=== PATIENT | male | born 1950 | race Caucasian/White ===

== ENCOUNTER 2024-08-03 10:52 | Inpatient (IN) | payer MEDICARE, OTHER, SELFPAY ==
[2024-07-31] VITALS (7 sets, daily range): BP systolic 117–162; BP diastolic 70–131; BMI 15.4
[2024-07-31 11:41] LABS: % Basophils 0.7 % (0-2); % Eosinophils 3.2 % (0-6); % Immature Granulocytes 0.1 % (0-0.5); % Lymphocytes 15.4 % (20.5-51.1); % Monocytes 7.5 % (1.7-9.3); % Neutrophils 73.1 % (42.2-75.2); Absolute Basophils 0.1 10^3/uL (0-0.2); Absolute Eosinophils 0.2 10^3/uL (0-0.7); Absolute Lymphocytes 1.2 10^3/uL (1.2-3.4); Absolute Monocytes 0.6 10^3/uL (0.1-0.6); Absolute Neutrophils 5.5 10^3/uL (1.4-6.5); Hematocrit 43.1 % (39.0-52.0); Hemoglobin 14.3 g/dL (13.0-18.0); Mean Corp Hgb Conc. 33.2 g/dL (33.0-37.0); Mean Corpuscular Hgb 30.3 pg (27.0-31.0); Mean Corpuscular Volume 91.3 fL (80.0-94.0); Mean Platelet Volume 9.8 fL (7.4-10.4); Nucleated Red Blood Cells % 0 % (-); Platelet Count 176 10^3/uL (130-400); Red Blood Cell Count 4.72 10^6/uL (4.70-6.10); Red Cell Dist. Width 13.6 % (11.5-14.5); White Blood Cell Count 7.5 10^3/uL (4.8-10.8)
[2024-07-31 12:02] LABS: ALT (SGPT) < 10 U/L (0-50); AST (SGOT) 17 U/L (17-59); Albumin 3.9 g/dl (3.5-5.0); Alkaline Phosphatase 62 U/L (38-126); Blood Urea Nitrogen 12 mg/dl (9-20); Calcium 9.1 mg/dl (8.4-10.2); Carbon Dioxide 25 mmol/L (22-30); Chloride 105 mmol/L (98-107); Glucose 89 mg/dl (70-99); Lipase 52 U/L (23-300); Potassium 4.8 mmol/L (3.5-5.1); Sodium 137 mmol/L (135-145); Total Bilirubin 0.8 mg/dl (0.2-1.3); Total Protein 6.4 g/dl (6.3-8.2); eGFR > 60.00
[2024-07-31 12:08] LABS: COVID-19 Antigen Negative (Negative)
[2024-07-31] MEDS: BENADRYL 12.5 MG IV (13:24)
[2024-07-31] MEDS: SOLU-CORTEF 200 MG IV (13:24)
--- NOTE | 2024-07-31 15:26 | ED.GENMED ---
History of Present Illness
General
Chief Complaint: Abdominal Pain
Time Seen by Provider: 07/31/24 12:33
History of Present Illness
History of Present Illness:
74-year-old male presents to the emergency department from [facility] for evaluation of abdominal pain and loose stools for the past several days. Also reported as a nonproductive cough. Has baseline aphasia secondary to a
prior stroke.
Past History
Past History
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
ED Past Surgical History: Cardiac (Defibrillator/pacemaker) and Other (Treatment for a pneumothorax, history of surgery on the left arm from a saw injury where the hand was cut and apparently reattached)
Social History
Tobacco: Smoker
Alcohol: Chronic alcoholic
Drug: None
Personal: Single
Living: other (With friend)
Employment: Disabled
Family History
Family History: Negative Early CAD
Review of Systems
Review of Systems
Allergies reviewed?: Yes
All Other Systems: ROS reviewed and negative except as documented in HPI and ROS
Phy Exam
Physical Exam
Physical Exam:
GEN: Well appearing, NAD, WDWN
HEENT: Oral mucosa moist, no scleral icterus
Cardiac: Regular rate
Lung: No respiratory distress, no tachypnea
Abdomen: Soft, severe tenderness to all 4 quadrants, no rigidity
MSK: No gross deformity or injuries
Skin: Good color, no pallor or jaundice, no rashes
Neuro: AO x3, moves all extremities freely
Psych: Calm, cooperative
Course
Orders/Labs/Results
Orders:
Orders
07/31/24 11:25
COVID-19 Antigen Urgent
Source: Nasal Swab
Complete Blood Count/With Diff Urgent
Comprehensive Metabolic Panel Urgent
Lipase Urgent
Influenza A+B Rapid Molecular Urgent
ADITYA Source: Nasal Swab
Specimen Description:
07/31/24 13:00
CT Abd/Pel (IV only)-DH only Urgent
Comment:
Reason For Exam: diffuse abd pain
07/31/24 13:21
Diphenhydramine [Benadryl] 12.5 mg IV NOW STA
Hydrocortisone Sod Succinate [Solu-Cortef] 200 mg IV NOW STA
07/31/24 15:27
0.9% Sodium Chloride 1000 ml [Nss] 1,000 ml IV BOLUS
HYDROmorphone [Dilaudid] 0.25 mg IV NOW STA
Piperacillin/Tazo 3.375 Gram [Zosyn] 3.375 gram in 50 ml IV NOW
Abnormal Lab Results
07/31/24
11:25
Lymphocytes % 15.4 L %
(20.5-51.1)
07/31/24 11:25
07/31/24 11:25
Vital Signs
Initial and Last Documented VS:
Initial Vital Signs
Temp Pulse Resp BP Pulse Ox
98.8 F 99 16 133/84 99
07/31/24 11:14 07/31/24 11:14 07/31/24 11:14 07/31/24 11:14 07/31/24 11:14
Last Documented Vital Signs
Temp Pulse Resp BP Pulse Ox
98.8 F 99 16 117/103 99
07/31/24 11:14 07/31/24 11:14 07/31/24 11:14 07/31/24 14:00 07/31/24 11:14
MDM/Problems Addressed
MDM/Problems Addressed:
Imaging reveals enteritis likely the cause of the patient's acute symptoms. Incidentally he is noted to have a partially obstructing mass in the ascending colon, will admit for colorectal surg evaluation
*Critical Care Note
Total Time (30-74mins, 75-104mins- exclusive of procedures): Not Applicable
Update Note
Update Note:
I informed the patient of his CAT scan findings including the colonic mass. I offered to contact family to inform them however he shook his head 'no' when I suggested this
ED Attending Note
-
Portions of this chart may have been created with voice recognition software.� Occasional wrong word or��sound alike� substitutions may have occurred due to the inherent limitations of voice recognition software.
Discharge Plan
Departure
Patient Disposition: Admit
Date of Disposition: 07/31/24
Time of Disposition: 15:28
Presentation/result/management discussed w/ accepting MD/DO: Hospitalist
Discharge Problem:
Enteritis, Colonic mass
Prescriptions:
No Action
carvedilol 6.25 MG tablet
6.25 mg PO BID 0RF
atorvastatin 20 MG tablet
20 mg PO QPM 0RF
aspirin 81 MG tablet,delayed release (DR/EC)
81 mg PO DAILY 0RF
dextromethorphan-guaifenesin 10 ML syrup
10 ml PO Q6HPRN PRN (Reason: cough)
bisacodyl [OneLAX Bisacodyl] 10 MG suppository
10 mg UT DAILYPRN PRN (Reason: constipation)
albuterol sulfate 2.5 MG/3 ML solution for nebulization
2.5 mg inhalation R Q4HPRN PRN (Reason: shortness of breath) 0RF
prednisone 20 MG tablet
40 mg PO DAILY 0RF
tramadol 50 MG tablet
25 mg PO Q6HPRN PRN (Reason: severe pain) Qty: 10 0RF
pantoprazole 40 MG tablet,delayed release (DR/EC)
40 mg PO DAILY 0RF
lisinopril 5 MG tablet
5 mg PO DAILY 0RF
dextromethorphan-guaifenesin 10 ML syrup
10 ml PO Q6HPRN PRN (Reason: cough )
acetaminophen [Tylenol] 325 MG capsule
650 mg PO Q6HPRN PRN (Reason: mild pain)
Referrals:
Nahid Thompson DO [Family Provider] -
Interventions
Interventions:
*Risk Screen - Suicide Last Done: 07/31/24 11:17
*General Assessment Last Done: 07/31/24 12:22
*Neglect/Abuse Screening Last Done: 07/31/24 11:17
*ED COVID-19 Vaccine History Last Done: 07/31/24 12:22
YR-Fjbwga-Vxcxhdorbz Assessment Last Done: 07/31/24 12:22
Discharge Date and Time
Print Language: HUNGARIAN
--- NOTE | 2024-07-31 15:35 | HPS.HSE ---
Family Physician
-
Family Physician: Nahid Thompson
Chief Complaint
-
abdominal pain
History of Present Illness
Patient is a 74-year-old male with past medical history significant for HFrEF, hypertension, ventricular tachycardia, depression and ETOH dependency who presented to [facility] ED for evaluation of abdominal pain. Patient with expressive
aphasia, and assessment limited as he would not verbally respond to questioning. ED reports that facility stated patient with abdominal pain and loose stools for past several days. Patient denies loose stools but is agreeable with abdominal pain.
Patient denies any other symptoms to this provider.
Medical History
Past Medical History
Past Medical History: Reports Other
Additional Past Medical History:
HFrEF
hypertension
ventricular tachycardia
depression
ETOH dependency
Hx CVA
Past Surgical History: Reports Other
Additional Past Surgical History:
AICD placement
appendectomy
BiV ICD
hand cut and reattached
Social History
Tobacco: Smoker (a few a day )
Alcohol: None
Drug: None
Personal: Single
Living: Other (assisted )
Family History
Family History: Not pertinent and Unable to Obtain
Allergies / Home Medications
Allergies reflects when Allergies were last updated in [employer].
Home Medications with original date entered in [employer]
Allergy/Medication List:
Allergies
Allergy/AdvReac Type Severity Reaction Status Date / Time
codeine Allergy Rash Verified 09/01/18 10:04
Iodinated Contrast Media Allergy Rash Verified 09/01/18 10:04
[IV Dye, Iodine Containing]
iodine Allergy Hives/RASH Verified 09/01/18 10:04
Home Medications
lisinopril 30 mg tablet 30 mg PO DAILY 07/31/24
Review of Systems
-
History Source: Patient
Constitutional: Reports No Symptoms
EENT: Reports No Symptoms
Respiratory: Reports No Symptoms
Cardiac: Reports No Symptoms
Abdomen/GI: Reports Abdominal Pain
: Reports No Symptoms
Musculoskeletal: Reports No Symptoms
Skin: Reports No Symptoms
Neurological: Reports No Symptoms
Endocrine: Reports No Symptoms
Hematologic/Lymphatic: Reports No Symptoms
Psych: Reports No Symptoms
Physical Exam
Vital Signs
Vital Signs
Temp Pulse Resp BP Pulse Ox
98.8 F 99 16 117/103 99
07/31/24 11:14 07/31/24 11:14 07/31/24 11:14 07/31/24 14:00 07/31/24 11:14
Physical Exam
General: Well Developed, Well Nourished and Pain
HEENT: NormoCephalic, Moist mucous membranes, Atraumatic, [place] Conjunctivae, Nose Appears Normal and Ears Appear Normal
Respiratory: Clear and Non Labored Respirations
Cardiac: S1/S2 and Regular Rhythm; No Murmur, Rub or Gallop
Breast: Deferred by me
GI: Soft, Non Distended, Normal Bowel Sounds and Tender; No Organomegaly
Rectal: Deferred by Provider
Genito-urinary: Deferred by me
Musculoskeletal: No Clubbing, No Cyanosis and No Edema
Skin: Warm and IV/Catheter Site; No Rash
Neuro: Awake, Alert and Nonfocal/grossly intact
Psych: Calm
Laboratory Results
-
07/31/24 11:25
07/31/24 11:25
Laboratory Results
Total Bilirubin 0.8 mg/dl (0.2-1.3) 07/31/24 11:25
AST 17 U/L (17-59) 07/31/24 11:25
ALT < 10 U/L (0-50) 07/31/24 11:25
Alkaline Phosphatase 62 U/L (38-126) 07/31/24 11:25
Lipase 52 U/L (23-300) 07/31/24 11:25
Data Reviewed
-
CT Scan: Report Reviewed by me (Abd/Pelvis: 1. Prominent bowel wall thickening and mucosal hyperenhancement within the distal ileum, consistent with severe enteritis. 2. Focal area of bowel wall thickening and narrowing within the ascending colon
adjacent to the hepatic flexure, highly concerning for colon carcinoma. There is feca)
Lab Data: Labs Reviewed by me
Impression/Plan
-
IMPRESSION/PLAN:
#enteritis
Abd/Pelvis CT: 1. Prominent bowel wall thickening and mucosal hyperenhancement within the distal ileum, consistent with severe enteritis.
2. Focal area of bowel wall thickening and narrowing within the ascending colon adjacent to the hepatic flexure, highly concerning for colon carcinoma. There is fecal retention within the cecum located upstream,
consistent with partial colonic obstruction. Further evaluation is recommended with colonoscopy.
3. Small amount of abdominal pelvic ascites, likely reactive. No evidence of abscess formation.
- admit to med/surg for observation
- consult colorectal
- clear liquid diet
- IVF
- tramadol for pain
#hypertension
- continue lisinopril
#HFrEF
#ventricular tachycardia
#depression
#ETOH dependency
#Hx CVA
Code status: Full code
DVT prophylaxis: Lovenox sq
[2024-07-31] MEDS: NSS 1000 IV ×2 (15:39→17:26)
[2024-07-31] MEDS: DILAUDID 0.25 MG IV (15:40)
[2024-07-31] MEDS: ZOSYN 50 IV (15:41)
--- NOTE | 2024-07-31 16:14 | W.PN.UPDATE ---
Addendum entered and electronically signed by Esdras Guidry MD 07/31/24 16:21:
There is also suprapubic fullness. Will get a bladder scan and straight cath if greater than 450 cc.
Could be retaining due to colonic mass/partial obstruction
Digital clubbing on exam was also noted
Original Note:
Update Note
Progress Note Update
74 male history of aphasia after left-sided MCA CVA and associated right-sided hemiplegia, hypertension, midrange heart failure with a EF of 45 to 50% who presents with a 3-day history of abdominal pain. Per the ER associated diarrhea however he
denied this and shakes his head to having normal bowel movements. Denies nausea vomiting. He states he has lost about 30 pounds in 1 year. Admits to having 12/10 pain. Difficult for him to to tell me if this was sharp or dull electric constant
intermittent due to his expressive aphasia. Most of this exam was conducted by him shaking his head yes and no and gesturing with his fingers numbers.
CTAP:
IMPRESSION:
1. Prominent bowel wall thickening and mucosal hyperenhancement within the distal ileum, consistent with severe enteritis.
2. Focal area of bowel wall thickening and narrowing within the ascending colon adjacent to the hepatic flexure, highly concerning for colon carcinoma. There is fecal retention within the cecum located upstream, consistent with partial colonic
obstruction. Further evaluation is recommended with colonoscopy.
3. Small amount of abdominal pelvic ascites, likely reactive. No evidence of abscess formation.
Thin, cachectic, frail, nontoxic appearing
scleral Anicteric
MMM
No JVD
CTABL
RRR, S1/S2
Soft, left lower quadrant tenderness, jumping out of bed when left lower quadrant palpated and this is after 0.25 of Dilaudid given to him in the ER, ND, BS+
Warm, Dry
?Colonic obstruction but not outlet, potentially partial
Enteritis however denies diarrhea
Clear liquid diet
IV fluids
Analgesic
Check lactic
Colorectal surgery to eval
Likely will need C-scope
COVID and flu negative
[2024-07-31] MEDS: LOVENOX 40 MG SC (17:33)
--- NOTE | 2024-07-31 17:47 | CON.CRS ---
Consultation
-
Reason for Consultation: Enteritis, right colon mass
Medical History
-
History of Present Illness:
74-year-old male with PMH of CHF (last echo 2022 EF 45-50%, mild global hypokinesis), cardiomyopathy, CAD, HTN, CVA 2016 (right hemiparesis, expressive aphasia), pneumothorax s/p thoracic surgery who presents from group facility with 3 days of
abdominal pain. Due to expressive aphasia, patient only able to answer yes/no with shaking head, so some of history obtained from the chart. He denies any nausea or vomiting. He denies any diarrhea, but did have a BM today without blood. Denies
any other issues. In the ED, his labs were unremarkable. His CT was done showing terminal ileitis as well as right ascending wall thickening concerning for colonic mass without significant proximal dilation, but some retained stool within the
cecum concerning for partial obstruction.
Past Medical History
Past Medical History: Other (As above)
Past Surgical History: Other (Left thoracotomy with wedge resection, AICD placement, right hand trauma s/p reconstruction, appendectomy 2010)
Social History
Tobacco: Smoker
Alcohol: None
Drug: None
Living: Other ([facility])
Family History
Family History: Reviewed & Not Pertinent
Allergies / Home Medications
Allergy/AdvReac Type Severity Reaction Status Date / Time
codeine Allergy Rash Verified 09/01/18 10:04
Iodinated Contrast Media Allergy Rash Verified 09/01/18 10:04
[IV Dye, Iodine Containing]
iodine Allergy Hives/RASH Verified 09/01/18 10:04
�Medication �Instructions �Recorded �Confirmed �Type
lisinopril 30 mg tablet 30 mg PO DAILY 07/31/24 07/31/24 History
Review of Systems
-
A 10 point review of systems was completed, and was negative except as per HPI.
Physical Exam
Vital Signs
Temp 97.8 F 07/31/24 17:21
Pulse 101 07/31/24 17:21
Resp Rate 18 07/31/24 17:21
Blood pressure 155/82 07/31/24 17:21
SaO2 99 07/31/24 17:21
07/30/24 07/31/24 08/01/24
06:59 06:59 06:59
Actual Weight 51.483 kg
Body Mass Index (BMI) 15.4
Lab Results / Allergies
07/31/24 11:25
07/31/24 11:25
WBC 7.5 10^3/uL (4.8-10.8) 07/31/24 11:
Hgb 14.3 g/dL (13.0-18.0) 07/31/24 11:25
Hct 43.1 % (39.0-52.0) 07/31/24 11:25
Plt Count 176 10^3/uL (130-400) 07/31/24 11:25
Abs Immat Gran (auto) 0.0 10^3/uL (0-0.05) 07/31/24 11:25
Neutrophils % 73.1 % (42.2-75.2) 07/31/24 11:25
Allergy/AdvReac Type Severity Reaction Status Date / Time
codeine Allergy Rash Verified 09/01/18 10:04
Iodinated Contrast Media Allergy Rash Verified 09/01/18 10:04
[IV Dye, Iodine Containing]
iodine Allergy Hives/RASH Verified 09/01/18 10:04
Physical Exam
General: Well Developed, No Apparent Distress and Other (Under nourished)
HEENT: Normocephalic and Atraumatic
Respiratory: Non Labored Respirations
GI: Soft, Non Distended and Tender (Moderately tender in the bilateral lower quadrants associated with guarding but no rebound, nontender in the upper quadrants)
Skin: Warm, Dry and Other
Neuro: Alert and Other (Somewhat contracted right upper extremity with missing digits, decreased range of motion of RLE; able to verbalize a few words but otherwise communicates with shaking head yes/no)
Assessment / Plan
-
74-year-old male with PMH of CHF (last echo 2022 EF 45-50%, mild global hypokinesis), cardiomyopathy, CAD, HTN, CVA 2016 (right hemiparesis, expressive aphasia), pneumothorax s/p thoracic surgery who presents from group facility with 3 days of
abdominal pain. Due to expressive aphasia, patient only able to answer yes/no with shaking head, so some of history obtained from the chart. He denies any nausea or vomiting. He denies any diarrhea, but did have a BM today without blood. Denies
any other issues. In the ED, his labs were unremarkable. His CT was done showing terminal ileitis as well as right ascending wall thickening concerning for colonic mass without significant proximal dilation, but some retained stool within the
cecum concerning for partial obstruction.
�Acute enteritis, primarily distributed within the terminal ileum
�Differential includes infectious versus inflammatory, as well as ischemic; due to normal labs and clinical presentation, I suspect this is more likely related to an infectious enteritis
�Send stat lactate; if any evidence of clinical worsening, would obtain CTA abdomen/pelvis to rule out ischemic/embolic etiology
�Recommend n.p.o. with IVF, okay for sips
�Ascending colon mass
�Although proximal stool seen, cecum not significantly dilated (i.e.�less than 7 cm) and the patient is not having obstructive symptoms; therefore, this likely represents incidental finding as opposed to contributing to his current abdominal pain
�Patient will need colonoscopy as outpatient for diagnosis and biopsy, which I can coordinate on discharge
�Will order CEA for a.m. labs
� Pain control with Tylenol and tramadol
� DVT PPx with Lovenox
� Appreciate hospitalist
--- NOTE | 2024-07-31 18:05 | PTCARENOTE ---
Received patient from ED via stretcher. AAOx3, assisted to bed. Assessed and oriented to room. Call aponte instructed to use and in close reach. Will continue to monitor.
[2024-07-31] MEDS: LR 1000 IV (18:38)
[2024-07-31 20:35] LABS: Lactic Acid 1.1 mmol/L (0.7-2.0)
[2024-07-31] MEDS: TYLENOL 650 MG PO (21:04)
[2024-08-01] MEDS: LR 1000 IV ×2 (05:20→18:43)
--- NOTE | 2024-08-01 06:07 | PTCARENOTE ---
Pt keeps saying he doesn't have to go to the bathroom to void through the night. Pt refused bladder scan at this time.
[2024-08-01 07:35] VITALS: BP 160/87
[2024-08-01 08:14] LABS: Hematocrit 34.5 % (39.0-52.0); Hemoglobin 11.7 g/dL (13.0-18.0); Mean Corp Hgb Conc. 33.9 g/dL (33.0-37.0); Mean Corpuscular Hgb 30.3 pg (27.0-31.0); Mean Corpuscular Volume 89.4 fL (80.0-94.0); Mean Platelet Volume 10.5 fL (7.4-10.4); Platelet Count 152 10^3/uL (130-400); Red Blood Cell Count 3.86 10^6/uL (4.70-6.10); Red Cell Dist. Width 13.5 % (11.5-14.5); White Blood Cell Count 4.9 10^3/uL (4.8-10.8)
[2024-08-01] MEDS: ULTRAM 25 MG PO (08:33)
[2024-08-01] MEDS: ZESTRIL 30 MG PO (08:33)
[2024-08-01 08:39] VITALS: BMI 15.6
[2024-08-01 08:39] LABS: Blood Urea Nitrogen 15 mg/dl (9-20); Calcium 8.3 mg/dl (8.4-10.2); Carbon Dioxide 24 mmol/L (22-30); Chloride 105 mmol/L (98-107); Estimated Creatinine Clearance 54 ml/min; Glucose 92 mg/dl (70-99); Potassium 4.3 mmol/L (3.5-5.1); Sodium 137 mmol/L (135-145); eGFR > 60.00
[2024-08-01 09:02] LABS: CEA 1.05 ng/ml
--- NOTE | 2024-08-01 10:24 | CM ---
Addendum entered by Edna Chaparro 08/01/24 16:14:
CM spoke with psychiatry who is reviewing case. Patient son would be next of kin but per patient brother he has not been speaking to the son. CM will continue to try to assess options for support of patient.
Original Note:
Patient seen at bedside. Patient currently OBS but per physician is to be updated to [facility]. Patient lives at a snf and patient is independent of ambulation per patient brother but walks with a limp due to left side CVA. Patient brother states
that patient does not have a POA or Guardian at this time. Patient brother is aware that patient wanted to move to [place] to be closer to him but due to issues with [facility] they will not cover snf and patient did not want to go to a
long term. Patient brother indicated best number to reach him is [phone] and he is not speaking to patient son/nephew who are in chalnt.
Patient snf states that patient can return as long as he is at baseline. Machine Engraver name is Judith and she can be reached saturday- saturday [phone]. Patient snf nursing station is [phone]. CM spoke to the nurse there who
confirmed patient is his own POA and had been in a long term prior to transfer to the snf approx a year ago. CM updated nursing and will continue to follow for discharge planning needs.
Plan; return to snf vs SNF; pending medical treatment plan and PT/OT assessment
--- NOTE | 2024-08-01 11:45 | W.PN.HOSP.TC ---
Today's Communication/Plan
-
Assessment / Plan
Assessment / Plan
?Colonic obstruction but not outlet, potentially partial, but without obstructive symtpoms
Enteritis ingfectious vs inflam. lactic was <2, less likely ischemic, Pain seems better and no out of propotion therefore which makes ischemic bowel less likely
NPO for now
IV fluids
Analgesic
Check lactic
Colorectal surgery to eval
Likely will need C-scope, surgery will arrange when ready for DC
COVID and flu negative
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
Not on diuretics, Medication profile not consistent with HF.
IVF
Monitor volume status closely
Potentially would benefit from coreg. May consider adding if bp uncontrolled
HTN
Continue lisinopril
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
Not on asa/statin. I have asked pharmacy to complete an updated med rec
Normocytic anemia
Outpt PCP follow up
Age appropriate cancer screening
Does have a suspicious colonic mass
Anticipated Discharge: > 48 hours
Subjective/Interval History
-
Date of Service: August 01, 2024
Seen and examined. No new complaints. No acute overnight events.
7/10 abdominal pain however not jumping out of bed as he was yesterday
Objective Data
-
Labs:
Laboratory Results
08/01/24
07:07
WBC 4.9
Hgb 11.7 L
Hct 34.5 L
Plt Count 152
Sodium 137
Potassium 4.3
Chloride 105
Carbon Dioxide 24
BUN 15
Creatinine 0.9
Glucose 92
Calcium 8.3 L
Vital Signs:
Vital Signs
Temp Pulse Resp BP Pulse Ox
97.8 F 78 16 160/87 99
08/01/24 07:35 08/01/24 08:33 08/01/24 07:35 08/01/24 08:33 08/01/24 07:35
I&O
07/31/24 08/01/24 08/02/24
06:59 06:59 06:59
Intake Total 1220 / 1220
Balance 1220 / 1220
--- NOTE | 2024-08-01 12:06 | W.PN.CRS1 ---
Today's Communication / Plan
-
Gastrografin enema today.
CT chest.
Assessment/Plan
-
This is a 72-year-old male with a past medical history of CHF (last echo 2022 with an EF of 50%), CAD, hypertension, CVA 2016 with residual right hemiparesis and expressive aphasia which makes taking a history fairly difficult, who presents from his
facility with 3 days of abdominal pain and found to have a large near obstructing right-sided colonic mass with some retained stool in the cecum.
Given the size of the mass, social situation would likely pursue surgical resection this admission.
Will obtain a Gastrografin enema todayTEP certain whether he is truly of obstruction or not.
His CT abdomen does not show any signs of metastatic disease. Will obtain a CT chest today. His CEA is within normal limits. He will need a colonoscopy for tissue diagnosis and to rule out synchronous lesions.
N.p.o. for now okay for sips of chips and meds.
Pain control
Out of bed and ambulate, Lovenox, SCDs.
I did have a lengthy discussion with his brother Gordon who stated that they had no formal power of business attorney set up, though he feels he knows his brother the best. Con does not have a spouse. He does have a son who reportedly is not involved in
his care. We will reach out to the patient case coordinator to help set up POA for Con.
General surgery will follow through the weekend and colorectal surgery will resume care on Saturday.
Subjective Data
Subjective Data
Date of Service: August 01, 2024
Interval Events:
No acute events overnight.
Objective Data
-
Vital Signs
Temp Pulse Resp BP Pulse Ox
97.8 F 78 16 160/87 99
08/01/24 07:35 08/01/24 08:33 08/01/24 07:35 08/01/24 08:33 08/01/24 07:35
Intake & Output
07/31/24 08/01/24 08/02/24
06:59 06:59 06:59
Intake Total 1220 / 1220
Balance 1220 / 1220
Intake:
Oral fluids 120 / 120
IV fluids (Total) 1100 / 1100
Lab Results
08/01/24 07:07
08/01/24 07:07
Physical Exam
-
General: No Acute Distress
Abdomen: Soft, Distended (Mildly), Tender (Somewhat diffusely tender but certainly more tender in the right lower quadrant), No Guarding and No Rebound
Data Reviewed
-
CT Scan: Image Reviewed and Report Reviewed
Total Time Spent with Patient (in minutes): 20
[2024-08-01 15:25] VITALS: BP 152/94
--- NOTE | 2024-08-01 15:42 | PTCARENOTE ---
Pt has not been nauseous at all today, minimal abdominal discomfort, unable to describe, throughout entire abdomen, tolerable to pt. Pt had a moderate, hard BM today- made Dr. Peters aware. Advanced to clear liquid diet, will monitor.
[2024-08-01] MEDS: LOVENOX 40 MG SC (17:15)
[2024-08-01] MEDS: TYLENOL 650 MG PO (23:25)
[2024-08-01 23:51] VITALS: BP 101/57
[2024-08-02] MEDS: LR 1000 IV (03:43)
[2024-08-02 06:00] VITALS: BMI 15.9
[2024-08-02 07:55] VITALS: BP 121/57
--- NOTE | 2024-08-02 13:01 | W.PN.HOSP.TC ---
Today's Communication/Plan
-
Assessment / Plan
Assessment / Plan
NAD, communicate with pen and paper yes and no questions. Poor insight poor understanding
Scleral Anicteric
MMM
No JVD
CTABL
RRR, S1/S2
Soft, left lower quadrant tenderness,, ND, BS+
Warm, Dry
AA
Calm
?Colonic obstruction but not outlet, potentially partial, but without obstructive symtpoms
Enteritis ingfectious vs inflam. lactic was <2, less likely ischemic, Pain seems better and no out of propotion therefore which makes ischemic bowel less likely
Advance to full liquid diet
IV fluids
Analgesic
Colorectal following
Likely will need C-scope, surgery will arrange when ready for DC
COVID and flu negative
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
Not on diuretics, Medication profile not consistent with HF.
IVF
Monitor volume status closely
Potentially would benefit from coreg. May consider adding if bp uncontrolled
HTN
Continue lisinopril
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
Not on asa/statin. I have asked pharmacy to complete an updated med rec
Normocytic anemia
Outpt PCP follow up
Age appropriate cancer screening
Does have a suspicious colonic mass
He has poor understanding. He has expressive aphasia. Brother in [place]. Who is working on power of patent attorney. Likely able to consent for any procedures that he requires
Anticipated Discharge: 24 - 48 hours
Subjective/Interval History
-
Date of Service: August 02, 2024
Seen and examined.
Due to his expressive aphasia use pen and paper to communicate with him. States he had 10 out of 10 pain. However he does not understand what is going on with him. I informed him he most likely has cancer. When asked again if he understood he
shook his head no/pointed to mL on the paper
Objective Data
-
Vital Signs:
Vital Signs
Temp Pulse Resp BP Pulse Ox
97.4 F 60 14 121/57 100
08/02/24 07:55 08/02/24 07:55 08/02/24 07:55 08/02/24 07:55 08/02/24 07:55
I&O
08/01/24 08/02/24 08/03/24
06:59 06:59 06:59
Intake Total 1220 / 1220 2680 / 2680
Balance 1220 / 1220 2680 / 2680
--- NOTE | 2024-08-02 13:52 | W.PN.GS2 ---
Subjective Data
-
Interval events:
Barium enema showing 5 cm core type lesion corresponding to CT
CT chest no metastatic disease, emphysematous lung changes
There is an approximately 5 cm in length at the core type lesion with shouldered margins and mucosal destruction in the upper aspect of the ascending colon corresponding with the mass seen at CT and high-level suspicion for adenocarcinoma.
Colonoscopy would be useful for further evaluation.
Emphysematous lung changes. No anatomic evidence to suggest metastatic disease in the chest.
Date of Service: August 02, 2024
Objective Data
-
Intake and Output
08/01/24 08/02/24 08/03/24
06:59 06:59 06:59
Intake Total 1220 / 1220 2680 / 2680
Balance 1220 / 1220 2680 / 2680
Intake:
Oral fluids 120 / 120 480 / 480
IV fluids (Total) 1100 / 1100 2200 / 2200
Other:
Number of approximated MODERATE 1
amounts of urine
Vital Signs
Temp Pulse Resp BP Pulse Ox
97.4 F 60 14 121/57 100
08/02/24 07:55 08/02/24 07:55 08/02/24 07:55 08/02/24 07:55 08/02/24 07:55
Lab Results
08/01/24 07:07
08/01/24 07:07
Calcium 8.3 mg/dl (8.4-10.2) L 08/01/24 07:07
Total Bilirubin 0.8 mg/dl (0.2-1.3) 07/31/24 11:25
AST 17 U/L (17-59) 07/31/24 11:25
ALT < 10 U/L (0-50) 07/31/24 11:25
Alkaline Phosphatase 62 U/L (38-126) 07/31/24 11:25
Total Protein 6.4 g/dl (6.3-8.2) 07/31/24 11:25
Albumin 3.9 g/dl (3.5-5.0) 07/31/24 11:25
Physical Exam
-
General: No Acute Distress
Abdomen: Soft, mildly distended, mildly tender, No Guarding and No Rebound.
--- NOTE | 2024-08-02 13:56 | W.PN.CRS1 ---
Addendum entered and electronically signed by Juan Alberto Peters MD 08/02/24 15:55:
I saw and examined the patient independently.
The resident's documentation was reviewed and I agree with the note, assessment and plan except where noted below.
Comment: Incomplete right colonic obstruction due to mass, likely colon cancer. Ideally would get colonoscopy to rule out synchronous lesion.
Or planned for this week.
Okay for full liquid diet, anticipate starting his colonoscopy prep tomorrow.
Patient agreeable to plan of care above
We will need to establish a POA for him going forward with the patient appears to be consentable.
Original Note:
Today's Communication / Plan
-
Barium enema with 5 cm long core type lesion corresponding with mass seen in lesion, high-level suspicion for adenocarcinoma.
CT chest with no metastatic disease, likely emphysematous changes.
Tentative plan on colonoscopy Saturday likely with Dr. Awad to rule out synchronous lesions
Tentative plan for OR Saturday for surgical resection.
Ok for full liquid diet
Pain control
Out of bed and ambulate, Lovenox, SCDs.
Assessment/Plan
-
This is a 72-year-old male with a past medical history of CHF (last echo 2022 with an EF of 50%), CAD, hypertension, CVA 2016 with residual right hemiparesis and expressive aphasia which makes taking a history fairly difficult, who presents from his
facility with 3 days of abdominal pain and found to have a large near obstructing right-sided colonic mass with some retained stool in the cecum.
Barium enema with 5 cm long core type lesion corresponding with mass seen in lesion, high-level suspicion for adenocarcinoma.
CT chest with no metastatic disease, likely emphysematous changes.
Tentative plan on colonoscopy Saturday likely with Dr. Awad to rule out synchronous lesions
Tentative plan for OR Saturday for surgical resection.
Ok for full liquid diet
Pain control
Out of bed and ambulate, Lovenox, SCDs.
General surgery will follow through the weekend and colorectal surgery will resume care on Saturday.
Subjective Data
Subjective Data
Interval events:
Barium enema showing 5 cm core type lesion corresponding to CT
CT chest no metastatic disease, emphysematous lung changes
Does not endorse pain, tolerating liquids
Complains of hunger
Date of Service: August 02, 2024
Objective Data
-
Vital Signs
Temp Pulse Resp BP Pulse Ox
97.4 F 60 14 121/57 100
08/02/24 07:55 08/02/24 07:55 08/02/24 07:55 08/02/24 07:55 08/02/24 07:55
Intake & Output
08/01/24 08/02/24 08/03/24
06:59 06:59 06:59
Intake Total 1220 / 1220 2680 / 2680
Balance 1220 / 1220 2680 / 2680
Intake:
Oral fluids 120 / 120 480 / 480
IV fluids (Total) 1100 / 1100 2200 / 2200
Other:
Number of approximated MODERATE 1
amounts of urine
Lab Results
08/01/24 07:07
08/01/24 07:07
Physical Exam
-
General: No Acute Distress
HEENT: Grossly Normal
Chest: Other (No increased wob)
Abdomen: Non Distended (mildly distended. Soft. No rebound or gaurding.)
Neurological: No Motor Deficits and Other (Expressive aphasia as previously noted.)
Data Reviewed
-
Diagnostic Radiology: Image Reviewed (Barium enema)
CT Scan: Image Reviewed (CT chest)
[2024-08-02] MEDS: ZESTRIL 30 MG PO (13:58)
[2024-08-02 15:55] VITALS: BP 117/61
[2024-08-02] MEDS: LOVENOX 40 MG SC (17:29)
[2024-08-02 23:55] VITALS: BP 144/77
[2024-08-03 06:00] VITALS: BMI 16.3
[2024-08-03 08:06] VITALS: BP 139/63
[2024-08-03] MEDS: ZESTRIL 30 MG PO (08:54)
--- NOTE | 2024-08-03 09:01 | W.PN.CRS1 ---
Today's Communication / Plan
-
back to clears
prep today, colonoscopy tomorrow
Assessment/Plan
-
72-year-old male with a past medical history of CHF (last echo 2022 with an EF of 50%), CAD, hypertension, CVA 2016 with residual right hemiparesis and expressive aphasia which makes taking a history fairly difficult, who presents from his facility
with 3 days of abdominal pain and found to have a large near obstructing right-sided colonic mass with some retained stool in the cecum.
08/01: Barium enema with 5 cm long core type lesion corresponding with mass seen in lesion, high-level suspicion for adenocarcinoma.
CT chest with no metastatic disease, likely emphysematous changes.
CEA= 1.05
-Vitals normal. No labs today.
-Continue on clear liquid diet
-OOB as tolerated
-Pain control
-Will prep today, colonoscopy tomorrow. Tentative OR on .
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
Subjective Data
Subjective Data
Date of Service: August 03, 2024
Patient is aphasic and shakes head 'yes' or 'no' when asked.
Patient states he has no pain. He feels distended. He has flatus and bowel movements.
Objective Data
-
Vital Signs
Temp Pulse Resp BP Pulse Ox
97.5 F 62 18 139/63 98
08/03/24 08:06 08/03/24 08:54 08/03/24 08:06 08/03/24 08:54 08/03/24 08:06
Intake & Output
08/02/24 08/03/24 08/04/24
06:59 06:59 06:59
Intake Total 2680 / 2680 1660 / 1660
Balance 2680 / 2680 1660 / 1660
Intake:
Oral fluids 480 / 480 960 / 960
IV fluids (Total) 2200 / 2199 700 / 700
Other:
Number of approximated MODERATE 1 2 2
amounts of urine
How many times incontinent 1
MODERATE amount urine
Lab Results
08/01/24 07:07
08/01/24 07:07
Physical Exam
-
General: No Acute Distress and AOx3
Abdomen: Soft, Distended and Tender (RLQ- mild)
Skin: Warm and Dry
--- NOTE | 2024-08-03 10:52 | W.PN.HOSP.TC ---
Today's Communication/Plan
-
see plan
Assessment / Plan
Assessment / Plan
Mr. Con London is a 74 yo man with hx HFrEF, HTN,left-sided MCA with associated right-sided hemiplesia and aphasia, presents to the ER for evaluation of abdominal pain
CTAP:
IMPRESSION:
1. Prominent bowel wall thickening and mucosal hyperenhancement within the distal ileum, consistent with severe enteritis.
2. Focal area of bowel wall thickening and narrowing within the ascending colon adjacent to the hepatic flexure, highly concerning for colon carcinoma. There is fecal retention within the cecum located upstream, consistent with partial colonic
obstruction. Further evaluation is recommended with colonoscopy.
3. Small amount of abdominal pelvic ascites, likely reactive. No evidence of abscess formation.
08/01: Barium enema with 5 cm long core type lesion corresponding with mass seen in lesion, high-level suspicion for adenocarcinoma.
CT chest with no metastatic disease, likely emphysematous changes.
Partial colonic obstruction due to mass
Distal Ileum Enteritis
-continue clears
-pain control
-plan for colonoscopy tomorrow; tentative OR on per CRS
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
Not on diuretics, Medication profile not consistent with HF.
Monitor volume status closely
Potentially would benefit from coreg. May consider adding if bp uncontrolled
HTN
Continue lisinopril
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
Not on asa/statin. I have asked pharmacy to complete an updated med rec
He has poor understanding. He has expressive aphasia. Brother in [place]. Who is working on power of small parts shaper operator. Likely able to consent for any procedures that he requires
Anticipated Discharge: > 48 hours
Subjective/Interval History
-
Date of Service: August 03, 2024
expressive aphasia
denies pain
Objective Data
-
Vital Signs:
Vital Signs
Temp Pulse Resp BP Pulse Ox
97.5 F 62 18 139/63 98
08/03/24 08:06 08/03/24 08:54 08/03/24 08:06 08/03/24 08:54 08/03/24 08:06
I&O
08/02/24 08/03/24 08/04/24
06:59 06:59 06:59
Intake Total 2680 / 2680 1660 / 1660
Balance 2680 / 2680 1660 / 1660
Review of Systems
-
Unable to obtain full review of systems at this time due to: Patient Non-verbal
History Source: Patient
Physical Exam
-
General: No Apparent Distress
HEENT: PERRLA
Respiratory: Clear to Auscultation; Negative Wheezes
Cardiac: Regular Rhythm and S1/S2
GI: Soft and Nontender
Musculoskeletal: No Edema
Skin: Warm and Dry; Negative Rash
Neuro: AO x 3
Psych: Calm
Data Reviewed
-
Diagnostic Radiology: Discussed with Physician
Labs: Labs Reviewed by me
[2024-08-03 11:50] VITALS: BP 159/83; PULSE 62; O2SAT 100
[2024-08-03] MEDS: NULYTELY SOLUTION 4 LITERS PO (12:19)
--- NOTE | 2024-08-03 14:31 | W.PN.UPDATE ---
Documented by User: La Reaves PA-C 08/03/24 14:34
Update Note
Progress Note Update
I was notified by RN that patient is refusing to drink the colonoscopy prep. He had been agreeable to undergo the colonoscopy this morning after I had discussion with him. Dr. Luke who called his brother who stated that the patient does make his
own decisions but he has refused care and the past. The brother will try to have his niece talk to the patient. I personally spoke to the patient and through communicating yes or no, he is declining a colonoscopy. He is also declining surgery. I
spoke to him regarding the risks of declining the procedures including obstruction, perforation, vomiting, and need for emergent surgery. The patient nodded that he understood. I did mention that if he were to pursue the nonoperative route, and
this was cancer, his condition would progress and he would require palliative care. The patient nodded and understand it. I communicated this with Dr. Awad and Dr. Luke. Dr. Awad will see the patient later this afternoon. For now I will keep
him on clears and n.p.o. at midnight in case the patient were to change his mind.

Documented by User: Gasper Awad MD 08/03/24 17:17
Update Note
Progress Note Update
I was notified by RN that patient is refusing to drink the colonoscopy prep. He had been agreeable to undergo the colonoscopy this morning after I had discussion with him. Dr. Luke who called his brother who stated that the patient does make his
own decisions but he has refused care and the past. The brother will try to have his niece talk to the patient. I personally spoke to the patient and through communicating yes or no, he is declining a colonoscopy. He is also declining surgery. I
spoke to him regarding the risks of declining the procedures including obstruction, perforation, vomiting, and need for emergent surgery. The patient nodded that he understood. I did mention that if he were to pursue the nonoperative route, and
this was cancer, his condition would progress and he would require palliative care. The patient nodded and understand it. I communicated this with Dr. Awad and Dr. Luke. Dr. Awad will discuss with the patient/brother later this afternoon. For
now I will keep him on clears and n.p.o. at midnight in case the patient were to change his mind.
--- NOTE | 2024-08-03 15:49 | PTCARENOTE ---
At 1200, pt refused bowel prep, notified. In addition, pt also refused lab work twice. pt's brother called regarding pt agreeing with the prep, however pt has refused everything offered thus far.
--- NOTE | 2024-08-03 16:01 | CM ---
CM reviewed chart, patient scheduled for colonoscopy tomorrow, currently declining, per brother, patient does make own decisions. Per PT/OT, patient supervision level, no skilled need. CM will continue to follow for all discharge planning needs.
Plan; return to [facility]
Fire Alarm Installer: Judith- can be reached Saturday- Saturday [phone]
Nursing station is [phone]
[2024-08-03 16:02] VITALS: BP 161/87
--- NOTE | 2024-08-03 18:04 | PTCARENOTE ---
Pt agreeable to start prep, as per pt, he pointed to half of the container. agreeing to drink half of the prep. Pt encouraged to drink as much as he can. made aware. Colonoscopy scheduled for 8:30 am.
[2024-08-03 23:43] VITALS: BP 176/80
[2024-08-03 23:48] VITALS: BP 148/92
--- NOTE | 2024-08-03 23:55 | PTCARENOTE ---
Patient encouraged to drink bowel prep throughout beginning of the shift. Educated on the importance of the prep for his colonoscopy tomorrow. Pt hesitant but drank about half the prep. Pt encouraged to drink as much as he can throughout the night.
Call aponte is within reach.
[2024-08-04] VITALS (10 sets, daily range): BP systolic 18–162; BP diastolic 72–93; BMI 16.2
[2024-08-04 08:00] LABS: INR 1.01; PT 13.6 Sec (11.4-14.6)
[2024-08-04 08:01] LABS: APTT 29.6 Sec (23.4-35.0)
[2024-08-04 08:17] LABS: Hematocrit 38.5 % (39.0-52.0); Hemoglobin 13.6 g/dL (13.0-18.0); Mean Corp Hgb Conc. 35.3 g/dL (33.0-37.0); Mean Corpuscular Hgb 30.4 pg (27.0-31.0); Mean Corpuscular Volume 86.1 fL (80.0-94.0); Mean Platelet Volume 10.3 fL (7.4-10.4); Platelet Count 146 10^3/uL (130-400); Red Blood Cell Count 4.47 10^6/uL (4.70-6.10); Red Cell Dist. Width 13.2 % (11.5-14.5); White Blood Cell Count 5.4 10^3/uL (4.8-10.8)
[2024-08-04 08:27] LABS: Blood Urea Nitrogen 6 mg/dl (9-20); Calcium 8.5 mg/dl (8.4-10.2); Carbon Dioxide 24 mmol/L (22-30); Chloride 103 mmol/L (98-107); Estimated Creatinine Clearance 64 ml/min; Glucose 68 mg/dl (70-99); Sodium 136 mmol/L (135-145); eGFR > 60.00
--- NOTE | 2024-08-04 10:02 | W.PN.CRS1 ---
Today's Communication / Plan
-
finish rest of prep
colonoscopy around 2pm
Assessment/Plan
-
72-year-old male with a past medical history of CHF (last echo 2022 with an EF of 50%), CAD, hypertension, CVA 2016 with residual right hemiparesis and expressive aphasia which makes taking a history fairly difficult, who presents from his facility
with 3 days of abdominal pain and found to have a large near obstructing right-sided colonic mass with some retained stool in the cecum.
08/01: Barium enema with 5 cm long core type lesion corresponding with mass seen in lesion, high-level suspicion for adenocarcinoma.
CT chest with no metastatic disease, likely emphysematous changes.
CEA= 1.05
-Patient talked to at length by DR. Awad. He is agreeable to try the rest of the prep.
-Remain NPO
-Colonoscopy scheduled around 2pm, will need to stop drinking at 12:00pm
-Discussed with RN
Subjective Data
Subjective Data
Date of Service: August 04, 2024
Patient is able to nod yes or no to responses.
Patient states he has no nausea or vomiting. He denies belly pain at rest. He did half the prep but was unable to finish it. His bowel movements are still brown.
Objective Data
-
Vital Signs
Temp Pulse Resp BP Pulse Ox
97.4 F 71 16 138/90 100
08/04/24 07:30 08/04/24 07:30 08/04/24 07:30 08/04/24 07:30 08/04/24 07:30
Intake & Output
08/03/24 08/04/24 08/05/24
06:59 06:59 06:59
Intake Total 1660 / 1660 240 / 240
Balance 1660 / 1660 240 / 240
Intake:
Oral fluids 960 / 960 240 / 240
IV fluids (Total) 700 / 700
Other:
Number of approximated MODERATE 2 2
amounts of urine
How many times incontinent 1
MODERATE amount urine
Lab Results
08/04/24 07:37
08/04/24 07:37
Physical Exam
-
General: No Acute Distress
Abdomen: Soft, Non Distended and Tender (RLQ - mild/moderate)
Skin: Warm and Dry
[2024-08-04] MEDS: ZESTRIL PO (10:50)
--- NOTE | 2024-08-04 11:00 | W.PN.HOSP.TC ---
Today's Communication/Plan
-
NPO for colonoscopy
patient needs to finish prep
start asa 81mg
Assessment / Plan
Assessment / Plan
Mr. 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
CTAP:
IMPRESSION:
1. Prominent bowel wall thickening and mucosal hyperenhancement within the distal ileum, consistent with severe enteritis.
2. Focal area of bowel wall thickening and narrowing within the ascending colon adjacent to the hepatic flexure, highly concerning for colon carcinoma. There is fecal retention within the cecum located upstream, consistent with partial colonic
obstruction. Further evaluation is recommended with colonoscopy.
3. Small amount of abdominal pelvic ascites, likely reactive. No evidence of abscess formation.
08/01: Barium enema with 5 cm long core type lesion corresponding with mass seen in lesion, high-level suspicion for adenocarcinoma.
CT chest with no metastatic disease, likely emphysematous changes.
Partial colonic obstruction due to mass
Distal Ileum Enteritis
-NPO for colonoscopy today - patient agreed to prep but may be refusing per RN; tentative OR on per CRS (will ask Cardiology consult to help with clearance tomorrow)
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
-not on diuretics
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
-notes in [facility] states he has refused medications in past
-s/p debrillator (EF was 15-20% 2007)
-Monitor volume status closely
CAD
-patient not on aspirin or statin - suspect he refused these medications as brother has stated he has refused care in past
HTN
Continue lisinopril
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
-will start aspirin, Dr. Awad is OK with this
He has poor understanding. He has expressive aphasia. Brother in [place]. Who is working on power of criminal attorney. Difficult situation as patient intermittently refusing care. Discussed with brother, trying to get patient's niece to visit.
DVT PPx
FULL CODE
Anticipated Discharge: > 48 hours
Subjective/Interval History
-
Date of Service: August 04, 2024
patient nods head yes that he will drink prep and have colonoscopy but per RN having difficult time
Objective Data
-
Labs:
Laboratory Results
08/04/24
07:37
WBC 5.4
Hgb 13.6
Hct 38.5 L
Plt Count 146
PT 13.6
INR 1.01
APTT 29.6
Sodium 136
Potassium 4.0
Chloride 103
Carbon Dioxide 24
BUN 6 L
Creatinine 0.8
Glucose 68 L
Calcium 8.5
Vital Signs:
Vital Signs
Temp Pulse Resp BP Pulse Ox
97.4 F 71 16 138/90 100
08/04/24 07:30 08/04/24 07:30 08/04/24 07:30 08/04/24 07:30 08/04/24 07:30
I&O
08/03/24 08/04/24 08/05/24
06:59 06:59 06:59
Intake Total 1660 / 1660 240 / 240
Balance 1660 / 1660 240 / 240
Review of Systems
-
Unable to obtain full review of systems at this time due to: Patient Non-verbal
History Source: Patient
Physical Exam
-
General: No Apparent Distress
HEENT: PERRLA
Respiratory: Clear to Auscultation; Negative Wheezes
Cardiac: Regular Rhythm and S1/S2
GI: Soft and Nontender
Musculoskeletal: No Edema
Skin: Warm and Dry; Negative Rash
Neuro: Other (severe aphasia )
Psych: Calm
Data Reviewed
-
Diagnostic Radiology: Report Reviewed by me
Labs: Labs Reviewed by me
[2024-08-04 11:10] LABS: Glucose - Point of Care 61 mg/dl (70-99)
[2024-08-04] MEDS: D5LR 1000 IV (11:13)
[2024-08-04] MEDS: DEXTROSE 50% SYRINGE 12.5 GRAMS IV (12:11)
--- NOTE | 2024-08-04 12:35 | PTCARENOTE ---
Patient is encourage to drink colonoscopy prep but drinks a very small amount. Refused enema that was ordered. Patient was educated on importance of taking prep before colonoscopy.
[2024-08-04 18:24] LABS: Glucose - Point of Care 105 mg/dl (70-99)
--- NOTE | 2024-08-04 20:06 | W.PN.UPDATE ---
Update Note
Progress Note Update
Spoke with patient regarding results of colonoscopy; I identified a nearly obstructing fungating mass at the proximal ascending colon, concerning for cancer; I obtained biopsies; however, even if the biopsies are negative, I explained that this mass
would need to be removed surgically both to confirm the pathology and to prevent an obstruction which I fear would be in the near future; I explained the risks of not proceeding with surgery, including but not limited to, continued growth and
possible spread of the mass, possible complete obstruction with perforation requiring emergency surgery; I explained that surgery could be done this admission and could be done as soon as Saturday; however, he would need to either remain on
clear liquids or he would need to undergo another bowel prep night; the patient said he would prefer to restart a regular diet and redo the bowel prep night; he said that he would be agreeable to surgery this Saturday afternoon
�Okay for regular diet; I cautioned the patient that if he developed any worsening abdominal pain, we would need to de-escalate the diet; he nodded in understanding
�Will add protein shakes to each meal for nutritional supplementation
�Recommend cardiac consult for preoperative restratification
[2024-08-05 03:17] LABS: Glucose - Point of Care 76 mg/dl (70-99)
--- NOTE | 2024-08-05 03:33 | DOWNTIME ---
There was a [employer] Downtime on 08/05/2024 from 0100 to 08/05/2023 at 0235 . Downtime documentation of patient's care, including medication administrations, has been reconciled in the electronic record per guidelines. Refer to the
patient's paper chart under the miscellaneous tab to see printed paper medication records and downtime forms.
[2024-08-05 07:20] VITALS: BP 133/81
--- NOTE | 2024-08-05 09:45 | W.PN.CRS1 ---
Today's Communication / Plan
-
Plan to reprep tomorrow
Surgery saturday
Assessment/Plan
-
72-year-old male with a past medical history of CHF (last echo 2022 with an EF of 50%), CAD, hypertension, CVA 2016 with residual right hemiparesis and expressive aphasia which makes taking a history fairly difficult, who presents from his facility
with 3 days of abdominal pain and found to have a large near obstructing right-sided colonic mass with some retained stool in the cecum.
08/01: Barium enema with 5 cm long core type lesion corresponding with mass seen in lesion, high-level suspicion for adenocarcinoma.
CT chest with no metastatic disease, likely emphysematous changes.
CEA= 1.05
08/04: colonoscopy with likely malignant partially obstructing tumor in the proximal ascending colon
-Continue regular diet today
-Will reprep tomorrow
-Plan for surgery on Saturday, 06/06
-Colonoscopy pathology pending
Subjective Data
Subjective Data
Date of Service: August 05, 2024
Patient is able to nod his head yes or no to communicate. Patient states he has no pain. He is tolerating a diet. He seems to have no complaints.
Objective Data
-
Vital Signs
Temp Pulse Resp BP Pulse Ox
97.5 F 70 16 133/81 99
08/05/24 07:20 08/05/24 07:20 08/05/24 07:20 08/05/24 07:20 08/05/24 07:20
Intake & Output
08/04/24 08/05/24 08/06/24
06:59 06:59 06:59
Intake Total 240 / 240 240 / 240
Balance 240 / 240 240 / 240
Intake:
Oral fluids 240 / 240 240 / 240
IV fluids (Total) 0 / 0
IV piggybacks 0 / 0
Other:
Number of approximated MODERATE 2 1
amounts of urine
How many times incontinent 1
MODERATE amount urine
Physical Exam
-
General: No Acute Distress and AOx3
Abdomen: Soft, Non Distended and Tender (RLQ)
Skin: Warm and Dry
--- NOTE | 2024-08-05 10:15 | W.PN.HOSP.TC ---
Today's Communication/Plan
-
see plan
Assessment / Plan
Assessment / Plan
Mr. 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
found to have partially obstructing colonic mass.
CTAP:
IMPRESSION:
1. Prominent bowel wall thickening and mucosal hyperenhancement within the distal ileum, consistent with severe enteritis.
2. Focal area of bowel wall thickening and narrowing within the ascending colon adjacent to the hepatic flexure, highly concerning for colon carcinoma. There is fecal retention within the cecum located upstream, consistent with partial colonic
obstruction. Further evaluation is recommended with colonoscopy.
3. Small amount of abdominal pelvic ascites, likely reactive. No evidence of abscess formation.
08/01: Barium enema with 5 cm long core type lesion corresponding with mass seen in lesion, high-level suspicion for adenocarcinoma.
CT chest with no metastatic disease, likely emphysematous changes.
Partial colonic obstruction due to mass
Distal Ileum Enteritis
-appreciate CRS
-s/p colonoscopy, awaiting pathology
-plan for OR on Saturday
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
-not on diuretics
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
-notes in [facility] states he has refused medications in past
-s/p debrillator (EF was 15-20% 2007)
-Monitor volume status closely
-appreciate cardiology consult for clearance
HTN
Continue lisinopril
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
-will start aspirin, Dr. Awad is OK with this
DVT PPx
FULL CODE
Anticipated Discharge: > 48 hours
Subjective/Interval History
-
Date of Service: August 05, 2024
patient not interested in talking to me this morning, receiving food
Objective Data
-
Labs:
Laboratory Results
08/05/24
06:00
WBC Pending
Hgb Pending
Hct Pending
Plt Count Pending
Sodium Pending
Potassium Pending
Chloride Pending
Carbon Dioxide Pending
BUN Pending
Creatinine Pending
Glucose Pending
Calcium Pending
Vital Signs:
Vital Signs
Temp Pulse Resp BP Pulse Ox
97.5 F 70 16 133/81 99
08/05/24 07:20 08/05/24 07:20 08/05/24 07:20 08/05/24 07:20 08/05/24 07:20
I&O
08/04/24 08/05/24 08/06/24
06:59 06:59 06:59
Intake Total 240 / 240 240 / 240
Balance 240 / 240 240 / 240
Review of Systems
-
History Source: Patient
All other systems: Reviewed and negative
Physical Exam
-
General: No Apparent Distress
HEENT: PERRLA
Respiratory: Clear to Auscultation; Negative Wheezes
Cardiac: Regular Rhythm and S1/S2
GI: Soft and Nontender
Musculoskeletal: No Edema
Skin: Warm and Dry; Negative Rash
Neuro: Other (severe aphasia )
Psych: Calm and Agitated
Data Reviewed
-
Diagnostic Radiology: Report Reviewed by me
Labs: Labs Reviewed by me
[2024-08-05] MEDS: ZESTRIL PO (10:16)
--- NOTE | 2024-08-05 10:38 | CON.CAR ---
Addendum entered and electronically signed by Sahra Mays MD 08/05/24 12:50:
I saw and examined the patient.
The Premium Cancellation Clerk's note was reviewed and I agree with the note.
Comment: He is well-known to our service with multiple medical problems including nonischemic cardiomyopathy with improved ejection fraction 45 to 50%, ventricular tachycardia status post biventricular ICD and history of stroke with weakness and
residual aphasia. He was now diagnosed with colon malignancy and plan is for surgery. He denies chest pain and palpitations. He does not examine as having volume overload. He has no complaints except that he is hungry.
Plan is for upcoming bowel resection.
We will check his biventricular ICD. Last check stable. We will check echocardiogram last check stable.
He is stable from a cardiovascular point of view to proceed with upcoming bowel surgery he is at moderate but acceptable cardiovascular risk to proceed and no further treatment is needed. Would continue to follow telemetry perioperatively and
continue to monitor blood pressure and current medications.
Original Note:
Consultation
Consultation Request
Date/Time Consultation Performed: 08/05/24
Requesting Provider: Dr. Luke
Performing Provider: Lori Leiva PA-C for Dr. Sahra Mays
Reason for Consultation: preop clearance
Medical History
-
Chief Complaint: abd pain
History of Present Illness:
Patient is a 74-year-old male with past medical history of nonischemic cardiomyopathy, with EF most recently 45 to 50% by echo in 2022, chronic systolic heart failure, VT status post Medtronic BiV ICD, history of stroke with residual aphasia, COPD
and ongoing smoking, hypertension, depression who presented to [facility] with several days of abdominal pain and loose stools. CTAP with evidence of severe enteritis as well as focal area of bowel wall thickening and narrowing within
ascending colon concerning for colon cancer with fecal retention. Colonoscopy with likely malignant partially obstructing tumor in proximal ascending colon which was biopsied. He is now planned for bowel resection on 08/07/2024. Cardiology
consulted for preop evaluation. No CP, SOB. Main complaint is that he is hungry.
PMH:
Nonischemic cardiomyopathy, EF 45-50% by echo 2022
Chronic systolic heart failure
VT status post Medtronic BiV ICD
History of stroke with residual aphasia
COPD
HTN
Depression
Past Medical History
Past Medical History: Other (in HPI)
Social History
Tobacco: Smoker
Alcohol: None
Personal: Single
Living: Other ([facility])
Family History
Family History: Diabetes and Hypertension
Allergies / Home Medications
Allergy/AdvReac Type Severity Reaction Status Date / Time
codeine Allergy Rash Verified 09/01/18 10:04
Iodinated Contrast Media Allergy Rash Verified 09/01/18 10:04
[IV Dye, Iodine Containing]
iodine Allergy Hives/RASH Verified 09/01/18 10:04
�Medication �Instructions �Recorded �Confirmed �Type
lisinopril 30 mg tablet 30 mg PO DAILY Blood Pressure 07/31/24 07/31/24 History
Review of Systems
-
History Source: Patient
All other systems: Negative unless noted
Physical Exam
Vital Signs
Temp Pulse Resp BP Pulse Ox
97.5 F 70 16 133/81 99
08/05/24 07:20 08/05/24 07:20 08/05/24 07:20 08/05/24 07:20 08/05/24 07:20
Physical Exam
General: Other (agitated as hungry)
HEENT: Normocephalic, Anicteric and Moist Mucous Membranes
Respiratory: Clear and Non Labored Respirations
Cardiac: S1/S2 and Regular Rhythm
GI: Soft, Non Distended and Tender
Musculoskeletal: No Clubbing, No Cyanosis and No Edema
Skin: Warm and Dry
Neuro: Other (aphasia)
Impression / Plan
-
Primary Chore Tender: Dr. Toan Mays
Assessment:
Presentation with abd pain, loose stools
Colonic obstruction due to ascending colon mass
Enteritis
Nonischemic cardiomyopathy, EF 45-50% by echo 2022
Chronic systolic heart failure
VT status post Medtronic BiV ICD
History of stroke with residual expressive aphasia
COPD
HTN
Depression
ECHO 03/04/23: EF 45 to 50%, mild global hypokinesis, mild MAC, mild MR, mild TR, PAP 26 to 31 mmHg
Plan:
-Patient presented with abd pain, loose stools and by CTAP and colonoscopy has evidence of partially obstructing ascending colon mass. pathology pending. planned for OR with colorectal Saturday08/07/24.
-cardiology consulted for preop clearance
-no CP, SOB
-EKG AV paced with PVCs
-check device interrogation
-check echo, last from 2022 as above
-BP/HR stable. continue OP lisinopril
-appears stable from volume standpoint
-patient likely felt to be at elevated but acceptable cardiovascular risk for upcoming surgery.
-will follow perioperatively.
-d/w nursing
Data Reviewed
-
EKG: Tracing Personally Visualized and interpreted
CT Scan: Report Reviewed by me
Medical Tests (Nuc Med, Echo etc): Report Reviewed by me
Labs: Labs Reviewed by me
Old Records: Reviewed
--- NOTE | 2024-08-05 11:00 | PTCARENOTE ---
Patient refused all AM medications and labs. made aware
--- NOTE | 2024-08-05 14:45 | W.CARD.DEVCH ---
Cardiac Device Check
-
Device: Implanted Cardioverter-Defibrillator
Production Reproduction Manager: [employer]
The patient's device was interrogated with assistance of the device guest relations representative. The device had normal function. Possible recent optivol accumulation, AT/AF burden <0.1%, 3 monitored VT episodes since last interrogation- 05/05/24, 06/19/24,
07/05/24.
--- NOTE | 2024-08-05 15:25 | CM ---
CM following to coordinate all discharge needs for pt to return to [facility] when medically ready.
Plan: Return to [facility] with no additional d/c planning needs.
Assembly Associate, Judiht, Saturday- Saturday [phone]
Nursing Report: [phone]
[2024-08-05 15:40] VITALS: BP 114/65
--- NOTE | 2024-08-05 17:57 | W.PN.UPDATE ---
Update Note
Progress Note Update
spoke with patient's brother, Gordon; explained the findings of the colonoscopy and the recommendation for surgery; I asked if he is pursuing obtaining a POA; brother explained that their niece went and spoke to the patient and he explained that he
doesn't want a POA; I explained that as long as the patient maintains capacity, he can make decisions; from my standpoint, what's important to know is if he gets to a point where he can't make decisions, especially post-operative, it would be
important to have a proxy designated; brother agreed and said he's not sure what the patient would say, so I will discuss that with the patient prior to surgery; I explained the surgery and the risks involved; all questions were answered and the
brother was appreciative
[2024-08-05 23:08] VITALS: BP 130/69
[2024-08-06 08:32] VITALS: BP 143/84
[2024-08-06] MEDS: ZESTRIL PO (08:32)
--- NOTE | 2024-08-06 09:35 | W.PN.HOSP.TC ---
Today's Communication/Plan
-
prep today
NPO after MN for OR
Assessment / Plan
Assessment / Plan
Mr. 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
found to have partially obstructing colonic mass.
CTAP:
IMPRESSION:
1. Prominent bowel wall thickening and mucosal hyperenhancement within the distal ileum, consistent with severe enteritis.
2. Focal area of bowel wall thickening and narrowing within the ascending colon adjacent to the hepatic flexure, highly concerning for colon carcinoma. There is fecal retention within the cecum located upstream, consistent with partial colonic
obstruction. Further evaluation is recommended with colonoscopy.
3. Small amount of abdominal pelvic ascites, likely reactive. No evidence of abscess formation.
08/01: Barium enema with 5 cm long core type lesion corresponding with mass seen in lesion, high-level suspicion for adenocarcinoma.
CT chest with no metastatic disease, likely emphysematous changes.
Partial colonic obstruction due to mass
Distal Ileum Enteritis
-appreciate CRS
-s/p colonoscopy, pathology shows invasive moderately differentiated adenocarcinoma
-clears, prep today
-appreciate cardiology consult for clearance
-plan for OR on Saturday;
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
-not on diuretics
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
-notes in [facility] states he has refused medications in past
-s/p debrillator (EF was 15-20% 2007)
-Monitor volume status closely
-appreciate cardiology consult for clearance
HTN
Continue lisinopril
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
-will start aspirin, Dr. Awad is OK with this
DVT PPx
FULL CODE
Anticipated Discharge: > 48 hours
Subjective/Interval History
-
Date of Service: August 06, 2024
no new complaints
drinking clears today
Objective Data
-
Vital Signs:
Vital Signs
Temp Pulse Resp BP Pulse Ox
97.4 F 68 20 143/84 99
08/06/24 08:32 08/06/24 08:32 08/06/24 08:32 08/06/24 08:32 08/06/24 08:32
I&O
08/05/24 08/06/24 08/07/24
06:59 06:59 06:59
Intake Total 240 / 240
Balance 240 / 240
Review of Systems
-
History Source: Patient
All other systems: Reviewed and negative
Physical Exam
-
General: No Apparent Distress
HEENT: PERRLA
Respiratory: Clear to Auscultation; Negative Wheezes
Cardiac: Regular Rhythm and S1/S2
GI: Soft and Nontender
Musculoskeletal: No Edema
Skin: Warm and Dry; Negative Rash
Neuro: Other (severe aphasia )
Psych: Calm and Agitated
Data Reviewed
-
Diagnostic Radiology: Report Reviewed by me
Labs: Labs Reviewed by me
--- NOTE | 2024-08-06 11:40 | W.PN.CARDCBS ---
Addendum entered and electronically signed by Sahra Mays MD 08/06/24 16:17:
I saw patient.
The Plant Wrapper's note was reviewed and I agree with the note.
He did not allow exam today. Defer to exam below.
Comment: We placed him on engine monitor but he refused and took off the monitor. Plan is for operating room for colon cancer tomorrow. I wished him luck today. Will continue to follow him closely as best he will allow from a cardiac point of
view. Continue current medications. Continue to watch for volume overload. Continue to assess as he allows for arrhythmias.
Original Note:
Today's Communication / Plan
-
patient felt to be at elevated but acceptable cardiovascular risk for upcoming surgery 08/07.
will place on tele perioperatively
Impression / Plan
-
Primary Weight Loss Centre Manager: Dr. Toan Mays
Assessment:
Presentation with abd pain, loose stools
Colonic obstruction due to ascending colon mass
Enteritis
Nonischemic cardiomyopathy, EF 45-50% by echo 2022
Chronic systolic heart failure
VT status post Medtronic BiV ICD
History of stroke with residual expressive aphasia
COPD
HTN
Depression
ECHO 03/04/23: EF 45 to 50%, mild global hypokinesis, mild MAC, mild MR, mild TR, PAP 26 to 31 mmHg
ECHO 08/05/2024: EF 45%, global hypokinesis, mild concentric LVH, stage I diastolic dysfunction, mild to moderate MR, mild TR, PAP 37 mmHg, mildly dilated aortic root and ascending aorta
Plan:
-Patient presented with abd pain, loose stools and by CTAP and colonoscopy has evidence of partially obstructing ascending colon mass. pathology pending. planned for OR with colorectal Saturday08/07/24.
-cardiology consulted for preop clearance
-no complaints of CP, SOB
-EKG AV paced with PVCs. would follow on tele perioperatively. device check 08/05 functioning appropriately - 3 episodes of monitored VT not requiring device intervention, most recent 07/05/24. K stable. check mag. follow electrolytes post op
-echo 08/05/24 stable compared to prior
-BP/HR stable. continue OP lisinopril
-appears stable from volume standpoint
-patient felt to be at elevated but acceptable cardiovascular risk for upcoming surgery 08/07.
-will follow perioperatively.
Progress Note - Weight Loss Centre Manager
Subjective
Date of Service: August 06, 2024
resting comfortably. no complaints
Objective
Labs:
08/05/24 06:00
08/05/24 06:00
Labs
Hgb Cancelled 08/05/24 06:00
Hct Cancelled 08/05/24 06:00
Plt Count Cancelled 08/05/24 06:00
PT 13.6 Sec (11.4-14.6) 08/04/24 07:37
INR 1.01 08/04/24 07:37
APTT 29.6 Sec (23.4-35.0) 08/04/24 07:37
Sodium Cancelled 08/05/24 06:00
Potassium Cancelled 08/05/24 06:00
BUN Cancelled 08/05/24 06:00
Creatinine Cancelled 08/05/24 06:00
Glucose Cancelled 08/05/24 06:00
Vital Signs and I&O:
Vital Signs
Temp Pulse Resp BP Pulse Ox
97.4 F 68 20 143/84 99
08/06/24 08:32 08/06/24 08:32 08/06/24 08:32 08/06/24 08:32 08/06/24 08:32
Vital Signs
Temp Pulse Resp BP Pulse Ox
97.4 F 68 20 143/84 99
08/06/24 08:32 08/06/24 08:32 08/06/24 08:32 08/06/24 08:32 08/06/24 08:32
Intake & Output
08/04/24 08/05/24 08/06/24 08/07/24
07:59 07:59 07:59 07:59
Intake Total 240 / 240 240 / 240
Balance 240 / 240 240 / 240
Physical Exam
Physical Exam
GEN: No distress, awake, resting comfortably
HEENT: supple, anicteric, mmm, eomi
LUNGS: CTA B/L, no wheezes
CV: Reg, S1/S2, no murmur
ABD: soft, BS+, NT/ND
EXT: No cyanosis, clubbing, edema
SKIN: Warm, pink, dry. No rash
--- NOTE | 2024-08-06 12:38 | W.PN.CRS1 ---
Today's Communication / Plan
-
Bowel prep today
Clears
N.p.o. midnight
OR tomorrow
Assessment/Plan
-
72-year-old male with a past medical history of CHF (last echo 2022 with an EF of 50%), CAD, hypertension, CVA 2016 with residual right hemiparesis and expressive aphasia which makes taking a history fairly difficult, who presents from his facility
with 3 days of abdominal pain and found to have a large near obstructing right-sided colonic mass with some retained stool in the cecum.
08/01: Barium enema with 5 cm long core type lesion corresponding with mass seen in lesion, high-level suspicion for adenocarcinoma.
CT chest with no metastatic disease, likely emphysematous changes.
CEA= 1.05
08/04: colonoscopy with likely malignant partially obstructing tumor in the proximal ascending colon
-Clear liquid diet and n.p.o. midnight
-Bowel prep today
-Surgery tomorrow with Dr. Awad, discussed at length with patient
-Preop medications ordered
-Wound RN for stoma marking
-Pathology reviewed from colonoscopy on 218. Shows an invasive moderately differentiated colonic adenocarcinoma.
Subjective Data
Subjective Data
Date of Service: August 06, 2024
Patient states he is agreeable to surgery. He still has some abdominal pain. He is having bowel movements. He denies nausea or vomiting.
Objective Data
-
Vital Signs
Temp Pulse Resp BP Pulse Ox
97.4 F 68 20 143/84 99
08/06/24 08:32 08/06/24 08:32 08/06/24 08:32 08/06/24 08:32 08/06/24 08:32
Intake & Output
08/05/24 08/06/24 08/07/24
06:59 06:59 06:59
Intake Total 240 / 240
Balance 240 / 240
Intake:
Oral fluids 240 / 240
IV fluids (Total) 0 / 0
IV piggybacks 0 / 0
Other:
Number of approximated MODERATE 1
amounts of urine
Number of approximated LARGE 1
amounts of urine
Lab Results
08/05/24 06:00
08/05/24 06:00
Physical Exam
-
General: No Acute Distress and AOx3
Abdomen: Soft, Non Distended and Tender (Mild right lower quadrant)
Skin: Warm and Dry
--- NOTE | 2024-08-06 14:13 | W.PN.UPDATE ---
Update Note
Progress Note Update
nurse placed patient on tele as ordered however patient removed it and refusing further monitoring.
--- NOTE | 2024-08-06 14:20 | PTCARENOTE ---
1330 Pt refusing to do bowel prep for surgery scheduled for 08/07/24. Pt place on tele as ordered by cardiology earlier today. 1400 Patient removed monitor car operator. Pt refused nursing to put it back on. Pt continues to shake his head No when you
speak to him about PO medications, Bowel Prep, nuclear monitoring technician and surgery. PA from Cardiology and Colorectal team made aware. Cont to assess patient status.
[2024-08-06 15:09] VITALS: BP 157/87
--- NOTE | 2024-08-06 16:29 | WOUNDNOTE ---
[facility] RN NOTE: Patient visited for stoma siting. Plan if for OR tomorrow morning. Per RN note, patient is refusing prep. Spoke to patient who refused stoma siting by shaking his head 'no.' TT TYRONE Trujillo and Dr. Awad to make aware of stoma
siting refusal.
--- NOTE | 2024-08-06 21:41 | W.PN.UPDATE ---
Update Note
Progress Note Update
Was informed by nurse that throughout the day, patient refused bowel prep and medications, and when asked about surgery, patient was refusing it to the nurse
Patient was seen around 8:15 PM. He confirmed that he refused the bowel prep. I explained that I could move forward with the surgery tomorrow, but with slightly elevated risks due to an unprepped colon. Had lengthy discussion regarding the
treatment options. Primarily, he can decline surgery or he can move forward with surgery. I explained the risks of no surgery, including but not limited to, the near certainty that the mass will continue to grow and may obstruct, metastasize or
bleed. If any of these complications occur, his life expectancy would become significantly decreased (i.e.�days to months). I explained the risks of surgery, including but not limited to, bleeding, infection, damage to nearby structures,
anastomotic issues, risks of anesthesia (i.e.�TX, CVA, respiratory failure, DVT/PE) and that cardiology deemed him a moderate but acceptable risk for surgery. I asked if he understood these risks and he nodded yes. I asked if he declines surgery
for tomorrow and he nodded his head yes. I further explained that if he declines surgery tomorrow and needs more time to think about his options, I would recommend scheduling the surgery within the next couple of weeks to prevent any complications
to occur from the mass. I asked if he declined surgery altogether. He did not respond yes or no. I asked if he would like more time to think about his options and he nodded his head yes. At this point, he became teary-eyed and shook my hand.
�Will switch his diet to regular and cancel surgery for tomorrow
�Would recommend palliative care consult and goals of care discussion; if patient ultimately declines surgery altogether, would recommend further discussion regarding transition to DNR and transitioning to comfort care when complications arise from
the colon mass
[2024-08-06 23:51] VITALS: BP 102/70
--- NOTE | 2024-08-07 03:54 | PTCARENOTE ---
Pt aaox3 able to make his needs known. Denies pain.Pt refused for any medications,IV fluids & any procedure.CLINICAL FACULTY insulation foreman made aware of pt refusing nursing care over night. Plan of care continued on pt.
[2024-08-07 07:30] VITALS: BP 153/77
[2024-08-07] MEDS: ZESTRIL 30 MG PO (08:23)
--- NOTE | 2024-08-07 09:59 | W.PN.HOSP.TC ---
Today's Communication/Plan
-
palliative care consult
Assessment / Plan
Assessment / Plan
Mr. 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
found to have partially obstructing colonic mass. He has decided against surgery.
CTAP:
IMPRESSION:
1. Prominent bowel wall thickening and mucosal hyperenhancement within the distal ileum, consistent with severe enteritis.
2. Focal area of bowel wall thickening and narrowing within the ascending colon adjacent to the hepatic flexure, highly concerning for colon carcinoma. There is fecal retention within the cecum located upstream, consistent with partial colonic
obstruction. Further evaluation is recommended with colonoscopy.
3. Small amount of abdominal pelvic ascites, likely reactive. No evidence of abscess formation.
08/01: Barium enema with 5 cm long core type lesion corresponding with mass seen in lesion, high-level suspicion for adenocarcinoma.
CT chest with no metastatic disease, likely emphysematous changes.
Partial colonic obstruction due to mass
Distal Ileum Enteritis
-appreciate CRS
-s/p colonoscopy, pathology shows invasive moderately differentiated adenocarcinoma
-plan was for surgery but now patient is refusing
-confirmed with patient this morning. I will consult Palliative Care. He nodded no to CPR and yes to wanting to be DNR - code status changed
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
-not on diuretics
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
-notes in [facility] states he has refused medications in past
-s/p debrillator (EF was 15-20% 2007)
-Monitor volume status closely
-appreciate cardiology consult for clearance
HTN
Continue lisinopril
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
-aspirin started although patient refuses
DVT PPx
FULL CODE
Anticipated Discharge: 24 - 48 hours
Subjective/Interval History
-
Date of Service: August 07, 2024
he is eating and drinking ok
denies pain
confirms he does not want surgery
Objective Data
-
Labs:
Laboratory Results
08/07/24
06:00
WBC Pending
Hgb Pending
Hct Pending
Plt Count Pending
PT Pending
INR Pending
Sodium Pending
Potassium Pending
Chloride Pending
Carbon Dioxide Pending
BUN Pending
Creatinine Pending
Glucose Pending
Calcium Pending
Vital Signs:
Vital Signs
Temp Pulse Resp BP Pulse Ox
99.4 F 86 20 153/77 98
08/07/24 07:30 08/07/24 08:23 08/07/24 07:30 08/07/24 08:23 08/07/24 07:30
I&O
08/06/24 08/07/24 08/08/24
06:59 06:59 06:59
Intake Total 960 / 960
Balance 960 / 960
Review of Systems
-
History Source: Patient
All other systems: Reviewed and negative
Physical Exam
-
General: No Apparent Distress
HEENT: PERRLA
Respiratory: Clear to Auscultation; Negative Wheezes
Cardiac: Regular Rhythm and S1/S2
GI: Soft and Nontender
Musculoskeletal: No Edema
Skin: Warm and Dry; Negative Rash
Neuro: Other (expressive aphasia, nods yes or no )
Psych: Calm and Agitated
Data Reviewed
-
Diagnostic Radiology: Report Reviewed by me
Labs: Labs Reviewed by me
--- NOTE | 2024-08-07 10:55 | W.PN.CRS1 ---
Today's Communication / Plan
-
as below
Assessment/Plan
-
74-year-old male with PMH of CHF (last echo 2022 EF 45-50%, mild global hypokinesis), cardiomyopathy, CAD, HTN, CVA 2016 (right hemiparesis, expressive aphasia), pneumothorax s/p thoracic surgery who presents from group facility with 3 days of
abdominal pain. Due to expressive aphasia, patient only able to answer yes/no with shaking head, so some of history obtained from the chart. He denies any nausea or vomiting. He denies any diarrhea, but did have a BM today without blood. Denies
any other issues. In the ED, his labs were unremarkable. His CT was done showing terminal ileitis as well as right ascending wall thickening concerning for colonic mass without significant proximal dilation, but some retained stool within the
cecum concerning for partial obstruction.
08/04�colonoscopy showing nearly obstructing fungating mass, unable to traverse, biopsied and tattooed distally; 5 additional polyps removed
AFVSS, ABD soft, nondistended, mildly to moderately tender in the lower quadrants (greater on right), no rebound or guarding
No labs today
�Acute enteritis, primarily distributed within the terminal ileum; unclear etiology, but most likely infectious
� Recommended CTA abdomen/pelvis to evaluate the mesenteric vessels, but patient declined
�Ascending colon mass, path c/w invasive adenocarcinoma, mod diff, CARLOS
�CEA 1.05
-CT chest - macrina; CTAP (from day of admission), no concern for mets/LAD
� Per cardiology, moderate but acceptable risk for surgery
�Discussed results of pathology, confirming cancer; reiterated the risks of surgery and no surgery and patient was very clear that he did not want surgery; this morning, he indicated that he would not want surgery in the future either; I explained
that the best opportunity for cure, if desired, or palliation is to operate now; if no surgery is pursued, I explained to the patient that once a complication from the colon cancer arises, I would encourage him to pursue comfort measures as surgery
at that point will have high risks with low benefit; patient nodded his head in understanding
�Recommend palliative care for continued goals of care discussion
� Pain control with Tylenol and tramadol
� DVT PPx with Lovenox
�Appreciate CM; next of kin is his brother, but he lives in [place]; I offered to call his brother to update him on the cancer diagnosis and his decision; however, the patient shook his note no; I clarified, 'do you want me to discuss your medical
care with any of your family?'; he shook his head no
� Appreciate hospitalist; colorectal will sign off, please call for any questions or concerns
Subjective Data
Subjective Data
Date of Service: August 07, 2024
No overnight events. Denies any abdominal pain. Denies N/V. Denies flatus, but having small BMs.
Objective Data
-
Vital Signs
Temp Pulse Resp BP Pulse Ox
99.4 F 86 20 153/77 98
08/07/24 07:30 08/07/24 08:23 08/07/24 07:30 08/07/24 08:23 08/07/24 07:30
Intake & Output
08/06/24 08/07/24 08/08/24
06:59 06:59 06:59
Intake Total 960 / 960
Balance 960 / 960
Intake:
Oral fluids 960 / 960
Other:
Number of approximated MODERATE 4
amounts of urine
Number of approximated LARGE 1 1
amounts of urine
Physical Exam
-
General: No Acute Distress and AOx3
Abdomen: Soft, Non Distended and Tender (Minimally tender in the RLQ today, no rebound or guarding)
Skin: Warm and Dry
--- NOTE | 2024-08-07 11:55 | W.PN.UPDATE ---
Update Note
Progress Note Update
patient noted to be refusing surgery. for palliative care consult. cardiology will sign off. please call with questions.
--- NOTE | 2024-08-07 13:09 | W.CON.PAL ---
Consultation
-
Date/Time Consultation Requested: 08/07
Date/Time Consultation Performed: 08/07
Requesting Provider: Dr Luke
Performing Provider: Lou Leon
Reason for Consult: Goals of Care Discussion
Primary Diagnosis: colon adenocarcinoma
Reason for Admission
Illness Course/HPI
74 year old M with PMH of CHF EF 45%, Vtach s/p ICD, depression, HTN, CVA 2015 with expressive aphasia admitted from nursing home with abdominal pain. Upon admission CT with severe enteritis as well as bowel wall thickening/large colon mass with c/f
partial obstruction concerning for malignancy. Seen by colorectal who recommended colonoscopy/biopsy and surgical resection. He underwent colonoscopy with biopsy on 08/04, also removed multiple other polyps. Pathology + for colon adeno. CTs with no
evidence of distant mets. Surgery recommending resection of mass, patient initially agreeable but now refusing.
Multiple discussions had with patient about risks of not doing surgery including growth, obstructive symptoms and recommended comfort if that happens. Patient is thought to be competent although aphasic, can communicate in writing. Team has also
spoken with patients brother in [place]. Also has a son who he is estranged from.
Patient seen at bedside this PM. Awake and alert, very frustrated. Explained who I was, but had miminal interest in having a conversation with me. Was able to confirm that he does not want surgery. He initially shook his head no when I asked if he
knew what his diagnosis was. When i explained the colonoscopy/biopsy revealed cancer, he shook his head yes that he knew he had cancer. Seems to have very poor insight/medical literacy but does seem competent in decision making. Tried to discuss
next steps and best care plan moving forward, but got up to go to the bathroom out of frustration.
Discussed with Dr. Luke - thankfully patient in a nursing home setting and typically followed by RN casework specialist who know the patients very well. Stable now, but would encourage good report to the facility nurse to continue conversations with
patient.
Patient did not want me to call his brother.
Pain & Symptom Assessment
Tyrone Symptom Scale 0=none, 10=worst
Pain: 0
Objective Data
-
Objective Data:
Vital Signs
Temp Pulse Resp BP Pulse Ox
99.4 F 86 20 153/77 99
08/07/24 07:30 08/07/24 08:23 08/07/24 07:30 08/07/24 08:23 08/07/24 08:00
Laboratory Results
08/07/24 06:00
08/07/24 06:00
PT Cancelled 08/07/24 06:00
INR Cancelled 08/07/24 06:00
APTT 29.6 Sec (23.4-35.0) 08/04/24 07:37
Total Protein 6.4 g/dl (6.3-8.2) 07/31/24 11:25
Albumin 3.9 g/dl (3.5-5.0) 07/31/24 11:25
Palliative Performance Scale
Palliative Performance Scale:
PPS Level Ambulation Activity & Evidence of Disease Self Care Intake Conscious Level
100% Full Normal Activity & Work; Full Intake Full
No Evidence of Disease
90% Full Normal Activity & Work; Full Normal Full
Some Evidence of Disease
80% Full Normal Activity with Effort Full Normal or Full
Some Evidence of Disease Reduced
70% Reduced Unable Normal Job/Work Full Normal or Full
Significant Disease Reduced
60% Reduced Unable Hobby/Housework Occasional Normal or Full or Confusion
Significant Disease Assistance Reduced
50% Mainly Sit/Lie Unable to do Any Work Considerable Normal or Full or Confusion
Extensive Disease Assistance Req'd Reduced
40% Mainly in Bed Unable to do Most Activity Mainly Assistance Normal or Full or Drowsy;
Extensive Disease Reduced +/- Confusion
30% Totally Bed Unable to do Any Activity Total Care Normal or Full or Drowsy;
Bound Extensive Disease Reduced +/- Confusion
20% Totally Bed Bound Unable to do Any Activity Total Care Minimal to Full or Drowsy;
Extensive Disease Sips +/- Confusion
10% Totally Bed Bound Unable to do Any Activity Total Care Mouth Care Drowsy or Coma;
Extensive Disease Only +/- Confusion
0%
PPS Score Level:
Palliative Performance Score Response
Palliative Performance Score Response: 70%
Physical Exam
-
General: Appears Chronically Ill
HEENT: Normocephalic and Poor Dentition
Respiratory: Clear to Auscultation
Cardiac: Regular Rhythm
Peripheral Vascular: No Edema
GI: Soft and Nondistended
Musculoskeletal: Normal Gait & Station and Other (R hand contractures )
Skin: Warm
Neuro: Awake and Alert
Psych: Agitated
Assessment / Plan
-
Assessment/Plan:
74 year old M with history of CVA with asphasia admitted with abdominal pain found to have colon adeno. Declining surgery.
- see HPI for discussions
- if discharging would make sure facility nurse has good report and encourage continued conversations with patient about goals moving forward if he were to become symptomatic from rectal mass. Thankfully asymptomatic now and still independent with
his care. Also would encourage completion of POA paperwork in case patient becomes unable to make medical decisions for himself.
- technically per [place] law, his son (or any other children) would be his next of kin. If estranged/unable to reach him or he deferred decision making, patients siblings would be next in line for NOK if patient is unmarried/.
- per chart review, he has declined to name a medical decision maker, 'doesnt want a POA.'
- DNR/DNI
Care Reviewed
Data Reviewed
Radiology procedure: Image Reviewed
Medical Tests: I reviewed
Reviewed with: Patient and Physician
[2024-08-07 15:10] VITALS: BP 137/73
[2024-08-07 23:55] VITALS: BP 121/76
--- NOTE | 2024-08-08 02:56 | PTCARENOTE ---
Pt aaox3 able to make his needs known agitated when trying to ask questions & prefers to be left alone.Refusing nursing care,refuses to put DNR bracelet on hand,wants to keep it on table.Pt refused to keep bed alarm & threw it under bed, as he is
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
[2024-08-08 07:25] VITALS: BP 148/78
[2024-08-08] MEDS: ZESTRIL 30 MG PO (08:11)
--- NOTE | 2024-08-08 08:16 | PTCARENOTE ---
pt aox3, answers y/n at times other times uses non verbal communication with gestures. refused pedal pulse check and po aspirin this am. refused water with meds, swallowed dry. pt resting, call aponte in reach
--- NOTE | 2024-08-08 10:37 | W.PN.HOSP.TC ---
Today's Communication/Plan
-
Ok for DC today
Assessment / Plan
Assessment / Plan
Mr. 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
found to have partially obstructing colonic mass. He has decided against surgery.
CTAP:
IMPRESSION:
1. Prominent bowel wall thickening and mucosal hyperenhancement within the distal ileum, consistent with severe enteritis.
2. Focal area of bowel wall thickening and narrowing within the ascending colon adjacent to the hepatic flexure, highly concerning for colon carcinoma. There is fecal retention within the cecum located upstream, consistent with partial colonic
obstruction. Further evaluation is recommended with colonoscopy.
3. Small amount of abdominal pelvic ascites, likely reactive. No evidence of abscess formation.
08/01: Barium enema with 5 cm long core type lesion corresponding with mass seen in lesion, high-level suspicion for adenocarcinoma.
CT chest with no metastatic disease, likely emphysematous changes.
Partial colonic obstruction due to mass
Distal Ileum Enteritis
-appreciate CRS
-s/p colonoscopy, pathology shows invasive moderately differentiated adenocarcinoma
-plan was for surgery but now patient is refusing
-confirmed with patient. He is DNR. Appreciate palliative care consult
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
-not on diuretics
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
-notes in [facility] states he has refused medications in past
-s/p debrillator (EF was 15-20% 2007)
-Monitor volume status closely
-appreciate cardiology consult for clearance
HTN
Continue lisinopril
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
-aspirin started although patient refuses
DVT PPx
DNR
Anticipated Discharge: Today
Subjective/Interval History
-
Date of Service: August 08, 2024
states he is ready to go home
does not want me to call his brother
Objective Data
-
Vital Signs:
Vital Signs
Temp Pulse Resp BP Pulse Ox
97.9 F 68 16 148/78 100
08/08/24 07:25 08/08/24 07:25 08/08/24 07:25 08/08/24 07:25 08/08/24 07:25
I&O
08/07/24 08/08/24 08/09/24
06:59 06:59 06:59
Intake Total 960 / 960 360 / 360
Balance 960 / 960 360 / 360
Review of Systems
-
History Source: Patient
All other systems: Reviewed and negative
Physical Exam
-
General: No Apparent Distress
HEENT: PERRLA
Respiratory: Clear to Auscultation; Negative Wheezes
Cardiac: Regular Rhythm and S1/S2
GI: Soft and Nontender
Musculoskeletal: No Edema
Skin: Warm and Dry; Negative Rash
Neuro: Other (expressive aphasia, nods yes or no )
Psych: Calm and Agitated
Data Reviewed
-
Diagnostic Radiology: Report Reviewed by me
Labs: Labs Reviewed by me
--- NOTE | 2024-08-08 10:43 | W.DS.TRANS ---
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
-
Discharge Instructions:
Sleep Apnea Risk Low
Discharge Diagnosis/Procedures colonic mass
Diet Regular
Activity As tolerated
Driving Restrictions No driving
Bathing Restrictions None
Instructions:
Stand-Alone Forms:
Changes to Home Medications: No
Discharge Medications:
DC Medications w/original date entered in [employer]
lisinopril 30 mg tablet 30 mg PO DAILY Blood Pressure 07/31/24
Home Medication Changes
Pending Results: No
--- NOTE | 2024-08-08 11:30 | CM ---
Addendum entered by Johanne Tena 08/08/24 11:48:
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 She will get back to with time.
Original Note:
Spoke with Judith RIVERA at [facility] ([phone]) who stated they don't accept patient's back over the weekend.
Spoke with Dr. Luke regarding they will not accept patient back over the weekend.
PLAN: Return to [facility]
Nursing Report: [phone]
fax #: [phone]
LM with Judith RIVERA regarding if they provide transportation back to [facility]
--- NOTE | 2024-08-08 14:49 | PTCARENOTE ---
patient refusing vital signs from pct, multiple attempts, refused vitals to be taken by this nurse as well, pt resting, appears comfortable
--- NOTE | 2024-08-08 20:59 | PTCARENOTE ---
Pt refusing residential monitor, refusing bed alarm- swatting at RN to leave him alone. Limited ability to complete assessment.
[2024-08-08 23:55] VITALS: BP 126/78
[2024-08-09 07:30] VITALS: BP 136/71
[2024-08-09] MEDS: ZESTRIL 30 MG PO (09:27)
--- NOTE | 2024-08-09 11:02 | W.PN.HOSP.TC ---
Today's Communication/Plan
-
DC back to skilled nursing on Saturday
Assessment / Plan
Assessment / Plan
Mr. Con London is a 74 yo man with hx HFrEF s/p defibrillator (EF 15-20% in 2007 with recover to 45-50% 2022), mild MR, CAD, HTN, left-sided MCA with associated right-sided hemiplegia and aphasia, presents to the ER for evaluation of abdominal
pain found to have partially obstructing colonic mass. He has decided against surgery.
CTAP:
IMPRESSION:
1. Prominent bowel wall thickening and mucosal hyperenhancement within the distal ileum, consistent with severe enteritis.
2. Focal area of bowel wall thickening and narrowing within the ascending colon adjacent to the hepatic flexure, highly concerning for colon carcinoma. There is fecal retention within the cecum located upstream, consistent with partial colonic
obstruction. Further evaluation is recommended with colonoscopy.
3. Small amount of abdominal pelvic ascites, likely reactive. No evidence of abscess formation.
08/01: Barium enema with 5 cm long core type lesion corresponding with mass seen in lesion, high-level suspicion for adenocarcinoma.
CT chest with no metastatic disease, likely emphysematous changes.
Partial colonic obstruction due to mass
Distal Ileum Enteritis
-appreciate CRS
-s/p colonoscopy, pathology shows invasive moderately differentiated adenocarcinoma
-plan was for surgery but now patient is refusing
-confirmed with patient. He is DNR. Appreciate palliative care consult
-medically ready for DC back to skilled nursing, cannot accept him over the weekend
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
-not on diuretics
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
-notes in [facility] states he has refused medications in past
-s/p debrillator (EF was 15-20% 2007)
-Monitor volume status closely
-appreciate cardiology consult for clearance
HTN
Continue lisinopril
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
-aspirin started although patient refuses
DVT PPx
DNR
Anticipated Discharge: 24 - 48 hours
Subjective/Interval History
-
Date of Service: August 09, 2024
no new complaints
Objective Data
-
Vital Signs:
Vital Signs
Temp Pulse Resp BP Pulse Ox
97 F 72 16 136/70 100
08/09/24 07:30 08/09/24 09:27 08/09/24 07:30 08/09/24 09:27 08/09/24 07:30
I&O
08/08/24 08/09/24 08/10/24
06:59 06:59 06:59
Intake Total 360 / 360 180 / 180
Balance 360 / 360 180 / 180
Review of Systems
-
History Source: Patient
All other systems: Reviewed and negative
Physical Exam
-
General: No Apparent Distress
HEENT: PERRLA
Respiratory: Clear to Auscultation; Negative Wheezes
Cardiac: Regular Rhythm and S1/S2
GI: Soft and Nontender
Musculoskeletal: No Edema
Skin: Warm and Dry; Negative Rash
Neuro: Other (expressive aphasia, nods yes or no, right sided hemiplegia )
Psych: Calm
--- NOTE | 2024-08-09 19:19 | PTCARENOTE ---
Received patient this am AAOX3. Pt agitated at times. Tolerated diet well. OOB ambulating to bathroom. Offered no complaints. Made patient comfortable. Cont to assess patient status.
--- NOTE | 2024-08-09 23:57 | PTCARENOTE ---
Pt refusing VS attempted to educate unable.
[2024-08-10 07:12] VITALS: BP 141/77
[2024-08-10] MEDS: ZESTRIL 30 MG PO (08:37)
--- NOTE | 2024-08-10 11:51 | CM ---
Addendum entered by Karina Sanon 08/10/24 13:52:
[facility] with anticipated arrival at 2:30pm.
Original Note:
CM following for return to [facility]. VM left for DON regarding transportation. Await response.
Plan: Anticipate discharge to [facility] today pending [facility] information from [facility].
--- NOTE | 2024-08-10 12:16 | W.DCSUMMARY ---
Discharge Summary
Discharge Data
Date of Admission: 08/03/24
Date of Discharge: 08/10/24
-
Pending Results: No
Hospital Course
74-year-old male with past medical history significant for HFrEF, hypertension, ventricular tachycardia, depression and ETOH dependency
Presented with abdominal pain found to have a partially obstructing colonic mass. C-scope was completed biopsies were obtained which demonstrated tubular adenoma and invasive moderately differentiated colonic adenocarcinoma. Recommended to go
towards surgery however this was declined.
CTAP:
IMPRESSION:
1. Prominent bowel wall thickening and mucosal hyperenhancement within the distal ileum, consistent with severe enteritis.
2. Focal area of bowel wall thickening and narrowing within the ascending colon adjacent to the hepatic flexure, highly concerning for colon carcinoma. There is fecal retention within the cecum located upstream, consistent with partial colonic
obstruction. Further evaluation is recommended with colonoscopy.
3. Small amount of abdominal pelvic ascites, likely reactive. No evidence of abscess formation.
08/01: Barium enema with 5 cm long core type lesion corresponding with mass seen in lesion, high-level suspicion for adenocarcinoma.
CT chest with no metastatic disease, likely emphysematous changes.
Seen and examined the day of discharge. Sleeping well.. No acute overnight events.
NAD, thin, cachectic
Scleral Anicteric
MMM
No JVD
CTABL
RRR, S1/S2
Soft, NT, ND, BS+
Warm, Dry
Discharge Plan
-
Patient Disposition: Home (Routine Discharge)
Discharge Diagnosis/Procedures: colonic mass
Diet: Regular
Activity: As tolerated
Driving Restrictions: No driving
Bathing Restrictions: None
Activity Restrictions/Additional Instructions:
Presented with abdominal pain found to have a partially obstructing colonic mass. C-scope was completed biopsies were obtained which demonstrated tubular adenoma and invasive moderately differentiated colonic adenocarcinoma. Recommended to go
towards surgery however this was declined.
CTAP:
IMPRESSION:
1. Prominent bowel wall thickening and mucosal hyperenhancement within the distal ileum, consistent with severe enteritis.
2. Focal area of bowel wall thickening and narrowing within the ascending colon adjacent to the hepatic flexure, highly concerning for colon carcinoma. There is fecal retention within the cecum located upstream, consistent with partial colonic
obstruction. Further evaluation is recommended with colonoscopy.
3. Small amount of abdominal pelvic ascites, likely reactive. No evidence of abscess formation.
08/01: Barium enema with 5 cm long core type lesion corresponding with mass seen in lesion, high-level suspicion for adenocarcinoma.
CT chest with no metastatic disease, likely emphysematous changes.
Referrals:
Nahid Thompson DO [Family Provider] - in less than 1 week
Gasper Awad MD [Active] -
Hazel Baez MD [Active] -
Prescriptions:
Continued
lisinopril 30 mg Tablet
30 mg PO DAILY
Discharge Orders:
Discharge Patient (As Directed); Ordered 08/10/24
Ordered By: Esdras Guidry
Discharge Date and Time
Print Language: FILIPINO
--- NOTE | 2024-08-10 15:09 | PTCARENOTE ---
Received patient this am AAOx3. Pt with expressive aphasia. Uncooperative at times. Pt refuses treatment intermittently. Pt OOB ambulating in room an hallway. Pt refuses staff to assist him. Tolerated diet well. Pt for discharge back to [place]
[facility]. Attempted to call report at [phone] with no answer. Pt was transported by [facility] at discharge.
== END 2024-08-10 15:40 | disposition home or self-care (01) | DRG 375 ==
LOC: 4 EAST ACU 10:52
PROVIDERS: Emergency Medicine; Nurse Practitioner Family; Physician Assistant; Student in an Organized Health Care Education/Training Program; ADMITTING PHYSICIAN Hospitalist; CONSULT PHYSICIAN Surgery; EMERGENCY PHYSICIAN Emergency Medicine; FAMILY PHYSICIAN Internal Medicine Geriatric Medicine; OTHER PHYSICIAN Internal Medicine Cardiovascular Disease
PROC: 0DBL8ZZ Excision of Transverse Colon, Via Natural or Artificial Opening Endoscopic (ICD-10-PCS; 2024-08-04)
PROC: 0DBK8ZX Excision of Ascending Colon, Via Natural or Artificial Opening Endoscopic, Diagnostic (ICD-10-PCS; 2024-08-04)
PROC: 0DBN8ZZ Excision of Sigmoid Colon, Via Natural or Artificial Opening Endoscopic (ICD-10-PCS; 2024-08-04)
DX: C18.2 Malignant neoplasm of ascending colon (principal); I42.8 Other cardiomyopathies; I47.20 Ventricular tachycardia, unspecified; I50.22 Chronic systolic (congestive) heart failure; I69.351 Hemiplegia and hemiparesis following cerebral infarction affecting right dominant side; R64 Cachexia; K56.690 Other partial intestinal obstruction; Z68.1 Body mass index [BMI] 19.9 or less, adult; Z66 Do not resuscitate; E11.9 Type 2 diabetes mellitus without complications; D12.3 Benign neoplasm of transverse colon; D12.5 Benign neoplasm of sigmoid colon; I11.0 Hypertensive heart disease with heart failure; F32.A Depression, unspecified; I69.320 Aphasia following cerebral infarction; K52.9 Noninfective gastroenteritis and colitis, unspecified; K64.8 Other hemorrhoids; K64.4 Residual hemorrhoidal skin tags; F17.210 Nicotine dependence, cigarettes, uncomplicated; I25.10 Atherosclerotic heart disease of native coronary artery without angina pectoris; J44.9 Chronic obstructive pulmonary disease, unspecified; Z11.52 Encounter for screening for COVID-19; Z95.810 Presence of automatic (implantable) cardiac defibrillator; Z91.041 Radiographic dye allergy status; Z88.5 Allergy status to narcotic agent; Z79.899 Other long term (current) drug therapy
CPT/HCPCS: 88305; 51798; 71250; 74177; 74270; 80048; 80053; 82378; 82962; 83605; 83690; 85025; 85027; 85610; 85730; 86850; 86900; 86901; 87502; 87811; 88342; 93005; 93306; 96365; 96375; 97162; 97165; 99285; 99406; J1335; Q9967

== ENCOUNTER 2024-09-01 06:08 | Inpatient (IN) | payer MEDICARE, OTHER, SELFPAY ==
[2024-08-24 11:20] LABS: Hematocrit 40.6 % (39.0-52.0); Hemoglobin 13.3 g/dL (13.0-18.0); Mean Corp Hgb Conc. 32.8 g/dL (33.0-37.0); Mean Corpuscular Hgb 30.1 pg (27.0-31.0); Mean Corpuscular Volume 91.9 fL (80.0-94.0); Mean Platelet Volume 10.9 fL (7.4-10.4); Platelet Count 159 10^3/uL (130-400); Red Blood Cell Count 4.42 10^6/uL (4.70-6.10); Red Cell Dist. Width 13.6 % (11.5-14.5); White Blood Cell Count 6.6 10^3/uL (4.8-10.8)
[2024-08-24 11:22] LABS: INR 1.02; PT 13.7 Sec (11.4-14.6)
[2024-08-24 11:24] LABS: APTT 27.9 Sec (23.4-35.0)
[2024-08-24 12:11] LABS: ALT (SGPT) 11 U/L (0-50); AST (SGOT) 17 U/L (17-59); Albumin 4.3 g/dl (3.5-5.0); Alkaline Phosphatase 58 U/L (38-126); Blood Urea Nitrogen 14 mg/dl (9-20); Carbon Dioxide 27 mmol/L (22-30); Chloride 103 mmol/L (98-107); Glucose 71 mg/dl (70-99); Potassium 4.4 mmol/L (3.5-5.1); Total Bilirubin 0.9 mg/dl (0.2-1.3); Total Protein 6.7 g/dl (6.3-8.2); eGFR > 60.00
[2024-08-24 12:28] LABS: Sodium 139 mmol/L (135-145)
[2024-08-24 14:15] VITALS: BMI 16.8
[2024-09-01] VITALS (18 sets, daily range): BP systolic 119–168; BP diastolic 52–94; BMI 16.8
[2024-09-01] MEDS: LYRICA 150 MG PO (06:57)
[2024-09-01] MEDS: CELEBREX 200 MG PO (06:58)
[2024-09-01] MEDS: HEPARIN 5000 UNITS SC (07:01)
[2024-09-01] MEDS: NORMOSOL-R/PLASMALYTE-A 1000 IV ×2 (07:02→15:31)
--- NOTE | 2024-09-01 11:16 | W.IMMPOSTOP ---
Surgical Immed Post Op Note
-
Primary Surgeon: Gasper Awad MD
Assisting Surgeon: TROY Diaz
Pre-op Diagnosis: Ascending colon cancer
Post-op Diagnosis: Ascending colon cancer, peritoneal nodules
Procedure Performed: Laparoscopic right hemicolectomy, mesenteric angiography, partial omentectomy, excision of peritoneal nodule, laparoscopic TAP block
Anesthesia Type: General
Specimen / Cultures: Right paracolic gutter nodule, right hemicolectomy, partial omentum
Estimated Blood Loss: 50 mL
Complications: None
Operative Findings: Tattoo seen in the distal ascending colon with obvious mass in the mid ascending colon; no obvious hepatic lesions, but there was 2 peritoneal nodules along the right paracolic gutter, 1 immediately adjacent to the cecum and 1
just lateral to the hepatic flexure; the nodule adjacent to the cecum was removed en bloc with the specimen and the hepatic flexure nodule I excised separately; performed high ligation of the ileocolic pedicle and the right branch of the middle
colic; noted some mildly enlarged lymph nodes within my lymphadenectomy; performed isoperistaltic intracorporeal stapled anastomosis
�Preoperatively, I asked patient for his preferred medical proxy and he made it clear that he does not want his medical care discussed with anyone. I explained that if I encounter a situation where I need a decision made regarding his care and he is
unable to make the decision himself (i.e.�sedated, encephalopathic, etc.), without a medical proxy I would have to make that decision for him in his best interest. He understood and agreed with this.
[2024-09-01 11:27] LABS: Glucose - Point of Care 112 mg/dl (70-99)
--- NOTE | 2024-09-01 11:35 | OR.RPT ---
Operative Report
Operative Report
DATE OF OPERATION: 09/01/2024
SURGEON: Gsaper Awad MD
PREOPERATIVE DIAGNOSIS: Ascending colon cancer
POSTOPERATIVE DIAGNOSIS: Ascending colon cancer
OPERATION: Robotic right hemicolectomy, mesenteric angiography with ICG, excision of peritoneal nodule, partial omentectomy, laparoscopic TAP block
ASSISTANTS:
1. TROY Diaz
ANESTHESIA: General
ESTIMATED BLOOD LOSS: 50 mL
UOP: 80 mL
IVF: 1.3 L
FINDINGS:
1. Tattoo seen in the distal ascending colon with obvious mass in the mid a descending colon; there was some mild lymphadenopathy, which was included in the lymphadenectomy
2. There were 2 peritoneal nodules along the right paracolic gutter; the nodule just lateral to the cecum was included in the specimen; the nodule just lateral to the hepatic flexure was excised separately
3. Performed intracorporeal isoperistaltic ileocolic anastomosis; ICG confirmed good perfusion to both limbs
SYNOPTIC REPORT:
Operation performed with curative intent: yes
Tumor location: ascending colon
Arterial ligation: high ligation of ileocolic artery and right branch of the middle colic
SPECIMENS:
1. Right paracolic gutter nodule
2. Right hemicolectomy
3. Partial omentum
DRAINS: None
COMPLICATIONS: No immediate complications.
INDICATIONS: The patient is a 74-year-old male who initially presented to the [place] ED with abdominal pain associated with nausea and vomiting. He was found to have an enteritis of the terminal ileum as well as a nearly-obstructing
mid-ascending colon mass. He never had a colonoscopy. A barium enema confirmed the location of the mass and that it was not completely obstructing. CT CAP showed no concerns for metastases and his CEA was 1.05. On colonoscopy, I identified an
ascending colon mass that I was unable to traverse. I biopsied this and tattooed distally. Biopsy showed invasive adenocarcinoma, moderately differentiated, CARLOS. Patient then refused surgery and was discharged. However, he lives in a usp
and after discussion with his staff, he decided to proceed with surgery. The operation was discussed with the patient in detail, including the risks, benefits and alternatives. Risks described included, but not limited to, bleeding, infection,
anastomotic leak, damage to nearby structures (i.e.- bowel, bladder, solid organ injury, ureter), need for ostomy creation, conversion to open, incisional hernia, inability to remove the entire cancer, future recurrence or metastasis and anesthetic
risks, including but not limited to DE, stroke, DVT/PE, respiratory failure and . The patient understood and agreed to proceed.
PROCEDURE IN DETAIL: The patient was taken to the operating room and placed on the operating table in supine position. Sequential compression devices were placed bilaterally. General anesthesia was then induced and the patient was intubated without
complication. Bilateral arms were tucked. Bansal catheter was placed with sterile technique. There was difficulty placing a 16 Pakistani Bansal, but no difficulty with a 14 Pakistani coud� Bansal. Anesthesia placed an orogastric tube. Preoperative
antibiotics were given. The abdomen was shaved, prepped and draped in a sterile fashion. A marking pen was used to armin out the midline. A time-out was performed verifying the correct patient, procedure, operative site, positioning, and special
equipment.
At Jorge's point, using an 11 blade scalpel, an 8 mm incision was made. A Veress needle was used to obtain abdominal access. After 3 clicks, insufflation was initiated and the opening pressure was noted to be less than 8 mmHg. The abdomen was
insufflated to a pressure of 12, which the patient tolerated well. The 8 mm robotic trocar was then introduced and the robotic endoscope advanced. No injury from initial Veress placement or port placement was noted. The abdomen was explored.
There were no concerning peritoneal lesions or superficial lesions on the liver. The tattoo was seen in the distal ascending colon.
In a diagonal fashion from the planned Pfannenstiel incision to the Jorge's point incision, 2 more robotic trocars were placed under direct visualization taking care to avoid injury to the epigastric vessels. An assist port was placed in the left
lateral abdomen under direct visualization as well. Then, a 5 cm Pfannenstiel incision was made with a 15 blade scalpel 2 fingerbreadths superior to the pubic symphysis. I took this down to the level of fascia with Bovie electrocautery and
hemostasis was assured. The anterior fascia was then incised with electrocautery and extended to just beyond the length of the Pfannenstiel incision on each side. Using radhika's, the anterior fascia was grasped and elevated. The attachments to
the rectus muscle were taken down bluntly and attachments to the midline were taken down with electrocautery. This was done both superiorly and inferiorly to our incision. The midline was split with Kellys to spread the rectus muscle. The
preperitoneal fat was and the peritoneum was grasped and elevated. The peritoneum was divided with Metzenbaum scissors and the abdomen was entered. The peritoneum was opened superiorly and inferiorly to the extent that our incision would
allow, taking care to avoid injury to the bladder. A small Scout was placed and a port cap attached. The 12 mm robotic port was placed through the port cap. The patient was placed [id number] with slight Trendelenburg. The robot was docked
from the patient's right side. From the Pfannenstiel to Jorge's point, the instruments introduced were the bipolar grasper, camera, scissors and tip up grasper.
To begin, I grasped and elevated the cecum. I swept the small bowel towards the pelvis. Using my tip-up grasper, I retracted the transverse colon. The ileocolic pedicle was nicely exposed. A medial to lateral mobilization was performed by first
incising the peritoneal lining just below the pedicle using the robotic scissors. I elevated the pedicle anteriorly and swept the retroperitoneum down bluntly in order to identify the duodenum. Once the duodenum was swept away from the takeoff of
the ileocolic pedicle, I isolated the ileocolic pedicle circumferentially and performed a high ligation using the vessel sealer. I did note some enlarged lymph nodes along the ileocolic pedicle, which I made sure to include in my lymphadenectomy.
The ileocolic stump was hemostatic. I continued my medial to lateral dissection up to the hepatic flexure and then below the right colon and cecum, taking care to avoid injury to the duodenum, right kidney and right ureter, which I was able to
visualize.
After the right colon was completely mobilized medially, I turned my attention to the transverse colon. I grasped and elevated the omentum while retracting the transverse colon caudally. I divided the gastrocolic ligament and entered the lesser
sac. This was confirmed by visualizing the posterior wall of the stomach. I carried this dissection around the hepatic flexure using a combination of blunt dissection and the vessel sealer, taking care to avoid injury to the liver, gallbladder,
duodenum and pancreas. However, I encountered a 1.5 cm lesion in the peritoneum just lateral to the hepatic flexure. This lesion appeared hard, concerning for possible metastasis. Therefore, I excised this lesion using sharp dissection and passed
this off for specimen. Hemostasis was achieved with electrocautery and 1 stitch of 2-0 Vicryl in a [id number] fashion. Once the hepatic flexure was completely mobilized, I continued this dissection by taking down the white line of Toldt to my
previous dissection of the cecum. I mobilized the attachments of the terminal ileum and its mesentery from the RLQ and right pelvic brim, taking care to avoid injury to the right ureter. I noted another peritoneal lesion just lateral to the cecum.
This also appeared hard and was also concerning for a tumor deposit. I took my dissection just lateral to this in order to include the nodule in my right hemicolectomy specimen. At this point, the entire cecum, right colon and hepatic flexure were
nicely mobilized.
I grasped the transverse colon and elevated this in order to expose and visualize the mesentery. I selected a point about 8 cm distal to the ink. I created a hole in the mesentery and I serially divided the mesentery, taking care to avoid injury
to the duodenum and pancreas. I ligated the right branch of the middle colic as close to its takeoff as possible. There was no apparent right colic artery. Anesthesia injected ICG and I confirmed adequate perfusion to my intended transection
point. Using the 60 mm robotic stapler with a blue load, I stapled and divided the transverse colon. I selected a point on the terminal ileum about 10 cm proximal from the ileocecal valve and elevated this with my tip up grasper. I grasped the
transected ileocolic pedicle on the specimen side and used the vessel sealer to serially ligate the mesentery up to my selected point. I then stapled and divided the terminal ileum with the 60 mm robotic stapler with a blue load. The specimen was
extracted through the Pfannenstiel incision and passed off. The specimen was examined on the back table and good margins were noted proximally and distally (greater than 5 cm).
I examined the bowel for my future anastomosis. I placed the terminal ileum adjacent to the transverse colon. This aligned nicely for a [id number] isoperistaltic anastomosis without any evidence of tension. I placed an anchor stitch of 2-0
Vicryl to align the transverse colon staple line and the ileum about 7cm proximal to the small bowel staple line. I left the tails long and used this to retract. I created a colotomy at about 7 cm distal to the staple line on the transverse colon
and a enterotomy 2 cm proximal to the staple line on the terminal ileum. I advanced the 60 mm robotic stapler with a white load through the bowel openings, ensured ideal alignment and fired. After the robotic stapler was withdrawn, no bleeding was
noted from the staple line. The common defect was then closed using a 3-0 V-loc suture in 2 layers, starting from the superior aspect and sewing inferiorly in a running baseball fashion, and then superiorly in a running Kaylynn fashion in order to
imbricate the first layer.
After the anastomosis was complete the operative field was examined. There was complete hemostasis, no bowel herniating through the mesenteric defect and good perfusion to our anastomosis without any evidence of tension. The greater omentum was
grasped and evaluated. There was a small portion that had become ischemic and this was ligated with the vessel sealer and passed off as specimen. The remainder of the omentum was then draped over the anastomosis.
The instruments were removed and the robot was undocked. A TAP block was performed under laparoscopic guidance. 15mL of 0.25% Marcaine with epinephrine and dexamethasone was injected bilaterally. The ports were removed under direct visualization
and no bleeding was noted. The abdomen was allowed to desufflate. The Pfannenstiel incision was closed in layers. Using an 0 Vicryl stitch, the peritoneum was closed in a running fashion. The fascia was closed with an 0 Stratafix suture. The
incisions were irrigated and injected with the remaining 30mL of local. The skin of the incisions were closed with a 4-0 Monocryl in running subcuticular fashion and dressed with Dermabond.
At this point, the procedure was complete. The patient was awoken and extubated without complication. All needle, sponge and instrument counts were reported as correct. The patient tolerated the procedure well and was transferred to the recovery
room in stable condition with the bansal in place.
DICTATED BY: Gasper Awad MD
--- NOTE | 2024-09-01 12:15 | CON.HOSP ---
Family Physician
-
Family Physician: Nahid Thompson
Chief Complaint
-
medical management
History of Present Illness
HPI: 74 yo man with PMH HFrEF s/p defibrillator (EF 15-20% in 2007 with recover to 45-50% 2022), mild MR, CAD, HTN, left-sided MCA with associated right-sided hemiplegia and expressive aphasia, presented for routine right hemicolectomy for Ascending
colon cancer.
Medical History
Past Medical History
Past Medical History: Reports Other
Additional Past Medical History:
HFrEF s/p defibrillator (EF 15-20% in 2007 with recover to 45-50% 2022),
mild MR,
CAD,
HTN,
left-sided MCA with associated right-sided hemiplegia and expressive aphasia
Past Surgical History: Reports Bowel Resection (R hemicolectomy )
Social History
Tobacco: Non-smoker
Family History
Family History: Reviewed & Not Pertinent
Allergies / Home Medications
Allergies reflects when Allergies were last updated in tu.nr.
Home Medications with original date entered in tu.nr
Allergy/Medication List:
Allergies
Allergy/AdvReac Type Severity Reaction Status Date / Time
codeine Allergy Rash Verified 09/01/24 07:27
Iodinated Contrast Media Allergy Rash Verified 09/01/24 07:27
[IV Dye, Iodine Containing]
iodine Allergy Hives/RASH Verified 09/01/24 07:27
Home Medications
lisinopril 30 mg tablet 30 mg PO DAILY Blood Pressure 07/31/24
Miralax 238 g PO DIRECTED pre operative 08/25/24
bisacodyl 5 mg tablet,delayed release (Dulcolax (bisacodyl)) 5 mg PO DIRECTED pre operative 08/25/24
metronidazole 500 mg tablet 500 mg PO DIRECTED pre operative 08/25/24
neomycin 500 mg tablet 1 g PO DIRECTED pre operrative 08/25/24
Review of Systems
-
Unable to obtain full review of systems at this time due to: Acuity (still mildly sedated from anesthesia)
Physical Exam
Vital Signs
Vital Signs
Temp Pulse Resp BP Pulse Ox
36.6 C 70 18 137/65 99
09/01/24 11:15 09/01/24 12:00 09/01/24 12:00 09/01/24 12:00 09/01/24 12:00
Physical Exam
General: Well Developed
HEENT: Normocephalic, Moist Mucous Membranes and Atraumatic
Respiratory: Clear and Non Labored Respirations; Negative Accessory Resp Muscle Use
Cardiac: S1/S2 and Regular Rhythm; Negative Murmur or Rub
GI: Soft, Non Tender and Non Distended
Rectal: Deferred by Provider
Musculoskeletal: No Clubbing and No Cyanosis
Skin: Negative Rash
Neuro: Awake (arousable to loud verbal stimulus )
Laboratory Results
-
Laboratory Results
08/24/24 09:33
08/24/24 09:33
PT 13.7 Sec (11.4-14.6) 08/24/24 09:33
INR 1.02 08/24/24 09:33
APTT 27.9 Sec (23.4-35.0) 08/24/24 09:33
Total Bilirubin 0.9 mg/dl (0.2-1.3) 08/24/24 09:33
AST 17 U/L (17-59) 08/24/24 09:33
ALT 11 U/L (0-50) 08/24/24 09:33
Alkaline Phosphatase 58 U/L (38-126) 08/24/24 09:33
Data Reviewed
-
Lab Data: Labs Reviewed
Impression / Plan
-
HPI: 74 yo man with PMH HFrEF s/p defibrillator (EF 15-20% in 2007 with recover to 45-50% 2022), mild MR, CAD, HTN, left-sided MCA with associated right-sided hemiplegia and expressive aphasia, presented for routine right hemicolectomy for Ascending
colon cancer.
Hospitalist service was consulted for continued medical management.
A/P:
# Partial colonic obstruction due to colon cancer
s/p right hemicolectomy 09/01 by CRS
Post op care per CRS
DVT ppx per CRS
# chronic HFrEF, Stable
# s/p defibrillator (EF was 15-20% 2007)
recovered EF to 45 to 50%
Continue IMPROVEMENT COORDINATOR lisinopril when able to take PO
# HTN
Continue lisinopril when able to take PO
# CVA with residual deficits of expressive aphasia and right sided hemiplegia
Cont aspirin when able to take PO
DVT PPx SCD
DNR
[2024-09-01] MEDS: TYLENOL PO (15:30)
--- NOTE | 2024-09-01 15:47 | PTCARENOTE ---
"Received patient from PACU via bed around 1405. Patient awake. Responding yes and no appropriately. 5 lap sites plus 1 transverse suprapubic incision closed with surgical glue, CDI. Urinary catheter in place draining clear yellow urine. Spoke to "Haley"AMARIS Luciano from [facility] via telephone regarding patients baseline and current condition. Patient oriented to room. Call aponte in reach. "
[2024-09-01] MEDS: TORADOL IV (17:07)
[2024-09-01] MEDS: TORADOL 15 MG IV (18:20)
[2024-09-01] MEDS: TYLENOL 1000 MG PO ×2 (18:21→23:50)
[2024-09-01] MEDS: DILAUDID 0.5 MG IV (19:32)
[2024-09-02] VITALS (8 sets, daily range): BP systolic 117–171; BP diastolic 59–82; PULSE 73–75; O2SAT 93–95; BMI 16.4
[2024-09-02] MEDS: TORADOL 15 MG IV ×4 (02:15→19:53)
--- NOTE | 2024-09-02 04:25 | DOWNTIME ---
There was a [employer] Operator Downtime on 09/02/2024 from 0100 to 09/03/2023 at 0420 . Downtime documentation of patient's care, including medication administrations, has been reconciled in the electronic record per guidelines. Refer to the
patient's paper chart under the miscellaneous tab to see printed paper medication records and downtime forms.
[2024-09-02] MEDS: DILAUDID 0.5 MG IV ×4 (04:35→22:52)
[2024-09-02] MEDS: TYLENOL PO ×4 (05:21→23:23)
[2024-09-02] MEDS: DILAUDID 0.25 MG IV (06:56)
[2024-09-02 07:37] LABS: % Basophils 0.1 % (0-2); % Immature Granulocytes 0.3 % (0-0.5); % Lymphocytes 5.4 % (20.5-51.1); % Monocytes 5.8 % (1.7-9.3); % Neutrophils 88.4 % (42.2-75.2); Absolute Lymphocytes 0.6 10^3/uL (1.2-3.4); Absolute Monocytes 0.6 10^3/uL (0.1-0.6); Absolute Neutrophils 9.7 10^3/uL (1.4-6.5); Hematocrit 33.8 % (39.0-52.0); Hemoglobin 11.4 g/dL (13.0-18.0); Mean Corp Hgb Conc. 33.7 g/dL (33.0-37.0); Mean Corpuscular Hgb 29.8 pg (27.0-31.0); Mean Corpuscular Volume 88.5 fL (80.0-94.0); Mean Platelet Volume 10.6 fL (7.4-10.4); Nucleated Red Blood Cells % 0 % (-); Platelet Count 145 10^3/uL (130-400); Red Blood Cell Count 3.82 10^6/uL (4.70-6.10); Red Cell Dist. Width 13.4 % (11.5-14.5)
[2024-09-02 07:59] LABS: Blood Urea Nitrogen 29 mg/dl (9-20); Calcium 7.9 mg/dl (8.4-10.2); Carbon Dioxide 26 mmol/L (22-30); Chloride 104 mmol/L (98-107); Estimated Creatinine Clearance 49 ml/min; Glucose 133 mg/dl (70-99); Magnesium 2.1 mg/dl (1.6-2.3); Potassium 4.5 mmol/L (3.5-5.1); Sodium 137 mmol/L (135-145); eGFR > 60.00
[2024-09-02] MEDS: ENTEREG 12 MG PO ×2 (08:28→19:53)
[2024-09-02] MEDS: NORMOSOL-R/PLASMALYTE-A 1000 IV (08:32)
--- NOTE | 2024-09-02 09:29 | W.PN.CRS1 ---
Today's Communication / Plan
-
continue diet
d/c ivfs when tolerating
lovenox
dc bansal
Assessment/Plan
-
POD#1 Laparoscopic right hemicolectomy
Vitals normal
WBC 11.0 (6.6), Hgb 11.4 (13.3)
-Continue regular diet
-D/C IVFs when tolerating po
-Start lovenox for DVT prophylaxis
-Discontinue bansal
-Pain control: Tylenol/Toradol standing, Roxicodone PRN
-Will await bowel function and monitor cough prior to discharge
Subjective Data
Subjective Data
Date of Service: September 02, 2024
Patient has expressive aphasia but is able to tell me 'yes or no'. He says he has no nausea. He has no gas or flatus yet. He is a little sore but no real pain. He is eating a little bit of food. He has a cough.
Objective Data
-
Vital Signs
Temp Pulse Resp BP Pulse Ox
98.7 F 67 20 127/68 92
09/02/24 06:53 09/02/24 06:53 09/02/24 06:53 09/02/24 06:53 09/02/24 06:53
Intake & Output
09/01/24 09/02/24 09/03/24
06:59 06:59 06:59
Intake Total 1500 / 1500
Output Total 760 / 760
Balance 740 / 740
Intake:
Oral fluids 600 / 600
IV fluids (Total) 900 / 900
Normosol 300 / 300
Output:
Urine, Bansal 760 / 760
Lab Results
09/02/24 06:10
09/02/24 06:10
Physical Exam
-
General: No Acute Distress
Abdomen: Soft, Non Distended and Tender (mild around incisions)
Skin: Warm and Dry
Incision: Clear, Dry, Intact
--- NOTE | 2024-09-02 11:16 | W.PN.HOSP.TC ---
Addendum entered and electronically signed by Genesis Hare MD 09/02/24 14:14:
# Severe protein calorie malnutrition
Original Note:
Today's Communication/Plan
-
see A/P
Assessment / Plan
Assessment / Plan
HPI: 74 yo man with PMH HFrEF s/p defibrillator (EF 15-20% in 2007 with recover to 45-50% 2022), mild MR, CAD, HTN, left-sided MCA with associated right-sided hemiplegia and expressive aphasia, presented for routine right hemicolectomy for Ascending
colon cancer.
Hospitalist service was consulted for continued medical management.
A/P:
# Partial colonic obstruction due to colon cancer
s/p right hemicolectomy 09/01 by CRS
Post op care per CRS
cleared for regular diet per CRS
DVT ppx with Lovenox SQ
# chronic HFrEF, Stable
# s/p defibrillator (EF was 15-20% 2007)
recovered EF to 45 to 50%
resume INSIDE SALES PERSON lisinopril when BP starts to trend up
# HTN
BP stable currently
resume INSIDE SALES PERSON lisinopril when BP starts to trend up
# CVA with residual deficits of expressive aphasia and right sided hemiplegia
Cont aspirin when able to take PO
DVT PPx SCD
DNR
Anticipated Discharge: 24 - 48 hours
Subjective/Interval History
-
Date of Service: September 02, 2024
Objective Data
-
Labs:
Laboratory Results
09/02/24
06:10
WBC 11.0 H
Hgb 11.4 L
Hct 33.8 L
Plt Count 145
Sodium 137
Potassium 4.5
Chloride 104
Carbon Dioxide 26
BUN 29 H
Creatinine 1.0
Glucose 133 H
Calcium 7.9 L
Vital Signs:
Vital Signs
Temp Pulse Resp BP Pulse Ox
37.1 C 67 20 127/68 92
09/02/24 06:53 09/02/24 06:53 09/02/24 06:53 09/02/24 06:53 09/02/24 06:53
I&O
09/01/24 09/02/24 09/03/24
06:59 06:59 06:59
Intake Total 1500 / 1500
Output Total 760 / 760
Balance 740 / 740
Review of Systems
-
All other systems: Reviewed and negative
Physical Exam
-
General: Well Developed, Well Nourished, No Apparent Distress and Comfortable
HEENT: Normocephalic and Atraumatic
Respiratory: Clear to Auscultation and Non Labored Respirations; Negative Accessory Resp Muscle Use
Cardiac: Regular Rhythm and S1/S2
GI: Soft and Nontender
Skin: Warm and Dry; Negative Rash
Neuro: Other (expressive aphasia, nods yes or no, right sided hemiplegia )
Psych: Calm
Data Reviewed
-
Labs: Labs Reviewed by me
[2024-09-02] MEDS: PROTONIX IV 40 MG IV (11:44)
[2024-09-02] MEDS: NSS (PRESERVATIVE FREE) 10 ML IV (11:47)
--- NOTE | 2024-09-02 13:32 | PN.CDI ---
CDI
- -
CDI:
Physician Documentation Request
Admit Date: 09/01/24 06:08
Dear Doctor Payam,
Please review the following and provide your response in the progress notes.
Clinical Indicators:
- Mud Boss indicates severe protein calorie malnutrition
- Severe subcutaneous loss over orbital with dark circles somewhat hollow
- Severe muscle loss over clavicle
Based on the above information and your assessment, which of the following most accurately represents the patient's nutritional status?
Severe protein calorie malnutrition
Other (please specify)
Ney Criteria ([facility] Hospitalist 2017)
2 or more criteria must be present for either
non severe or severe malnutrition
Note that the criteria differs related to the
presence of an acute or chronic illness
Acute Illness Chronic Illness
Energy Intake Non Severe: <75% for >7 days Non Severe: <75% for >1 month
Severe: <50% for >5 days Severe: <75% for >1 month
Weight Loss Non Severe: 1-2% over 1 week Non Severe: 5% over 1 month
5% over 1 month 7.5% over 3 months
7.5% over 3 months 10% over 6 months
1 year N/A 20% over 1 year
Severe: >2% over 1 week Severe: >5% over 1 month
>5% over 1 month >7.5% over 3 months
>7.5% over 3 months >10% over 6 months
1 year N/A >20% over 1 year
Body Fat Non Severe: Mild Decrease Non Severe: Mild Loss
Severe: Moderate Decrease Severe: Severe Loss
Muscle Mass Non Severe: Mild Decrease Non Severe: Mild Loss
Severe: Moderate Decrease Severe: Severe Loss
Fluid Accumulation Non Severe: Mild Accumulation Non Severe: Mild Accumulation
Severe: Moderate to severe Severe: Moderate to severe
accumulation accumulation
Reduced Nut Cracker Strength Non Severe: N/A Non Severe: N/A
Severe: Measurably reduced Severe: Measurably reduced
Additional criteria that can be used to Determine if Mild or Moderate Malnutrition (Merck Manual 2018)
Mild Moderate Severe
Albumin gm/dl <3.0 gm/dl <2.5 gm/dl <2.0 gm/dl
Pre Albumin mg/dl <15 gm/dl <10 mg/dl <5.0 mg/dl
BMI <18.5 <17 <16
Use of terms such as suspected, likely, concern for, or probable (associated with a specific diagnosis that is being evaluated, monitored, or treated as if it exists) are acceptable and can be coded in the inpatient setting, when documented at the
time of discharge.
Thank you,
Madison Reyes RN
CDI Specialist
Please use your independent medical judgment in providing your response.
--- NOTE | 2024-09-02 14:44 | CM ---
Addendum entered by Mariangel Aguilar 09/02/24 16:24:
Spoke with pt regarding a medical proxy
Pt confirmed he understood what a medical proxy is and confirmed he does not have one or want one at this time
Original Note:
Initial assessment completed
Called pts brother Gordon Mendoza LM on requesting return call
Pt lives at [facility]. a [facility].
Spoke with Judith, the director,
Per Judith pt is oriented, independent with adl's, communicates with hand gestures, answers yes/no questions, ambulates without device - does have limp
Facility can provide transport at discharge if given notice, M-F
PCP - Nahid Thompson
Pharm - [facility]
Director Judith - available M-F p -[phone]
[facility] [place] # - [phone]
Fax - [phone]
Plan - anticipate return to [facility] when medically stable
[2024-09-02] MEDS: LOVENOX 40 MG SC (17:53)
[2024-09-02] MEDS: TYLENOL 1000 MG PO (17:55)
[2024-09-03] MEDS: TORADOL 15 MG IV ×4 (01:50→21:00)
[2024-09-03 02:57] VITALS: BP 141/62
[2024-09-03 03:15] VITALS: BMI 16.4
[2024-09-03] MEDS: DILAUDID 0.5 MG IV ×3 (04:53→19:35)
[2024-09-03] MEDS: TYLENOL PO ×2 (04:58→23:47)
--- NOTE | 2024-09-03 05:15 | PTCARENOTE ---
No acute events overnight. Voiding without difficulty s/p bansal removal on day shift. PRN dilaudid given for pain.
[2024-09-03 07:21] LABS: Blood Urea Nitrogen 29 mg/dl (9-20); Calcium 8.3 mg/dl (8.4-10.2); Carbon Dioxide 27 mmol/L (22-30); Chloride 102 mmol/L (98-107); Estimated Creatinine Clearance 54 ml/min; Glucose 74 mg/dl (70-99); Potassium 4.1 mmol/L (3.5-5.1); Sodium 137 mmol/L (135-145); eGFR > 60.00
[2024-09-03 07:37] VITALS: BP 174/97
[2024-09-03 07:49] LABS: Hematocrit 34.6 % (39.0-52.0); Hemoglobin 11.6 g/dL (13.0-18.0); Mean Corp Hgb Conc. 33.5 g/dL (33.0-37.0); Mean Corpuscular Hgb 29.7 pg (27.0-31.0); Mean Corpuscular Volume 88.7 fL (80.0-94.0); Platelet Count 120 10^3/uL (130-400); Red Cell Dist. Width 13.7 % (11.5-14.5); White Blood Cell Count 7.3 10^3/uL (4.8-10.8)
[2024-09-03] MEDS: NSS (PRESERVATIVE FREE) 10 ML IV (07:56)
[2024-09-03] MEDS: ENTEREG 12 MG PO ×2 (07:56→19:51)
[2024-09-03] MEDS: PROTONIX IV 40 MG IV (07:57)
[2024-09-03] MEDS: ZESTRIL 30 MG PO (07:58)
[2024-09-03 08:51] LABS: % Basophils 0.1 % (0-2); % Eosinophils 0.4 % (0-6); % Immature Granulocytes 0.1 % (0-0.5); % Lymphocytes 4.1 % (20.5-51.1); % Monocytes 2.2 % (1.7-9.3); % Neutrophils 93.1 % (42.2-75.2); Absolute Lymphocytes 0.3 10^3/uL (1.2-3.4); Absolute Monocytes 0.2 10^3/uL (0.1-0.6); Absolute Neutrophils 6.8 10^3/uL (1.4-6.5); Nucleated Red Blood Cells % 0 % (-)
--- NOTE | 2024-09-03 09:26 | W.PN.CRS1 ---
Addendum entered and electronically signed by Gasper Awad MD 09/03/24 19:25:
Saw patient. Complains of nausea, but no vomiting. Still no flatus or BMs. Updated him on the results of the CT scan. Continue n.p.o. with IVF.
We discussed the importance of collecting medical proxy. The patient understood and agreed to elect his brother that lives in [place]. In the chart, his primary contact is listed as Gordon London. I put out a call to him to confirm that he is the
brother that lives in [place], but no answer. I will try him again tomorrow. But, per the patient's preference, if he becomes incapacitated, he has elected his brother that lives in [place] to be his medical proxy.
Original Note:
Today's Communication / Plan
-
chest xrays/abdominal xrays
npo/ivfs
Assessment/Plan
-
POD#2 Laparoscopic right hemicolectomy
Vitals normal
WBC 7.3 (11.0), Hgb 11.6 (11.4)
-NPO given abdominal tenderness
-Resume IVFs
-Lovenox for DVT prophylaxis, TEDS/SCDS in place
-Voiding post bansal removal
-Pain control: Tylenol/Toradol standing, Roxicodone PRN
-Abdominal and chest xrays this AM
Subjective Data
Subjective Data
Date of Service: September 03, 2024
Patient is able to nod yes or no. He has expressive aphasia. He states he is having abdominal pain. He has no appetite. He does not feel bloated.
Objective Data
-
Vital Signs
Temp Pulse Resp BP Pulse Ox
98.4 F 109 14 174/97 91
09/03/24 07:37 09/03/24 07:58 09/03/24 07:37 09/03/24 07:58 09/03/24 07:37
Intake & Output
09/02/24 09/03/24 09/04/24
06:59 06:59 06:59
Intake Total 1500 / 1500 1740 / 1740
Output Total 760 / 760
Balance 740 / 740 1740 / 1740
Intake:
Oral fluids 600 / 600 1740 / 1740
IV fluids (Total) 900 / 900
Normosol 300 / 300
Output:
Urine, Bansal 760 / 760
Other:
Number of approximated LARGE 1
amounts of urine
Lab Results
09/03/24 05:49
09/03/24 05:49
Physical Exam
-
General: No Acute Distress
Abdomen: Soft, Non Distended and Tender (b/l moderate)
Skin: Warm and Dry
Incision: Clear, Dry, Intact
[2024-09-03] MEDS: NORMOSOL-R/PLASMALYTE-A 1000 IV ×2 (09:49→19:55)
[2024-09-03 11:20] VITALS: BP 154/95
--- NOTE | 2024-09-03 11:20 | W.PN.HOSP.TC ---
Addendum entered and electronically signed by Genesis Hare MD 09/03/24 11:35:
Pt was made NPO again 2/2 abdominal tenderness.
Check chest xrays/abdominal xrays per CRS
Original Note:
Today's Communication/Plan
-
see A/P
Assessment / Plan
Assessment / Plan
HPI: 74 yo man with PMH HFrEF s/p defibrillator (EF 15-20% in 2007 with recover to 45-50% 2022), mild MR, CAD, HTN, left-sided MCA with associated right-sided hemiplegia and expressive aphasia, presented for routine right hemicolectomy for Ascending
colon cancer.
Hospitalist service was consulted for continued medical management.
A/P:
# Partial colonic obstruction due to colon cancer
s/p right hemicolectomy 09/01 by CRS
Post op care per CRS
cleared for regular diet per CRS
DVT ppx with Lovenox SQ
# chronic HFrEF, Stable
# s/p defibrillator (EF was 15-20% 2007)
recovered EF to 45 to 50%
resumed TECHNICAL PROGRAMS MANAGER lisinopril
# HTN
resumed TECHNICAL PROGRAMS MANAGER lisinopril
IV Hydralazine PRN
# CVA with residual deficits of expressive aphasia and right sided hemiplegia
Cont aspirin when able to take PO
DVT PPx SCD
DNR
Anticipated Discharge: Within 24 hours
Subjective/Interval History
-
Date of Service: September 03, 2024
Objective Data
-
Labs:
Laboratory Results
09/03/24
05:49
WBC 7.3
Hgb 11.6 L
Hct 34.6 L
Plt Count 120 L
Sodium 137
Potassium 4.1
Chloride 102
Carbon Dioxide 27
BUN 29 H
Creatinine 0.9
Glucose 74
Calcium 8.3 L
Vital Signs:
Vital Signs
Temp Pulse Resp BP Pulse Ox
36.9 C 109 14 174/97 91
09/03/24 07:37 09/03/24 07:58 09/03/24 07:37 09/03/24 07:58 09/03/24 07:37
I&O
09/02/24 09/03/24 09/04/24
06:59 06:59 06:59
Intake Total 1500 / 1500 1740 / 1740
Output Total 760 / 760
Balance 740 / 740 1740 / 1740
[2024-09-03] MEDS: SOLU-CORTEF 200 MG IV ×2 (12:04→13:13)
[2024-09-03] MEDS: OMNIPAQUE 50 ML PO (12:04)
[2024-09-03] MEDS: ROXICODONE 5 MG PO (12:14)
[2024-09-03] MEDS: TYLENOL 1000 MG PO ×2 (13:10→16:47)
[2024-09-03] MEDS: BENADRYL 50 MG IV (13:11)
--- NOTE | 2024-09-03 13:40 | CM ---
Patient seen bedside.
Patient NPO at this time.
PT recommending home with home care when stable.
Plan: back to [facility] once stable.
Director Judith Menjivar p -[phone]
[facility] [place] - [phone]
Fax - [phone]
[2024-09-03 15:35] VITALS: BP 149/81
--- NOTE | 2024-09-03 15:37 | PTCARENOTE ---
Patient with a 27 beat run of ventricular tachycardia per tele monitor. Patient was at rest, not in any distress at the time. Went back to v-paced and has been stable since. Dr. Figueroa was made aware. Will continue to monitor.
[2024-09-03] MEDS: LOVENOX 40 MG SC (16:47)
[2024-09-03 19:35] VITALS: BP 162/82
[2024-09-03 23:05] VITALS: BP 138/66
[2024-09-04] VITALS (7 sets, daily range): BP systolic 137–164; BP diastolic 78–105; BMI 17.2
[2024-09-04] MEDS: TORADOL 15 MG IV ×4 (02:53→20:19)
[2024-09-04] MEDS: TYLENOL PO (05:54)
[2024-09-04] MEDS: NORMOSOL-R/PLASMALYTE-A 1000 IV ×2 (06:00→14:30)
[2024-09-04] MEDS: DILAUDID 0.5 MG IV ×3 (07:16→23:40)
--- NOTE | 2024-09-04 07:42 | CON.CAR ---
Addendum entered and electronically signed by Chito Hurst MD 09/04/24 10:07:
I saw and examined the patient.
The Battery Plate Remover's note was reviewed and I agree with the note.
Comment:
GEN: No distress, awake, Ox3
HEENT: supple, anicteric, mmm
LUNGS: CTA, no wheezes/rales
CV: Reg, S1/S2, 1/6 syst LSB, no gallop
ABD: soft, BS+, NT/ND
EXT: No edema
NEURO: Gross non-focal
SKIN: No rash
Plan:
He has a past medical history of stroke with aphasia, nonischemic cardiomyopathy with EF of 45 to 50%, chronic systolic heart failure who presents for elective right hemicolectomy. He has a known history of nonsustained ventricular tachycardia. He
has a biventricular ICD in place.
On telemetry he is having episodes of nonsustained ventricular tachycardia. Will add 25 mg Toprol daily and follow on telemetry.
Continue lisinopril and follow volume status. If weight continues to climb he likely will need a dose of IV Lasix.
Creatinine overall stable.
Original Note:
Consultation
Consultation Request
Date/Time Consultation Performed: 09/04/24
Requesting Provider: Dr. Awad
Performing Provider: Lori Leiva PA-C for Dr. Hurst
Reason for Consultation: NSVT
Medical History
-
Chief Complaint: R hemicolectomy
History of Present Illness:
Patient is a 74-year-old male with past medical history of nonischemic cardiomyopathy, with EF most recently 45 to 50% by echo in 2022, chronic systolic heart failure, VT status post Medtronic BiV ICD, history of stroke with residual aphasia, COPD
and ongoing smoking, hypertension, depression who presented to [facility] for robotic R hemicolectomy and partial omentectomy in setting of ascending colon cancer on 09/01/24. He continues with some abd discomfort however is progressing in
his post op course. Cardiology consulted as last night patient noted to have 27 beat run of NSVT, patient was asymptomatic. He denies CP, SOB, palpitations or irregular heart beats.
PMH:
Nonischemic cardiomyopathy, EF 45-50% by echo 2022
Chronic systolic heart failure
VT status post Medtronic BiV ICD
History of stroke with residual aphasia
COPD
HTN
Depression
Past Medical History
Past Medical History: Other (in HPI)
Social History
Tobacco: Smoker
Alcohol: None
Personal: Single
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
Family History
Family History: Diabetes and Hypertension
Allergies / Home Medications
Allergy/AdvReac Type Severity Reaction Status Date / Time
codeine Allergy Rash Verified 09/01/24 07:27
Iodinated Contrast Media Allergy Rash Verified 09/01/24 07:27
[IV Dye, Iodine Containing]
iodine Allergy Hives/RASH Verified 09/01/24 07:27
�Medication �Instructions �Recorded �Confirmed �Type
lisinopril 30 mg tablet 30 mg PO DAILY Blood Pressure 07/31/24 09/01/24 History
Miralax 238 g PO DIRECTED pre operative 08/25/24 09/01/24 History
bisacodyl 5 mg tablet,delayed 5 mg PO DIRECTED pre operative 08/25/24 09/01/24 History
release (Dulcolax (bisacodyl))
metronidazole 500 mg tablet 500 mg PO DIRECTED pre operative 08/25/24 09/01/24 History
neomycin 500 mg tablet 1 g PO DIRECTED pre operrative 08/25/24 09/01/24 History
Review of Systems
-
History Source: Patient
All other systems: Negative unless noted
Physical Exam
Vital Signs
Temp Pulse Resp BP Pulse Ox
97.6 F 85 16 145/95 97
09/04/24 07:07 09/04/24 07:16 09/04/24 07:16 09/04/24 07:16 09/04/24 07:16
Physical Exam
General: No Apparent Distress and Comfortable
HEENT: Normocephalic, Anicteric and Moist Mucous Membranes
Respiratory: Clear and Non Labored Respirations
Cardiac: S1/S2 and Regular Rhythm
GI: Non Distended and Other (hypoactive bowel sounds)
Musculoskeletal: No Clubbing, No Cyanosis and No Edema
Skin: Warm and Dry
Neuro: AO x 3
Psych: Calm
Impression / Plan
-
Primary Hand Baseball Sewer: Dr. Toan Mays
Assessment:
Ascending colon cancer s/p robotic R hemicolectomy with partial omentectomy 09/01/24
NSVT
Nonischemic cardiomyopathy, EF 45-50% by echo 2022
Chronic systolic heart failure
History of VT status post Medtronic BiV ICD
History of stroke with residual aphasia
COPD
HTN
Depression
ECHO 03/04/23: EF 45 to 50%, mild global hypokinesis, mild MAC, mild MR, mild TR, PAP 26 to 31 mmHg
ECHO 08/05/2024: EF 45%, global hypokinesis, mild concentric LVH, stage I diastolic dysfunction, mild to moderate MR, mild TR, PAP 37 mmHg, mildly dilated aortic root and ascending aorta
Plan:
-s/p robotic R hemicolectomy with partial omentectomy 09/01/24. continue post op care
-cardiology consulted as patient noted to have 28 beat run of NSVT on tele overnight. has also had multiple smaller runs of NSVT in 4-10 beat range. patient asymptomatic
-check EKG. last from 08/24/24 in asensed vpaced rhythm
-recent echo 08/05/24 as above
-he has ICD in place and has known history of NSVT/VT
-K/mag stable
-will add toprol 25mg daily
-will arrange OP cardiac follow up
-d/w nursing
Data Reviewed
-
EKG: Tracing Personally Visualized and interpreted
Medical Tests (Nuc Med, Echo etc): Report Reviewed by me
Labs: Labs Reviewed by me
Old Records: Reviewed
[2024-09-04] MEDS: ZESTRIL 30 MG PO (08:05)
[2024-09-04] MEDS: ENTEREG 12 MG PO ×2 (08:05→20:18)
[2024-09-04] MEDS: PROTONIX IV 40 MG IV (08:08)
[2024-09-04] MEDS: NSS (PRESERVATIVE FREE) 10 ML IV (08:08)
[2024-09-04 08:30] LABS: Hematocrit 33.8 % (39.0-52.0); Hemoglobin 11.5 g/dL (13.0-18.0); Mean Corpuscular Hgb 29.9 pg (27.0-31.0); Mean Corpuscular Volume 87.8 fL (80.0-94.0); Mean Platelet Volume 11.1 fL (7.4-10.4); Platelet Count 121 10^3/uL (130-400); Red Blood Cell Count 3.85 10^6/uL (4.70-6.10); Red Cell Dist. Width 13.5 % (11.5-14.5); White Blood Cell Count 7.2 10^3/uL (4.8-10.8)
[2024-09-04 08:58] LABS: Blood Urea Nitrogen 30 mg/dl (9-20); Calcium 7.9 mg/dl (8.4-10.2); Carbon Dioxide 27 mmol/L (22-30); Chloride 105 mmol/L (98-107); Estimated Creatinine Clearance 51 ml/min; Glucose 93 mg/dl (70-99); Sodium 137 mmol/L (135-145); eGFR > 60.00
[2024-09-04] MEDS: TOPROL XL 25 MG PO (10:16)
--- NOTE | 2024-09-04 10:25 | W.PN.CRS1 ---
Today's Communication / Plan
-
clears with ensure
Assessment/Plan
-
POD#3 Laparoscopic right hemicolectomy
09/03- increased abdominal pain, ct shows ileus
Vitals normal
WBC 7.2 (7.3), Hgb 11.5 (11.5)
-Advance diet to clears with ensure
-Continue IVFs
-Lovenox for DVT prophylaxis, TEDS/SCDS in place
-Voiding post bansal removal
-Pain control: Tylenol/Toradol standing, Roxicodone PRN
-OOB as tolerated
-I/S q1 hr while awake
-Pain control: Tylenol/Toradol standing, Dilaudid/roxicodone PRN
-OR pathology pending
Subjective Data
Procedure
09/01/2024- Laparoscopic right hemicolectomy
Subjective Data
Date of Service: September 04, 2024
Patient has expressive aphasia but he can nod. He has less pain. He has not had a bowel movement. He denies nausea or vomiting.
Objective Data
-
Vital Signs
Temp Pulse Resp BP Pulse Ox
97.6 F 85 16 145/95 97
09/04/24 07:07 09/04/24 08:05 09/04/24 07:16 09/04/24 08:05 09/04/24 07:16
Intake & Output
09/03/24 09/04/24 09/05/24
06:59 06:59 06:59
Intake Total 1740 / 1740 2320 / 2320
Output Total 500 / 500
Balance 1740 / 1740 1820 / 1820
Intake:
Oral fluids 1740 / 1740 120 / 120
IV fluids (Total) 0 / 2200
Output:
Urine, Voided 500 / 500
Other:
Number of approximated LARGE 1
amounts of urine
Lab Results
09/04/24 08:01
09/04/24 08:01
Physical Exam
-
General: No Acute Distress and Severe Distress
Abdomen: Soft, Non Distended and Tender (bilateral tenderness (improved))
Skin: Warm and Dry
--- NOTE | 2024-09-04 10:49 | W.PN.HOSP.TC ---
Today's Communication/Plan
-
see A/P
Assessment / Plan
Assessment / Plan
HPI: 74 yo man with PMH HFrEF s/p defibrillator (EF 15-20% in 2007 with recover to 45-50% 2022), mild MR, CAD, HTN, left-sided MCA with associated right-sided hemiplegia and expressive aphasia, presented for routine right hemicolectomy for Ascending
colon cancer.
Hospitalist service was consulted for continued medical management.
A/P:
# Partial colonic obstruction due to colon cancer
s/p right hemicolectomy 09/01 by CRS
pt c/o increased abdominal pain,
Follow up CT AP showed ileus
diet readvanced to clears
DVT ppx with Lovenox SQ
# chronic HFrEF, Stable
# s/p defibrillator (EF was 15-20% 2007)
recovered EF to 45 to 50%
resumed LOCKSTITCH HEMMER lisinopril
# nonsustained ventricular tachycardia.
# s/p defibrillator (EF was 15-20% 2007)
Toprol 25 mg daily added
Appreciate Card input
# HTN
resumed LOCKSTITCH HEMMER lisinopril
IV Hydralazine PRN
# CVA with residual deficits of expressive aphasia and right sided hemiplegia
Cont aspirin when able to take PO
DVT PPx Lovenox SQ
DNR
Dispo: HH
Anticipated Discharge: 24 - 48 hours
Subjective/Interval History
-
Date of Service: September 04, 2024
Objective Data
-
Labs:
Laboratory Results
09/04/24
08:01
WBC 7.2
Hgb 11.5 L
Hct 33.8 L
Plt Count 121 L
Sodium 137
Potassium 4.0
Chloride 105
Carbon Dioxide 27
BUN 30 H
Creatinine 1.0
Glucose 93
Calcium 7.9 L
Vital Signs:
Vital Signs
Temp Pulse Resp BP Pulse Ox
36.4 C 85 16 145/95 97
09/04/24 07:07 09/04/24 08:05 09/04/24 07:16 09/04/24 08:05 09/04/24 07:16
I&O
09/03/24 09/04/24 09/05/24
06:59 06:59 06:59
Intake Total 1740 / 1740 2320 / 2320
Output Total 500 / 500
Balance 1740 / 1740 1820 / 1820
Review of Systems
-
Unable to obtain full review of systems at this time due to: Patient Non-verbal (Expressive aphasia)
Physical Exam
-
General: Well Developed, No Apparent Distress, Comfortable, Appears Chronically Ill and Cachectic; Negative Conversant
HEENT: Normocephalic and Atraumatic
Respiratory: Clear to Auscultation and Non Labored Respirations; Negative Accessory Resp Muscle Use
Cardiac: Regular Rhythm and S1/S2
GI: Soft and Nontender
Skin: Warm and Dry; Negative Rash
Neuro: Awake, Alert and Other (expressive aphasia, nods yes or no, right sided hemiplegia )
Psych: Calm
Data Reviewed
-
Labs: Labs Reviewed by me
--- NOTE | 2024-09-04 11:46 | CM ---
Chart reviewed
Rcd call from Renetta at [facility]
Updated current status - clear liquids at his time. Will update as condition changes
Per Renetta - unable to return to facility over weekend; may be able to provide transport pend van availability
Plan - anticipate return to [facility] when medically stable
Director Judith - available M-F p -[phone]
[facility] [place] [phone]
Fax - [phone]
[2024-09-04] MEDS: TYLENOL 1000 MG PO (12:59)
--- NOTE | 2024-09-04 14:46 | W.PN.UPDATE ---
Addendum entered and electronically signed by Gasper Awad MD 09/04/24 17:45:
spoke with brother, Gordon London, who is the brother that lives in [place]; updated him on patient's status and progress; informed him that the patient requested him to be his medical proxy in case the patient becomes incapacitated and he agreed
Original Note:
Update Note
Progress Note Update
Brother requested an update via phone. I attempted to call. He did not answer and unfortunately there is no voicemail set up. RN notified.
--- NOTE | 2024-09-04 16:16 | W.PN.SURGUPD ---
Surgical Update
Surgical Update
S: Patient seen and evaluated for complaints of worsening pain, declined PT.
B: Imaging from yesterday reviewed: CT demonstrated ileus, free air consistent with postoperative status was noted. CXR with similar findings without acute cardiopulmonary process.
A: Abd distended on exam, generalized tenderness with guarding. New hypoxia with accessory muscle use, loose cough. No fevers, tachycardia or hypotension. He denies n/v and is requesting something to drink. He has not passed flatus.
R: Will check CXR. Make NPO with ice chips for comfort. Increased IV analgesics to 0.5mg of Dilaudid for moderate pain and 1mg for severe pain. Changed PO Tylenol to IV Ofirmev given presence of ileus. Hold oxycodone in light of ileus. Continue
Toradol IV q6h. May need NGT if pain/distention continues to worsen or patient develops n/v. Discussed with Dr. Tinsley.
[2024-09-04] MEDS: LOVENOX 40 MG SC (18:02)
[2024-09-04] MEDS: DILAUDID 1 MG IV (18:05)
[2024-09-04] MEDS: OFIRMEV 100 IV (20:16)
[2024-09-05] VITALS (7 sets, daily range): BP systolic 122–163; BP diastolic 70–92; BMI 16.9
[2024-09-05] MEDS: NORMOSOL-R/PLASMALYTE-A 1000 IV (00:48)
[2024-09-05] MEDS: TORADOL 15 MG IV ×4 (03:25→20:24)
[2024-09-05] MEDS: OFIRMEV 100 IV ×3 (03:25→13:11)
[2024-09-05] MEDS: DILAUDID 0.5 MG IV ×2 (05:59→22:22)
--- NOTE | 2024-09-05 07:32 | W.PN.CARDCBS ---
Today's Communication / Plan
-
Tele reviewed continued with a few episodes of NSVT.
Toprol added September 04, will increase to Toprol XL 25 mg daily.
Reduce Lisinopril to 20 mg daily to avoid hypotension.
Monitor volume status.
Recent echo with stable EF at 45%. Wt is stable
Has ICD in place and has known history of NSVT/VT
Monitor K/mag which have been stable
Cont post op care
Will arrange OP cardiac follow up
Please recall if needed.
Impression / Plan
-
Primary Network Operations Technician: Dr. Toan Mays
Impression:
Ascending colon cancer s/p robotic R hemicolectomy with partial omentectomy 09/01/24
NSVT
Nonischemic cardiomyopathy, EF 45-50% by echo 2022
Chronic systolic heart failure
History of VT status post Medtronic BiV ICD
History of stroke with residual aphasia
COPD
HTN
Depression
ECHO 03/04/23: EF 45 to 50%, mild global hypokinesis, mild MAC, mild MR, mild TR, PAP 26 to 31 mmHg
ECHO 08/05/2024: EF 45%, global hypokinesis, mild concentric LVH, stage I diastolic dysfunction, mild to moderate MR, mild TR, PAP 37 mmHg, mildly dilated aortic root and ascending aorta
Plan:
HPI: s/p robotic R hemicolectomy with partial omentectomy 09/01/24. Cardiology consulted as patient noted to have 28 beat run of NSVT on tele overnight. has also had multiple smaller runs of NSVT in 4-10 beat range. patient asymptomatic
He has a past medical history of stroke with aphasia, nonischemic cardiomyopathy with EF of 45 to 50%, chronic systolic heart failure who presents for elective right hemicolectomy. He has a known history of nonsustained ventricular tachycardia. He
has a biventricular ICD in place.
Tele reviewed continued with a few episodes of NSVT.
Toprol added September 04, will increase to Toprol XL 25 mg daily.
Reduce Lisinopril to 20 mg daily to avoid hypotension.
Monitor volume status.
Recent echo with stable EF at 45%. Wt is stable
Has ICD in place and has known history of NSVT/VT
Monitor K/mag which have been stable
Cont post op care
Will arrange OP cardiac follow up
Please recall if needed.
Progress Note - Network Operations Technician
Subjective
Date of Service: September 05, 2024
Pt seen and examined. No cp or dyspnea. Some abd pain
Objective
Labs:
Labs
Hgb 11.5 g/dL (13.0-18.0) L 09/04/24 08:01
Hct 33.8 % (39.0-52.0) L 09/04/24 08:01
Plt Count 121 10^3/uL (130-400) L 09/04/24 08:01
PT 13.7 Sec (11.4-14.6) 08/24/24 09:33
INR 1.02 08/24/24 09:33
APTT 27.9 Sec (23.4-35.0) 08/24/24 09:33
Sodium 137 mmol/L (135-145) 09/04/24 08:01
Potassium 4.0 mmol/L (3.5-5.1) 09/04/24 08:01
BUN 30 mg/dl (9-20) H 09/04/24 08:01
Creatinine 1.0 mg/dL (0.7-1.3) 09/04/24 08:01
Glucose 93 mg/dl (70-99) 09/04/24 08:01
Vital Signs and I&O:
Vital Signs
Temp Pulse Resp BP Pulse Ox
98.0 F 93 16 138/84 93
09/05/24 03:00 09/05/24 03:00 09/05/24 03:00 09/05/24 03:00 09/05/24 03:00
Vital Signs
Temp Pulse Resp BP Pulse Ox
98.0 F 93 16 138/84 93
09/05/24 03:00 09/05/24 03:00 09/05/24 03:00 09/05/24 03:00 09/05/24 03:00
Intake & Output
09/03/24 09/04/24 09/05/24 09/06/24
06:59 06:59 06:59 06:59
Intake Total 1740 / 1740 2320 / 2320 1680 / 1680
Output Total 500 / 500 1001 / 1001
Balance 1740 / 1740 1820 / 1820 679 / 679
Physical Exam
Physical Exam
General: No acute distress, Awake and alert
Neck: Negative JVD
Heart: Regular, Negative S3 positive S1/S2, Negative S4, No murmur
Lungs: CTA b/l, negative wheezes/rales/rhonchi
Abd: Positive BS, NT/ND, neg rebound/rigidity/guarding
Ext: Negative cyanosis/clubbing/edema
Neuro: nonfocal
--- NOTE | 2024-09-05 08:04 | W.PN.HOSP.TC ---
Today's Communication/Plan
-
D5LR and accuchecks
Recheck BMP this evening given that dextrose containing IV fluids have been started (can potentially lower potassium)
See plan
Assessment / Plan
Assessment / Plan
Physical Exam
General: Well Developed, No Apparent Distress, Comfortable, Appears Chronically Ill and Cachectic; Negative Conversant
HEENT: Normocephalic and Atraumatic
Respiratory: Clear to Auscultation Bilaterally and Non Labored Respirations; Negative Accessory Resp Muscle Use
Cardiac: Regular Rate and Rhythm and S1/S2
GI: Soft. Tender to palpation.
Skin: Warm and Dry; Negative Rash
Neuro: Awake, Alert and Other (expressive aphasia, nods yes or no, right sided hemiplegia )
Psych: Calm
Assessment/Plan
HPI: 74 yo man with PMH HFrEF s/p defibrillator (EF 15-20% in 2007 with recover to 45-50% 2022), mild MR, CAD, HTN, left-sided MCA with associated right-sided hemiplegia and expressive aphasia, presented for routine right hemicolectomy for Ascending
colon cancer.
Hospitalist service was consulted for continued medical management.
# Partial colonic obstruction due to colon cancer
s/p right hemicolectomy 09/01 by CRS
pt c/o increased abdominal pain,
Follow up CT AP showed ileus
diet readvanced to clears
DVT ppx with Lovenox SQ
#Hypoglycemia
-D5LR IV fluids started; continue
-Continue accuchecks per protocol
# chronic HFrEF, Stable
# s/p defibrillator (EF was 15-20% 2007)
recovered EF to 45 to 50%
resumed RESPIRATORY PRACTITIONER lisinopril
Monitor volume status, weight stable as of 09/05/24
# nonsustained ventricular tachycardia.
# s/p defibrillator (EF was 15-20% 2007)
NSVT episodes continue as of 09/05/24
Toprol 25 mg daily increased to BID
Appreciate Card input
Keep Potassium>4 (but still within normal range) and Magnesium>2 (but still within normal range)
# HTN
resumed RESPIRATORY PRACTITIONER lisinopril -- except reduced to 15 mg daily to avoid hypotension
IV Hydralazine PRN
# CVA with residual deficits of expressive aphasia and right sided hemiplegia
Cont aspirin when able to take PO
DVT PPx Lovenox SQ
DNR
Anticipated Discharge: > 48 hours
Subjective/Interval History
-
Date of Service: September 05, 2024
Patient was seen and examined. No new complaints, still with abdominal pain from surgery.
Objective Data
-
Labs:
Laboratory Results
09/05/24
06:03
WBC Pending
Hgb Pending
Hct Pending
Plt Count Pending
Sodium Pending
Potassium Pending
Chloride Pending
Carbon Dioxide Pending
BUN Pending
Creatinine Pending
Glucose Pending
Calcium Pending
Vital Signs:
Vital Signs
Temp Pulse Resp BP Pulse Ox
98.0 F 93 16 138/84 93
09/05/24 03:00 09/05/24 03:00 09/05/24 03:00 09/05/24 03:00 09/05/24 03:00
I&O
09/04/24 09/05/24 09/06/24
06:59 06:59 06:59
Intake Total 2320 / 2320 1680 / 1680
Output Total 500 / 500 1001 / 1001
Balance 1820 / 1820 679 / 679
[2024-09-05] MEDS: PROTONIX IV 40 MG IV (08:08)
[2024-09-05] MEDS: ENTEREG 12 MG PO ×2 (08:08→20:25)
[2024-09-05] MEDS: NSS (PRESERVATIVE FREE) 10 ML IV (08:08)
[2024-09-05] MEDS: TOPROL XL 25 MG PO ×2 (08:09→20:25)
[2024-09-05] MEDS: ZESTRIL 20 MG PO (08:12)
[2024-09-05 08:21] LABS: Hematocrit 40.1 % (39.0-52.0); Hemoglobin 13.5 g/dL (13.0-18.0); Mean Corp Hgb Conc. 33.7 g/dL (33.0-37.0); Mean Corpuscular Hgb 29.9 pg (27.0-31.0); Mean Corpuscular Volume 88.9 fL (80.0-94.0); Mean Platelet Volume 11.2 fL (7.4-10.4); Platelet Count 148 10^3/uL (130-400); Red Blood Cell Count 4.51 10^6/uL (4.70-6.10); Red Cell Dist. Width 13.7 % (11.5-14.5); White Blood Cell Count 8.6 10^3/uL (4.8-10.8)
[2024-09-05 09:44] LABS: Blood Urea Nitrogen 28 mg/dl (9-20); Calcium 7.6 mg/dl (8.4-10.2); Carbon Dioxide 25 mmol/L (22-30); Chloride 102 mmol/L (98-107); Estimated Creatinine Clearance 56 ml/min; Glucose 43 mg/dl (70-99); Potassium 3.9 mmol/L (3.5-5.1); Sodium 137 mmol/L (135-145); eGFR > 60.00
--- NOTE | 2024-09-05 09:45 | PTCARENOTE ---
This nurse received a call from lab at this time regarding blood sugar of 43 from morning labs, taken at 0603. Blood glucose check performed and read blood sugar of 58. Dr. Hunter notified of hypoglycemia and hypoglycemia protocol started. D5LR
started as well.
[2024-09-05 09:48] LABS: Glucose - Point of Care 58 mg/dl (70-99)
[2024-09-05 10:11] LABS: Glucose - Point of Care 55 mg/dl (70-99)
[2024-09-05] MEDS: D5LR 1000 IV ×2 (10:14→20:27)
[2024-09-05 10:41] LABS: Glucose - Point of Care 49 mg/dl (70-99)
[2024-09-05] MEDS: NORMOSOL-R/PLASMALYTE-A IV (10:58)
[2024-09-05 11:04] LABS: Glucose - Point of Care 66 mg/dl (70-99)
--- NOTE | 2024-09-05 11:46 | W.PN.GS2 ---
Addendum entered and electronically signed by Teo Brand MD 09/05/24 13:44:
I saw and examined the patient.
The High Density Press Operator's note was reviewed and I agree with the note.
Comment: Nods yes for abd pain, nods yes for passage of flatus, shakes head no for nausea. Abd softly distended, approp ttp. hypoglycemia noted, IVF switched to D5/LR. Otherwise labs OK. Trial CLD
Original Note:
Today's Communication / Plan
-
Trial of clears
Assessment / Plan
-
74 yo male with a h/o CVA with expressive aphasia, HFrEf, AICD and ascending colon ca
POD #4 Robotic right hemicolectomy
Expected ileus, now with some improvement as he has passed some stools, no nausea
AFVSS, respiratory insufficiency requiring O2
Labs stable
--Trial of clears
--OOB/Ambulate
--Analgesics scheduled and prn
--IS while awake
--C/W IVF until good Po intake
--Lovenox and scds for VTE ppx
Medicine and cardiology following, appreciate recs/management
Subjective Data
-
Date of Service: September 05, 2024
Patient seen and examined at bedside with Dr. Brand. Expressive aphasia limits subjective portion of exam. Voiding. Passed some stools overnight. Denies nausea.
Objective Data
-
Intake and Output
09/04/24 09/05/24 09/06/24
06:59 06:59 06:59
Intake Total 2320 / 2320 1680 / 1680
Output Total 500 / 500 1001 / 1001
Balance 1820 / 1820 679 / 679
Intake:
Oral fluids 120 / 120 480 / 480
IV fluids (Total) 2200 / 2200 1200 / 1200
Output:
Liquid stool amount
Rectum
Urine, Voided 500 / 500 1000 / 1000
Other:
How many times incontinent 1
MODERATE amount urine
Number of unmeasured liquid
stools
Rectum 1
Vital Signs
Temp Pulse Resp BP Pulse Ox
97.6 F 74 16 135/81 94
09/05/24 07:00 09/05/24 08:12 09/05/24 07:00 09/05/24 08:12 09/05/24 07:00
Lab Results
09/05/24 06:03
09/05/24 06:03
Calcium 7.6 mg/dl (8.4-10.2) L 09/05/24 06:03
Magnesium 2.1 mg/dl (1.6-2.3) 09/02/24 06:10
Total Bilirubin 0.9 mg/dl (0.2-1.3) 08/24/24 09:33
AST 17 U/L (17-59) 08/24/24 09:33
ALT 11 U/L (0-50) 08/24/24 09:33
Alkaline Phosphatase 58 U/L (38-126) 08/24/24 09:33
Total Protein 6.7 g/dl (6.3-8.2) 08/24/24 09:33
Albumin 4.3 g/dl (3.5-5.0) 08/24/24 09:33
Physical Exam
-
General: anxious
Expressive aphasia
Abdomen: Soft, mildly distended, generalized tenderness, voluntary guarding
Patient has a bansal catheter: No
Patient has a central line: No
[2024-09-05 12:13] LABS: Glucose - Point of Care 112 mg/dl (70-99)
[2024-09-05 14:12] LABS: Glucose - Point of Care 120 mg/dl (70-99)
[2024-09-05 14:27] LABS: Albumin 2.8 g/dl (3.5-5.0)
[2024-09-05 16:40] LABS: Glucose - Point of Care 139 mg/dl (70-99)
[2024-09-05] MEDS: LOVENOX 40 MG SC (17:17)
[2024-09-05] MEDS: DILAUDID 1 MG IV (17:45)
[2024-09-06] VITALS (7 sets, daily range): BP systolic 123–144; BP diastolic 71–87; PULSE 113; BMI 19.0
[2024-09-06] MEDS: LASIX 20 MG IV ×3 (00:41→14:46)
--- NOTE | 2024-09-06 00:47 | PTCARENOTE ---
P was found having difficulty breathing, attempting to obtain labs but pt is extremely difficult for access and has RUE limb restriction. VSS 163/92 95% on 5L HR 112, moist cough continues. pt was asssited in positioning in bed and 2ml lasix ordered
from given @ this time pt awaiting labs.
--- NOTE | 2024-09-06 01:39 | W.PN.UPDATE ---
Update Note
Progress Note Update
RN reporting requiring more o2 2L to 5L. new loose wet cough. Getting ivf at 100. Will give a dose of lasix and drop ivf
[2024-09-06 01:54] LABS: Blood Urea Nitrogen 31 mg/dl (9-20); Calcium 7.6 mg/dl (8.4-10.2); Carbon Dioxide 22 mmol/L (22-30); Chloride 102 mmol/L (98-107); Estimated Creatinine Clearance 50 ml/min; Glucose 114 mg/dl (70-99); Potassium 3.4 mmol/L (3.5-5.1); Sodium 135 mmol/L (135-145); eGFR > 60.00
[2024-09-06 01:55] LABS: NT-proBNP 3180 pg/ml
[2024-09-06] MEDS: TORADOL IV (02:00)
[2024-09-06] MEDS: LOPRESSOR 2.5 MG IV (02:44)
[2024-09-06] MEDS: DILAUDID 1 MG IV (02:45)
--- NOTE | 2024-09-06 03:03 | PTCARENOTE ---
2.5mg IV lopressor given for sustained HR 120 and c/o of chest pain.. EKG completed, pt bladder scanned for 86ml after no output with Lasix. Pt continue with b/l coarse lung sounds moist cough, MATOS.
[2024-09-06] MEDS: ROBITUSSIN DM 5 ML PO ×2 (04:49→12:38)
[2024-09-06] MEDS: DUONEB 3 ML INH ×2 (04:54→12:41)
[2024-09-06 05:02] LABS: COVID-19 Antigen Negative (Negative)
--- NOTE | 2024-09-06 05:18 | PTCARENOTE ---
HP assessed pt at bedside, orders for labs, COVID, and flu obtained. PRN neb treatments provided. Pt resting comfortably in bed @ this time with call aponte within reach.
[2024-09-06 05:55] LABS: Blood Urea Nitrogen 33 mg/dl (9-20); Calcium 7.7 mg/dl (8.4-10.2); Carbon Dioxide 24 mmol/L (22-30); Chloride 104 mmol/L (98-107); Estimated Creatinine Clearance 50 ml/min; Glucose 86 mg/dl (70-99); Potassium 3.7 mmol/L (3.5-5.1); Sodium 136 mmol/L (135-145); eGFR > 60.00
[2024-09-06 06:01] LABS: Hematocrit 39.1 % (39.0-52.0); Hemoglobin 13.4 g/dL (13.0-18.0); Mean Corp Hgb Conc. 34.3 g/dL (33.0-37.0); Mean Corpuscular Hgb 29.8 pg (27.0-31.0); Mean Corpuscular Volume 86.9 fL (80.0-94.0); Mean Platelet Volume 11.3 fL (7.4-10.4); Platelet Count 122 10^3/uL (130-400); Red Cell Dist. Width 13.6 % (11.5-14.5); White Blood Cell Count 3.3 10^3/uL (4.8-10.8)
[2024-09-06 06:03] LABS: Troponin I < 0.012 ng/ml
--- NOTE | 2024-09-06 06:59 | W.PN.HOSP.TC ---
Today's Communication/Plan
-
Suspected CHF exacerbation -- IV Lasix started, daily weights, I's and O's
Continue to monitor on telemetry
Keep potassium >4 (but still within normal range) and Magnesium >2 (but still within normal range)
Dextrose IV fluids stopped
Continue to monitor accuchecks to make sure no hypoglycemia
Assessment / Plan
Assessment / Plan
Physical Exam
General: Well Developed, No Apparent Distress, Comfortable, Appears Chronically Ill and Cachectic; Negative Conversant
HEENT: Normocephalic and Atraumatic
Respiratory: Clear to Auscultation Bilaterally and Non Labored Respirations; Negative Accessory Resp Muscle Use
Cardiac: Regular Rate and Rhythm and S1/S2
GI: Soft. Tender to palpation.
Skin: Warm and Dry; Negative Rash
Neuro: Awake, Alert and Other (expressive aphasia, nods yes or no, right sided hemiplegia )
Psych: Calm
Assessment/Plan
HPI: 74 yo man with PMH HFrEF s/p defibrillator (EF 15-20% in 2007 with recover to 45-50% 2022), mild MR, CAD, HTN, left-sided MCA with associated right-sided hemiplegia and expressive aphasia, presented for routine right hemicolectomy for Ascending
colon cancer.
Hospitalist service was consulted for continued medical management.
# Partial colonic obstruction due to colon cancer
s/p right hemicolectomy 09/01 by CRS
pt c/o increased abdominal pain,
Follow up CT AP showed ileus
Continue Incentive Spirometer
Continue clear liquid diet
Out of bed and ambulate as tolerated
DVT ppx with Lovenox SQ
#Acute Hypoxic Respiratory Failure (with SOB) overnight 09/05/24-09/06/24 Suspected Secondary to Acute HFrEF
-proBNP elevated at 3180
-Weight is also increased significantly
-CXR with no acute findings however
-Started IV Lasix 20 mg BID
-IV fluids stopped
-Daily weights, I's and O's
#Hypoglycemia
-D5LR IV fluids given but now stopped due to suspected CHF exacerbation
-Hypoglycemia resolved
-Continue oral diet, encourage good PO intake
-Continue accuchecks per protocol
#Suspected acute on chronic HFrEF overnight 09/05/24-09/06/24
#Status post defibrillator (EF was 15-20% 2007)
recovered EF to 45 to 50%
resumed CLOTH CHECKER lisinopril
-Continue IV Lasix
-Daily weights, I's and O's
#Prolonged QTc
-Minimize/avoid QTc-prolonging medications
#Nonsustained ventricular tachycardia.
#Status post defibrillator (EF was 15-20% 2007)
NSVT episodes continue as of 09/05/24
Toprol 25 mg daily increased to BID this hospitalization
Appreciate Card input
Keep Potassium>4 (but still within normal range) and Magnesium>2 (but still within normal range)
#Hypertension
resumed CLOTH CHECKER lisinopril -- except reduced to 15 mg daily to avoid hypotension
IV Hydralazine PRN
#CVA with residual deficits of expressive aphasia and right sided hemiplegia
Cont aspirin when able to take PO
DVT Prophylaxis: Lovenox SQ and SCDs
Code Status: DNR
Anticipated Discharge: > 48 hours
Subjective/Interval History
-
Date of Service: September 06, 2024
Patient was seen and examined. Overnight, he had some shortness of breath and increased oxygen requirements.
Objective Data
-
Labs:
Laboratory Results
09/06/24 09/06/24
01:15 05:11
WBC 3.3 L
Hgb 13.4
Hct 39.1
Plt Count 122 L
Sodium 135 136
Potassium 3.4 L 3.7
Chloride 102 104
Carbon Dioxide 22 24
BUN 31 H 33 H
Creatinine 1.0 1.0
Glucose 114 H 86
Calcium 7.6 L 7.7 L
Vital Signs:
Vital Signs
Temp Pulse Resp BP Pulse Ox
97.6 F 18 20 123/84 93
09/05/24 23:05 09/06/24 04:58 09/06/24 04:58 09/06/24 01:15 09/06/24 04:58
I&O
09/04/24 09/05/24 09/06/24
06:59 06:59 06:59
Intake Total 2320 / 2320 1680 / 1680 3414 / 3414
Output Total 500 / 500 1001 / 1001
Balance 1820 / 1820 679 / 679 3414 / 3414
[2024-09-06 08:04] LABS: Glucose - Point of Care 81 mg/dl (70-99)
[2024-09-06] MEDS: PROTONIX IV 40 MG IV (08:41)
[2024-09-06] MEDS: NSS (PRESERVATIVE FREE) 10 ML IV (08:43)
[2024-09-06] MEDS: TOPROL XL PO ×2 (08:44→10:31)
[2024-09-06] MEDS: ZESTRIL PO ×2 (08:45→10:31)
[2024-09-06] MEDS: TORADOL 15 MG IV (08:45)
[2024-09-06] MEDS: ENTEREG PO ×2 (08:55→10:31)
[2024-09-06] MEDS: KCL 160 MEQ IV (10:29)
[2024-09-06] MEDS: DILAUDID 0.5 MG IV ×3 (10:29→21:10)
--- NOTE | 2024-09-06 10:38 | W.PN.GS2 ---
Addendum entered and electronically signed by Teo Brand MD 09/06/24 14:45:
I saw and examined the patient.
The Manuscripts Curator's note was reviewed and I agree with the note.
Comment: O2 req increased overnight to 5L, got lasix and today back to 2L, CXR without significant effusion; Passed a BM, pain remains, able to get a better exam today, less tender but with crepitus to left fredrick abdomen, suspect related to airseal,
cont cld for now
Original Note:
Today's Communication / Plan
-
clears
Assessment / Plan
-
74 yo male with a h/o CVA with expressive aphasia, HFrEf, AICD and ascending colon ca
POD #5 Robotic right hemicolectomy
Expected ileus, now with some improvement as he has passed some stools, no nausea. Still with tympany on exam.
Gastric bubble on CXR this am, ?small amount of free air remains from surgery. No acute cardiopulm process.
AFVSS, respiratory insufficiency requiring O2. Increased O2 requirement early this am, now back down to 2L
Labs stable
--Continue clears
--OOB/Ambulate
--Analgesics scheduled and prn
--IS while awake
--D/C IVF now that he is taking PO
--Lovenox and scds for VTE ppx
Medicine and cardiology following, appreciate recs/management
Subjective Data
-
Date of Service: September 06, 2024
Patient seen and examined at bedside. Expressive aphasia limiting subjective portion of exam. Frustrated with his television, refused meds earlier but seems to be agreeable now that I have fixed his TV. Passed a stool per nursing. Pain present, but
seems better today. Breathing improved.
Objective Data
-
Intake and Output
09/05/24 09/06/24 09/07/24
06:59 06:59 06:59
Intake Total 1680 / 1680 3414 / 3414
Output Total 1001 / 1001
Balance 679 / 679 3414 / 3414
Intake:
Oral fluids 480 / 480 1514 / 1514
Amount of oral supplement(s) 1200 / 1200
consumed
IV fluids (Total) 1200 / 1200 700 / 700
Output:
Liquid stool amount 1 / 1
Rectum 1 /
Urine, Voided 1000 / 1000
Other:
How many times incontinent 1 1
MODERATE amount urine
How many times incontinent 1
SATURATED amount urine
Number of unmeasured liquid
stools
Rectum 1
Vital Signs
Temp Pulse Resp BP Pulse Ox
97.9 F 101 15 130/71 93
09/06/24 07:00 09/06/24 08:40 09/06/24 07:00 09/06/24 08:40 09/06/24 08:00
Lab Results
09/06/24 05:11
09/06/24 05:11
Calcium 7.7 mg/dl (8.4-10.2) L 09/06/24 05:11
Magnesium 2.0 mg/dl (1.6-2.3) 09/06/24 05:11
Total Bilirubin 0.9 mg/dl (0.2-1.3) 08/24/24 09:33
AST 17 U/L (17-59) 08/24/24 09:33
ALT 11 U/L (0-50) 08/24/24 09:33
Alkaline Phosphatase 58 U/L (38-126) 08/24/24 09:33
Total Protein 6.7 g/dl (6.3-8.2) 08/24/24 09:33
Albumin 2.8 g/dl (3.5-5.0) L 09/05/24 06:03
Physical Exam
-
NAD
ABD soft, tympany present, voluntary guarding, generalized tenderness
Incisions with intact glue, no erythema
[2024-09-06 12:06] LABS: Glucose - Point of Care 100 mg/dl (70-99)
[2024-09-06] MEDS: TYLENOL PO ×2 (12:38→12:43)
[2024-09-06] MEDS: LOVENOX 40 MG SC (17:29)
[2024-09-06] MEDS: TYLENOL 1000 MG PO (17:30)
[2024-09-06] MEDS: ENTEREG 12 MG PO (20:24)
[2024-09-06] MEDS: TOPROL XL 25 MG PO (20:25)
[2024-09-06 20:36] LABS: Blood Urea Nitrogen 36 mg/dl (9-20); Calcium 7.7 mg/dl (8.4-10.2); Carbon Dioxide 19 mmol/L (22-30); Chloride 106 mmol/L (98-107); Estimated Creatinine Clearance 44 ml/min; Glucose 99 mg/dl (70-99); Potassium 3.8 mmol/L (3.5-5.1); Sodium 134 mmol/L (135-145); eGFR 58.37
[2024-09-07] MEDS: TYLENOL PO ×6 (01:21→21:06)
[2024-09-07 04:05] VITALS: BP 138/83
[2024-09-07 05:45] VITALS: BMI 17.8
[2024-09-07 07:15] VITALS: BP 133/79
[2024-09-07] MEDS: ZESTRIL 20 MG PO (08:14)
[2024-09-07] MEDS: TOPROL XL 25 MG PO (08:15)
[2024-09-07] MEDS: PROTONIX IV 40 MG IV (08:15)
[2024-09-07] MEDS: NSS (PRESERVATIVE FREE) 10 ML IV (08:15)
[2024-09-07] MEDS: ENTEREG PO ×3 (08:15→21:06)
[2024-09-07] MEDS: LASIX 20 MG IV (08:16)
[2024-09-07 08:31] LABS: Hematocrit 35.3 % (39.0-52.0); Hemoglobin 12.3 g/dL (13.0-18.0); Mean Corp Hgb Conc. 34.8 g/dL (33.0-37.0); Mean Corpuscular Hgb 30.5 pg (27.0-31.0); Mean Corpuscular Volume 87.6 fL (80.0-94.0); Red Blood Cell Count 4.03 10^6/uL (4.70-6.10); Red Cell Dist. Width 13.6 % (11.5-14.5); White Blood Cell Count 12.6 10^3/uL (4.8-10.8)
[2024-09-07 08:58] LABS: Blood Urea Nitrogen 43 mg/dl (9-20); Calcium 7.6 mg/dl (8.4-10.2); Carbon Dioxide 24 mmol/L (22-30); Chloride 103 mmol/L (98-107); Estimated Creatinine Clearance 44 ml/min; Glucose 84 mg/dl (70-99); Potassium 3.7 mmol/L (3.5-5.1); Sodium 135 mmol/L (135-145); eGFR > 60.00
[2024-09-07 08:59] LABS: Mean Platelet Volume 11.6 fL (7.4-10.4); Platelet Count 92 10^3/uL (130-400)
[2024-09-07 10:00] LABS: % Basophils 0.1 % (0-2); % Eosinophils 0.1 % (0-6); % Immature Granulocytes 0.8 % (0-0.5); % Lymphocytes 1.8 % (20.5-51.1); % Monocytes 2.2 % (1.7-9.3)
[2024-09-07 10:01] LABS: Absolute Immature Granulocytes 0.1 10^3/uL (0-0.05); Absolute Lymphocytes 0.2 10^3/uL (1.2-3.4); Absolute Monocytes 0.3 10^3/uL (0.1-0.6); Absolute Neutrophils 11.4 10^3/uL (1.4-6.5); Nucleated Red Blood Cells % 0.2 % (-)
--- NOTE | 2024-09-07 10:35 | W.PN.HOSP.TC ---
Today's Communication/Plan
-
See plan
Assessment / Plan
Assessment / Plan
Physical Exam
General: Well Developed, No Apparent Distress, Comfortable, Appears Chronically Ill and Cachectic; Negative Conversant
HEENT: Normocephalic and Atraumatic
Respiratory: Clear to Auscultation Bilaterally and Non Labored Respirations; Negative Accessory Resp Muscle Use
Cardiac: Regular Rate and Rhythm and S1/S2
GI: Soft. Tender to palpation.
Skin: Warm and Dry; Negative Rash
Neuro: Awake, Alert and Other (expressive aphasia, nods yes or no, right sided hemiplegia )
Psych: Calm
Assessment/Plan
HPI: 74 yo man with PMH HFrEF s/p defibrillator (EF 15-20% in 2007 with recover to 45-50% 2022), mild MR, CAD, HTN, left-sided MCA with associated right-sided hemiplegia and expressive aphasia, presented for routine right hemicolectomy for Ascending
colon cancer.
Hospitalist service was consulted for continued medical management.
# Partial colonic obstruction due to colon cancer
s/p right hemicolectomy 09/01 by CRS
pt c/o increased abdominal pain,
Follow up CT AP showed ileus
Continue Incentive Spirometer
NPO again for now as per colorectal surgery, given pain/bloating on 09/07/[address] imaging, given pain/bloating on 09/07/24
Out of bed and ambulate as tolerated
DVT ppx with Lovenox SQ
#Acute Hypoxic Respiratory Failure (with SOB) overnight 09/05/24-09/06/24 Suspected Secondary to Acute HFrEF
-proBNP elevated at 3180
-Weight is also increased significantly
-CXR with no acute findings however
-Started IV Lasix 20 mg BID
-IV fluids stopped
-Daily weights, I's and O's
#Hypoglycemia
-D5LR IV fluids given but now stopped due to suspected CHF exacerbation
-Hypoglycemia resolved
-Continue oral diet, encourage good PO intake
-Continue accuchecks per protocol
#Suspected acute on chronic HFrEF overnight 09/05/24-09/06/24
#Status post defibrillator (EF was 15-20% 2007)
recovered EF to 45 to 50%
resumed MATHEMATICS ACADEMIC CHAIR lisinopril
-Continue IV Lasix but increase to 40 mg BID
-Daily weights, I's and O's
-Cardiology following continued runs of NSVT on tele, as well as heart failure exacerbation
#Prolonged QTc
-Minimize/avoid QTc-prolonging medications
#Nonsustained ventricular tachycardia.
#Status post defibrillator (EF was 15-20% 2007)
NSVT episodes continue as of 09/05/24
Toprol 25 mg daily increased to BID this hospitalization
Appreciate Card input
Keep Potassium>4 (but still within normal range) and Magnesium>2 (but still within normal range)
#Hypertension
resumed MATHEMATICS ACADEMIC CHAIR lisinopril -- except reduced to 15 mg daily to avoid hypotension
IV Hydralazine PRN
#CVA with residual deficits of expressive aphasia and right sided hemiplegia
Cont aspirin when able to take PO
DVT Prophylaxis: Lovenox SQ and SCDs
Code Status: Full Code
Patient's nurse and myself spoke with patient and he expressed that he would like to be Full Code. He continues to refuse many medications and nursing interventions, and I explained to the patient he can deteriorate quickly and possibly go into
cardiopulmonary arrest if he continues to refuse meds and interventions. On 09/07/24, patient told his brother Gordon, director of it operations at his home, and his therapist at [facility] that he understands the importance of medical care but still after
that refusing medications/interventions at times.
On 09/07/24, I spoke to patient's brother Gordon over the phone, and explained everything to him including the fact that patient has been refusing many medications and interventions and this could result in deterioration and possible cardiopulmonary
arrest, he understood and said he would try to talk to patient over the phone. Per nurse's discussion with patient's nephew Ritesh, patient is estranged from his children, nephew stated that patient can be stubborn.
Anticipated Discharge: > 48 hours
Subjective/Interval History
-
Date of Service: September 07, 2024
Patient was seen and examined. He denied any new symptoms or complaints.
Objective Data
-
Labs:
Laboratory Results
09/07/24
07:46
WBC 12.6 H
Hgb 12.3 L
Hct 35.3 L
Plt Count 92 L D
Sodium 135
Potassium 3.7
Chloride 103
Carbon Dioxide 24
BUN 43 H
Creatinine 1.2
Glucose 84
Calcium 7.6 L
Vital Signs:
Vital Signs
Temp Pulse Resp BP Pulse Ox
98.5 F 114 18 133/79 93
09/07/24 07:15 09/07/24 07:15 09/07/24 07:15 09/07/24 07:15 09/07/24 08:32
I&O
09/06/24 09/07/24 09/08/24
06:59 06:59 06:59
Intake Total 3414 / 3414 2960 / 2960
Balance 3414 / 3414 2960 / 2960
[2024-09-07 10:51] LABS: Magnesium 2.1 mg/dl (1.6-2.3)
[2024-09-07 11:05] VITALS: BP 168/105
--- NOTE | 2024-09-07 11:13 | W.PN.CARDCBS ---
Addendum entered and electronically signed by Geraldo Toure MD 09/07/24 12:21:
I saw and examined the patient.
The SURVEY COMPILER or PA's note was reviewed and I agree with the note.
Comment: General: Well developed, well nourished in NAD.
Neck: Supple, no JVD, HJR, carotids +2 B/L, no bruits bilaterally.
Heart: Non displaced PMI, RRR, no murmurs, No S3, S4, no rubs.
Lungs: Scattered rhonchi
Extremities: No clubbing, cyanosis or edema bilaterally.
Neuro: Grossly nonfocal, awake, alert and oriented x3.
Continue treatment for CHF with IV Lasix. Telemetry with brief runs of nonsustained V. tach which was confirmed by ICD interrogation. If this were to worsen consider amiodarone. Replete potassium.
Original Note:
Today's Communication / Plan
-
Replete Potassium
Consider adding Amiodarone
ICD interrogation
Continue gentle IV diuresis
Impression / Plan
-
Primary Conveyancer: Dr. Toan Mays
Impression:
Ascending colon cancer s/p robotic R hemicolectomy with partial omentectomy 09/01/24
NSVT
Nonischemic cardiomyopathy, EF 45-50% by echo 2022
Chronic systolic heart failure
History of VT status post Medtronic BiV ICD
History of stroke with residual aphasia
COPD
HTN
Depression
ECHO 03/04/23: EF 45 to 50%, mild global hypokinesis, mild MAC, mild MR, mild TR, PAP 26 to 31 mmHg
ECHO 08/05/2024: EF 45%, global hypokinesis, mild concentric LVH, stage I diastolic dysfunction, mild to moderate MR, mild TR, PAP 37 mmHg, mildly dilated aortic root and ascending aorta
Plan:
s/p robotic R hemicolectomy with partial omentectomy 09/01/24. WBC trending up but afebrile
He has a known history of nonsustained ventricular tachycardia. He has a biventricular ICD in place.
Cardiology consulted as patient noted to have 28 beat run of NSVT on tele 09/04/2024. Had additional episodes of ventricular tachycardia 09/06/2024 and 09/07/2024 with longest 23 beats on 09/07/2024 has also had multiple smaller runs of NSVT
in 4-10 beat range. patient asymptomatic. Cardiology being asked to see patient again
Device interrogated 09/07/2024 with appropriate function. Brief episodes of ventricular tachycardia noted on 09/03/2024, 09/06/2024 and 09/07/2024. Longest on device interrogation was 5 seconds. No ICD shocks, ATP therapies found. Battery has 1.8
years left
Trop negative 09/06.
Toprol added September 04 and increased to Toprol XL 25 BID.
Consider adding Amiodarone with load. LFTs were normal earlier this admission
Lisinopril reduced to 20 mg daily to avoid hypotension.
K+ 3.7 would replete; Mag 2.1. Keep K+>4, mag >2
Recent echo with stable EF at 45%. Wt is stable
OptiVol fluid index on ICD knowing upward trending OptiVol consistent with volume overload. Agree with gentle IV diuresis with Lasix 20 mg BID
Cont post op care
History of Present Illness 09/04/2024:
Patient is a 74-year-old male with past medical history of nonischemic cardiomyopathy, with EF most recently 45 to 50% by echo in 2022, chronic systolic heart failure, VT status post Medtronic BiV ICD, history of stroke with residual aphasia, COPD
and ongoing smoking, hypertension, depression who presented to [facility] for robotic R hemicolectomy and partial omentectomy in setting of ascending colon cancer on 09/01/24. He continues with some abd discomfort however is progressing in
his post op course. Cardiology consulted as last night patient noted to have 27 beat run of NSVT, patient was asymptomatic. He denies CP, SOB, palpitations or irregular heart beats.
Progress Note - Conveyancer
Subjective
Date of Service: September 07, 2024
Patient seen and examined. Patient lying in bed with falling asleep.
Objective
Labs:
09/07/24 07:46
09/07/24 07:46
Labs
Hgb 12.3 g/dL (13.0-18.0) L 09/07/24 07:46
Hct 35.3 % (39.0-52.0) L 09/07/24 07:46
Plt Count 92 10^3/uL (130-400) L D 09/07/24 07:46
PT 13.7 Sec (11.4-14.6) 08/24/24 09:33
INR 1.02 08/24/24 09:33
APTT 27.9 Sec (23.4-35.0) 08/24/24 09:33
Sodium 135 mmol/L (135-145) 09/07/24 07:46
Potassium 3.7 mmol/L (3.5-5.1) 09/07/24 07:46
BUN 43 mg/dl (9-20) H 09/07/24 07:46
Creatinine 1.2 mg/dL (0.7-1.3) 09/07/24 07:46
Glucose 84 mg/dl (70-99) 09/07/24 07:46
Troponins
09/06/24
05:11
Troponin I < 0.012
Vital Signs and I&O:
Vital Signs
Temp Pulse Resp BP Pulse Ox
98.5 F 114 18 133/79 93
09/07/24 07:15 09/07/24 07:15 09/07/24 07:15 09/07/24 07:15 09/07/24 08:32
Vital Signs
Temp Pulse Resp BP Pulse Ox
98.5 F 114 18 133/79 93
09/07/24 07:15 09/07/24 07:15 09/07/24 07:15 09/07/24 07:15 09/07/24 08:32
Intake & Output
09/05/24 09/06/24 09/07/24 09/08/24
06:59 06:59 06:59 06:59
Intake Total 1680 / 1680 3414 / 3414 2960 / 2960
Output Total 1001 / 1001
Balance 679 / 679 3414 / 3414 2960 / 2960
Physical Exam
Physical Exam
GEN: lying in bed chronically ill-appearing
HEENT: supple, anicteric, mmm
LUNGS: Coarse breath sounds anteriorly
CV: Reg, S1/S2, 1/6 systolic LSB murmur
ABD: Tender to palpation, BS+
EXT: No edema, clubbing or cyanosis
NEURO: Gross non-focal
SKIN: No rash, warm, dry, pink
--- NOTE | 2024-09-07 12:12 | W.CARD.DEVCH ---
Cardiac Device Check
-
Device: Implanted Cardioverter-Defibrillator
Soil Analyst: Medtronic
The patient's device was interrogated with assistance of the device farm loan representative followed by a complete physician review. The device had normal function. Episodes of nonsustained ventricular tachycardia noted 08/21/2024, 08/27/2024, 09/03/2024,
09/06/2024, 09/07/2024, longest 5 seconds. No ICD shocks or ATP required
--- NOTE | 2024-09-07 12:30 | W.PN.CRS1 ---
Documented by User: La Reaves PA-C 09/07/24 12:34
Today's Communication / Plan
-
CT A/P
Assessment/Plan
-
74 yo male with a h/o CVA with expressive aphasia, HFrEf, AICD and ascending colon ca
POD #6 Robotic right hemicolectomy
WBC 12.6 (3.3), afebrile. O2 sat 89-94% on RA
--CT A/P ordered given pain/bloating
--NPO for now while CT pending
--OOB/Ambulate
--Analgesics scheduled and prn
--IS while awake
--Lovenox and scds for VTE ppx
--Medicine and cardiology following, appreciate recs/management
Subjective Data
Procedure
09/01/2024- Laparoscopic right hemicolectomy
Subjective Data
Date of Service: September 07, 2024
Patient has expressive aphasia but he is able to communication with yes/no. Patient states he has right sided abdominal pain. He has flatus and stool. He denies nausea or vomiting. He did not eat dinner last night per nursing record.
Objective Data
-
Vital Signs
Temp Pulse Resp BP Pulse Ox
97.8 F 116 18 168/105 94
09/07/24 11:05 09/07/24 11:05 09/07/24 11:05 09/07/24 11:05 09/07/24 11:05
Intake & Output
09/06/24 09/07/24 09/08/24
06:59 06:59 06:59
Intake Total 3414 / 3414 2960 / 2960
Balance 3414 / 3414 2960 / 2960
Intake:
Oral fluids 1514 / 1514 2610 / 2610
Amount of oral supplement(s) 1200 / 1200
consumed
IV fluids (Total) 700 / 700 350 / 350
Other:
Number of approximated MODERATE 2
amounts of urine
How many times incontinent 1 1
MODERATE amount urine
How many times incontinent 1
SATURATED amount urine
Lab Results
09/07/24 07:46
09/07/24 07:46
Physical Exam
-
General: No Acute Distress
Abdomen: Soft, Distended (mild) and Tender (right - moderate)
Skin: Warm and Dry
Incision: Clear, Dry, Intact

Documented by User: Gasper Awad MD 09/07/24 19:29
Assessment/Plan
-
74 yo male with a h/o CVA with expressive aphasia, HFrEf, AICD and ascending colon ca
POD #6 Robotic right hemicolectomy
WBC 12.6 (3.3), afebrile. O2 sat 89-94% on RA
--CT A/P ordered given pain/bloating
--NPO for now while CT pending
--OOB/Ambulate
--Analgesics scheduled and prn
--IS while awake
--Lovenox and scds for VTE ppx
--Medicine and cardiology following, appreciate recs/management
[2024-09-07] MEDS: DILAUDID 1 MG IV ×2 (13:22→17:38)
[2024-09-07 15:05] VITALS: BP 153/91
--- NOTE | 2024-09-07 15:46 | CM ---
Chart reviewed
NPO for CT of abdomen/pelvis today
Pain management
PT - HH vs SNF
CM will follow for d/c needs
Plan -anticipate home with VN vs snf
[2024-09-07] MEDS: LOVENOX SC (17:37)
[2024-09-07] MEDS: LASIX IV (17:37)
[2024-09-07 19:05] VITALS: BP 168/93
--- NOTE | 2024-09-07 19:21 | PTCARENOTE ---
This shift, patient refusing food, turns, and most medications. He is withdrawn and irritable this shift. Pt also refused CT abdomen pelvis pre-meds and oral contrast. TYRONE Reaves and MD Hunter were made aware of patients consistent refusing of
care/interventions/medications. Both providers came to bedside to talk to patient about participating in his own care. RN also reached out to emergency contact, Gordon, to talk to patient about participating in care if he wants to get better. RN also
reached out to facility substance abuse services director and his favorite therapist at [facility] who spoke with patient as well and encouraged him to take his medications and go to get a ct scan. Pt told above people he would follow through, each time RN went in to
offer the contrast/pre meds, other medications, patient would refuse. Due to patients behavior being inconsistent, MD and RN spoke with patient at bedside about goals of care. When RN asked if he would like to just be comfortable, and not do any
other interventions, pt nodded his head. Pt did say he needs more time to think about code status which was also brought up. RN offered to call Gordon again and see if patient wanted to talk to him about his goals of care, but patient declined. Pt
only taking IV pain meds at this time, refusing all other medications.
[2024-09-07] MEDS: TOPROL XL PO (21:06)
[2024-09-07] MEDS: ROBITUSSIN DM 5 ML PO (21:10)
[2024-09-07] MEDS: DILAUDID 0.5 MG IV (21:10)
[2024-09-07 23:10] VITALS: BP 155/96
[2024-09-07] MEDS: DUONEB 3 ML INH (23:48)
[2024-09-08] VITALS (10 sets, daily range): BP systolic 81–167; BP diastolic 58–100; BMI 18.1; BMI 18.9
[2024-09-08] MEDS: LOPRESSOR 5 MG IV ×3 (00:57→12:18)
[2024-09-08] MEDS: DILAUDID 0.5 MG IV ×2 (00:59→04:45)
[2024-09-08] MEDS: TYLENOL PO ×4 (01:00→21:22)
--- NOTE | 2024-09-08 01:14 | PTCARENOTE ---
pt refused oral medications this evening. He reports pain 5/10 in abdomen and willing to have macrina tx for SOB. IV pain medication provided for comfort with repositioning and toileting provided.
[2024-09-08] MEDS: APRESOLINE 10 MG IV (04:04)
[2024-09-08] MEDS: ROBITUSSIN DM 5 ML PO (04:46)
--- NOTE | 2024-09-08 05:30 | PTCARENOTE ---
Pt required PRN Lopressor and Hydralazine during shift for HR>120 SYS >160... Pt O2 titrated for comfort. Pt continues to refuse any oral medication except cough syrup this shift, PO intake 900ml
[2024-09-08 06:31] LABS: Glucose - Point of Care 114 mg/dl (70-99)
--- NOTE | 2024-09-08 08:03 | W.PN.HOSP.TC ---
Today's Communication/Plan
-
CT showed bowel perforation
Emergent surgery today
Antibiotics, blood cultures
Transferred to IMU given worsening clinical status
Assessment / Plan
Assessment / Plan
Physical Exam
General: Well Developed, No Apparent Distress, Comfortable, Appears Chronically Ill and Cachectic; Negative Conversant
HEENT: Normocephalic and Atraumatic
Respiratory: Clear to Auscultation Bilaterally and Non Labored Respirations; Negative Accessory Resp Muscle Use
Cardiac: Regular Rate and Rhythm and S1/S2
GI: Soft. Tender to palpation.
Skin: Warm and Dry; Negative Rash
Neuro: Awake, Alert and Other (expressive aphasia, nods yes or no, right sided hemiplegia )
Psych: Calm
Assessment/Plan
74 y/o male with past medical history of HFrEF status post defibrillator (EF 15-20% in 2007 with recover to 45-50% 2022), mild MR, CAD, HTN, left-sided MCA with associated right-sided hemiplegia and expressive aphasia, presented for routine right
hemicolectomy for Ascending colon cancer. Hospitalist service was consulted for continued medical management.
# Partial colonic obstruction due to colon cancer
# Bowel Perforation, Small Bowel Ileus on 09/08/24
s/p right hemicolectomy 09/01 by CRS
pt c/o increased abdominal pain, but refused to get CT imaging done for evaluation on 09/07/[address] on 09/08/24 (patient finally agreed to get a repeat CT done) showed bowel perforation with new active extravasation of oral contrast in the right upper quadrant and progressed moderate free intraperitoneal air and free fluid. Mild small
bowel dilatation with fluid-filled loops of bowel probably due to small bowel ileus. Mild circumferential wall thickening of the left colon suggesting colitis.
Emergent surgery today, 09/08/24 given bowel perforation
Start Zosyn
Blood Cultures ordered
Transferred to IMU today 09/08/24
Continue Incentive Spirometer and Out of bed and ambulate as tolerated when okay with surgery team
DVT ppx with Lovenox SQ when okay with surgery team
#Acute Hypoxic Respiratory Failure (with SOB) overnight 09/05/24-09/06/24 Suspected Secondary to Acute HFrEF
#Small Bilateral Pleural Effusions
#Minimal right lower lobe consolidation probably atelectasis
-proBNP elevated at 3180
-Weight is also increased significantly
-CT Chest/Abdomen/Pelvis on 09/08/24 showed no pulmonary embolism (patient high risk of PE with high Wells Score, so CT was done)
-Started IV Lasix 20 mg BID
-Daily weights, I's and O's
#Progressively Worsening Thrombocytopenia
-Likely from sepsis
-Platelets decreased from normal to less than 50,000
-Patient was getting Lovenox
-Consulted hem/onc given patient's significantly worsening thrombocytopenia and his colon cancer
-Concern for a possible HIT, but hematology said it is highly unlikely with the Lovenox, not need to send HIT antibody test
#Hypoglycemia
-D5LR IV fluids given but now stopped due to suspected CHF exacerbation
-Hypoglycemia resolved
-Continue oral diet, encourage good PO intake
-Continue accuchecks per protocol
#Suspected acute on chronic HFrEF overnight 09/05/24-09/06/24
#Status post defibrillator (EF was 15-20% 2007)
-Suspected from IV fluids received earlier this admission
-Continue IV Lasix 20 mg BID
-Daily weights, I's and O's
-Cardiology following due to continued runs of NSVT on tele, as well as heart failure exacerbation
#Prolonged QTc
-Minimize/avoid QTc-prolonging medications
#Nonsustained ventricular tachycardia.
#Status post defibrillator (EF was 15-20% 2007)
NSVT episodes continue as of 09/05/24
Toprol 25 mg daily increased to BID this hospitalization
Appreciate Card input -- if ventricular tachycardia worsens, consider Amiodarone
Keep Potassium>4 (but still within normal range) and Magnesium>2 (but still within normal range)
#Hypertension
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
IV Hydralazine PRN
#CVA with residual deficits of expressive aphasia and right sided hemiplegia
Continue Aspirin when able to take PO
#Moderate mid thoracic spine compression fracture
DVT Prophylaxis: Lovenox SQ and SCDs
Code Status: Full Code
Family Discussions
09/07/24
Patient's nurse and myself spoke with patient and he expressed that he would like to be Full Code. He continues to refuse many medications and nursing interventions, and I explained to the patient he can deteriorate quickly and possibly go into
cardiopulmonary arrest if he continues to refuse meds and interventions. On 09/07/24, patient told his brother Gordon, director of optimization at his home, and his therapist at [facility] that he understands the importance of medical care but still after
that refusing medications/interventions at times.
On 09/07/24, I spoke to patient's brother Gordon over the phone, and explained everything to him including the fact that patient has been refusing many medications and interventions and this could result in deterioration and possible cardiopulmonary
arrest, he understood and said he would try to talk to patient over the phone. Per nurse's discussion with patient's nephew Ritesh, patient is estranged from his children, nephew stated that patient can be stubborn.
09/08/24
On 09/08/24, I spoke to patient's brother Gordon over the phone, and explained everything to him including the fact that patient has been refusing many medications and interventions and this could result in deterioration and possible cardiopulmonary
arrest, he understood.
Bowel perforation and suspected sepsis is a high-risk encounter.
Anticipated Discharge: > 48 hours
Subjective/Interval History
-
Date of Service: September 08, 2024
Patient was seen and examined. He reported continued abdominal discomfort, he refused his medications overnight.
Objective Data
-
Labs:
Laboratory Results
09/08/24
06:00
WBC Pending
Hgb Pending
Hct Pending
Plt Count Pending
Sodium Pending
Potassium Pending
Chloride Pending
Carbon Dioxide Pending
BUN Pending
Creatinine Pending
Glucose Pending
Calcium Pending
Vital Signs:
Vital Signs
Temp Pulse Resp BP Pulse Ox
97.7 F 125 20 165/100 93
09/08/24 03:05 09/08/24 05:23 09/08/24 06:31 09/08/24 06:31 09/08/24 06:31
I&O
09/07/24 09/08/24 09/09/24
06:59 06:59 06:59
Intake Total 2960 / 2960 1080 / 1080
Balance 2960 / 2960 1080 / 1080
--- NOTE | 2024-09-08 08:30 | PTCARENOTE ---
Patient refusing all PO medications. Patient refusing to be turned. Patient is agreeable to IV medications. Patient AAOx3, answers Yes and No questions and uses hand gestures to communicate. Patient has tenderness with palpation in LLQ, denies need
for pain med at present. Patient is dyspneic with any movement, harsh weak NPC, nose is cyanotic, RR28, 5L NC maintained 93%.
[2024-09-08] MEDS: LASIX 20 MG IV (08:47)
[2024-09-08] MEDS: NSS (PRESERVATIVE FREE) 10 ML IV (08:47)
[2024-09-08] MEDS: PROTONIX IV 40 MG IV (08:48)
--- NOTE | 2024-09-08 10:00 | W.PN.CRS1 ---
Today's Communication / Plan
-
imu transfer
CT C/A/P with IV and rectal
Assessment/Plan
-
74 yo male with a h/o CVA with expressive aphasia, HFrEf, AICD and ascending colon ca
POD #7 Robotic right hemicolectomy
Labs pending
HR: 120's-130's, O2 94% on 5 L, BP 150's-160's/90-100's
--CT chest/abdomen/pelvis now (patient says he will take IV, if he refuses, will do with no contrast. Rectal also ordered)
--LE dopplers
--Transfer to IMU now
--Dicussed above with hospitalist
--NPO for now while CT pending
--OOB/Ambulate
--Analgesics scheduled and prn
--IS while awake
--Lovenox and scds for VTE ppx
--Medicine and cardiology following, appreciate recs/management
--Updated the patient's brother Gordon via phone
Subjective Data
Procedure
09/01/2024- Laparoscopic right hemicolectomy
Subjective Data
Date of Service: September 08, 2024
Patient has expressive aphasia and is able to communicate yes/no.
He is dyspneic and is having trouble breathing. He has worsening abdominal pain on the right. Denies nausea or vomiting.
Objective Data
-
Vital Signs
Temp Pulse Resp BP Pulse Ox
97.6 F 122 18 149/89 94
09/08/24 07:15 09/08/24 07:15 09/08/24 07:15 09/08/24 07:15 09/08/24 07:15
Intake & Output
09/07/24 09/08/24 09/09/24
06:59 06:59 06:59
Intake Total 2960 / 2960 1080 / 1080
Balance 2960 / 2960 1080 / 1080
Intake:
Oral fluids 2610 / 2610 1079 / 1079
IV fluids (Total) 350 / 350
Other:
Number of approximated MODERATE 2 2
amounts of urine
How many times incontinent 1
SMALL amount urine
How many times incontinent 1
MODERATE amount urine
How many times incontinent 2
SATURATED amount urine
Physical Exam
-
General: Other (dyspnic )
Abdomen: Distended and Tender (right sided)
Skin: Warm and Dry
--- NOTE | 2024-09-08 10:30 | PTCARENOTE ---
Patient transferred to IMU at 1030. Report given to SeleneRN, physicians made aware of transfer. Upon arrival patient was c/o severe abdominal pain 12/24, Dilaudid given at 1042.
--- NOTE | 2024-09-08 10:32 | CM ---
Chart reviewed
Pt for transfer to IMU - increased resp needs and increased pain
Plan - TBD based on needs at d/c
[2024-09-08] MEDS: DILAUDID 1 MG IV (10:42)
--- NOTE | 2024-09-08 11:32 | W.PN.CARDCBS ---
Today's Communication / Plan
-
Respiratory failure worsening
Await CT to exclude PE might consider increasing IV Lasix if evidence of CHF
Being transferred to IMU
Impression / Plan
-
Primary General Labor Forklift Operator: Dr. Toan Mays
Impression:
Ascending colon cancer s/p robotic R hemicolectomy with partial omentectomy 09/01/24
NSVT
Nonischemic cardiomyopathy, EF 45-50% by echo 2022
Chronic systolic heart failure
History of VT status post Medtronic BiV ICD
History of stroke with residual aphasia
COPD
HTN
Depression
ECHO 03/04/23: EF 45 to 50%, mild global hypokinesis, mild MAC, mild MR, mild TR, PAP 26 to 31 mmHg
ECHO 08/05/2024: EF 45%, global hypokinesis, mild concentric LVH, stage I diastolic dysfunction, mild to moderate MR, mild TR, PAP 37 mmHg, mildly dilated aortic root and ascending aorta
Plan:
Etiology of worsening respiratory failure may be multifactorial
CT for PE being done
Await results of CT and might consider increasing IV Lasix
Being transferred to IMU
No further VT. Consider amiodarone if worsens
Discussed with primary service, surgery, nursing through [place] text
Device interrogated 09/07/2024 with appropriate function. Brief episodes of ventricular tachycardia noted on 09/03/2024, 09/06/2024 and 09/07/2024. Longest on device interrogation was 5 seconds. No ICD shocks, ATP therapies found. Battery has 1.8
years left
He still wishes to be full code
Total visit time 52 minutes
History of Present Illness 09/04/2024:
Patient is a 74-year-old male with past medical history of nonischemic cardiomyopathy, with EF most recently 45 to 50% by echo in 2022, chronic systolic heart failure, VT status post Medtronic BiV ICD, history of stroke with residual aphasia, COPD
and ongoing smoking, hypertension, depression who presented to [facility] for robotic R hemicolectomy and partial omentectomy in setting of ascending colon cancer on 09/01/24. He continues with some abd discomfort however is progressing in
his post op course. Cardiology consulted as last night patient noted to have 27 beat run of NSVT, patient was asymptomatic. He denies CP, SOB, palpitations or irregular heart beats.
Progress Note - General Labor Forklift Operator
Subjective
Date of Service: September 08, 2024
Patient with worsening respiratory issues and being transferred to IMU
Objective
Labs:
Labs
Hgb 12.3 g/dL (13.0-18.0) L 09/07/24 07:46
Hct 35.3 % (39.0-52.0) L 09/07/24 07:46
Plt Count 92 10^3/uL (130-400) L D 09/07/24 07:46
PT 13.7 Sec (11.4-14.6) 08/24/24 09:33
INR 1.02 08/24/24 09:33
APTT 27.9 Sec (23.4-35.0) 08/24/24 09:33
Sodium 135 mmol/L (135-145) 09/07/24 07:46
Potassium 3.7 mmol/L (3.5-5.1) 09/07/24 07:46
BUN 43 mg/dl (9-20) H 09/07/24 07:46
Creatinine 1.2 mg/dL (0.7-1.3) 09/07/24 07:46
Glucose 84 mg/dl (70-99) 09/07/24 07:46
Troponins
09/06/24
05:11
Troponin I < 0.012
Vital Signs and I&O:
Vital Signs
Temp Pulse Resp BP Pulse Ox
97.6 F 122 18 149/89 94
09/08/24 07:15 09/08/24 07:15 09/08/24 07:15 09/08/24 07:15 09/08/24 07:15
Vital Signs
Temp Pulse Resp BP Pulse Ox
97.6 F 122 18 149/89 94
09/08/24 07:15 09/08/24 07:15 09/08/24 07:15 09/08/24 07:15 09/08/24 07:15
Intake & Output
09/06/24 09/07/24 09/08/24 09/09/24
06:59 06:59 06:59 06:59
Intake Total 3414 / 3414 2960 / 2960 1080 / 1080
Balance 3414 / 3414 2960 / 2960 1080 / 1080
Physical Exam
Physical Exam
General: Moderate respiratory distress, appears chronically ill
Neck: Supple, no JVD, HJR, carotids +2 B/L, no bruits bilaterally.
Heart: Non displaced PMI, RRR, no murmurs, No S3, S4, no rubs.
Lungs: Scattered rhonchi
Extremities: No clubbing, cyanosis or edema bilaterally.
Neuro: Grossly nonfocal, awake, alert and oriented x3.
[2024-09-08] MEDS: SOLU-CORTEF 200 MG IV (12:07)
[2024-09-08] MEDS: BENADRYL 50 MG IV (12:07)
[2024-09-08] MEDS: ZESTRIL PO (12:08)
[2024-09-08] MEDS: ENTEREG PO ×2 (12:08→21:21)
[2024-09-08] MEDS: TOPROL XL PO ×2 (12:08→21:22)
[2024-09-08 12:30] LABS: APTT 29.7 Sec (23.4-35.0)
[2024-09-08 12:36] LABS: Blood Urea Nitrogen 43 mg/dl (9-20); Calcium 7.9 mg/dl (8.4-10.2); Carbon Dioxide 25 mmol/L (22-30); Chloride 102 mmol/L (98-107); Estimated Creatinine Clearance 60 ml/min; Glucose 111 mg/dl (70-99); Magnesium 2.1 mg/dl (1.6-2.3); Potassium 3.9 mmol/L (3.5-5.1); Sodium 140 mmol/L (135-145); eGFR > 60.00
[2024-09-08 13:42] LABS: Hematocrit 44.1 % (39.0-52.0); Mean Corpuscular Hgb 29.7 pg (27.0-31.0); Mean Corpuscular Volume 87.3 fL (80.0-94.0); Mean Platelet Volume 12.8 fL (7.4-10.4); Platelet Count 47 10^3/uL (130-400); Red Blood Cell Count 5.05 10^6/uL (4.70-6.10); Red Cell Dist. Width 13.8 % (11.5-14.5); White Blood Cell Count 13.4 10^3/uL (4.8-10.8)
--- NOTE | 2024-09-08 14:08 | CON.ONC ---
Impression
Impression
thrombocytopenia
bowel perforation, 09/08/24
colon cancer, node +, and with metastatic nodule to right gutter, s/p right hemicolectomy 09/01/24
Plan
Plan
Thrombocytopenia is most likely secondary to sepsis in the setting of bowel perforation. Suspect his bowel perforation started/occurred between 09/06 pm and 09/07, which corresponds to his symptoms and rise in WBC and drop in platelets
He only got low dose Lovenox, not heparin, which has a much lower risk for HIT
Would not send HIT Marsha testing
Plan for return to OR today
Monitor CBC daily
Supportive care
Further mgmt of colon cancer TBD. His performance status and social situation are likely to be big barriers to chemotherapy.
Patient History
History of Present Illness
Asked to evaluate patient for HIT
This is a 74 yo M who was diagnosed with ascending colon cancer (grade 2, MMR intact) in Jul 2024 during hospitalization for abdominal pain. He declined surgery during that admission, but was admitted following scheduled right hemicolectomy on
09/01/24. Surgery included resection of 2 peritoneal nodules. Pathology showed T3 N2b disease, with a metastatic focus to the right gutter. Platelet count was 145 the day after surgery, and 120 the following day. It has trended lower over the past
two days, 92 on 09/07 and 47 today. Hgb is 15, WBC 13.4. He was maintained on Lovenox 40mg/d for DVT ppx after surgery.
CT was done today to evaluate tachycardia and dyspnea. (heparin drip was ordered for concern re: PE, but never started). No obvious PE, but the is free air, free fluid and extraluminal oral contrast in the right abdomen, suggesting bowel
perforation.
Past-Medical/Surgical History
Past Medical History: Reports Other
Additional Past Medical History:
HFrEF
hypertension
ventricular tachycardia
depression
ETOH dependency
Hx CVA
Past Surgical History: Reports Other
Additional Past Surgical History:
AICD placement
appendectomy
BiV ICD
hand cut and reattached
Social History
Tobacco: Smoker (a few a day )
Alcohol: None
Drug: None
Personal: Single
Living: Other (fpc )
Family History
Family History: Not pertinent and Unable to Obtain
Patient Medication
�Medication �Instructions �Recorded �Confirmed �Last Taken �Type
lisinopril 30 mg tablet 30 mg PO DAILY Blood Pressure 07/31/24 09/01/24 08/30/24 History
Miralax 238 g PO DIRECTED pre operative 08/25/24 09/01/24 08/31/24 19:00 History
bisacodyl 5 mg tablet,delayed 5 mg PO DIRECTED pre operative 08/25/24 09/01/24 08/31/24 19:00 History
release (Dulcolax (bisacodyl))
metronidazole 500 mg tablet 500 mg PO DIRECTED pre operative 08/25/24 09/01/24 08/31/24 14:00 History
neomycin 500 mg tablet 1 g PO DIRECTED pre operrative 08/25/24 09/01/24 08/31/24 14:00 History
Active Medications
Generic Name Dose Route Start Last Admin
Trade Name Freq PRN Reason Stop Dose Admin
Acetaminophen 1,000 mg 09/06/24 13:00 09/08/24 12:21
Acetaminophen 500 Mg Tablet PO 10/04/24 12:59 Not Given
Q6H ROBEL
Albuterol/Ipratropium 3 ml 09/06/24 04:21 09/07/24 23:48
Ipratropium 0.5/Albuterol 3 Mg (3 Ml Ampul) INH 3 ml
R Q4HPRN PRN Administration
SOB or wheezing
Protocol
Alvimopan 12 mg 09/02/24 08:00 09/08/24 12:08
Alvimopan (Entereg) 12 Mg Capsule PO 09/08/24 20:01 Not Given
BID ROBEL
Furosemide 20 mg 09/06/24 08:00 09/08/24 08:47
Furosemide 20 Mg (10 Mg/Ml) 2 Ml Vial IV 10/04/24 07:59 20 mg
BID AT 0800,1600 ROBEL Administration
Guaifenesin/Dextromethorphan 5 ml 09/06/24 04:21 09/08/24 04:46
Guaifenesin/Dextromethorphan 200 Mg/10 Ml Cup PO 10/04/24 04:20 5 ml
Q4HPRN PRN Administration
cough
Heparin Sodium 4,600 units 09/08/24 11:10
Heparin 80 Units/Kg Iv Rebolus IV 10/06/24 11:09
PRN PRN
PTT < OR = 64 seconds
Heparin Sodium 2,300 units 09/08/24 11:11
Heparin 40 Units/Kg Iv Rebolus IV 10/06/24 11:10
PRN PRN
PTT = 64.1 to 72.9 seconds
Hydralazine HCl 10 mg 09/03/24 11:20 09/08/24 04:04
Hydralazine 20 Mg/Ml Vial IV 10/01/24 11:19 10 mg
Q4HPRN PRN Administration
SBP > 160
Hydromorphone HCl 1 mg 09/04/24 16:16 09/08/24 10:42
Hydromorphone 1 Mg/Ml Carpuject IV 09/18/24 16:15 1 mg
Q4HPRN PRN Administration
severe pain
Hydromorphone HCl 0.5 mg 09/04/24 16:11 09/08/24 04:45
Hydromorphone 0.5 Mg/0.5 Ml Syringe IV 09/18/24 16:10 0.5 mg
Q4HPRN PRN Administration
moderate pain
Heparin Sodium 25,000 units in 250 mls @ 0 mls/hr 09/08/24 11:15
Heparin 82463 Units/250 Ml IV
PER PROTOCOL ROBEL
Protocol
Per Protocol
Piperacillin Sod/Tazobactam Sod 3.375 gram in 50 mls @ 100 mls/hr 09/08/24 14:00
Zosyn IV
Q6H ROBEL
Lisinopril 20 mg 09/05/24 08:00 09/08/24 12:08
Lisinopril 20 Mg Tablet PO 10/03/24 07:59 Not Given
DAILY ROBEL
Metoprolol Succinate 25 mg 09/05/24 08:00 09/08/24 12:08
Metoprolol 25 Mg Extended Release Tablet PO 10/03/24 07:59 Not Given
BID ROBEL
Metoprolol Tartrate 5 mg 09/07/24 23:35 09/08/24 12:18
Metoprolol 5 Mg/5 Ml Vial IV 10/05/24 23:34 5 mg
Q4HPRN PRN Administration
HR >120
Ondansetron HCl 4 mg 09/01/24 11:30
Ondansetron 4 Mg/2 Ml Vial IV 09/29/24 11:29
Q6HPRN PRN
nausea/vomiting
Oxycodone HCl 5 mg 09/01/24 11:30 09/03/24 12:14
Oxycodone 5 Mg Regular Release Tablet PO 09/15/24 11:29 5 mg
Q4HPRN PRN Administration
moderate pain
Pantoprazole Sodium 40 mg 09/02/24 12:00 09/08/24 08:48
Pantoprazole Sodium 40 Mg/10 Ml Vial IV 09/30/24 11:59 40 mg
DAILY ROBEL Administration
Sodium Chloride 0 flush 09/01/24 06:00
Sodium Chloride 0.9% (Flush) Syringe IV 09/29/24 05:59
PER PROTOCOL ROBEL
Sodium Chloride 10 ml 09/02/24 12:00 09/08/24 08:47
Sodium Chloride 0.9% (Preservative Free) 10 Ml Vial IV 09/30/24 11:59 10 ml
DAILY ROBEL Administration
Physical Exam
-
General: Appears in Distress; Negative Comfortable or Conversant
Cardiology: Other (tachycardic)
Musculoskeletal: Clubbing
Neurology: Other (aphasia)
Skin: Warm and Dry
Psych: Agitated and Anxious
Labs
Lab Results
WBC 13.4 10^3/uL (4.8-10.8) H 09/08/24 12:00
RBC 5.05 10^6/uL (4.70-6.10) 09/08/24 12:00
Hgb 15.0 g/dL (13.0-18.0) D 09/08/24 12:00
Hct 44.1 % (39.0-52.0) 09/08/24 12:00
MCV 87.3 fL (80.0-94.0) 09/08/24 12:00
MCH 29.7 pg (27.0-31.0) 09/08/24 12:00
MCHC 34.0 g/dL (33.0-37.0) 09/08/24 12:00
RDW 13.8 % (11.5-14.5) 09/08/24 12:00
Plt Count 47 10^3/uL (130-400) L D 09/08/24 12:00
MPV 12.8 fL (7.4-10.4) H 09/08/24 12:00
Abs Immat Gran (auto) 0.1 10^3/uL (0-0.05) H 09/07/24 07:46
Absolute Neuts (auto) 11.4 10^3/uL (1.4-6.5) H 09/07/24 07:46
Absolute Lymphs (auto) 0.2 10^3/uL (1.2-3.4) L 09/07/24 07:46
Absolute Monos (auto) 0.3 10^3/uL (0.1-0.6) 09/07/24 07:46
Absolute Eos (auto) 0.0 10^3/uL (0-0.7) 09/07/24 07:46
Absolute Basos (auto) 0.0 10^3/uL (0-0.2) 09/07/24 07:46
Immature Gran % 0.8 % (0-0.5) H 09/07/24 07:46
Neutrophils % 95.0 % (42.2-75.2) H 09/07/24 07:46
Lymphocytes % 1.8 % (20.5-51.1) L 09/07/24 07:46
Monocytes % 2.2 % (1.7-9.3) 09/07/24 07:46
Eosinophils % 0.1 % (0-6) 09/07/24 07:46
Basophils % 0.1 % (0-2) 09/07/24 07:46
Creatinine 0.9 mg/dL (0.7-1.3) 09/08/24 12:00
Vital Signs
Vital Signs
Temp Pulse Resp BP Pulse Ox
97.6 F 134 18 149/89 94
09/08/24 07:15 09/08/24 12:18 09/08/24 07:15 09/08/24 07:15 09/08/24 07:15
--- NOTE | 2024-09-08 14:15 | WOUNDNOTE ---
WON RN NOTE: Asked to stoma site patient for surgery this afternoon. Patient having allot of pain and bloating of abdomen. Has lap. scars on abdomen from previous surgery, avoided scars. LUQ marked 6cm from midline and 5cm proximal from umbilical
line. LLQ marked 6cm distal from midline and 6cm from umbilical line. RUQ marked 6cm proximal to midline and 6cm from umbilical line. RLQ marked 6cm distal from midline and 5cm from umbilical line. Assessed patient with TYRONE Reaves at bedside, will
follow as needed.
[2024-09-08] MEDS: ZOSYN 50 IV ×2 (14:23→21:15)
--- NOTE | 2024-09-08 14:30 | PTCARENOTE ---
recieved pt from 2 south. sats in 90s on 5 liters. pt awake and nods appropriately. pt able to express that abdomen is painful. dilaudid given upon arrival to floor. labs sent, ekg done. heparin drip not started at that time as waiting for coag
results.pt premedicated with benadryl and hydrocortisone and ct of chest/ abdomen completed.notified by lab patients platelets are low. heparin drip cancelled. per surgery PA pt is for or at approx 1500 for bowel perf. iv zosyn infusing . platelets
ordered , awaiting availability from blood bank. pt seen by [facility] rn for ostomy marking.
--- NOTE | 2024-09-08 14:32 | W.PN.UPDATE ---
Update Note
Progress Note Update
Patient's CT shows: Findings suggesting bowel perforation with new active extravasation of oral contrast in the right upper quadrant and progressed moderate free intraperitoneal air and free fluid. No evidence of PE.
I spoke to Dr. Awad. Patient added to OR schedule. Patient is amenable to undergoing surgery. Wound RN consulted for stoma. 1 pack platelets now (47k). I called blood bank and updated them. Zosyn IV started. His brother Gordon was notified via
phone. Discussed with hospitalist and nursing.
--- NOTE | 2024-09-08 14:42 | CS.PSYCHR ---
Consult Summary - Psychiatry
-
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 Psychiatry asked
to assess for capacity to make medical decisions, due to pt refusing care. Pt noted refusing food, to be turned, most medications. Pt taking IV pain med, declining most po meds. Pt agreed he wanted to be kept comfortable, but also indicated he
wants to be a full code. Pt has expressive aphasia, communicates with nodding/shaking his head yes/no, as well a facial expressions and hand gestures. Pt endorses being in pain. He agreed to a CT scan which revealed a bowel perforation this
afternoon. Pt nodded he would agree if another operation was needed to save him. Pt makes appropriate eye contact, was cooperative with interview. He denies feeling depressed. Pt's brother reportedly noted pt is stubborn. PCP office notes prior
to admission indicate pt initially declined surgery for colon ca, then changed his mind and agreed.
Psych Hx: unspecified depression, pt denies he was treated for depression; hx of alcohol and tobacco use, hx of homelessness and incarceration years ago in [facility]
SH: reportedly sober, resides in a prison
MSE: alert, oriented, sensorium appears intact. Calm, cooperative, endorses being in pain. Denies depression or SI. No signs of psychosis. Pt able to communicate as noted above despite expressive aphasia. Insight appears fair
Imp: Capacity for decisions appears intact. Some of pt's care refusals may be due to abdominal pain, explained by bowel perforation finding. Personality factors appear to be a factor in refusing some interventions/changing his mind. Would
continue to involve brother in helping with decisions- pt agrees have brother his brother make decisions if he becomes unable to communicate
Psychiatry will sign off; please re-consult for any new concerns
[2024-09-08] MEDS: NSS 1000 IV ×3 (14:56→23:46)
--- NOTE | 2024-09-08 15:59 | PTCARENOTE ---
type and screen drawn. pt transported to or holding at 1535.
[2024-09-08 19:00] LABS: B.E. - POC -1.5 mmol/L; Glucose - POC 96 mg/dl (70-99); HCO3 - POC 28 mmol/L (21-28); Hematocrit - POC 32 % PCV (42-52); Hemodilution- POC Yes; Lactate - POC 1.28 mmol/L (0.36-0.75); O2 Saturation %Calculated-POC 99.9 % (94-98); PCO2 - POC 75 mmHg (35-48); PO2 - POC 351 mmHg (83-108); Potassium - POC 3.3 mmol/L (3.5-5.1); Sodium - POC 139 mmol/L (136-145); Specimen Type - POC Arterial; pH - POC 7.18 (7.35-7.45)
--- NOTE | 2024-09-08 19:46 | W.IMMPOSTOP ---
Addendum entered and electronically signed by Gasper Awad MD 09/08/24 20:59:
updated brotherGordon, over the phone
Original Note:
Surgical Immed Post Op Note
-
Primary Surgeon: Gasper Awad MD
Assisting Surgeon: Nahid Tinsley MD; TROY Diaz
Pre-op Diagnosis: Anastomotic leak
Post-op Diagnosis: Anastomotic leak, feculent peritonitis
Procedure Performed: Exploratory laparotomy, resection of ileocolic anastomosis, abdominal washout, mesenteric angiography with ICG, TAP block, creation of end colostomy
Anesthesia Type: General
Specimen / Cultures: Ileocolic anastomosis
Estimated Blood Loss: 50 mL
UOP: 250mL
IVF: 3.5L
Complications: None
Operative Findings: Encountered diffuse feculent peritonitis with fibrinous exudate scattered diffusely overlying abdominal contents; identified anastomotic leak from ileocolic anastomosis; small bowel was herniated through the mesenteric defect but
there was no transition point at this internal hernia; resected approximately to healthy terminal ileum, about 10 cm proximal to the anastomosis; mobilized transverse colon to midline and resected the distal limb with purple loads of the MATHEW
stapler; washed abdomen out with 5 L of warm saline until the effluent was clear; transverse colon staple line appeared dusky so performed mesenteric angiography with ICG; there was poor perfusion to the immediate staple line, but good perfusion to
the colon wall within 1 cm of the staple line; therefore, resected an additional 1.5 cm of transverse colon with a purple load of the MATHEW stapler; staple line appeared well-perfused on firefly; created RLQ ostomy aperture at previously marked ostomy
site; performed TAP block with 30 mL of quarter percent Marcaine with epi and dexamethasone; placed Seprafilm over abdominal contents and closed incision in layers; skin closed with intermittent key and Telfa rashaun; matured the end ileostomy
Dispo: Per anesthesia, will keep intubated; on levo at 6 mcg per minute; NGT to low continuous suction; Head for accurate I/os
--- NOTE | 2024-09-08 19:56 | OR.RPT ---
Operative Report
Operative Report
DATE OF OPERATION: 09/08/2024
SURGEON: Gasper Awad MD
PREOPERATIVE DIAGNOSIS: Colon cancer, anastomotic leak
POSTOPERATIVE DIAGNOSIS: Colon cancer, anastomotic leak, feculent peritonitis
OPERATION: Exploratory laparotomy, resection of ileocolic anastomosis, abdominal washout, mesenteric angiography with ICG, TAP block, creation of end colostomy
ASSISTANTS:
1. Nahid Tinsley MD
2. TROY Diaz
ANESTHESIA: General
ESTIMATED BLOOD LOSS: 50 mL
UOP: 250 mL
IVF: 3.5 L
FINDINGS:
1. Encountered diffuse feculent peritonitis; identified 2 cm defect in the ileocolic anastomosis with liquid stool emanating; limbs of anastomosis appeared ischemic but not necrotic
2. Due to vasopressor requirement and feculent peritonitis, resected anastomosis, left long Marissa pouch and created an end-ileostomy
SPECIMENS:
1. Ileocolic anastomosis
DRAINS: None
COMPLICATIONS: No immediate complications.
INDICATIONS: The patient is a 74-year-old male with a history of a near-obstructing ascending colon cancer who presented for elective robotic right hemicolectomy on 09/01/2024. Initially postoperatively, he did well. However, on 09/06, he developed
worsening tachycardia associated with right-sided abdominal pain. A CT scan was recommended to evaluate the anastomosis. The patient initially declined. His pain and tachycardia continued to worsen and he agreed for a CT scan with oral contrast
this morning. The CT scan showed contrast extravasation from the ileocolic anastomosis associated with free air. Therefore, I recommended prompt surgery for control of contamination. The operation was discussed with the patient and patient's
brother in detail, including the risks, benefits and alternatives. Risks described included, but not limited to, bleeding, infection, anastomotic leak if created, injury to nearby abdominal structures, need for ostomy and anesthetic risks, including
but not limited to [place], stroke, DVT/PE and respiratory failure. The patient understood and agreed to proceed.
PROCEDURE IN DETAIL: The patient was marked in 4 quadrants preoperatively by the ostomy team. The patient was taken to the operating room and placed on the operating table in supine position. Sequential compression devices were placed bilaterally.
General anesthesia was induced and the patient was intubated without complication. The patient was placed in supine position with a seatbelt across the thighs and the bilateral arms secured to the armboards in extended position. Head catheter was
placed with sterile technique. Anesthesia placed a nasogastric tube. The patient recently received IV antibiotics on the floor. The abdomen was prepped and draped in a sterile fashion. A marking pen was used to armin out the midline. A time-out
was performed verifying the correct patient, procedure, operative site, positioning, and special equipment.
A midline incision was made from just above the umbilicus to 4 cm below the xiphoid. This was taken down to the level of the fascia. Hemostasis was assured with electrocautery. The fascia was incised with electrocautery. Kellys were used to
spread the preperitoneal fat and grasp the peritoneum. The peritoneum was elevated and incised using Metzenbaum scissors, taking care to avoid injury to abdominal structures. Feculent peritonitis was encountered. The small bowel was edematous and
slightly dilated, covered with scattered patches of fibrinous exudate. The midline incision was extended to 2 cm below the umbilicus. An Scout wound protector was placed. The abdomen was explored. Numerous weak adhesions were noted between the
bowel and abdominal wall, as well as in between loops of bowel. These were broken up gently with blunt dissection. The ileocolic anastomosis was identified and exposed. There was an anastomotic leak with liquid stool emanating from a 2 cm defect
at the common channel. The transverse colon and small bowel did not appear necrotic but had a slightly dusky appearance. Additionally, there was small bowel that herniated through the mesenteric defect. However, there was no small bowel
obstruction associated with this internal hernia and no transition point associated with these loops of small bowel.
I proceeded with resection of the ileocolic anastomosis as primary repair did not appear feasible. I created a hole in the mesentery of the terminal ileum about 10 cm proximal to the anastomosis at a point where the small bowel appeared healthy. I
stapled and divided the terminal ileum at this point with a purple load of the MATHEW stapler. I divided the mesentery with the Voyant LigaSure. I divided the gastrocolic ligament to mobilize additional transverse colon, taking care to avoid injury
to the right gastroepiploic artery. I created a hole in the mesentery of the transverse colon about 5 cm distal to the anastomosis. I cleared the colon of intervening fat and omentum at this point. I stapled and divided with the purple load of the
MATHEW stapler. I divided the mesentery with the Voyant LigaSure. I passed off the specimen for pathology. I evaluated the stomach and duodenum, which appeared healthy without injury. I ran the small bowel from the ligament of Treitz to the
terminal ileal staple line. There were scattered areas of fibrinous exudate, but no areas of ischemia or perforation. I washed out the abdomen in all 4 quadrants as well as the pelvis with 5 L of warm saline until the effluent was clear .I
reevaluated my staple lines. The staple line at the terminal ileum appeared well-perfused and healthy. The staple line at the transverse colon appeared dusky. However, there was fibrinous exudate and omentum that was plastered to the transverse
colon wall, making it difficult to visually evaluate it without attempting to dissect this off. Therefore, I performed mesenteric angiography with ICG. The entire length of the transverse colon was well-perfused except at the staple line. Within
1 cm of the staple line, the transverse colon became well-perfused. Therefore, I revised my staple line and resected an additional 1.5 cm of transverse colon using the purple load of the MATHEW stapler. I divided the mesentery with the Voyant
LigaSure. This additional specimen was added to the initial specimen. On firefly, the staple line appeared well-perfused.
At this point, I spoke with anesthesia who indicated that the patient was on 6 mcg/min of Levophed. Due to the diffuse feculent contamination as well as the developing septic shock, I decided to not create an anastomosis and proceeded with creation
of end ileostomy. I grasped the skin at the right lower quadrant ostomy marking site and excised a [place] of skin. I took this down to the level of the fascia. I created a cruciate incision through the anterior fascia. I split the muscle using a
long [place] and created a cruciate incision through the posterior fascia while protecting the abdominal contents. The terminal ileum was brought through this and reached without tension on the mesentery. This was then returned to the abdomen. I
performed a bilateral TAP block using 30 mL of 0.25% Marcaine with epi mixed with 0.3 mg of dexamethasone. I brought the ileal staple line back through the ostomy aperture with the mesentery oriented superiorly. I started closing the fascia at the
corners using 0 PDS and sewing towards the middle. I placed Seprafilm over the abdominal contents. After the fascia was closed, I irrigated the subcutaneous space and closed the skin with intermittent key and Telfa rashaun. I injected an
additional 30 mL of 0.25% Marcaine with epi mixed with 0.3 mg of dexamethasone around the midline incision and ostomy incision. I covered the midline incision with a blue towel. I matured the end ileostomy in the usual Brooked fashion with 3-0
Vicryl. I placed the ostomy appliance and the Aquacel dressing.
At this point, the procedure was complete. Due to the patient's underlying respiratory and cardiac status, anesthesia elected to keep the patient intubated. All needle, sponge and instrument counts were reported as correct. The patient tolerated
the procedure well and was transferred to the ICU in stable condition with nasogastric tube and Head in place.
Of note, Nahid Tinsley MD, sourcing assistant, was necessary during this procedure for traction, countertraction, and exploratory purposes. I was present for the entire duration of the case. TROY Diaz started the case with me. Dr. Tinsley took his
place shortly after entering the peritoneum.
DICTATED BY: Gasper Awad MD
--- NOTE | 2024-09-08 20:10 | PTCARENOTE ---
Patient received directly back from the OR via bed accompanied by anesthesia and RN. Admitted to ICU bed 3371, placed on monitor. Complete cares given, Head care, CHG cloth bath, oral cares rendered. IV sites noted. Orders reviewed. See assessment
charted on worklist. ETT taped in place, vent settings verified. On Levophed, titrated for MAP > 65, see flowsheet for med titration. Fentanyl and Diprivan gtts ordered, see MAR and flowsheet for start time and titration for RASS -2. RUQ ileostomy
with pink moist budded ostomy, appliance and wafer intact and in place. Midline abdominal incision with dressing intact. Older laparoscopic sites with surgical glue intact. Skin cool and sallow, dusky fingertips. BBS with faint scattered rhonchi. S1
S2 with positive murmur. 100% Vpaced on CM with occasional PVCs. Protective border foam to sacrum, blanchable redness noted. Bed leveled with heart at transducer. Left [place] with good waveform, good square wave. Leveled and zeroed. Correlates with
cuff pressure. Frequent rounding on patient. At bedside frequently until stabilized, labs drawn, ordered medications hung.
[2024-09-08 20:28] LABS: Glucose - Point of Care 95 mg/dl (70-99)
[2024-09-08] MEDS: DIPRIVAN 100 IV (21:00)
[2024-09-08] MEDS: SUBLIMAZE 100 IV (21:05)
[2024-09-08] MEDS: SUBLIMAZE 100 MCG IV (21:05)
[2024-09-08] MEDS: LASIX IV (21:21)
[2024-09-08 22:47] LABS: HCO3 23.2 mmol/L (21-28); PCO2 45 mmHg (35-48); PO2 252 mmHg (83-108); pH 7.32 (7.35-7.45)
[2024-09-08 22:59] LABS: Hematocrit 37.3 % (39.0-52.0); Hemoglobin 12.6 g/dL (13.0-18.0); Mean Corp Hgb Conc. 33.8 g/dL (33.0-37.0); Mean Corpuscular Hgb 29.7 pg (27.0-31.0); Mean Platelet Volume 13.2 fL (7.4-10.4); Platelet Count 52 10^3/uL (130-400); Red Blood Cell Count 4.24 10^6/uL (4.70-6.10); Red Cell Dist. Width 13.9 % (11.5-14.5)
[2024-09-08 23:00] LABS: Lactic Acid 1.8 mmol/L (0.7-2.0)
[2024-09-08 23:05] LABS: INR 1.09; PT 14.4 Sec (11.4-14.6)
[2024-09-08 23:06] LABS: APTT 30.4 Sec (23.4-35.0)
[2024-09-08 23:11] LABS: Blood Urea Nitrogen 43 mg/dl (9-20); Calcium 6.5 mg/dl (8.4-10.2); Carbon Dioxide 23 mmol/L (22-30); Chloride 103 mmol/L (98-107); Estimated Creatinine Clearance 45 ml/min; Glucose 121 mg/dl (70-99); Magnesium 2.4 mg/dl (1.6-2.3); Potassium 3.7 mmol/L (3.5-5.1); Sodium 139 mmol/L (135-145); Triglycerides 159 mg/dl (10-149); eGFR > 60.00
[2024-09-08] MEDS: CALCIUM GLUCONATE 130 MG IV (23:34)
[2024-09-08] MEDS: NSS (PRESERVATIVE FREE) 0.25 ML IV (23:45)
[2024-09-08] MEDS: ATIVAN 0.5 MG IV (23:45)
[2024-09-08] MEDS: KCL 270 MEQ IV (23:46)
[2024-09-09] VITALS: BP 107/66
--- NOTE | 2024-09-09 | PTCARENOTE ---
Essentially no change in patient physical assessment. Levophed, Fentanyl and Diprivan titrated per order, see worklist.
[2024-09-09 01:00] VITALS: BP 117/74
[2024-09-09] MEDS: TYLENOL PO ×2 (01:22→08:17)
[2024-09-09] MEDS: LEVOPHED 250 IV ×4 (01:22→12:35)
[2024-09-09 02:00] VITALS: BP 105/79
[2024-09-09] MEDS: ZOSYN 50 IV ×3 (02:01→19:53)
[2024-09-09 03:56] LABS: B.E. -3.3 mmol/L; HCO3 21.3 mmol/L (21-28); PCO2 36 mmHg (35-48); PO2 98 mmHg (83-108); pH 7.38 (7.35-7.45)
[2024-09-09] MEDS: SUBLIMAZE 100 IV ×2 (03:57→10:51)
--- NOTE | 2024-09-09 04:00 | PTCARENOTE ---
Left neck EJ IV site leaking, discontinued. Left AC SL site ? infitrated, swollen, site discontinued, catheter intact. New IV sites started Left upper arm #20 and Right Upper arm #20, flush well with good blood return. BBS diminished with faint
scattered rhonchi, suctioned prn. Oral care. Rest of physical assessment essentially unchanged.
[2024-09-09 04:04] LABS: O2 Saturation % 97.5 % (94-98); O2 Therapy %Oxygen/Room Air ven
[2024-09-09 04:29] LABS: Hemoglobin 12.3 g/dL (13.0-18.0); Mean Corp Hgb Conc. 33.2 g/dL (33.0-37.0); Mean Corpuscular Hgb 29.1 pg (27.0-31.0); Mean Corpuscular Volume 87.5 fL (80.0-94.0); Mean Platelet Volume 12.2 fL (7.4-10.4); Platelet Count 48 10^3/uL (130-400); Red Blood Cell Count 4.23 10^6/uL (4.70-6.10); Red Cell Dist. Width 14.2 % (11.5-14.5); White Blood Cell Count 19.4 10^3/uL (4.8-10.8)
[2024-09-09 04:34] LABS: Blood Urea Nitrogen 44 mg/dl (9-20); Calcium 7.2 mg/dl (8.4-10.2); Carbon Dioxide 21 mmol/L (22-30); Chloride 105 mmol/L (98-107); Estimated Creatinine Clearance 39 ml/min; Glucose 146 mg/dl (70-99); Magnesium 2.3 mg/dl (1.6-2.3); Phosphorus 5.3 mg/dl (2.5-4.5); Potassium 4.2 mmol/L (3.5-5.1); Sodium 137 mmol/L (135-145)
[2024-09-09 05:13] LABS: Absolute Neutrophils -Man Diff 17.2 10^3/uL (1.4-6.5); Atypical Lymphocytes 2 %; Band Neutrophils 34 % (0-3); Lymphocytes 3 % (20-51); Metamyelocytes 1 % (-); Monocytes 5 % (2-9); Segmented Neutrophils 55 % (42-75)
[2024-09-09 05:14] LABS: Platelets Checked Yes
[2024-09-09 05:16] LABS: Normal RBC Morphology No
[2024-09-09 05:17] LABS: Anisocytosis 1+; Microcytosis 1+; Total Cells Counted 100; Toxic Granulation 1+
[2024-09-09 06:00] VITALS: BMI 19.6
--- NOTE | 2024-09-09 07:35 | PTCARENOTE ---
Received pt intubated and sedated with bilateral soft wrist restraints intact. Pupils 2 and sluggishly reactive. Opened his eyes slightly to verbal and tactile stimuli. Grimaced when light palpation of his abdomen. Left FA with fentanyl & Propofol,
left upper arm IV with NSS@ 75ml/hr, Right upper arm with Norepinephrine @ 20mcg/min. Weak radial pulses, Doppler pedal pulses. Capillary refill >2 seconds. Knees mottled. U/E's with scattered gross ecchymosis. Lungs dim throughout. #8 ETT secured
22cm. Tolerating vent settings. Minimal secretions. Abdomen distended. Right nare secured 60cm to continuous wall suction @ 80mmhg. Head secured with scant hourly UPO. Abdominal incision with aquacel dressing, old drainage. Ileostomy budded with
yellow drainage. Absent BSX4. Aspiration precautions maintained.
--- NOTE | 2024-09-09 07:40 | PTCARENOTE ---
Report given verbally to oncoming shift, Jose GLEZ. Questions answered.
--- NOTE | 2024-09-09 08:08 | W.PN.HOSP.TC ---
Today's Communication/Plan
-
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
Continue antibiotics
Patient remains critically ill
Assessment / Plan
Assessment / Plan
Physical Exam
General: Not in acute distress
HEENT: Normocephalic and Atraumatic
Respiratory: Intubated and on Mechanical Ventilation. Equal air entry bilaterally.
Cardiac: Regular Rate and Rhythm and S1/S2
GI: Soft. Tender to palpation.
Skin: Warm and Dry
Neuro: Lethargic
Psych: Calm
Assessment/Plan
74 y/o male with past medical history of HFrEF status post defibrillator (EF 15-20% in 2007 with recover to 45-50% 2022), mild MR, CAD, HTN, left-sided MCA with associated right-sided hemiplegia and expressive aphasia, presented for routine right
hemicolectomy for Ascending colon cancer. Hospitalist service was consulted for continued medical management.
# Partial colonic obstruction due to colon cancer status post robotic right hemicolectomy on 09/01/24
# Bowel Perforation, Small Bowel Ileus on 09/08/24 status post exploratory laparotomy, resection of ileocolic anastomosis, abdominal washout, creation of end colostomy on 09/08/24
# Shock
s/p right hemicolectomy 09/01 by [facility]
pt c/o increased abdominal pain, but refused to get CT imaging done for evaluation on 09/07/[address] on 09/08/24 (patient finally agreed to get a repeat CT done) showed bowel perforation with new active extravasation of oral contrast in the right upper quadrant and progressed moderate free intraperitoneal air and free fluid. Mild small
bowel dilatation with fluid-filled loops of bowel probably due to small bowel ileus. Mild circumferential wall thickening of the left colon suggesting colitis.
Emergent surgery today given CT findings on 09/08, had ex-lap and colostomy placement
Continue Zosyn
Blood Cultures ordered
Transferred to ICU on 09/08/24, remains in ICU post-op after 09/08/24
Continue TPN
Continue Incentive Spirometer and Out of bed and ambulate as tolerated when okay with surgery team
DVT ppx with Lovenox SQ when okay with surgery team
#Acute Hypoxic Respiratory Failure (with SOB) overnight 09/05/24-09/06/24 Suspected Secondary to Acute HFrEF
#Small Bilateral Pleural Effusions
#Minimal right lower lobe consolidation probably atelectasis
-proBNP elevated at 3180
-Weight is also increased significantly
-CT Chest/Abdomen/Pelvis on 09/08/24 showed no pulmonary embolism (patient high risk of PE with high Wells Score, so CT was done)
-HOLD IV Lasix 20 mg BID given patient needing pressors
-Daily weights, I's and O's
#Progressively Worsening Thrombocytopenia
-Likely from sepsis
-Platelets decreased from normal to less than 50,000
-Patient was getting Lovenox -- hold Toradol and Lovenox given platelet count
-Consulted hem/onc given patient's significantly worsening thrombocytopenia and his colon cancer
-Concern for a possible HIT, but hematology said it is highly unlikely with the Lovenox, not need to send HIT antibody test
#Hypoglycemia
-D5LR IV fluids given but now stopped due to suspected CHF exacerbation
-Hypoglycemia resolved
-Continue accuchecks per protocol
#Suspected acute on chronic HFrEF overnight 09/05/24-09/06/24
#Status post defibrillator (EF was 15-20% 2007)
-Suspected from IV fluids received earlier this admission
-Hold IV Lasix given needing pressor support
-Daily weights, I's and O's
-Cardiology following due to continued runs of NSVT on tele, as well as heart failure exacerbation
#Prolonged QTc
-Minimize/avoid QTc-prolonging medications
#Nonsustained ventricular tachycardia.
#Status post defibrillator (EF was 15-20% 2007)
NSVT episodes continue as of 09/05/24
Toprol 25 mg daily increased to BID this hospitalization
Appreciate Card input -- if ventricular tachycardia worsens, consider Amiodarone
Keep Potassium>4 (but still within normal range) and Magnesium>2 (but still within normal range)
#Hypertension
resumed [employer]IC[employer] lisinopril this hospitalization
IV Hydralazine PRN
#CVA with residual deficits of expressive aphasia and right sided hemiplegia
Continue Aspirin when able to take PO
#Moderate mid thoracic spine compression fracture
DVT Prophylaxis: SCDs
Code Status: Full Code
Family Discussions
09/07/24
Patient's nurse and myself spoke with patient and he expressed that he would like to be Full Code. He continues to refuse many medications and nursing interventions, and I explained to the patient he can deteriorate quickly and possibly go into
cardiopulmonary arrest if he continues to refuse meds and interventions. On 09/07/24, patient told his brother Gordon, director of outpatient services at his home, and his therapist at [facility] that he understands the importance of medical care but still after
that refusing medications/interventions at times.
On 09/07/24, I spoke to patient's brother Gordon over the phone, and explained everything to him including the fact that patient has been refusing many medications and interventions and this could result in deterioration and possible cardiopulmonary
arrest, he understood and said he would try to talk to patient over the phone. Per nurse's discussion with patient's nephew Ritesh, patient is estranged from his children, nephew stated that patient can be stubborn.
09/08/24
On 09/08/24, I spoke to patient's brother Gordon over the phone, and explained everything to him including the fact that patient has been refusing many medications and interventions and this could result in deterioration and possible cardiopulmonary
arrest, he understood.
Bowel perforation and suspected sepsis with shock is a high-risk encounter.
Anticipated Discharge: > 48 hours
Subjective/Interval History
-
Date of Service: September 09, 2024
Patient was seen and examined. He was intubated and critically ill in the ICU.
Objective Data
-
Labs:
Laboratory Results
09/08/24 09/09/24
22:38 03:49
WBC 18.0 H 19.4 H
Hgb 12.6 L 12.3 L
Hct 37.3 L 37.0 L
Plt Count 52 L 48 L
PT 14.4
INR 1.09
APTT 30.4
HCO3 23.2 21.3
Sodium 139 137
Potassium 3.7 4.2
Chloride 103 105
Carbon Dioxide 23 21 L
BUN 43 H 44 H
Creatinine 1.2 1.4 H
Glucose 121 H 146 H
Calcium 6.5 L* 7.2 L
Vital Signs:
Vital Signs
Temp Pulse Resp BP Pulse Ox
97.7 F 95 26 105/79 96
09/09/24 07:31 09/09/24 07:45 09/09/24 07:45 09/09/24 02:00 09/09/24 07:50
I&O
09/08/24 09/09/24 09/10/24
06:59 06:59 06:59
Intake Total 1080 / 1080 2604.8 / 2604.8
Output Total 465 / 465
Balance 1080 / 1080 9.8 / 2139.8
[2024-09-09] MEDS: SUBLIMAZE 50 MCG IV ×2 (08:11→15:53)
[2024-09-09] MEDS: PROTONIX IV 40 MG IV (08:17)
[2024-09-09] MEDS: NSS (PRESERVATIVE FREE) 10 ML IV (08:17)
--- NOTE | 2024-09-09 08:22 | CON.INTV ---
Consultation
Consultation Request
Date/Time Consultation Requested: 09/08/2024 - 2026
Date/Time Consultation Performed: 09/09/2024818
Requesting Provider: CATALINA Euceda
Performing Provider: Dr. Raymond
Reason for Consultation: post-op/Intubated
Medical History
-
Chief Complaint: Elective right hemicolectomy
History of Present Illness:
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
intervention for known ascending colon cancer. Patient was diagnosed with invasive moderately differentiated colon adenocarcinoma on 08/04/2024 from a biopsy of his proximal ascending colon during a colonoscopy. At that time he presented to the "[facility] on 07/[address] abdomen/pelvis at the time on 07/31/2024 showed severe enteritis with a focal area of bowel wall thickening and narrowing within the ascending colon concerning for carcinoma. CT chest on 08/01/2024 showed no
metastatic disease in the chest. Colorectal surgery was consulted. Patient underwent a colonoscopy by [facility] on 08/04/2024 showing a fungating obstructive large mass in the proximal ascending colon as well as several other polyps in the transverse
colon + sigmoid. Pathology from the ascending colon showed invasive moderately differentiated colonic adenocarcinoma, and the other polyps in the transverse and sigmoid colon showed tubular adenoma. His diet was advanced and he was discharged home
on 08/10. He saw colorectal surgery in the office on 08/19/2024 and the risks and benefits of a colon resection were reviewed and patient agreed to this procedure. On 09/01/2024, patient underwent a robotic assisted right hemicolectomy with partial
omentectomy, excision of peritoneal nodule and laparoscopic TAP block. He did well postoperatively and was tolerating regular diet. Postoperatively he did have occasional abdominal tenderness and was made NPO. Imaging with CT A/P on 09/03 showed
diffuse dilatation of the small bowel suggestive of an adynamic ileus. Clears were trialed. Unfortunately he became more short of breath with increasing abdominal discomfort and CTA chest, CT abdomen/pelvis on 09/08 showed a bowel perforation with
active extravasation of oral contrast in the right upper quadrant with free intraperitoneal air and free fluid. Also circumferential wall thickening of the left colon suggesting colitis and small bowel dilatation due to small bowel ileus. Patient
also developed thrombocytopenia and hematology consulted on 09/08 and attributed this to sepsis. Patient went back to the OR on 09/08/2024 for an ex lap with resection of ileocolic anastomosis with an abdominal washout and creation of an end
colostomy. EBL was 50 cc, and he remained intubated at the end the procedure. Patient then transferred to the ICU post-operatively with [employer] services consulted for additional management/recommendations.
Patient was seen and evaluated this morning. Remains intubated 500/16/40%/5 with PIP 18 cmH2O, VTe 472 cc and breathing at 24 breaths/min. Heart rate 111, BP via A-line: 130/74 and ETCO2: 18. He is saturating 99%. Minimal ETT secretions.
Currently on Levophed at 16 mcg/min. Currently sedated with fentanyl at 175 mcg/hr and propofol at 50mcg/kg/min. Right nare NGT on LCWS with green bilious output. Given 1 U platelets in OR.
PMHx: Colon cancer, chronic HFmrEF, history of CVA (2015) with residual expressive aphasia and right hemiparesis, hypertension, CAD, history of VT, depression, alcohol use, valvular heart disease with MR
PSHx: AICD, appendectomy, hand caught and reattached, ICD generator change (08/2018)
Past Medical History
Past Medical History: Other (Above as per HPI)
Past Surgical History: Other (Above as per HPI)
Social History
Tobacco: Smoker (18-fiki-vawn history)
Alcohol: Former
Drug: Former User
Family History
Family History: Diabetes (Sibling) and Hypertension (Sibling)
Allergies / Home Medications
Allergies
Allergy/AdvReac Type Severity Reaction Status Date / Time
codeine Allergy Rash Verified 09/01/24 07:27
Iodinated Contrast Media Allergy Rash Verified 09/01/24 07:27
[IV Dye, Iodine Containing]
Home Medications
�Medication �Instructions �Recorded �Confirmed �Last Taken �Type
lisinopril 30 mg tablet 30 mg PO DAILY Blood Pressure 07/31/24 09/01/24 08/30/24 History
Miralax 238 g PO DIRECTED pre operative 08/25/24 09/01/24 08/31/24 19:00 History
bisacodyl 5 mg tablet,delayed 5 mg PO DIRECTED pre operative 08/25/24 09/01/24 08/31/24 19:00 History
release (Dulcolax (bisacodyl))
metronidazole 500 mg tablet 500 mg PO DIRECTED pre operative 08/25/24 09/01/24 08/31/24 14:00 History
neomycin 500 mg tablet 1 g PO DIRECTED pre operrative 08/25/24 09/01/24 08/31/24 14:00 History
Review of Systems
-
Unable to Obtain full review of systems at this time due to: Patient Intubation
Vitals / Labs / Diagnostic Testing
Vital Signs
Temp Pulse Resp BP Pulse Ox
97.7 F 95 26 105/79 90
09/09/24 07:31 09/09/24 07:45 09/09/24 07:45 09/09/24 02:00 09/09/24 08:00
Lab Data
09/09/24 03:49
09/09/24 03:49
Laboratory Results
09/08/24 09/08/24 09/09/24
12:00 22:38 03:49
PT 14.4
INR 1.09
APTT 29.7 30.4
pH 7.32 L 7.38
pCO2 45 36
pO2 252 H 98
HCO3 23.2 21.3
O2 Delivery Level %oxygen/room air sara
Diagnostic Testing:
Physical Exam
-
HEENT: Normocephalic, Anicteric and Other (ETT in place)
Cardiovascular: S1/S2 and Peripheral Edema (n)
Respiratory: Wheeze (n), Rales (n), Rhonchi (n), Non-Labored Respirations and Other (Mechanical breath sounds heard bilaterally)
GI: Soft, Distended, Other (Hypoactive bowel sounds) and Other (Colostomy in place)
Neurology: Tremors (n) and Other (Sedated)
Skin: Warm and Dry
General: Respiratory Distress (negative), Chills (n) and Sweats (n)
Assessment
-
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
intervention for known ascending colon cancer. He underwent a robotic assisted right hemicolectomy with partial omentectomy, excision of peritoneal nodule and laparoscopic TAP block. He did well postoperatively and was tolerating regular diet. He
did develop abdominal tenderness with adynamic ileus seen on imaging. Unfortunately his abdominal discomfort worsened and he developed shortness of breath with CT A/P imaging on 09/08/2024 showing bowel perforation, and he was brought to the OR on
09/08/2024 for an ex-lap with resection of ileocolic anastomosis with an abdominal washout and creation of an end colostomy. He remained intubated at the end the procedure, and was TRX to the ICU post-operatively with [employer]visor services consulted
for additional management/recommendations.
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
Impression:
#Anastomotic leak with feculent peritonitis s/p ex lap with resection of ileocolic anastomosis with abdominal washout and creation of end colostomy (POD #1)
#Metastatic colonic adenocarcinoma s/p robotic right hemicolectomy with partial omentectomy, excision of peritoneal nodule and laparoscopic TAP block (OR date: 09/01/2024)
#Ventilator dependent respiratory failure
#Tobacco use disorder with centrilobular emphysema and suspected COPD
#Circumferential wall thickening of left colon suggestive of colitis seen on CT A/P from 09/08/2024
#History of CVA (2016) with residual expressive aphasia + right hemiparesis
#CAD
#History of VT s/p AICD
#History of alcohol use disorder
#Mitral regurgitation
#Chronic HFmrEF (LVEF: 45% via TTE frim 08/05/2024)
Plan:
- Postoperative management as per colorectal surgery
- Pain control
- Operative reports were reviewed from colorectal surgery
- Follow-up pathology from the OR on 09/08/2024
- Continue with broad-spectrum antibiotics (currently on Zosyn which was started on 09/08/2024)
- Follow-up blood cultures which were collected on 09/08/2024
- Continue with mechanical ventilation with daily SAT/SBT if clinically appropriate
- Titrate FiO2 + PEEP to maintain SpO2 >90-94%
- Keep HOB >30-45�
- Oral + endotracheal suctioning as needed
- No obvious concern for pneumonia based on CXR from 09/09 or from CTA chest from 09/08/2024, however if sample obtained from ETT then with send sputum culture
- trend WBC and monitor fever curve
- prn nebulized bronchodilators � not currently bronchospastic
- Continue with vasopressors and wean as tolerated while maintaining MAP >65
- Lasix currently on hold
- Cardiology consulted and recs appreciated
- Replete electrolytes with K>4, Mg>2
- Maintain euglycemia with goal BG 140-180 with ISS q6hr
- Trend H/H and transfuse if needed to keep Hb>7g/dL; keep plt>50k (given post-operative status)
- Will transfuse 1 u platelets this AM given platelet count is <50k this AM
- Hematology consulted and recs appreciated
- Stress ulcer ppx - PPI
- DVT ppx - SCDs for now until deemed safe to start chemical ppx per CRC
Continue ICU level care for this critically ill patient
Critical care statement: A total of 43 minutes of critical care time was provided for this patient today. This includes management of unstable vital signs, evaluation of the patient at bedside, reviewing the patient's pertinent medical records
including radiographs, microbiology, laboratory evaluations, and discussion with primary team, consultants, pharmacy, nutrition, physical therapy, case management, charge nurse, critical care nursing, and respiratory therapy.
Data:
CTA chest/CT abdomen/pelvis with contrast 09/08/2024:
Findings suggesting bowel perforation with new active extravasation of oral contrast in the right upper quadrant and progressed moderate free intraperitoneal air and free fluid.
Mild small bowel dilatation with fluid-filled loops of bowel probably due to small bowel ileus.
Mild circumferential wall thickening of the left colon suggesting colitis.
Postsurgical change.
No evidence of pulmonary embolus.
Small bilateral pleural effusions.
Minimal right lower lobe consolidation probably atelectasis
Moderate mid thoracic spine compression fracture. Stable
--- NOTE | 2024-09-09 08:47 | W.PN.ONC2 ---
Today's Communication / Plan
-
Monitor CBC and platelet count.
No indication for platelet transfusion today.
Impression
Impression
thrombocytopenia 2* sepsis
bowel perforation, 09/08/24, feculent peritonitis
colon cancer, node +, and with metastatic nodule to right gutter, s/p right hemicolectomy 09/01/24
Plan
Plan
Thrombocytopenia is most likely secondary to sepsis in the setting of bowel perforation. Suspect his bowel perforation started/occurred between 09/06 pm and 09/07, which corresponds to his symptoms and rise in WBC and drop in platelets
He only got low dose Lovenox, not heparin, which has a much lower risk for HIT
Would not send HIT Marsha testing
Monitor CBC daily. Transfuse PLT < ~ 50,000 but does not need today as PLT ~ 50K and no clinical sign of bleeding and no plans for additional surgery.. For now just monitor.
Supportive care
Further mgmt of colon cancer TBD. His performance status and social situation are likely to be big barriers to chemotherapy.
Subjective/Objective
Chief Complaint
ACS Heme Onc
Subjective
Intubated, sedated. No obvious bleeding.
Vital Signs:
Vital Signs
Temp Pulse Resp BP Pulse Ox
97.7 F 95 26 105/79 90
09/09/24 07:31 09/09/24 07:45 09/09/24 07:45 09/09/24 02:00 09/09/24 08:00
Lab Results:
Laboratory Data
WBC 19.4 10^3/uL (4.8-10.8) H 09/09/24 03:49
Hgb 12.3 g/dL (13.0-18.0) L 09/09/24 03:49
Plt Count 48 10^3/uL (130-400) L 09/09/24 03:49
PT 14.4 Sec (11.4-14.6) 09/08/24 22:38
INR 1.09 09/08/24 22:38
APTT 30.4 Sec (23.4-35.0) 09/08/24 22:38
eGFR 53.40 09/09/24 03:49
[2024-09-09] MEDS: ZOSYN IV ×2 (08:56→08:58)
--- NOTE | 2024-09-09 08:59 | PTOTSP ---
Pt status post abdominal sx on 09/08/24. Currently on vent and sedated. Will need new OT orders when stable for activity. Will continue to follow medical status.
[2024-09-09] MEDS: DIPRIVAN 100 IV ×3 (09:20→21:30)
--- NOTE | 2024-09-09 09:38 | W.PN.CARDCBS ---
Today's Communication / Plan
-
Agree with holding Lasix while requiring pressor support, will eventually need diuresis
Impression / Plan
-
Primary Cotton Sampler: Dr. Toan Mays
Impression:
Ascending colon cancer s/p robotic R hemicolectomy with partial omentectomy 09/01/24
NSVT
Nonischemic cardiomyopathy, EF 45-50% by echo 2022
Chronic systolic heart failure
History of VT status post Medtronic BiV ICD
History of stroke with residual aphasia
COPD
HTN
Depression
ECHO 03/04/23: EF 45 to 50%, mild global hypokinesis, mild MAC, mild MR, mild TR, PAP 26 to 31 mmHg
ECHO 08/05/2024: EF 45%, global hypokinesis, mild concentric LVH, stage I diastolic dysfunction, mild to moderate MR, mild TR, PAP 37 mmHg, mildly dilated aortic root and ascending aorta
Plan:
Etiology of worsening respiratory failure may be multifactorial
Lasix currently on hold due to hypotension/shock, currently requiring pressor support
Weight is trending up, suspect he will eventually need IV diuretics, but would hold off for now
No further VT. Consider amiodarone if worsens
Device interrogated 09/07/2024 with appropriate function. Brief episodes of ventricular tachycardia noted on 09/03/2024, 09/06/2024 and 09/07/2024. Longest on device interrogation was 5 seconds. No ICD shocks, ATP therapies found. Battery has 1.8
years left
History of Present Illness 09/04/2024:
Patient is a 74-year-old male with past medical history of nonischemic cardiomyopathy, with EF most recently 45 to 50% by echo in 2022, chronic systolic heart failure, VT status post Medtronic BiV ICD, history of stroke with residual aphasia, COPD
and ongoing smoking, hypertension, depression who presented to [facility] for robotic R hemicolectomy and partial omentectomy in setting of ascending colon cancer on 09/01/24. He continues with some abd discomfort however is progressing in
his post op course. Cardiology consulted as last night patient noted to have 27 beat run of NSVT, patient was asymptomatic. He denies CP, SOB, palpitations or irregular heart beats.
Progress Note - Cotton Sampler
Subjective
Date of Service: September 09, 2024
NAOE. Remains intubated/sedated in MICU on broad spectrum abx and pressors.
Objective
Labs:
09/09/24 03:49
09/09/24 03:49
Labs
Hgb 12.3 g/dL (13.0-18.0) L 09/09/24 03:49
Hct 37.0 % (39.0-52.0) L 09/09/24 03:49
Plt Count 48 10^3/uL (130-400) L 09/09/24 03:49
PT 14.4 Sec (11.4-14.6) 09/08/24 22:38
INR 1.09 09/08/24 22:38
APTT 30.4 Sec (23.4-35.0) 09/08/24 22:38
Sodium 137 mmol/L (135-145) 09/09/24 03:49
Potassium 4.2 mmol/L (3.5-5.1) 09/09/24 03:49
BUN 44 mg/dl (9-20) H 09/09/24 03:49
Creatinine 1.4 mg/dL (0.7-1.3) H 09/09/24 03:49
Glucose 146 mg/dl (70-99) H 09/09/24 03:49
Vital Signs and I&O:
Vital Signs
Temp Pulse Resp BP Pulse Ox
97.7 F 95 26 105/79 90
09/09/24 07:31 09/09/24 07:45 09/09/24 07:45 09/09/24 02:00 09/09/24 08:00
Vital Signs
Temp Pulse Resp BP Pulse Ox
97.7 F 95 26 105/79 90
09/09/24 07:31 09/09/24 07:45 09/09/24 07:45 09/09/24 02:00 09/09/24 08:00
Intake & Output
09/07/24 09/08/24 09/09/24 09/10/24
06:59 06:59 06:59 06:59
Intake Total 2960 / 2960 1080 / [place] 2604.8 / 2777.7 338.3 / 338.3
Output Total 465 / 465 60 / 60
Balance 2960 / 2960 1080 / Muxlim 2139.8 / 2312.7 278.3 / 278.3
Physical Exam
Physical Exam
Gen: NAD
HEENT: NC/AT, sclera anicteric, NG tube in place
Neck: No JVD
CV: RRR, NL s1/s2
Lungs: Mechanically ventilated
Abd: S/ND
Ext: No LE edema
Skin: Warm, dry.
Neuro: Sedated
--- NOTE | 2024-09-09 10:56 | W.PN.CRS1 ---
Today's Communication / Plan
-
TPN
continue abx
maintain ngt
Assessment/Plan
-
74 yo male with a h/o CVA with expressive aphasia, HFrEf, AICD and ascending colon ca
POD #8 Robotic right hemicolectomy
POD#1 Exploratory laparotomy, resection of ileocolic anastomosis, abdominal washout, creation of end colostomy
WBC 19.4, Hgb 12.6. Platelets 48K (52K)
09/09- intubated, on levophed/vassopressin
--Extubation per sales representative printing paper team
--Maintain NGT if extubated
--Wound RN for colostomy care
--Switch po Tylenol to IV Ofirmev
--Continue IV antibiotics
--Hold Toradol/Lovenox given platelet count. TEDS/SCDS in place for DVT prophylaxis.
--OOB/Ambulate
--Analgesics scheduled and prn
--IS while awake
--Medicine and cardiology following, appreciate recs/management
--Appreciate hematology
--OR cultures pending
--Wean pressers as tolerated
--Will start TPN today given lack of NPO over past 9 days
Subjective Data
Procedure
09/01/2024- Laparoscopic right hemicolectomy
09/09/2024- Exploratory laparotomy, resection of ileocolic anastomosis, abdominal washout, creation of end colostomy
Subjective Data
Date of Service: September 09, 2024
Patient is intubated and sedated
Objective Data
-
Vital Signs
Temp Pulse Resp BP Pulse Ox
97.7 F 118 25 105/79 99
09/09/24 07:31 09/09/24 10:30 09/09/24 10:30 09/09/24 02:00 09/09/24 10:30
Intake & Output
09/08/24 09/09/24 09/10/24
06:59 06:59 06:59
Intake Total 1079 / 1080 2604.8 / 2777.7 719.1 / 719.1
Output Total 465 / 465 /
Balance 1080 / 1080 2139.8 / 2312.7 634.1 / 634.1
Intake:
Oral fluids 1079 / 1080
IV fluids (Total) 1074.8 / 1247.7 669.1 / 669.1
Fentanyl 70.0 / 70.0
Levophed 517.3 / 592.3 277.5 / 277.5
Nss 1,000 ml @ 75 mls/hr IV . 557.5 / 632.5 300 / 300
[id number] ROBEL Rx#:[id number]
Propofol 21.6 / 21.6
IV piggybacks 1500.0 / 1500.0 50 / 50
Amount instilled into GI Tube ( 30 / 30
Total)
Mathews Sump 30 / 30
Output:
Gastrointestinal tube output ( 60 / 60
Total)
Mathews Sump 60 / 60
Urine, Head 405 / 405
Other:
Number of approximated MODERATE 2
amounts of urine
How many times incontinent 1
SMALL amount urine
How many times incontinent 2
SATURATED amount urine
Lab Results
09/09/24 03:49
09/09/24 03:49
Physical Exam
-
General: Other (intubated/sedated)
Abdomen: Soft, Tender (around midline) and Other (colostomy warm and pink, no function)
Skin: Warm and Dry
--- NOTE | 2024-09-09 11:07 | VATNOTE ---
Per radiology report, PICC tip in good position in the SVC and OK to use at this time. Spoke with PCN and communicated same, PCN will remove all ipsilateral IVs, though arterial line must remain, and will change all IV tubing prior to using the PICC.
[2024-09-09 12:14] LABS: Glucose - Point of Care 162 mg/dl (70-99)
--- NOTE | 2024-09-09 12:14 | WOUNDNOTE ---
BONY RN note: Patient s/p ostomy surgery
See H&P for complete history.
PMH: CVA with expressive aphasia, lives in a shelter, R hemicolectomy for colon cancer.
Ostomy location and type: End Colostomy RLQ, stoma pink and budded, appliance intact.
Patient vented and sedated, dropped off ostomy folder and will do more teaching when appropriate.
[place] wafer #[id number]
Brody pouch # [id number]
Ostomy supplies ordered from [facility] and at bedside.
Note to case management: VN services recommended for ostomy teaching.
Nursing care plan updated, will follow as needed.
[2024-09-09] MEDS: NSS 1000 IV (12:15)
[2024-09-09] MEDS: PITRESSIN 100 IV (12:25)
--- NOTE | 2024-09-09 12:30 | PTCARENOTE ---
Left TL PICC placement verified. New bags and tubing hung. All peripheral IV sites removed. Repositioned for comfort. UOP remains marginal. Right nare justinm sump to continuous suction. Green bilious secretions.
[2024-09-09] MEDS: OFIRMEV 100 IV (12:55)
[2024-09-09] MEDS: NOVOLOG FLEXPEN-LOW RESISTANCE 1 UNITS SC ×2 (13:41→23:54)
--- NOTE | 2024-09-09 14:19 | CM ---
CM following re: discharge planning.
Discussed in rounds, reviewed pt's chart. Per Rounds meeting, pt is POD#1 Exploratory laparotomy, resection of ileocolic anastomosis, abdominal washout, creation of end colostomy. Intubated yesterday, remains intubated, continue supportive care.
D/C plan: uncertain at this time and will depend on pt's progress.
CM will follow with discharge plan updates as hospitalization progresses
[2024-09-09] MEDS: NOVOLOG FLEXPEN-LOW RESISTANCE SC (17:29)
[2024-09-09 17:34] VITALS: BP 115/60
[2024-09-09 17:38] LABS: Glucose - Point of Care 122 mg/dl (70-99)
[2024-09-09 17:51] VITALS: BP 112/57
--- NOTE | 2024-09-09 18:21 | PTCARENOTE ---
Pt's brother Gordon [phone] was updated over the phone. He verbalized his frustration with his brother due to his non-compliance and recent hospitalization and refusal of care in the past. Supportive care provided.
[2024-09-09 19:21] VITALS: BP 102/57
[2024-09-09 20:23] LABS: ALT (SGPT) 14 U/L (0-50); AST (SGOT) 35 U/L (17-59); Albumin 1.7 g/dl (3.5-5.0); Alkaline Phosphatase 47 U/L (38-126); Blood Urea Nitrogen 55 mg/dl (9-20); Calcium 6.9 mg/dl (8.4-10.2); Carbon Dioxide 21 mmol/L (22-30); Chloride 106 mmol/L (98-107); Estimated Creatinine Clearance 32 ml/min; Glucose 137 mg/dl (70-99); Magnesium 2.3 mg/dl (1.6-2.3); Potassium 3.7 mmol/L (3.5-5.1); Sodium 136 mmol/L (135-145); Total Bilirubin 1.7 mg/dl (0.2-1.3); Triglycerides 202 mg/dl (10-149)
--- NOTE | 2024-09-09 20:36 | PTCARENOTE ---
Assumed care of pt at 1900. Received pt intubated, #8.0 ETT, 23cm at lip, AC 16/500/40/5, SpO2 98-100%. 100% V-paced on monitor with occasional PVCs. Pt sedated on Propofol and Fentanyl, see med titration flowsheets for details. Levophed and
Vasopressin turned off during dayshift and remain off at this time, MAPs have been in mid/upper 60s. NGT to right nare to continuous suction at 80mmHg. RUQ ileostomy with thin brown drainage, stoma is pink and budded. Midline abd aquacel is C/D/I
with old shadowing present underneath. See nursing shift assessment flowsheet for further physical assessment details.
[2024-09-09] MEDS: Parenteral Nutrition, Central 830 IV (20:44)
[2024-09-09] MEDS: KCL 160 MEQ IV (21:30)
[2024-09-09] MEDS: LASIX 20 MG IV (22:25)
--- NOTE | 2024-09-09 22:32 | PTCARENOTE ---
Pt with low urine output the last two hours, 15mL and 12mL respectively, discussed with Arden ARNOLD, 20mg IV lasix ordered x1, see EMAR for administration details.
[2024-09-10] VITALS (9 sets, daily range): BP systolic 125–151; BP diastolic 53–64; BMI 20.1
[2024-09-10] MEDS: SUBLIMAZE 100 IV (00:01)
[2024-09-10 00:04] LABS: Glucose - Point of Care 153 mg/dl (70-99)
--- NOTE | 2024-09-10 00:55 | PTCARENOTE ---
Assessment unchanged. Pt back on Levophed from approx 2109 until about 49, Levophed now on standby. Remains on Propofol and Fentanyl infusions. TPN started per order at around 2100. K+ rider (20mEq) ordered/administered for K+ 3.7. Pt's urine
output has increased since receiving Lasix. CHG cloth bath done and linens changed.
[2024-09-10] MEDS: ZOSYN 50 IV ×4 (02:25→20:24)
[2024-09-10] MEDS: SUBLIMAZE 50 MCG IV ×7 (04:00→23:53)
--- NOTE | 2024-09-10 04:17 | PTCARENOTE ---
Assessment unchanged. Remains on Propofol and Fentanyl. Levophed remained off until around 0415 when MAP was sustaining in low 60s. V-paced on monitor with frequent PVCs, sometimes in a trigeminal pattern. Urine output has been > 30 mL/hr since
receiving Lasix (see I&O flowsheet for details).
[2024-09-10 04:29] LABS: Hematocrit 26.8 % (39.0-52.0); Hemoglobin 9.2 g/dL (13.0-18.0); Mean Corp Hgb Conc. 34.3 g/dL (33.0-37.0); Mean Corpuscular Hgb 29.8 pg (27.0-31.0); Mean Corpuscular Volume 86.7 fL (80.0-94.0); Mean Platelet Volume 12.7 fL (7.4-10.4); Platelet Count 39 10^3/uL (130-400); Red Blood Cell Count 3.09 10^6/uL (4.70-6.10); White Blood Cell Count 11.6 10^3/uL (4.8-10.8)
[2024-09-10 05:03] LABS: Blood Urea Nitrogen 63 mg/dl (9-20); Calcium 7.2 mg/dl (8.4-10.2); Carbon Dioxide 23 mmol/L (22-30); Chloride 108 mmol/L (98-107); Estimated Creatinine Clearance 28 ml/min; Glucose 167 mg/dl (70-99); Magnesium 2.5 mg/dl (1.6-2.3); Potassium 3.7 mmol/L (3.5-5.1); Sodium 140 mmol/L (135-145); eGFR 32.83
[2024-09-10] MEDS: NOVOLOG FLEXPEN-LOW RESISTANCE 1 UNITS SC (06:17)
[2024-09-10] MEDS: DIPRIVAN 100 IV ×2 (06:20→21:39)
[2024-09-10 06:27] LABS: Glucose - Point of Care 162 mg/dl (70-99)
--- NOTE | 2024-09-10 06:48 | W.PN.CARDCBS ---
Addendum entered and electronically signed by Juan Jose Cherry, DO 09/10/24 17:46:
.
Will consider Lasix in AM if bp remains stable as he had lasix last PM and required pressor therapy thereafter.
Discussed with nursing
Original Note:
Today's Communication / Plan
-
Lasix currently on hold due to hypotension/shock, currently requiring pressor support with IV Norepinephrine
Weight is trending up, would consider IV lasix and stop IVF, if wt continues to climb and monitor cr for improvement.
No further VT. Consider amiodarone if worsens
Cont postop care as per colorectal. Receiving platelets.
TPN to start as per surgery.
Monitor H/H
Device interrogated 09/07/2024 with appropriate function. Brief episodes of ventricular tachycardia noted on 09/03/2024, 09/06/2024 and 09/07/2024. Longest on device interrogation was 5 seconds. No ICD shocks, ATP therapies found. Battery has 1.8
years left
Impression / Plan
-
Primary House Furnishings Supervisor: Dr. Toan Mays
Impression:
Ascending colon cancer s/p robotic R hemicolectomy with partial omentectomy 09/01/24
s/p exlap, resection of ileocolic anastomosis (for anastomotic leak), creation of end-ileostomy 09/08/2024
NSVT
Nonischemic cardiomyopathy, EF 45-50% by echo 2022
Chronic systolic heart failure
History of VT status post Medtronic BiV ICD
History of stroke with residual aphasia
COPD
HTN
Depression
ECHO 03/04/23: EF 45 to 50%, mild global hypokinesis, mild MAC, mild MR, mild TR, PAP 26 to 31 mmHg
ECHO 08/05/2024: EF 45%, global hypokinesis, mild concentric LVH, stage I diastolic dysfunction, mild to moderate MR, mild TR, PAP 37 mmHg, mildly dilated aortic root and ascending aorta
Plan:
Etiology of worsening respiratory failure may be multifactorial
Lasix currently on hold due to hypotension/shock, currently requiring pressor support with IV Norepinephrine
Weight is trending up, would consider IV lasix and stop IVF, if wt continues to climb and monitor cr for improvement.
No further VT. Consider amiodarone if worsens
Cont pulm toilet and vent managment as per mechanical apprentice.
Cont postop care as per colorectal. Receiving platelets.
TPN to start as per surgery.
Monitor H/H
Device interrogated 09/07/2024 with appropriate function. Brief episodes of ventricular tachycardia noted on 09/03/2024, 09/06/2024 and 09/07/2024. Longest on device interrogation was 5 seconds. No ICD shocks, ATP therapies found. Battery has 1.8
years left
CCT: 32 min
History of Present Illness 09/04/2024:
Patient is a 74-year-old male with past medical history of nonischemic cardiomyopathy, with EF most recently 45 to 50% by echo in 2022, chronic systolic heart failure, VT status post Medtronic BiV ICD, history of stroke with residual aphasia, COPD
and ongoing smoking, hypertension, depression who presented to [facility] for robotic R hemicolectomy and partial omentectomy in setting of ascending colon cancer on 09/01/24. He continues with some abd discomfort however is progressing in
his post op course. Cardiology consulted as last night patient noted to have 27 beat run of NSVT, patient was asymptomatic. He denies CP, SOB, palpitations or irregular heart beats.
Progress Note - House Furnishings Supervisor
Subjective
Date of Service: September 10, 2024
Pt seen and examined. Sedated on vent.
Objective
Labs:
09/10/24 04:07
09/10/24 04:07
Labs
Hgb 9.2 g/dL (13.0-18.0) L D 09/10/24 04:07
Hct 26.8 % (39.0-52.0) L 09/10/24 04:07
Plt Count 39 10^3/uL (130-400) L 09/10/24 04:07
PT 14.4 Sec (11.4-14.6) 09/08/24 22:38
INR 1.09 09/08/24 22:38
APTT 30.4 Sec (23.4-35.0) 09/08/24 22:38
Sodium 140 mmol/L (135-145) 09/10/24 04:07
Potassium 3.7 mmol/L (3.5-5.1) 09/10/24 04:07
BUN 63 mg/dl (9-20) H 09/10/24 04:07
Creatinine 2.1 mg/dL (0.7-1.3) H 09/10/24 04:07
Glucose 167 mg/dl (70-99) H 09/10/24 04:07
Vital Signs and I&O:
Vital Signs
Temp Pulse Resp BP Pulse Ox
97.2 F 90 16 107/51 100
09/10/24 04:40 09/10/24 06:15 09/10/24 06:15 09/09/24 22:25 09/10/24 06:15
Vital Signs
Temp Pulse Resp BP Pulse Ox
97.2 F 90 16 107/51 100
09/10/24 04:40 09/10/24 06:15 09/10/24 06:15 09/09/24 22:25 09/10/24 06:15
Intake & Output
09/07/24 09/08/24 09/09/24 09/10/24
06:59 06:59 06:59 06:59
Intake Total 2960 / 2960 1080 / Syntricity 2604.8 / 2777.7 3691.3 / 3691.3
Output Total 465 / 465 999 / 999
Balance 2960 / 2960 1080 / Syntricity 2139.8 / 2312.7 2692.3 / 2692.3
Physical Exam
Physical Exam
General: Sedated on vent
Neck: Negative JVD
Heart: Regular, Negative S3 positive S1/S2, Negative S4, No murmur
Lungs: CTA b/l, negative wheezes/rales/rhonchi
Abd: Positive BS, NT/ND, neg rebound/rigidity/guarding
Ext: Negative cyanosis/clubbing/edema
Neuro: nonfocal
--- NOTE | 2024-09-10 07:56 | W.PN.INTV ---
Today's Communication / Plan
Recommendations
Mechanical ventilation with daily SAT/SBT
Hopefully can extubate over the next 24-48 hours
Starting Lasix tonight as per cardiology
Strict I/O
Monitor UOP
Continue ABx
Recheck set of surveillance blood cultures today
Maintain MAP >65 with vasopressors
If Levophed requirements increase towards 10-15 mcg/min then add vasopressin
Continue TPN
Continue ICU level care for this critically ill patient
Assessment
-
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
intervention for known ascending colon cancer. He underwent a robotic assisted right hemicolectomy with partial omentectomy, excision of peritoneal nodule and laparoscopic TAP block. He did well postoperatively and was tolerating regular diet. He
did develop abdominal tenderness with adynamic ileus seen on imaging. Unfortunately his abdominal discomfort worsened and he developed shortness of breath with CT A/P imaging on 09/08/2024 showing bowel perforation, and he was brought to the OR on
09/08/2024 for an ex-lap with resection of ileocolic anastomosis with an abdominal washout and creation of an end colostomy. He remained intubated at the end the procedure, and was TRX to the ICU post-operatively with Embryology Teacher services consulted
for additional management/recommendations.
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
Impression:
#Anastomotic leak with feculent peritonitis s/p ex lap with resection of ileocolic anastomosis with abdominal washout and creation of end colostomy (POD #2)
#Metastatic colonic adenocarcinoma s/p robotic right hemicolectomy with partial omentectomy, excision of peritoneal nodule and laparoscopic TAP block (OR date: 09/01/2024)
#Thrombocytopenia likely due to sepsis but unable to rule out KIP given intermediate 4T score (4)
#Sepsis due to feculent peritonitis now with E. coli bacteremia via blood cultures from 09/08 + 09/09/2024
#Ventilator dependent respiratory failure
#Tobacco use disorder with centrilobular emphysema and suspected COPD
#Circumferential wall thickening of left colon suggestive of colitis seen on CT A/P from 09/08/2024
#History of CVA (2016) with residual expressive aphasia + right hemiparesis
#CAD
#History of VT s/p AICD
#History of alcohol use disorder
#Mitral regurgitation
#Chronic HFmrEF (LVEF: 45% via TTE frim 08/05/2024)
Plan:
- Postoperative management as per colorectal surgery
- Pain control
- Operative reports were reviewed from colorectal surgery
- Follow-up pathology from the OR on 09/08/2024
- Continue with broad-spectrum antibiotics (currently on Zosyn which was started on 09/08/2024)
- Follow-up blood cultures which were collected on 09/08/2024 + 09/09/2024, both of which are growing GNR with E. coli seen on BCx from 09/08 (follow-up sensitivities)
- Recheck a set of surveillance blood cultures today
- Continue with mechanical ventilation with daily SAT/SBT if clinically appropriate
- Titrate FiO2 + PEEP to maintain SpO2 >90-94%
- Keep HOB >30-45�
- Oral + endotracheal suctioning as needed
- No obvious concern for pneumonia based on CXR from 09/09 or from CTA chest from 09/08/2024, however if sample obtained from ETT then would send sputum culture
- trend WBC and monitor fever curve
- prn nebulized bronchodilators � not currently bronchospastic
- Continue with vasopressors and wean as tolerated while maintaining MAP >65
- Lasix currently on hold --> starting lasix 40 mg IV daily later today per cardiology
- Cardiology consulted and recs appreciated
- Replete electrolytes with K>4, Mg>2
- Maintain euglycemia with goal BG 140-180 with ISS q6hr
- Trend H/H and transfuse if needed to keep Hb>7g/dL; keep plt>50k (given post-operative status)
- Will transfuse 2 units platelets this AM given platelet count is <50k this AM
- Also transfused 1 unit platelets on 09/10/2019
- Hematology consulted and recs appreciated
- Although thrombocytopenia likely due to sepsis, will check KIP panel as his 4T score is 4 (intermediate)
- Stress ulcer ppx - PPI
- DVT ppx - SCDs for now until deemed safe to start chemical ppx per CRC
Continue ICU level care for this critically ill patient
Critical care statement: A total of 38 minutes of critical care time was provided for this patient today. This includes management of unstable vital signs, evaluation of the patient at bedside, reviewing the patient's pertinent medical records
including radiographs, microbiology, laboratory evaluations, and discussion with primary team, consultants, pharmacy, nutrition, physical therapy, case management, charge nurse, critical care nursing, and respiratory therapy.
Data:
CTA chest/CT abdomen/pelvis with contrast 09/08/2024:
Findings suggesting bowel perforation with new active extravasation of oral contrast in the right upper quadrant and progressed moderate free intraperitoneal air and free fluid.
Mild small bowel dilatation with fluid-filled loops of bowel probably due to small bowel ileus.
Mild circumferential wall thickening of the left colon suggesting colitis.
Postsurgical change.
No evidence of pulmonary embolus.
Small bilateral pleural effusions.
Minimal right lower lobe consolidation probably atelectasis
Moderate mid thoracic spine compression fracture. Stable
CXR 09/10/2024: Postoperative chest
Renal US 09/10/2024:
Unremarkable exam of the kidneys
Small bilateral pleural effusions. Stable
Minimal fluid about the liver. Improved
Subjective Dataa
Subjective Data
Date of Service:
Date of Service: September 10, 2024
Chief Complaint: Embryology Teacher Follow Up
Subjective:
Patient seen and evaluated this morning. Remains intubated on AC/CMV at 16/500/5/40%, with PIP 25 cmH2O, VTe 516mL and breathing at 20 breaths/min. Heart rate 89, BP via A-line: 126/58 and saturating 100%. End-tidal CO2 21. Currently sedated on
25 mcg/hr of fentanyl, and propofol at 10 mcg/kg/min. Levophed currently on hold. Also on TPN.
Review of Systems
General: Unobtainable - Sedation (And intubated)
Objective Data
Data Reviewed
Vital Signs / I&O / Oxygen:
Vital Signs
Temp Pulse Resp BP Pulse Ox
98.5 F 86 20 107/51 100
09/10/24 08:30 09/10/24 08:15 09/10/24 08:15 09/09/24 22:25 09/10/24 08:54
Intake and Output
09/09/24 09/10/24 09/11/24
06:59 06:59 06:59
Intake Total 2604.8 / 2777.7 3691.3 / 3712.7 62.8 / 62.8
Output Total 465 / 465 999 / 999 75 / 75
Balance 2139.8 / 2312.7 2692.3 / 2713.7 -12.2 / -12.2
SaO2 [A/C] 100
SaO2 100
Nasal Cannula flow liters per 5
minute
Physical Exam
General: Respiratory Distress (negative), Chills (negative), Sweats (negative) and Other (Intubated/sedated male in no acute distress)
HEENT: Normocephalic, Anicteric and Other (ETT in place)
Cardiovascular: S1-S2 and Peripheral Edema (negative)
Respiratory: Wheeze (negative), Crackles (Bibasilar), Rhonchi (negative), Stridor (negative) and ET Tube (Mechanical breath sounds heard bilaterally)
GI: Soft, Non Distended, Tender, NG Tube and Other (Hypoactive bowel sounds)
Neurology: Tremors (negative) and Other (Sedated although arousable to voice and following commands)
Skin: Warm, Dry, Cyanosis (negative) and Jaundice (negative)
Labs/Micro/Reports
Lab Data
09/10/24 04:07
Microbiology
09/09/24 00:00 Blood/Venous Blood Culture - Preliminary
No Growth in 24 hours- Final report to follow
09/08/24 23:32 Blood/Venous Blood Culture - Preliminary
No Growth in 24 hours- Final report to follow
--- NOTE | 2024-09-10 08:05 | PTCARENOTE ---
Received pt intubated, sedated with bilateral soft wrist restraints intact. Norepinephrine off for MAP 72. He is unresponsive on fentanyl, propofol via left TL CVC. TPN @35ml/hr. Lungs diminished throughout. Tolerating #8 ETT secured 23cm left lip.
AC 16/500/.40/+5. +2 anasarca. Right U/E +3 edema. Hand contracted with towel roll present. Doppler DP pulses. Weak radial pulses. Upper extremity scattered ecchymosis. Abdomen with absent BSX4. Right nare [place] sump secured 60cm, draining brown
secretions. Right ileostomy with liquid brown stool, stoma budded and red. Aquacel dressing to abdomen with old drainage on dressing. Abdomen with old laparoscopic incisions CHELSEA with Dermabond intact. Head with jordan urine. Safe environment
maintained. Will continue to monitor. Informed of the plan of care, will reinforce.
[2024-09-10] MEDS: PROTONIX IV 40 MG IV (08:11)
[2024-09-10] MEDS: NSS (PRESERVATIVE FREE) 10 ML IV (08:11)
--- NOTE | 2024-09-10 09:05 | W.PN.CRS1 ---
Addendum entered and electronically signed by Gasper Awad MD 09/10/24 19:01:
called brother and left a message
Original Note:
Today's Communication / Plan
-
as below
Assessment/Plan
-
74-year-old male with PMH of CHF (last echo 2022 EF 45-50%, mild global hypokinesis), cardiomyopathy, CAD, HTN, CVA 2015 (right hemiparesis, expressive aphasia), pneumothorax s/p thoracic surgery who presents for elective surgery for ascending colon
cancer
POD 9 s/p robotic right hemicolectomy
POD 2 exlap, resection of ileocolic anastomosis (for anastomotic leak), creation of end-ileostomy
AF, HR 90s, off levo and vaso, UOP >30/hr
WBC 11.6 from 19.4, Hb 9.2 from 12.3, Plts 36, Cr 2.1 from 1.4
� Anastomotic leak complicated by septic shock
�Appreciate hospitalist/ICU
� Wean vent as tolerated
� Continue IV Zosyn
�Worsening CESAR this a.m. s/p dose of Lasix overnight, but still on IVF at 75; if concerned about fluid overload, would recommend stopping IVF; vent settings remain minimal
�Will send urine electrolytes and renal ultrasound
� Continue n.p.o., will start TPN
�Hold DVT PPx due to thrombocytopenia; appreciate hematology
�Drop in Hb, will repeat CBC at 10 AM
�Will order 1 unit of platelets
�Appreciate cardiology
� DIANNE is brotherGordon, who lives in [place]
Subjective Data
Procedure
09/01/2024- Laparoscopic right hemicolectomy
09/09/2024- Exploratory laparotomy, resection of ileocolic anastomosis, abdominal washout, creation of end colostomy
Subjective Data
Date of Service: September 10, 2024
Overnight, per nurse, levo and vaso have been titrated off.
Patient remains sedated. Having ostomy function.
Objective Data
-
Vital Signs
Temp Pulse Resp BP Pulse Ox
98.5 F 86 20 107/51 100
09/10/24 08:30 09/10/24 08:15 09/10/24 08:15 09/09/24 22:25 09/10/24 08:54
Intake & Output
09/09/24 09/10/24 09/11/24
06:59 06:59 06:59
Intake Total 2604.8 / 2777.7 3691.3 / 3712.7 62.8 / 62.8
Output Total 465 / 465 999 / 999
Balance 2139.8 / 2312.7 2692.3 / 2713.7 -12.2 / -12.2
Intake:
IV fluids (Total) 1074.8 / 1247.7 2187.3 / 2208.7 42.8 / 42.8
Fentanyl 165.0 / 170.0 10
Levophed 517.3 / 592.3 410.6 / 418.1 15.0 / 15.0
Nss 1,000 ml @ 75 mls/hr IV . 557.5 / 632.5 1385 / 1385
[id number] [facility] Rx#:[id number]
Propofol 190.7 / 199.6 17.8 / 17.8
Vasopressin 36 / 36
IV piggybacks 1500.0 / 1500.0 500 / 500
TPN/PPN 280 / 280
Amount instilled into GI Tube ( 30 / 30 150 / 150 20 / 20
Total)
[place] Sump 30 / 30 150 / 150 20 / 20
Blood Products 287 / 287
Platelets 287 / 287
Blood Product Amount Infused ( 287 / 287
mL)
Pathogen Redu Plt Leukored /
Unit [id number]
Output:
Liquid stool amount 75 / 75
Ileostomy 75 / 75
Gastrointestinal tube output ( 60 / 60 325 / 325
Total)
[place] Sump 325 / 325
Urine, Head 405 / 405 674 / 674
Lab Results
09/10/24 04:07
Physical Exam
-
General: No Acute Distress and Other (Intubated, sedated)
HEENT: Grossly Normal
Abdomen: Soft, Distended (Mildly distended) and Tender (Ostomy pink and productive of liquid stool; incision covered with Aquacel without strikethrough)
Skin: Warm and Dry
Wound: No Signs of Infection and Dressing in Place
--- NOTE | 2024-09-10 09:26 | W.PN.ONC2 ---
Today's Communication / Plan
-
.
Impression
Impression
thrombocytopenia 2* sepsis. Normal coags. s/p 1 U SDP 09/09
bowel perforation, 09/08/24, feculent peritonitis
colon adenocarcinoma, moderately differentiated, node +, and with metastatic nodule to right gutter, s/p right hemicolectomy 09/01/24
VDRF
anemia
leukocytosis improving
CESAR
Plan
Plan
Thrombocytopenia is most likely secondary to sepsis in the setting of bowel perforation. Symptoms corresponds to his symptoms and rise in WBC and drop in platelets
He only got low dose Lovenox, not heparin, which has a much lower risk for HIT. Last dose 09/06
Would not send HIT Marsha testing
check B12, folate, ferritin, retic
Monitor CBC daily. transfuse prn
Supportive care
Further mgmt of colon cancer TBD.
Subjective/Objective
Chief Complaint
VDRF
platelets continue to trend down to 39,000 today, Hgb 9.2g/dL, WBC 11.6, repeat pending
rising creatinine
last dose lovenox ppx 09/06
Subjective
Vital Signs:
Vital Signs
Temp Pulse Resp BP Pulse Ox
98.5 F 86 20 107/51 100
09/10/24 08:30 09/10/24 08:15 09/10/24 08:15 09/09/24 22:25 09/10/24 08:54
Lab Results:
Laboratory Data
WBC 11.6 10^3/uL (4.8-10.8) H 09/10/24 04:07
Hgb 9.2 g/dL (13.0-18.0) L D 09/10/24 04:07
Plt Count 39 10^3/uL (130-400) L 09/10/24 04:07
PT 14.4 Sec (11.4-14.6) 09/08/24 22:38
INR 1.09 09/08/24 22:38
APTT 30.4 Sec (23.4-35.0) 09/08/24 22:38
eGFR 32.83 09/10/24 04:07
Physical Exam
bansal yellow urine
HEENT: Other (enteric tube)
Cardiology: Other (PPM)
Pulmonary: Other (VDRF)
GI: Soft and Other (ostomy)
Extremities: Other (R PICC)
[2024-09-10] MEDS: KCL 50 IV (10:28)
--- NOTE | 2024-09-10 11:00 | PTCARENOTE ---
No changes. He is minimally responsive. Moving his left upper extremity. Breath sounds remains dim throughout. UOP slightly improved.
[2024-09-10 11:39] LABS: Folate 8.8 ng/ml (2.76-20); Vitamin B12 970 pg/ml (239-931)
[2024-09-10 12:01] LABS: Reticulocyte Count 0.2 % (0.4-2.8)
--- NOTE | 2024-09-10 13:06 | PN.CDI ---
CDI
- -
CDI:
Physician Documentation Request
Admit Date: 09/01/24 06:08
Dear Doctor Elsa,
Please review the following and provide your response in the progress notes.
Clinical Indicators:
- 09/08 3000mg IV calcium gluconate
- Calcium labs:
Laboratory Tests
09/08/24 09/09/24 09/10/24
22:38 19:47 04:07
Calcium 6.5 L* 6.9 L* 7.2 L
Please provide a diagnosis for the above lab values that were monitored and treatment rendered:
Hypocalcemia
Clinically insignificant abnormal lab value
Other (please specify)
Use of terms such as suspected, likely, concern for, or probable (associated with a specific diagnosis that is being evaluated, monitored, or treated as if it exists) are acceptable and can be coded in the inpatient setting, when documented at the
time of discharge.
Thank you,
Madison Reyes RN
CDI Specialist
Please use your independent medical judgment in providing your response.
[2024-09-10 13:32] LABS: Glucose - Point of Care 140 mg/dl (70-99)
[2024-09-10] MEDS: NOVOLOG FLEXPEN-LOW RESISTANCE SC ×2 (13:34→17:45)
[2024-09-10 13:43] LABS: B.E. -2.5 mmol/L; HCO3 21.4 mmol/L (21-28); O2 Saturation % 95.6 % (94-98); PCO2 33 mmHg (35-48); PO2 67 mmHg (83-108); pH 7.42 (7.35-7.45)
--- NOTE | 2024-09-10 13:49 | W.PN.HOSP.TC ---
Addendum entered and electronically signed by Jose Eduardo Hunter MD 09/10/24 14:11:
Corrected Calcium is normal
Original Note:
Today's Communication/Plan
-
Blood cultures growing E. coli
Continue broad spectrum antibiotics
Wean ventilator and pressors as able
Closely monitor volume status -- patient has CHF -- appreciate cardiology
Assessment / Plan
Assessment / Plan
Physical Exam
General: Not in acute distress
HEENT: Normocephalic and Atraumatic
Respiratory: Intubated and on Mechanical Ventilation. Equal air entry bilaterally.
Cardiac: Regular Rate and Rhythm and S1/S2
GI: Soft. Tender to palpation.
Skin: Warm and Dry
Neuro: Lethargic
Psych: Calm
Assessment/Plan
74 y/o male with past medical history of HFrEF status post defibrillator (EF 15-20% in 2007 with recover to 45-50% 2022), mild MR, CAD, HTN, left-sided MCA with associated right-sided hemiplegia and expressive aphasia, presented for routine right
hemicolectomy for Ascending colon cancer. Hospitalist service was consulted for continued medical management.
# Partial colonic obstruction due to colon cancer status post robotic right hemicolectomy on 09/01/24
# Bowel Perforation, Small Bowel Ileus on 09/08/24 status post exploratory laparotomy, resection of ileocolic anastomosis, abdominal washout, creation of end colostomy on 09/08/24
# Shock
s/p right hemicolectomy 09/01 by CRS
pt c/o increased abdominal pain, but refused to get CT imaging done for evaluation on 09/07/[address] on 09/08/24 (patient finally agreed to get a repeat CT done) showed bowel perforation with new active extravasation of oral contrast in the right upper quadrant and progressed moderate free intraperitoneal air and free fluid. Mild small
bowel dilatation with fluid-filled loops of bowel probably due to small bowel ileus. Mild circumferential wall thickening of the left colon suggesting colitis.
Emergent surgery given CT findings on 09/08, had ex-lap and colostomy placement
Continue Zosyn
Blood Cultures ordered: growing E. coli
Transferred to ICU on 09/08/24, remains in ICU post-op after 09/08/24, remains intubated
Continue TPN
Wean off vasopressors as able -- appears to be off vasopressors this morning, but was intermittently on it overnight
Continue Incentive Spirometer and Out of bed and ambulate as tolerated when okay with surgery team
DVT ppx with Lovenox SQ when okay with surgery team
#Acute Hypoxic Respiratory Failure (with SOB) overnight 09/05/24-09/06/24 Suspected Secondary to Acute HFrEF
#Small Bilateral Pleural Effusions
#Minimal right lower lobe consolidation probably atelectasis
-proBNP elevated at 3180
-Weight is also increased significantly
-CT Chest/Abdomen/Pelvis on 09/08/24 showed no pulmonary embolism (patient high risk of PE with high Wells Score, so CT was done)
-HOLD IV Lasix 20 mg BID given patient needing pressors
-Daily weights, I's and O's
#Progressively Worsening Thrombocytopenia -- likely from sepsis
-Likely from sepsis
-Platelets decreased from normal to less than 50,000
-Patient was getting Lovenox -- hold Toradol and Lovenox given platelet count
-Consulted hem/onc given patient's significantly worsening thrombocytopenia and his colon cancer
-Concern for a possible HIT, but hematology said it is highly unlikely with the Lovenox, not need to send HIT antibody test
-Received 3 units of platelets so far this hospitalization
#Hypoglycemia
-D5LR IV fluids given earlier this hospitalization
-Hypoglycemia resolved
-Continue accuchecks per protocol
#Suspected acute on chronic HFrEF overnight 09/05/24-09/06/24
#Status post defibrillator (EF was 15-20% 2007)
-Suspected from IV fluids received earlier this admission
-Hold IV Lasix given needing pressor support -- some IV Lasix given 09/09 nighttime due to concerns of volume overload
-Daily weights, I's and O's
-Cardiology following due to continued runs of NSVT on tele, as well as heart failure exacerbation
#Prolonged QTc
-Minimize/avoid QTc-prolonging medications
#Nonsustained ventricular tachycardia.
#Status post defibrillator (EF was 15-20% 2007)
NSVT episodes continue as of 09/05/24
Toprol 25 mg daily increased to BID this hospitalization -- but patient remains NPO at this time
Appreciate Card input -- if ventricular tachycardia worsens, consider Amiodarone
Keep Potassium>4 (but still within normal range) and Magnesium>2 (but still within normal range)
#Hypertension
resumed PERINATAL EDUCATOR lisinopril this hospitalization
IV Hydralazine PRN
#CVA with residual deficits of expressive aphasia and right sided hemiplegia
Continue Aspirin when able to take PO
#Moderate mid thoracic spine compression fracture
DVT Prophylaxis: SCDs
Code Status: Full Code
Family Discussions
09/07/24
Patient's nurse and myself spoke with patient and he expressed that he would like to be Full Code. He continues to refuse many medications and nursing interventions, and I explained to the patient he can deteriorate quickly and possibly go into
cardiopulmonary arrest if he continues to refuse meds and interventions. On 09/07/24, patient told his brother Gordon, director instrumentation at his home, and [facility] therapist [facility] that he understands the importance of medical care but still after
that refusing medications/interventions at times.
On 09/07/24, I spoke to patient's brother Gordon over the phone, and explained everything to him including the fact that patient has been refusing many medications and interventions and this could result in deterioration and possible cardiopulmonary
arrest, he understood and said he would try to talk to patient over the phone. Per nurse's discussion with patient's nephew Ritesh, patient is estranged from his children, nephew stated that patient can be stubborn.
09/08/24
On 09/08/24, I spoke to patient's brother Gordon over the phone, and explained everything to him including the fact that patient has been refusing many medications and interventions and this could result in deterioration and possible cardiopulmonary
arrest, he understood.
Bowel perforation and suspected sepsis with shock and needing mechanical ventilation is a high-risk encounter.
Anticipated Discharge: > 48 hours
Subjective/Interval History
-
Date of Service: September 10, 2024
Patient was seen and examined. He remained intubated and sedated.
Objective Data
-
Labs:
Laboratory Results
09/10/24 09/10/24
04:07 13:22
WBC 11.6 H Pending
Hgb 9.2 L D Pending
Hct 26.8 L Pending
Plt Count 39 L Pending
HCO3 Pending
Sodium 140 Pending
Potassium 3.7 Pending
Chloride 108 H Pending
Carbon Dioxide 23 Pending
BUN 63 H Pending
Creatinine 2.1 H Pending
Glucose 167 H Pending
Calcium 7.2 L Pending
Total Bilirubin Pending
AST Pending
ALT Pending
Alkaline Phosphatase Pending
Vital Signs:
Vital Signs
Temp Pulse Resp BP Pulse Ox
98.4 F 92 14 141/61 98
09/10/24 13:05 09/10/24 13:05 09/10/24 13:05 09/10/24 13:05 09/10/24 13:37
I&O
09/09/24 09/10/24 09/11/24
06:59 06:59 06:59
Intake Total 2604.8 / 2777.7 3691.3 / 3747.7 910.7 / 910.7
Output Total 465 / 465 999 / 999 500 / 500
Balance 2139.8 / 2312.7 2692.3 / 2748.7 410.7 / 410.7
[2024-09-10 13:59] LABS: Hematocrit 26.7 % (39.0-52.0); Hemoglobin 9.4 g/dL (13.0-18.0); Mean Corp Hgb Conc. 35.2 g/dL (33.0-37.0); Mean Corpuscular Hgb 30.8 pg (27.0-31.0); Mean Corpuscular Volume 87.5 fL (80.0-94.0); Mean Platelet Volume 11.7 fL (7.4-10.4); Platelet Count 62 10^3/uL (130-400); Red Blood Cell Count 3.05 10^6/uL (4.70-6.10); Red Cell Dist. Width 14.2 % (11.5-14.5); White Blood Cell Count 11.6 10^3/uL (4.8-10.8)
[2024-09-10 14:01] LABS: Osmolality Urine 356 mOsm/kg (300-900)
[2024-09-10 14:04] LABS: ALT (SGPT) 13 U/L (0-50); AST (SGOT) 33 U/L (17-59); Alkaline Phosphatase 47 U/L (38-126); Blood Urea Nitrogen 66 mg/dl (9-20); Calcium 7.4 mg/dl (8.4-10.2); Carbon Dioxide 24 mmol/L (22-30); Chloride 109 mmol/L (98-107); Estimated Creatinine Clearance 27 ml/min; Glucose 132 mg/dl (70-99); Potassium 3.9 mmol/L (3.5-5.1); Sodium 140 mmol/L (135-145); Total Bilirubin 1.2 mg/dl (0.2-1.3); Total Protein 4.2 g/dl (6.3-8.2); eGFR 31.05
[2024-09-10 14:30] LABS: % Basophils 0.6 % (0-2); % Immature Granulocytes 1.1 % (0-0.5); % Lymphocytes 2.1 % (20.5-51.1); % Monocytes 3.7 % (1.7-9.3); % Neutrophils 92.5 % (42.2-75.2); Absolute Basophils 0.1 10^3/uL (0-0.2); Absolute Immature Granulocytes 0.1 10^3/uL (0-0.05); Absolute Lymphocytes 0.2 10^3/uL (1.2-3.4); Absolute Monocytes 0.4 10^3/uL (0.1-0.6); Absolute Neutrophils 10.7 10^3/uL (1.4-6.5); Nucleated Red Blood Cells % 0 % (-)
[2024-09-10 14:37] LABS: Urine Sodium 34 mmol/L (30-90)
--- NOTE | 2024-09-10 16:15 | PTCARENOTE ---
Pt more easily arousable, Opens eyes to verbal stimuli. Moving his left arm and performing fist pumps. Minimally moving his L/E's. He is still not able to lift his head off the bed at this time. He was reoriented to the events after his surgery. He
nodded his head in understanding. Currently just getting TPN @ 35ml/hr. UOP improved. Safe environment maintained. Will continue to monitor.
--- NOTE | 2024-09-10 16:50 | PTCARENOTE ---
Dr. Cherry TT'd regarding Lasix order for now. He is aware he is currently on a ventilator wean currently & received Lasix and was on Norepi overnight which was tapered off @ 0800. He is also aware that his BUN/Creat are slightly elevated from
yesterday. Will Hold Lasix dose as ordered.
[2024-09-10] MEDS: LASIX IV (17:22)
[2024-09-10 17:59] LABS: Glucose - Point of Care 127 mg/dl (70-99)
[2024-09-10] MEDS: Parenteral Nutrition, Central 830 IV (21:08)
--- NOTE | 2024-09-10 21:20 | PTCARENOTE ---
Pt with increased agitation, RASS = +2, CPOT = 8. Pt nods y/n appropriately, nods yes to indicate pain. PRN fentanyl bolus given, ineffective, 2nd bolus given and gtt restarted at 25mcg/hr.
--- NOTE | 2024-09-11 | PTCARENOTE ---
Pt received at 19:00. Pt initially drowsy but arousable to verbal stimuli, nods y/n appropriately, follows simple commands. Pt then agitated and restless, nodding yes to indicate pain, PRN pain meds given and ultimately restarted fentanyl and
propofol--tolerating. Remains arousable to verbal stimuli, continues to nod appropriately and follow commands. #8 ETT @ 23cm on the R, repositioned to the C. AC 16/500/40%/+5. V paced w/ PVCs. Palpable pulses. L radial a-line zeroed and transduced.
NGT to suction and flushed as ordered, brown drainage. Ileostomy with small amount of liquid stool. Head in place, jordan urine. Abdomen midline incision with aquacel dressing, shadowing unchanged. Safe environment maintained, repositioned q2h.
[2024-09-11 00:05] LABS: Glucose - Point of Care 132 mg/dl (70-99)
[2024-09-11] MEDS: NOVOLOG FLEXPEN-LOW RESISTANCE SC ×4 (00:30→23:57)
[2024-09-11] MEDS: ZOSYN 50 IV ×4 (02:30→19:21)
[2024-09-11] MEDS: SUBLIMAZE 50 MCG IV ×7 (04:49→23:42)
[2024-09-11 05:06] LABS: B.E. -1.7 mmol/L; O2 Saturation % 92.4 % (94-98); PCO2 38 mmHg (35-48); PO2 62 mmHg (83-108); pH 7.39 (7.35-7.45)
[2024-09-11 05:08] LABS: O2 Therapy 40%
[2024-09-11 05:27] LABS: Hematocrit 26.6 % (39.0-52.0); Hemoglobin 9.1 g/dL (13.0-18.0); Mean Corp Hgb Conc. 34.2 g/dL (33.0-37.0); Mean Corpuscular Hgb 30.5 pg (27.0-31.0); Mean Corpuscular Volume 89.3 fL (80.0-94.0); Mean Platelet Volume 12.5 fL (7.4-10.4); Platelet Count 61 10^3/uL (130-400); Red Blood Cell Count 2.98 10^6/uL (4.70-6.10); Red Cell Dist. Width 14.4 % (11.5-14.5); White Blood Cell Count 11.2 10^3/uL (4.8-10.8)
[2024-09-11 06:15] LABS: Blood Urea Nitrogen 74 mg/dl (9-20); Calcium 7.8 mg/dl (8.4-10.2); Carbon Dioxide 25 mmol/L (22-30); Chloride 112 mmol/L (98-107); Estimated Creatinine Clearance 33 ml/min; Glucose 123 mg/dl (70-99); Magnesium 2.7 mg/dl (1.6-2.3); Phosphorus 3.6 mg/dl (2.5-4.5); Potassium 3.8 mmol/L (3.5-5.1); Sodium 145 mmol/L (135-145); Triglycerides 171 mg/dl (10-149)
[2024-09-11 06:30] LABS: Glucose - Point of Care 136 mg/dl (70-99)
--- NOTE | 2024-09-11 07:40 | PTCARENOTE ---
Received pt intubated minimally sedated. He is using left hand gestures to communicate. He was informed of the events of his hospitalization and the plan for today to possible extubate. He nodded his head in understanding. Right upper extremity +4
edema, weak radial pulse, elevated on pillows. Left hand contracted. Left upper arm TL PICC with propofol, fentanyl, & TPN. Left radial arterial line transduced, calibrated and monitored. All ports patent and secured. #8 ETT secured 23 left lip.
Tolerating AC 16/500/.40/+5. Breath sounds CTA anteriorly, dim posteriorly. Clear oral secretions. Absent bowel sounds. Right nare [place] to 90mmHg continuous wall suction. Draining brown bilious secretions. Ileostomy budded, moist with liquid brown
stool. Aquacel dressing with old drainage, dressing maintained. Pt with c/o abdominal pain. Head with yellow urine with sediment. Safe environment maintained. Supportive care given.
[2024-09-11] MEDS: LASIX 40 MG IV (07:44)
[2024-09-11] MEDS: PROTONIX IV 40 MG IV (07:47)
[2024-09-11] MEDS: NSS (PRESERVATIVE FREE) 10 ML IV (07:47)
[2024-09-11 08:13] VITALS: BP_SYST 101
--- NOTE | 2024-09-11 08:20 | W.PN.INTV ---
Today's Communication / Plan
Recommendations
Mechanical ventilation with daily SAT/SBT
Hopefully can extubate today
Continue Lasix as per cardiology
Strict I/O
Monitor UOP
Continue ABx
Maintain MAP >65 with vasopressors
If Levophed requirements increase towards 10-15 mcg/min then add vasopressin
Continue TPN
Continue ICU level care for this critically ill patient
Assessment
-
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
intervention for known ascending colon cancer. He underwent a robotic assisted right hemicolectomy with partial omentectomy, excision of peritoneal nodule and laparoscopic TAP block. He did well postoperatively and was tolerating regular diet. He
did develop abdominal tenderness with adynamic ileus seen on imaging. Unfortunately his abdominal discomfort worsened and he developed shortness of breath with CT A/P imaging on 09/08/2024 showing bowel perforation, and he was brought to the OR on
09/08/2024 for an ex-lap with resection of ileocolic anastomosis with an abdominal washout and creation of an end colostomy. He remained intubated at the end the procedure, and was TRX to the ICU post-operatively with Veterinary Poultry Inspector services consulted
for additional management/recommendations.
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
Impression:
#Anastomotic leak with feculent peritonitis s/p ex lap with resection of ileocolic anastomosis with abdominal washout and creation of end colostomy (POD #3)
#Metastatic colonic adenocarcinoma s/p robotic right hemicolectomy with partial omentectomy, excision of peritoneal nodule and laparoscopic TAP block (OR date: 09/01/2024)
#Thrombocytopenia likely due to sepsis but unable to rule out KIP given intermediate 4T score (4)
#Sepsis due to feculent peritonitis now with E. coli bacteremia via blood cultures from 09/08 + 09/09/2024
#Ventilator dependent respiratory failure
#Tobacco use disorder with centrilobular emphysema and suspected COPD
#Circumferential wall thickening of left colon suggestive of colitis seen on CT A/P from 09/08/2024
#History of CVA (2016) with residual expressive aphasia + right hemiparesis
#CAD
#History of VT s/p AICD
#History of alcohol use disorder
#Mitral regurgitation
#Chronic HFmrEF (LVEF: 45% via TTE frim 08/05/2024)
Plan:
- Postoperative management as per colorectal surgery
- Pain control
- Operative reports were reviewed from colorectal surgery
- Follow-up pathology from the OR on 09/08/2024
- Continue with broad-spectrum antibiotics (currently on Zosyn which was started on 09/08/2024)
- Follow-up sensitivities of blood cultures collected on 09/08/2024 + 09/09/2024, both of which are growing E. coli
- Follow-up surveillance blood cultures on 09/10/2024
- Continue with mechanical ventilation with daily SAT/SBT if clinically appropriate --> plan to extubate to nasal cannula this morning as he is doing good on a wean
-In the interim:
- Titrate FiO2 + PEEP to maintain SpO2 >90-94%
- Keep HOB >30-45�
- Oral + endotracheal suctioning as needed
- No obvious concern for pneumonia based on CXR from 09/09 or from CTA chest from 09/08/2024, however if sample obtained from ETT then would send sputum culture
- trend WBC and monitor fever curve
- prn nebulized bronchodilators � not currently bronchospastic
- Continue with vasopressors and wean as tolerated while maintaining MAP >65
- Lasix resumed today (09/11) at 40 mg IV daily as per cardiology
- Cardiology consulted and recs appreciated
- Replete electrolytes with K>4, Mg>2
- Maintain euglycemia with goal BG 140-180 with ISS q6hr
- Trend H/H and transfuse if needed to keep Hb>7g/dL; keep plt>50k (given post-operative status)
- Transfuse 2 units platelets on AM of 09/10 given platelet count is <50k
- Also transfused 1 unit platelets on 09/10/2019
- Hematology consulted and recs appreciated
- Although thrombocytopenia likely due to sepsis, will check KIP panel as his 4T score is 4 (intermediate) --> KIP panel negavei with heparin-associated plt-Ab 0.054
- Stress ulcer ppx - PPI
- DVT ppx - SCDs for now until deemed safe to start chemical ppx per CRC
Continue ICU level care for this critically ill patient
Critical care statement: A total of 41 minutes of critical care time was provided for this patient today. This includes management of unstable vital signs, evaluation of the patient at bedside, reviewing the patient's pertinent medical records
including radiographs, microbiology, laboratory evaluations, and discussion with primary team, consultants, pharmacy, nutrition, physical therapy, case management, charge nurse, critical care nursing, and respiratory therapy.
Data:
CTA chest/CT abdomen/pelvis with contrast 09/08/2024:
Findings suggesting bowel perforation with new active extravasation of oral contrast in the right upper quadrant and progressed moderate free intraperitoneal air and free fluid.
Mild small bowel dilatation with fluid-filled loops of bowel probably due to small bowel ileus.
Mild circumferential wall thickening of the left colon suggesting colitis.
Postsurgical change.
No evidence of pulmonary embolus.
Small bilateral pleural effusions.
Minimal right lower lobe consolidation probably atelectasis
Moderate mid thoracic spine compression fracture. Stable
CXR 09/10/2024: Postoperative chest
Renal US 09/10/2024:
Unremarkable exam of the kidneys
Small bilateral pleural effusions. Stable
Minimal fluid about the liver. Improved
Subjective Dataa
Subjective Data
Date of Service:
Date of Service: September 11, 2024
Chief Complaint: Veterinary Poultry Inspector Follow Up
Subjective:
Patient was seen and evaluated this morning. Currently on a wean on the vent and doing well with VTe 450 and breathing at 18 breaths/min. He is awake, following commands. Unable to lift head off the pillow due to abdominal discomfort. Afebrile
overnight.
Review of Systems
General: Other (Unobtainable - intubated)
Objective Data
Data Reviewed
Vital Signs / I&O / Oxygen:
Vital Signs
Temp Pulse Resp BP Pulse Ox
98.9 F 99 25 162/62 98
09/11/24 08:00 09/11/24 09:33 09/11/24 09:33 09/11/24 07:44 09/11/24 09:33
Intake and Output
09/10/24 09/11/24 09/12/24
06:59 06:59 06:59
Intake Total 3691.3 / 3747.7 1704.5 / 1747.9 188.4 / 188.4
Output Total 999 / 999 2265 / 2540 625 / 625
Balance 2692.3 / 2748.7 -560.5 / -792.1 -436.6 / -436.6
SaO2 [CPAP/PSV] 91
SaO2 [A/C] 96
SaO2 98
Nasal Cannula flow liters per 5
minute
Physical Exam
General: Respiratory Distress (negative), Comfortable, Chills (negative), Sweats (negative) and Other (Intubated male in no acute distress)
HEENT: Normocephalic, Anicteric and Other (ETT in place)
Cardiovascular: S1-S2 and Peripheral Edema (negative)
Respiratory: Wheeze (negative), Crackles (Bibasilar), Rhonchi (negative), Stridor (negative) and ET Tube (Mechanical breath sounds heard bilaterally)
GI: Soft, Non Distended, Tender, NG Tube and Other (Hypoactive bowel sounds)
Neurology: Tremors (negative) and Other (Sedated although arousable to voice and following commands)
Skin: Warm, Dry, Cyanosis (negative) and Jaundice (negative)
Labs/Micro/Reports
Lab Data
09/11/24 04:56
09/11/24 04:56
Laboratory Results
09/10/24 09/11/24
13:22 04:56
pH 7.42 7.39
pCO2 33 L 38
pO2 67 L 62 L
HCO3 21.4 23.0
O2 Delivery Level 40%
Microbiology
09/08/24 23:32 Blood/Venous Blood Culture - Preliminary
Escherichia coli
09/08/24 23:32 Blood/Venous Gram Stain - Preliminary
09/09/24 00:00 Blood/Venous Blood Culture - Preliminary
Positive culture in progress
09/09/24 00:00 Blood/Venous Gram Stain - Preliminary
[2024-09-11 08:24] VITALS: BP_SYST 154
[2024-09-11 08:58] VITALS: BP_SYST 161
[2024-09-11 09:33] VITALS: BP_SYST 105
--- NOTE | 2024-09-11 09:43 | W.PN.CARDCBS ---
Today's Communication / Plan
-
Remains on ventilator. Remains on pressors. Wean Levophed as possible.
Would cont Lasixm 40 IV daily
Continue to follow ventricular tachycardia. He is having some brief runs. If he has significant V. tach would start IV amiodarone but for now we will continue to monitor.
Impression / Plan
-
Primary Leather Drier: Dr. Toan Mays
Impression:
Ascending colon cancer s/p robotic R hemicolectomy with partial omentectomy 09/01/24
s/p exlap, resection of ileocolic anastomosis (for anastomotic leak), creation of end-ileostomy 09/08/2024
NSVT
Nonischemic cardiomyopathy, EF 45-50% by echo 2022
Chronic systolic heart failure
History of VT status post Medtronic BiV ICD
History of stroke with residual aphasia
COPD
HTN
Depression
ECHO 03/04/23: EF 45 to 50%, mild global hypokinesis, mild MAC, mild MR, mild TR, PAP 26 to 31 mmHg
ECHO 08/05/2024: EF 45%, global hypokinesis, mild concentric LVH, stage I diastolic dysfunction, mild to moderate MR, mild TR, PAP 37 mmHg, mildly dilated aortic root and ascending aorta
Plan:
Remains ventilated and remains on Levophed. Continue for blood pressure support. I do suspect he is mildly volume overloaded will attempt to diuresis. Continue and restart Lasix 40mg IV daily.
Creatinine is improving, and back down to 1.8.
Continue broad-spectrum antibiotics
He still gets some brief episodes of nonsustained VT on telemetry. Consider amiodarone if worsens or has sustained VT.
Cont pulm toilet and vent managment as per principal account clerk.
Cont postop care as per colorectal. Receiving platelets. Hemoglobin stable at 9.1.
TPN to start as per surgery.
Device interrogated 09/07/2024 with appropriate function. Brief episodes of ventricular tachycardia noted on 09/03/2024, 09/06/2024 and 09/07/2024. Longest on device interrogation was 5 seconds. No ICD shocks, ATP therapies found. Battery has 1.8
years left
CCT: 34 min
History of Present Illness 09/04/2024:
Patient is a 74-year-old male with past medical history of nonischemic cardiomyopathy, with EF most recently 45 to 50% by echo in 2022, chronic systolic heart failure, VT status post Medtronic BiV ICD, history of stroke with residual aphasia, COPD
and ongoing smoking, hypertension, depression who presented to [facility] for robotic R hemicolectomy and partial omentectomy in setting of ascending colon cancer on 09/01/24. He continues with some abd discomfort however is progressing in
his post op course. Cardiology consulted as last night patient noted to have 27 beat run of NSVT, patient was asymptomatic. He denies CP, SOB, palpitations or irregular heart beats.
Progress Note - Leather Drier
Subjective
Date of Service: September 11, 2024
Remains on ventilator. Telemetry does have some very brief runs of nonsustained VT and frequent PVCs
Objective
Labs:
09/11/24 04:56
09/11/24 04:56
Labs
Hgb 9.1 g/dL (13.0-18.0) L 09/11/24 04:56
Hct 26.6 % (39.0-52.0) L 09/11/24 04:56
Plt Count 61 10^3/uL (130-400) L 09/11/24 04:56
PT 14.4 Sec (11.4-14.6) 09/08/24 22:38
INR 1.09 09/08/24 22:38
APTT 30.4 Sec (23.4-35.0) 09/08/24 22:38
Sodium 145 mmol/L (135-145) 09/11/24 04:56
Potassium 3.8 mmol/L (3.5-5.1) 09/11/24 04:56
BUN 74 mg/dl (9-20) H 09/11/24 04:56
Creatinine 1.8 mg/dL (0.7-1.3) H 09/11/24 04:56
Glucose 123 mg/dl (70-99) H 09/11/24 04:56
Vital Signs and I&O:
Vital Signs
Temp Pulse Resp BP Pulse Ox
98.9 F 99 16262 99
09/11/24 08:00 09/11/24 09:33 09/11/24 09:33 09/11/24 07:44 09/11/24 09:41
Vital Signs
Temp Pulse Resp BP Pulse Ox
98.9 F 99 16262 99
09/11/24 08:00 09/11/24 09:33 09/11/24 09:33 09/11/24 07:44 09/11/24 09:41
Intake & Output
09/09/24 09/10/24 09/11/24 09/12/24
06:59 06:59 06:59 06:59
Intake Total 2604.8 / 2777.7 3691.3 / 3747.7 1704.5 / 1747.9 223.4 / 223.4
Output Total 465 / 465 999 / 999 2265 / 2540 1050 / 1050
Balance 2139.8 / 2312.7 2692.3 / 2748.7 -560.5 / -792.1 -826.6 / -826.6
Physical Exam
Physical Exam
GEN: No distress, sedated
HEENT: supple, anicteric, mmm, ET tube
LUNGS: CTA, no wheezes/rales
CV: Reg, S1/S2, 1/6 syst LSB, S3+
ABD: soft, BS+, NT/ND
EXT: No edema
NEURO: unavble to assess
SKIN: No rash
[2024-09-11 09:47] LABS: B.E. 0.7 mmol/L; HCO3 24.2 mmol/L (21-28); O2 Saturation % 96.3 % (94-98); PCO2 34 mmHg (35-48); PO2 68 mmHg (83-108); pH 7.46 (7.35-7.45)
--- NOTE | 2024-09-11 11:04 | PTCARENOTE ---
Pt extubated @1042 to 4 liters nasal cannula. He has expressive aphasia, using left hand gestures and nodding head to communicate. Moist non productive cough. Painful to cough. Diuresing well. Lungs CTA but dim throughout.
[2024-09-11] MEDS: DILAUDID 0.25 MG IV ×2 (11:30→14:44)
[2024-09-11 11:46] LABS: Glucose - Point of Care 128 mg/dl (70-99)
[2024-09-11] MEDS: OFIRMEV 100 IV ×3 (12:39→23:43)
--- NOTE | 2024-09-11 12:43 | WOUNDNOTE ---
[facility] RN NOTE: Patient visited for ostomy pouch change. TT [place] prior to visit and confirmed that midline abdominal dressing could be removed today. RLQ stoma is red and budded and peristomal skin intact. Lindsey of midline clean and intact.
Midline covered with sterile 4x4 and secured with paper tape. Pouch changed with [place] [id number] and pouch # [id number]. Patient is not teachable at this time. Heels intact and off-loaded on pillows. Patient could not be turned at this time due
to low P02, but sacrum intact per RN. Patient remains on [employer] Air. Will continue to follow and will send Secure Start Kit when discharge plans are known.
[2024-09-11] MEDS: TRANDATE 10 MG IV ×2 (13:03→13:28)
--- NOTE | 2024-09-11 13:18 | W.PN.UPDATE ---
Addendum entered and electronically signed by Kraig Raymond MD 09/11/24 17:51:
UPDATE NOTE: At approximately 4:20 PM, patient had worsening shortness of breath with increased work of breathing. He was given Narcan to see if he would have improvement in mental status which she did not. Given Narcan as he had had multiple
doses of morphine and Dilaudid just prior to that given his abdominal pain and hypertension + shortness of breath. Refer to operation note for intubation details. Patient, there was fresh blood seen at and around his epiglottis. Patient then
required bronchoscopy blood that he aspirated from his nosebleed. ENT consulted. I spoke with his brother, Gordon, and updated him on the clinical status of Con. I answered all of Gordon's questions.
Original Note:
Update Note
Progress Note Update
Pt extubated this AM and was doing well. He then became hypoxic down to 60-70s with tachypnea. Placed from midflow nasal cannula w/ NRB which improved sats to 93%; then did NT suctioning through an NPA in left nare. CXR obtained and shows no
central mainstem plugging. Pt placed onto high flow nasal cannula. He developed a nosebleed from the NPA. Will give afrin spray now, and continue to closely monitor. Low threshold to reintubate.
[2024-09-11] MEDS: DILAUDID 0.5 MG IV (13:19)
[2024-09-11 13:26] LABS: B.E. -0.3 mmol/L; HCO3 25.4 mmol/L (21-28); PCO2 45 mmHg (35-48); pH 7.36 (7.35-7.45)
[2024-09-11 13:28] LABS: PO2 41 mmHg (83-108)
[2024-09-11] MEDS: AFRIN NASAL SPRAY 30 SPRAYS NASAL (13:28)
[2024-09-11] MEDS: MORPHINE SULFATE 2 MG IV (13:31)
--- NOTE | 2024-09-11 13:56 | PTCARENOTE ---
Episode of desaturation as low as 69% despite oropharyngeal suction. Oxygen titrated to 10 liters then NRB mask applied as well. He had a weak moist non-productive cough. Minimal secretions oropharyngeally. Pt placed in a chair position. Dr. Segundo (~) at the bedside and placed a left nare nasal trumpet and was nasopharyngeally suctioned for small amount of clear blood streaked secretions. Pulse ox remains low 70's. HFNC applied for a brief period of time with worsening WOB. Stat ABG sent
and cxr obtained. Unremarkable except Pao2 low. Dr. Raymond aware of Left nare gross epistaxis, mouth bloody along with left nare [place] sump secretions. Afrin soaked gauze inserted into his left nare to tamponade the nose bleed. Pt was also
administered total of 10mg Labatelol x2 for SBP 190's via left radial arterial line. Hydromorphone & Morphine also administered. Pt was provided supportive care. Pt is now resting on NRB mask 15 liters and midflow NC 15 lit. Pulse ox 84%. Dr. Segundo (~) aware. Pt did not want the breathing tube again, he shook his head no to intubation if he needs it. He has no living will. Clarified with [facility] @ [phone] if he has a living will of a POA. He has no living
will or POA. He has a brother Gordon [place] [phone] who is listed as next of kin/emergency contact.
--- NOTE | 2024-09-11 13:58 | CM ---
CM following re: discharge planning.
Discussed in rounds, reviewed pt's chart, met with pt. Per Rounds meeting, pt extubated today to 55L HFNC with FIO2 100%, continue supportive care.
PT and OT will re-evaluate the pt when clinically appropriate to determine a level of care at discharge.
Pt lives at [facility]. a chcf, independent with ADL, ambulates without assisted devices.
D/C plan: uncertain at this time and will depend on pt's progress.
CM will follow with discharge plan updates as hospitalization progresses
[2024-09-11 14:02] LABS: Hematocrit 31.8 % (39.0-52.0); Hemoglobin 10.5 g/dL (13.0-18.0); Mean Corpuscular Hgb 29.7 pg (27.0-31.0); Mean Corpuscular Volume 90.1 fL (80.0-94.0); Mean Platelet Volume 12.6 fL (7.4-10.4); Platelet Count 78 10^3/uL (130-400); Red Blood Cell Count 3.53 10^6/uL (4.70-6.10); Red Cell Dist. Width 14.4 % (11.5-14.5); White Blood Cell Count 16.3 10^3/uL (4.8-10.8)
--- NOTE | 2024-09-11 14:32 | W.PN.CRS1 ---
Today's Communication / Plan
-
tpn
ngt
Assessment/Plan
-
74-year-old male with PMH of CHF (last echo 2022 EF 45-50%, mild global hypokinesis), cardiomyopathy, CAD, HTN, CVA 2016 (right hemiparesis, expressive aphasia), pneumothorax s/p thoracic surgery who presents for elective surgery for ascending colon
cancer
POD 10 s/p robotic right hemicolectomy
POD 3 exlap, resection of ileocolic anastomosis (for anastomotic leak), creation of end-ileostomy
Afebrile, intubated
WBC 11.1 from 11.4, Hb 9.1 from 9.22. Creatinine 1.8 from 2.2. Platelets 61 (62, 39)
� Anastomotic leak complicated by septic shock
�Appreciate hospitalist/ICU
� Wean vent as tolerated
� Continue IV Zosyn, OR cultures pending
� Continue n.p.o., on TPN
�Hold DVT PPx due to thrombocytopenia; appreciate hematology, improving
�Appreciate cardiology
� DIANNE is brother, Gordon, who lives in [place]
-Extubate per primary team
-NGT to remain in place
-Wound RN for stoma management - okay to remove midline bandage and replace with 4x4s gauze and tape
-OOB with PT/OT if extubated
Subjective Data
Procedure
09/01/2024- Laparoscopic right hemicolectomy
09/09/2024- Exploratory laparotomy, resection of ileocolic anastomosis, abdominal washout, creation of end colostomy
Subjective Data
Date of Service: September 11, 2024
Intubated and sedated
Objective Data
-
Vital Signs
Temp Pulse Resp BP Pulse Ox
98.2 F 116 24 196/91 95
09/11/24 11:21 09/11/24 13:03 09/11/24 12:45 09/11/24 13:03 09/11/24 14:30
Intake & Output
09/10/24 09/11/24 09/12/24
06:59 06:59 06:59
Intake Total 3691.3 / 3747.7 1704.5 / 1747.9 393.4 / 393.4
Output Total 999 / 999 2265 / 2540 2450 / 2450
Balance 2692.3 / 2748.7 -560.5 / -792.1 -2056.6 / -2056.6
Intake:
IV fluids (Total) 2187.3 / 2208.7 128.5 / 136.9 8.4 / 8.4
Fentanyl 165.0 / 170.0 57.5 / 62.5 5 / 5
Levophed 410.6 / 418.1 15.0 / 15.0
Nss 1,000 ml @ 75 mls/hr IV . 1385 / 1385
[id number] [facility] Rx#:[id number]
Propofol 190.7 / 199.6 56.0 / 59.4 3.4 / 3.4
Vasopressin 36 / 36
IV piggybacks 500 / 500 200 / 200 50 / 50
TPN/PPN 280 / 315 770 / 805 245 / 245
Amount instilled into GI Tube ( 150 / 150 110 / 110 90 / 90
Total)
Ada Sump 150 / 150 110 / 110 90 / 90
Blood Products 287 / 287
Platelets 287 / 287
Blood Product Amount Infused ( 287 / 287 496 / 496
mL)
Pathogen Redu Plt Leukored 249 / 249
Unit [id number]
Pathogen Redu Plt Leukored 247 / 247
Unit [id number]
Pathogen Redu Plt Leukored 287 / 287
Unit [id number]
Output:
Liquid stool amount 175 / 175 50 / 50
Ileostomy 175 / 175 50 / 50
Gastrointestinal tube output ( 325 / 325 550 / 550
Total)
Ada Sump 325 / 325 550 / 550
Urine, Head 674 / 674 1540 / 1815 2300 / 2300
Urine, Voided 100 / 100
Lab Results
09/11/24 13:49
Physical Exam
-
General: No Acute Distress
Abdomen: Soft, Non Distended, Tender (right side) and Other (stoma warm and pink, no function)
Skin: Warm and Dry
--- NOTE | 2024-09-11 14:34 | W.PN.ONC2 ---
Today's Communication / Plan
-
.
Impression
Impression
thrombocytopenia 2* sepsis. Normal coags. s/p 3U SDP, last 09/10
bowel perforation, 09/08/24, feculent peritonitis
colon adenocarcinoma, moderately differentiated, node +, and with metastatic nodule to right gutter, s/p right hemicolectomy 09/01/24
VDRF, extubated 09/11
anemia. No B12, folate, or iron deficiency. Low Reticulocyte count suggests that bone marrow suppressed due to infection
leukocytosis
CESAR
Plan
Plan
Thrombocytopenia is most likely secondary to sepsis in the setting of bowel perforation. Symptoms corresponds to his symptoms and rise in WBC and drop in platelets
He only got low dose Lovenox, not heparin, which has a much lower risk for HIT. Last dose 09/06
Would not send HIT Marsha testing
Monitor CBC daily. transfuse prn
Supportive care
Further mgmt of colon cancer TBD.
Subjective/Objective
Subjective
midflow supplemental O2
using morphine and hydromorphone prn pain
Vital Signs:
Vital Signs
Temp Pulse Resp BP Pulse Ox
98.2 F 116 24 196/91 95
09/11/24 11:21 09/11/24 13:03 09/11/24 12:45 09/11/24 13:03 09/11/24 14:30
Lab Results:
Laboratory Data
WBC 16.3 10^3/uL (4.8-10.8) H 09/11/24 13:49
Hgb 10.5 g/dL (13.0-18.0) L 09/11/24 13:49
Plt Count 78 10^3/uL (130-400) L D 09/11/24 13:49
PT 14.4 Sec (11.4-14.6) 09/08/24 22:38
INR 1.09 09/08/24 22:38
APTT 30.4 Sec (23.4-35.0) 09/08/24 22:38
eGFR 39.50 09/11/24 04:56
Physical Exam
HEENT: anicteric, NGT
Cardiology:PPM
Pulmonary: unlabored
GI: Soft and ostomy
bansal yellow urine
Extremities: R PICC
Neuro awake, able to follow simple commands
[2024-09-11 14:42] LABS: Blood Urea Nitrogen 74 mg/dl (9-20); Carbon Dioxide 26 mmol/L (22-30); Chloride 110 mmol/L (98-107); Estimated Creatinine Clearance 35 ml/min; Glucose 173 mg/dl (70-99); Magnesium 2.5 mg/dl (1.6-2.3); Phosphorus 4.1 mg/dl (2.5-4.5); Potassium 4.2 mmol/L (3.5-5.1); Sodium 144 mmol/L (135-145)
[2024-09-11] MEDS: CARDENE 200 IV (15:30)
--- NOTE | 2024-09-11 15:35 | PTCARENOTE ---
Cardene drip started as ordered per Dr. Raymond for persistent HTN as ordered. Pt is resting comfortable. La HANSEN notified via TT of the bloody drainage from the [place] sump due to left nare epistaxis which seems to have stopped.
--- NOTE | 2024-09-11 15:39 | W.PN.HOSP.TC ---
Today's Communication/Plan
-
Low threshold to reintubate
See plan
Assessment / Plan
Assessment / Plan
Physical Exam
General: Not in acute distress
HEENT: Normocephalic and Atraumatic
Respiratory: Intubated and on Mechanical Ventilation. Equal air entry bilaterally.
Cardiac: Regular Rate and Rhythm and S1/S2
GI: Soft. Tender to palpation.
Skin: Warm and Dry
Neuro: Lethargic
Psych: Calm
Assessment/Plan
74 y/o male with past medical history of HFrEF status post defibrillator (EF 15-20% in 2007 with recover to 45-50% 2022), mild MR, CAD, HTN, left-sided MCA with associated right-sided hemiplegia and expressive aphasia, presented for routine right
hemicolectomy for Ascending colon cancer. Hospitalist service was consulted for continued medical management.
# Partial colonic obstruction due to colon cancer status post robotic right hemicolectomy on 09/01/24
# Bowel Perforation, Small Bowel Ileus on 09/08/24 status post exploratory laparotomy, resection of ileocolic anastomosis, abdominal washout, creation of end colostomy on 09/08/24
# Shock
s/p right hemicolectomy 09/01 by CRS
pt c/o increased abdominal pain, but refused to get CT imaging done for evaluation on 09/07/[address] on 09/08/24 (patient finally agreed to get a repeat CT done) showed bowel perforation with new active extravasation of oral contrast in the right upper quadrant and progressed moderate free intraperitoneal air and free fluid. Mild small
bowel dilatation with fluid-filled loops of bowel probably due to small bowel ileus. Mild circumferential wall thickening of the left colon suggesting colitis.
Emergent surgery given CT findings on 09/08, had ex-lap and colostomy placement
Continue Zosyn
Blood Cultures ordered: growing E. coli
Transferred to ICU on 09/08/24, remains in ICU post-op after 09/08/24, remains intubated
Continue TPN and NPO
Wean off vasopressors as able -- appears to be off vasopressors this morning, but has been intermittently on it overnight
Continue Incentive Spirometer and Out of bed and ambulate as tolerated when okay with surgery team
DVT ppx with Lovenox SQ when okay with surgery team
#Acute Hypoxic Respiratory Failure (with SOB) overnight 09/05/24-09/06/24 Suspected Secondary to Acute HFrEF
#Small Bilateral Pleural Effusions
#Minimal right lower lobe consolidation probably atelectasis
-proBNP elevated at 3180
-Weight is also increased significantly
-CT Chest/Abdomen/Pelvis on 09/08/24 showed no pulmonary embolism (patient high risk of PE with high Wells Score, so CT was done)
-HOLD IV Lasix 20 mg BID given patient needing pressors
-Daily weights, I's and O's
-Was extubated earlier today, but may need to be re-intubated, low threshold to re-intubate
#Progressively Worsening Thrombocytopenia -- likely from sepsis
-Likely from sepsis
-Platelets decreased from normal to less than 50,000
-Patient was getting Lovenox -- hold Toradol and Lovenox given platelet count
-Consulted hem/onc given patient's significantly worsening thrombocytopenia and his colon cancer
-Concern for a possible HIT, but hematology said it is highly unlikely with the Lovenox, not need to send HIT antibody test
-Received 3 units of platelets so far this hospitalization
-Low reticulocyte count suggests bone marrow suppression from infection
#Hypoglycemia
-D5LR IV fluids given earlier this hospitalization
-Hypoglycemia resolved
-Continue accuchecks per protocol
#Suspected acute on chronic HFrEF overnight 09/05/24-09/06/24
#Status post defibrillator (EF was 15-20% 2007)
-Suspected from IV fluids received earlier this admission
-Continue IV Lasix 40 mg daily
-Daily weights, I's and O's
-Cardiology following due to continued runs of NSVT on tele, as well as heart failure exacerbation
#Prolonged QTc
-Minimize/avoid QTc-prolonging medications
#Nonsustained ventricular tachycardia.
#Status post defibrillator (EF was 15-20% 2007)
NSVT episodes continue as of 09/05/24
Toprol 25 mg daily increased to BID this hospitalization -- but patient remains NPO at this time
Appreciate Card input -- if ventricular tachycardia worsens, consider Amiodarone
Keep Potassium>4 (but still within normal range) and Magnesium>2 (but still within normal range)
Might need Amiodarone depending on burden of VTach
#Hypertension
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
IV Hydralazine PRN
#CVA with residual deficits of expressive aphasia and right sided hemiplegia
Continue Aspirin when able to take PO
#Moderate mid thoracic spine compression fracture
DVT Prophylaxis: SCDs
Code Status: Full Code
Family Discussions
09/07/24
Patient's nurse and myself spoke with patient and he expressed that he would like to be Full Code. He continues to refuse many medications and nursing interventions, and I explained to the patient he can deteriorate quickly and possibly go into
cardiopulmonary arrest if he continues to refuse meds and interventions. On 09/07/24, patient told his brother Gordon, director multiple sclerosis center at his home, and his therapist at [facility] that he understands the importance of medical care but still after
that refusing medications/interventions at times.
On 09/07/24, I spoke to patient's brother Gordon over the phone, and explained everything to him including the fact that patient has been refusing many medications and interventions and this could result in deterioration and possible cardiopulmonary
arrest, he understood and said he would try to talk to patient over the phone. Per nurse's discussion with patient's nephew Ritesh, patient is estranged from his children, nephew stated that patient can be stubborn.
09/08/24
On 09/08/24, I spoke to patient's brother Gordon over the phone, and explained everything to him including the fact that patient has been refusing many medications and interventions and this could result in deterioration and possible cardiopulmonary
arrest, he understood.
Anticipated Discharge: > 48 hours
Subjective/Interval History
-
Date of Service: September 11, 2024
Patient was seen and examined. He remained intubated.
Objective Data
-
Labs:
Laboratory Results
09/11/24 09/11/24 09/11/24
04:56 09:37 13:14
WBC 11.2 H
Hgb 9.1 L
Hct 26.6 L
Plt Count 61 L
HCO3 23.0 24.2 25.4
Sodium 145
Potassium 3.8
Chloride 112 H
Carbon Dioxide 25
BUN 74 H
Creatinine 1.8 H
Glucose 123 H
Calcium 7.8 L
09/11/24
13:49
WBC 16.3 H
Hgb 10.5 L
Hct 31.8 L
Plt Count 78 L D
HCO3
Sodium 144
Potassium 4.2
Chloride 110 H
Carbon Dioxide 26
BUN 74 H
Creatinine 1.7 H
Glucose 173 H
Calcium 8.0 L
Vital Signs:
Vital Signs
Temp Pulse Resp BP Pulse Ox
98.2 F 116 24 196/91 95
09/11/24 11:21 09/11/24 13:03 09/11/24 12:45 09/11/24 13:03 09/11/24 14:35
I&O
09/10/24 09/11/24 09/12/24
06:59 06:59 06:59
Intake Total 3691.3 / 3747.7 1704.5 / 1747.9 428.4 / 428.4
Output Total 999 / 999 2265 / 2540 2450 / 2450
Balance 2692.3 / 2748.7 -560.5 / -792.1 -2020.6 / -2020.
[2024-09-11 16:27] LABS: Glucose - Point of Care 132 mg/dl (70-99)
[2024-09-11] MEDS: NARCAN 1 MG IV (16:30)
--- NOTE | 2024-09-11 16:40 | PTCARENOTE ---
S/P bedside intubation. Norepinephrine started shortly after, see MAR. During CXR pt was not getting his volumes. Dr. Raymond present and repositioned the ETT. Bronchoscopy thereafter. See Dr. Raymond's report. Left nare epistaxis, Afrin soak
gauze placed in left nare, ENT consulted per Dr. Raymond. Safe environment maintained. Will repeat ABG as ordered.
--- NOTE | 2024-09-11 16:40 | W.SUR.POST ---
Surgical Immediate Post Op
Note
Endotracheal Intubation Procedure
Date of operation/procedure: 09/11/2024
Pre Op Diagnosis: Acute hypoxic respiratory failure; acute respiratory distress
Post Op Diagnosis: Same as above
Procedure Performed: Endotracheal intubation
Primary Surgeon/proceduralist: Dr. Raymond
Secondary Surgeons: N/A
Anesthesia: 20 mg IVP x1 etomidate + 80 mg of succinylcholine IVP X1
Estimated Blood Loss: None
Fluids: N/A
Drains/Shunts: N/A
Specimens/Cultures: N/A
Doppler/Duplex/Angio (Y/N): N/A
Complications: No immediate complications
Operative Findings: Patient was emergently intubated with RSI as above. He was intubated using the video GlideScope using S3 blade with ETT size 8 seen going into the glottis. Proper placement was confirmed via auscultation over the chest, color
capnometry and CXR. ABG pending.
[2024-09-11] MEDS: LEVOPHED 250 IV (17:00)
--- NOTE | 2024-09-11 17:23 | W.SUR.POST ---
Surgical Immediate Post Op
Note
Bedside Portable Diagnostic/Therapeutic Bronchoscopy
Date of procedure: 09/11/2024
Pre Op Diagnosis: Acute hypoxic respiratory failure
Post Op Diagnosis: Asphyxiation of blood from left-sided nosebleed
Procedure Performed: Portable bronchoscopy performed at bedside
Primary Surgeon/proceduralist: Dr. Raymond
Secondary Surgeons: N/A
Anesthesia: N/A
Estimated Blood Loss: N/A
Fluids: N/A
Drains/Shunts: N/A
Specimens/Cultures: N/A
Doppler/Duplex/Angio (Y/N): N/A
Complications: No immediate complications
Operative Findings: Emergent bronchoscopy performed on patient due to continued hypoxia despite being intubated on 100% FiO2 +8 of PEEP. Upon insertion of the portable bronchoscope into the airway, the ETT was noted to be in the upper trachea,
which was subsequently advanced. There was dark red blood seen in both the right mainstem, left mainstem, left upper lobe, left lower lobe, right upper lobe, right lower lobe + right middle lobe. Suctioning of all segments was performed with all
segmental bronchi widely patent at the end of the procedure. Saturations improved from the upper 80s to the mid mid 90s at the end of the procedure. Will consult ENT to evaluate for left-sided nosebleed. In the meantime, advised RN to soak a
gauze with Afrin and placed into left nare.
[2024-09-11 18:04] LABS: Glucose - Point of Care 225 mg/dl (70-99)
[2024-09-11] MEDS: NOVOLOG FLEXPEN-LOW RESISTANCE 2 UNITS SC (18:16)
[2024-09-11] MEDS: SUBLIMAZE 100 IV (18:17)
[2024-09-11 18:45] LABS: B.E. -4.2 mmol/L; HCO3 23.2 mmol/L (21-28); PCO2 53 mmHg (35-48); PO2 215 mmHg (83-108); pH 7.25 (7.35-7.45)
[2024-09-11] MEDS: DIPRIVAN 100 IV (19:20)
[2024-09-11 20:41] LABS: Triglycerides 192 mg/dl (10-149)
[2024-09-11 20:45] LABS: Hematocrit 29.9 % (39.0-52.0); Hemoglobin 9.9 g/dL (13.0-18.0); Mean Corp Hgb Conc. 33.1 g/dL (33.0-37.0); Mean Corpuscular Volume 90.6 fL (80.0-94.0); Mean Platelet Volume 12.5 fL (7.4-10.4); Platelet Count 68 10^3/uL (130-400); Red Cell Dist. Width 14.6 % (11.5-14.5); White Blood Cell Count 16.2 10^3/uL (4.8-10.8)
[2024-09-11] MEDS: Parenteral Nutrition, Central 960 IV (20:54)
--- NOTE | 2024-09-11 23:37 | PTCARENOTE ---
Pt received at 19:00. Pt with ENT at bedside d/t epistaxis, rhino rocket place by ENT--tolerating. Pt restless upon initial assessment--reaching up with left hand towards ETT, given fentanyl bolus and started propofol gtt. #8 ETT, 28 @ the lip,
repositioned from center to . Oral care provided, bloody secretions orally and via ETT. Coarse breath sounds intermittently, diminished t/o. AC 26/450/80%/+10--tolerating settings. Pulse ox remains 100%. R ileostomy with minimal brown liquid stool,
stoma pink/moist. R nare NGT to continuous suction as ordered, brown output. Head in place, draining yellow urine. Midline abdominal incision with serosanguineous drainage, gauze replaced. Pt continues of fentanyl and propofol gtts, levophed now
off, TPN continues. Safe environment maintained, pt repositioned q2h.
[2024-09-11 23:57] LABS: Glucose - Point of Care 149 mg/dl (70-99)
[2024-09-12] MEDS: ZOSYN 50 IV ×3 (02:55→14:50)
[2024-09-12 03:33] LABS: Hematocrit 29.3 % (39.0-52.0); Hemoglobin 9.6 g/dL (13.0-18.0); Mean Corp Hgb Conc. 32.8 g/dL (33.0-37.0); Mean Corpuscular Hgb 29.9 pg (27.0-31.0); Mean Corpuscular Volume 91.3 fL (80.0-94.0); Mean Platelet Volume 12.4 fL (7.4-10.4); Platelet Count 68 10^3/uL (130-400); Red Blood Cell Count 3.21 10^6/uL (4.70-6.10); Red Cell Dist. Width 14.2 % (11.5-14.5); White Blood Cell Count 10.6 10^3/uL (4.8-10.8)
[2024-09-12 04:14] LABS: Blood Urea Nitrogen 72 mg/dl (9-20); Calcium 7.7 mg/dl (8.4-10.2); Carbon Dioxide 26 mmol/L (22-30); Chloride 115 mmol/L (98-107); Estimated Creatinine Clearance 38 ml/min; Glucose 145 mg/dl (70-99); Magnesium 2.3 mg/dl (1.6-2.3); Phosphorus 3.5 mg/dl (2.5-4.5); Potassium 4.1 mmol/L (3.5-5.1); Sodium 147 mmol/L (135-145)
--- NOTE | 2024-09-12 04:20 | PTCARENOTE ---
Frequent oral care, continues to have bloody secretions. R nare NGT flushed as ordered, 200ml out since 20:00--brown/green bilious ouput. Levophed remains off, prop/fent continue as ordered.
[2024-09-12 04:56] VITALS: BMI 18.7
[2024-09-12] MEDS: OFIRMEV 100 IV ×2 (05:54→23:52)
[2024-09-12] MEDS: DIPRIVAN 100 IV ×2 (05:54→21:08)
[2024-09-12] MEDS: NOVOLOG FLEXPEN-LOW RESISTANCE SC (06:17)
[2024-09-12 06:24] LABS: Glucose - Point of Care 142 mg/dl (70-99)
--- NOTE | 2024-09-12 07:48 | W.PN.INTV ---
Today's Communication / Plan
Recommendations
Mechanical ventilation with daily SAT/SBT
Failed extubation on 09/11 due to increased WOB and hypoxia
Developed a nosebleed s/p nasal trumpet placed on 09/11/2024, had to be emergently reintubated, underwent bronchoscopy with suctioning of pool of blood bilaterally and ENT placed Rhino Rocket
Continue Lasix as per cardiology
Strict I/O
Monitor UOP
Continue ABx
If no change in blood cultures by tomorrow with him remaining afebrile then would consider narrowing antibiotics at that time
Maintain MAP >65 (off vasopressors since 09/11)
Continue TPN
Guarded prognosis - patient appropriate for DNR/DNI; goals of care will be an ongoing discussion with the patient's estranged brother
Continue ICU level care for this critically ill patient
Assessment
-
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
intervention for known ascending colon cancer. He underwent a robotic assisted right hemicolectomy with partial omentectomy, excision of peritoneal nodule and laparoscopic TAP block. He did well postoperatively and was tolerating regular diet. He
did develop abdominal tenderness with adynamic ileus seen on imaging. Unfortunately his abdominal discomfort worsened and he developed shortness of breath with CT A/P imaging on 09/08/2024 showing bowel perforation, and he was brought to the OR on
09/08/2024 for an ex-lap with resection of ileocolic anastomosis with an abdominal washout and creation of an end colostomy. He remained intubated at the end the procedure, and was TRX to the ICU post-operatively with Business Transformation Consultant services consulted
for additional management/recommendations.
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
Impression:
#Anastomotic leak with feculent peritonitis s/p ex lap with resection of ileocolic anastomosis with abdominal washout and creation of end colostomy (POD #4)
#Metastatic colonic adenocarcinoma s/p robotic right hemicolectomy with partial omentectomy, excision of peritoneal nodule and laparoscopic TAP block (OR date: 09/01/2024)
#Thrombocytopenia likely due to sepsis but unable to rule out KIP given intermediate 4T score (4)
#Epistaxis s/p Rhino Rocket placed by ENT (on 09/11/2024)
#Sepsis due to feculent peritonitis now with E. coli bacteremia via blood cultures from 09/08 + 09/09/2024
#Ventilator dependent respiratory failure (failed extubation on 09/11/2024 with reintubation the same day due to hypoxia with increased work of breathing
#Tobacco use disorder with centrilobular emphysema and suspected COPD
#Circumferential wall thickening of left colon suggestive of colitis seen on CT A/P from 09/08/2024
#History of CVA (2016) with residual expressive aphasia + right hemiparesis
#CAD
#History of VT s/p AICD
#History of alcohol use disorder
#Mitral regurgitation
#Chronic HFmrEF (LVEF: 45% via TTE frim 08/05/2024)
Plan:
- Postoperative management as per colorectal surgery
- Pain control
- Operative reports were reviewed from colorectal surgery
- Follow-up pathology from the OR on 09/08/2024
- Continue with broad-spectrum antibiotics (currently on Zosyn which was started on 09/08/2024)
- E. coli is pansensitive from blood culture collected on 09/08; if repeat blood culture from 09/10/2024 does not grow anything and he remains afebrile by tomorrow then we will narrow antibiotics at that time
- Continue with mechanical ventilation with daily SAT/SBT if clinically appropriate
- Patient was extubated on 09/11/2024 but then became hypoxic with increased work of breathing. Seem like he was unable to clear secretions. Left nare nasal trumpet placed to assist with nasal tracheal suctioning, however this caused a nosebleed.
He became severely hypoxic with saturations dropping into the 60-70s and had to be emergently reintubated. Patient then had a subsequent bronchoscopy with pools of blood seen across the entire tracheobronchial tree which was suctioned. No active
bleeding seen in the lungs. Saturations improved to the mid to high 90s after this.
- ENT placed a rhoni rocket on 09/11/2024; and Afrin soaked gauze placed into L-nare. Nosebleed seems stable as of 09/12
- Titrate FiO2 + PEEP to maintain SpO2 >90-94%
- Keep HOB >30-45�
- Oral + endotracheal suctioning as needed
- No obvious concern for pneumonia based on CXR from 09/09 or from CTA chest from 09/08/2024, however if sample obtained from ETT then would send sputum culture
- There is LLL atelectasis on CXR
- trend WBC and monitor fever curve
- prn nebulized bronchodilators � not currently bronchospastic
- Off vasopressors since evening of 09/11/2024; keep MAP >65
- Lasix resumed on 09/11 at 40 mg IV daily as per cardiology
- he actually required cardene gtt on 09/11 ---> this is now off as well
- Cardiology consulted and recs appreciated
- Replete electrolytes with K>4, Mg>2
- Maintain euglycemia with goal BG 140-180 with ISS q6hr
- Trend H/H and transfuse if needed to keep Hb>7g/dL; keep plt>50k (given post-operative status)
- Transfuse 2 units platelets on AM of 09/10 given platelet count is <50k
- Also transfused 1 unit platelets on 09/10/2019
- Hematology consulted and recs appreciated
- Although thrombocytopenia likely due to sepsis, will check KIP panel as his 4T score is 4 (intermediate) --> KIP panel negative with heparin-associated plt-Ab 0.054
- Stress ulcer ppx - PPI
- DVT ppx - SCDs for now until deemed safe to start chemical ppx per CRC
Continue ICU level care for this critically ill patient
I spoke to the patient's brother, Gordon, on 09/11/2024, and updated him on his unfortunate events from the evening. Gordon understands how ill Con is. Con may end up being best served at least with DNR/DNI and possibly terminal extubation
depending how the next several days go given he is cachectic and could not handle being extubated on 09/11. This will be an ongoing discussion.
Critical care statement: A total of 43 minutes of critical care time was provided for this patient today. This includes management of unstable vital signs, evaluation of the patient at bedside, reviewing the patient's pertinent medical records
including radiographs, microbiology, laboratory evaluations, and discussion with primary team, consultants, pharmacy, nutrition, physical therapy, case management, charge nurse, critical care nursing, and respiratory therapy.
Data:
CTA chest/CT abdomen/pelvis with contrast 09/08/2024:
Findings suggesting bowel perforation with new active extravasation of oral contrast in the right upper quadrant and progressed moderate free intraperitoneal air and free fluid.
Mild small bowel dilatation with fluid-filled loops of bowel probably due to small bowel ileus.
Mild circumferential wall thickening of the left colon suggesting colitis.
Postsurgical change.
No evidence of pulmonary embolus.
Small bilateral pleural effusions.
Minimal right lower lobe consolidation probably atelectasis
Moderate mid thoracic spine compression fracture. Stable
CXR 09/10/2024: Postoperative chest
Renal US 09/10/2024:
Unremarkable exam of the kidneys
Small bilateral pleural effusions. Stable
Minimal fluid about the liver. Improved
Subjective Dataa
Subjective Data
Date of Service:
Date of Service: September 12, 2024
Chief Complaint: Business Transformation Consultant Follow Up
Subjective:
Patient was seen and evaluated this morning. Remains intubated on AC/CMV at 26/450/10/40%, with PIP 27 cmH2O, VTe 429 cc and breathing at 26 breaths/min. Heart rate 95, BP via A-line: 132/69, and saturating 96%. Currently sedated on fentanyl at
75 mcg/hr, and propofol at 20 mcg/kg/min. Currently on TPN.
Review of Systems
General: Unobtainable - Sedation (+ Intubated)
Objective Data
Data Reviewed
Vital Signs / I&O / Oxygen:
Vital Signs
Temp Pulse Resp BP Pulse Ox
97.9 F 97 26 196/91 96
09/12/24 07:27 09/12/24 05:15 09/12/24 05:15 09/11/24 13:03 09/12/24 07:15
Intake and Output
09/11/24 09/12/24 09/13/24
06:59 06:59 06:59
Intake Total 1704.5 / 1747.9 1417.0 / 1417.0
Output Total 2265 / 2540 4315 / 4315
Balance -560.5 / -792.1 -2898.0 / -2898.0
SaO2 [CPAP/PSV] 99
SaO2 [A/C] 99
SaO2 96
Nasal Cannula flow liters per 55
minute
Physical Exam
General: Respiratory Distress (negative), Comfortable, Chills (negative), Sweats (negative) and Other (Intubated male in no acute distress)
HEENT: Normocephalic, Anicteric and Other (ETT in place)
Cardiovascular: S1-S2 and Peripheral Edema (negative)
Respiratory: Wheeze (negative), Crackles (Bibasilar), Rhonchi (negative), Stridor (negative) and ET Tube (Mechanical breath sounds heard bilaterally)
GI: Soft, Non Distended, Tender, NG Tube and Other (Hypoactive bowel sounds)
Neurology: Tremors (negative) and Other (Sedated)
Skin: Warm, Dry, Cyanosis (negative) and Jaundice (negative)
Labs/Micro/Reports
Lab Data
09/12/24 03:23
09/12/24 03:23
Laboratory Results
09/11/24 09/11/24 09/11/24
09:37 13:14 18:31
pH 7.46 H 7.36 7.25 L
pCO2 34 L 45 53 H
pO2 68 L 41 L* 215 H
HCO3 24.2 25.4 23.2
O2 Delivery Level
Microbiology
09/08/24 23:32 Blood/Venous Blood Culture - Preliminary
Escherichia coli
09/08/24 23:32 Blood/Venous Gram Stain - Preliminary
09/10/24 13:22 Blood/Venous Blood Culture - Preliminary
No Growth in 24 hours- Final report to follow
09/09/24 00:00 Blood/Venous Blood Culture - Preliminary
Escherichia coli
09/09/24 00:00 Blood/Venous Gram Stain - Preliminary
[2024-09-12] MEDS: NSS (PRESERVATIVE FREE) 10 ML IV (08:20)
[2024-09-12] MEDS: LASIX 40 MG IV (08:20)
[2024-09-12] MEDS: PROTONIX IV 40 MG IV (08:20)
--- NOTE | 2024-09-12 08:37 | W.PN.CARDCBS ---
Today's Communication / Plan
-
Remains ventilated, cont vent management as per software implementation project manager.
Continue with bp support on Levophed.
For volume overload Lasix was resumed September 11, Lasix 40 mg IV daily. Creatinine improving. Weight improving, continue daily weights I's and O's. -2300 out over last 24 hours.
Creatinine is improving, and down to 1.6 on September 12. Receiving IV diuresis.
Continue broad-spectrum antibiotics
He still getting some brief episodes of nonsustained VT on telemetry. Consider amiodarone if worsens or has sustained VT.
Cont pulm toilet and vent managment as per software implementation project manager.
Impression / Plan
-
Primary Crop Adjuster: Dr. Toan Mays
Impression:
Ascending colon cancer s/p robotic R hemicolectomy with partial omentectomy 09/01/24
s/p exlap, resection of ileocolic anastomosis (for anastomotic leak), creation of end-ileostomy 09/08/2024
VDRF with extubation September 11 and reintubation later in the day after epistaxis and possible aspiration s/p bronch
NSVT
Nonischemic cardiomyopathy, EF 45-50% by echo 2022
Chronic systolic heart failure
History of VT status post Medtronic BiV ICD
History of stroke with residual aphasia
COPD
HTN
Depression
ECHO 03/04/23: EF 45 to 50%, mild global hypokinesis, mild MAC, mild MR, mild TR, PAP 26 to 31 mmHg
ECHO 08/05/2024: EF 45%, global hypokinesis, mild concentric LVH, stage I diastolic dysfunction, mild to moderate MR, mild TR, PAP 37 mmHg, mildly dilated aortic root and ascending aorta
Plan:
Events noted. Pt was extubated September 11 and developed epistaxis and later in the day had increased work of breathing with concern for aspiration. Patient required bronchoscopy due to aspiration from epistaxis. ENT was consulted.
Remains ventilated, cont vent management as per software implementation project manager.
Continue with bp support on Levophed.
For volume overload Lasix was resumed September 11, Lasix 40 mg IV daily. Creatinine improving. Weight improving, continue daily weights I's and O's. -2300 out over last 24 hours.
Creatinine is improving, and down to 1.6 on September 12. Receiving IV diuresis.
Continue broad-spectrum antibiotics
He still getting some brief episodes of nonsustained VT on telemetry. Consider amiodarone if worsens or has sustained VT.
Cont pulm toilet and vent managment as per software implementation project manager.
Cont postop care as per colorectal. Received platelets. Hemoglobin stable at 9.6 09/12.
TPN as per surgery.
Device interrogated 09/07/2024 with appropriate function. Brief episodes of ventricular tachycardia noted on 09/03/2024, 09/06/2024 and 09/07/2024. Longest on device interrogation was 5 seconds. No ICD shocks, ATP therapies found. Battery has 1.8
years left
CCT: 32 min
History of Present Illness 09/04/2024:
Patient is a 74-year-old male with past medical history of nonischemic cardiomyopathy, with EF most recently 45 to 50% by echo in 2022, chronic systolic heart failure, VT status post Medtronic BiV ICD, history of stroke with residual aphasia, COPD
and ongoing smoking, hypertension, depression who presented to [facility] for robotic R hemicolectomy and partial omentectomy in setting of ascending colon cancer on 09/01/24. He continues with some abd discomfort however is progressing in
his post op course. Cardiology consulted as last night patient noted to have 27 beat run of NSVT, patient was asymptomatic. He denies CP, SOB, palpitations or irregular heart beats.
Progress Note - Crop Adjuster
Subjective
Date of Service: September 12, 2024
Patient seen examined. Sedated on vent.
Objective
Labs:
09/12/24 03:23
09/12/24 03:23
Labs
Hgb 9.6 g/dL (13.0-18.0) L 09/12/24 03:23
Hct 29.3 % (39.0-52.0) L 09/12/24 03:23
Plt Count 68 10^3/uL (130-400) L 09/12/24 03:23
PT 14.4 Sec (11.4-14.6) 09/08/24 22:38
INR 1.09 09/08/24 22:38
APTT 30.4 Sec (23.4-35.0) 09/08/24 22:38
Sodium 147 mmol/L (135-145) H 09/12/24 03:23
Potassium 4.1 mmol/L (3.5-5.1) 09/12/24 03:23
BUN 72 mg/dl (9-20) H 09/12/24 03:23
Creatinine 1.6 mg/dL (0.7-1.3) H 09/12/24 03:23
Glucose 145 mg/dl (70-99) H 09/12/24 03:23
Vital Signs and I&O:
Vital Signs
Temp Pulse Resp BP Pulse Ox
97.9 F 96 96
09/12/24 07:27 09/12/24 07:45 09/12/24 07:45 09/11/24 13:03 09/12/24 07:45
Vital Signs
Temp Pulse Resp BP Pulse Ox
97.9 F 96 96
09/12/24 07:27 09/12/24 07:45 09/12/24 07:45 09/11/24 13:03 09/12/24 07:45
Intake & Output
09/10/24 09/11/24 09/12/24 09/13/24
06:59 06:59 06:59 06:59
Intake Total 3691.3 / 3747.7 1704.5 / 1747.9 1417.0 / 1482.1 190.2 / 190.2
Output Total 999 / 999 2265 / 2540 4315 / 4315 150 / 150
Balance 2692.3 / 2748.7 -560.5 / -792.1 -2898.0 / -2832.9 40.2 / 40.2
Physical Exam
Physical Exam
General: Sedated on vent
Neck: Negative JVD
Heart: Regular, Negative S3 positive S1/S2, Negative S4, No murmur
Lungs: CTA b/l, negative wheezes/rales/rhonchi
Abd: Positive BS, NT/ND, neg rebound/rigidity/guarding
Ext: Negative cyanosis/clubbing/edema
Neuro: nonfocal
[2024-09-12 08:51] LABS: B.E. 0.7 mmol/L; HCO3 24.2 mmol/L (21-28); O2 Saturation % 99.2 % (94-98); PCO2 34 mmHg (35-48); PO2 87 mmHg (83-108); pH 7.46 (7.35-7.45)
[2024-09-12 08:55] LABS: O2 Therapy 40
[2024-09-12] MEDS: SUBLIMAZE 100 IV (09:05)
[2024-09-12] MEDS: NOVOLOG FLEXPEN-LOW RESISTANCE 1 UNITS SC ×3 (12:10→23:46)
[2024-09-12 12:16] LABS: Glucose - Point of Care 175 mg/dl (70-99)
--- NOTE | 2024-09-12 12:29 | PTCARENOTE ---
Pt sedated on Fentanyl and Propofol. Tolerating ventilator. Lungs diminished. Scant bloody secretions via ETT. V-paced. General pitting edema, especially upper extremities and trunk. NGT to suction. Hypoactive bowel sounds. Dark brown output
from ileostomy. Clear yellow urine with sediment via bansal. TPN per order. All other assessments unchanged.
--- NOTE | 2024-09-12 14:20 | W.PN.GS2 ---
Addendum entered and electronically signed by Kraig Ridley MD 09/12/24 14:45:
Patient seen and examined. Agree with assessment plan as documented below.
No changes from a surgical perspective. Vent weaning per ICU. TPN reordered.
Original Note:
Today's Communication / Plan
-
NGT/TPN
Assessment / Plan
-
74 yo male with a h/o CVA with expressive aphasia, HFrEf, AICD and ascending colon ca
POD #11 Robotic right hemicolectomy
POD #4 Exlap, resection of ileocolic anastomosis (for anastomotic leak), creation of end-ileostomy
Await bowel recovery
Reintubated yesterday, epistaxis causing asphyxiation
AF, tachycardic, VSS
--NGT to suction until good bowel recovery
--Continue with TPN until able to tolerate enteric feeding
--Trend labs
--Lovenox and scds for VTE ppx
Medicine, Plan Coordinator and cardiology following
Subjective Data
-
Date of Service: September 12, 2024
Patient seen and examined at bedside with Dr. Ridley. Sedated and comfortable.
Objective Data
-
Intake and Output
09/11/24 09/12/24 09/13/24
06:59 06:59 06:59
Intake Total 1704.5 / 1747.9 1417.0 / 1482.1 504.5 / 504.5
Output Total 2265 / 2540 4315 / 4315 2120 / 2120
Balance -560.5 / -792.1 -2898.0 / -2832.9 -1615.5 / -1615.5
Intake:
IV fluids (Total) 128.5 / 136.9 207.0 / 222.1 104.5 / 104.5
Cardene 0 / 0
Fentanyl 57.5 / 62.5 82.5 / 90.0 47.5 / 47.5
Levophed 15.0 / 15.0 37.5 / 37.5
Propofol 56.0 / 59.4 87.0 / 94.6 57.0 / 57.0
IV piggybacks 200 / 200 250 / 260 80 / 80
TPN/PPN 770 / 805 750 / 790 320 / 320
Amount instilled into GI Tube ( 110 / 110 210 / 210
Total)
Delight Sump 110 / 110 210 / 210
Blood Product Amount Infused ( 496 / 496
mL)
Pathogen Redu Plt Leukored 249 / 249
Unit [id number]
Pathogen Redu Plt Leukored 247 / 247
Unit [id number]
Output:
Liquid stool amount 175 / 175 50 / 50
Ileostomy 175 / 175 50 / 50
Gastrointestinal tube output ( 550 / 550 700 / 700
Total)
Delight Sump 550 / 550 700 / 700
Urine, Head 1540 / 1815 3465 / 3465 2120 / 2120
Urine, Voided 100 / 100
Vital Signs
Temp Pulse Resp BP Pulse Ox
98.4 F 108 24 196/91 93
09/12/24 11:05 09/12/24 13:00 09/12/24 13:00 09/11/24 13:03 09/12/24 13:00
Lab Results
09/12/24 03:23
09/12/24 03:23
Calcium 7.7 mg/dl (8.4-10.2) L 09/12/24 03:23
Phosphorus 3.5 mg/dl (2.5-4.5) 09/12/24 03:23
Magnesium 2.3 mg/dl (1.6-2.3) 09/12/24 03:23
Total Bilirubin 1.2 mg/dl (0.2-1.3) 09/10/24 13:22
AST 33 U/L (17-59) 09/10/24 13:22
ALT 13 U/L (0-50) 09/10/24 13:22
Alkaline Phosphatase 47 U/L (38-126) 09/10/24 13:22
Total Protein 4.2 g/dl (6.3-8.2) L 09/10/24 13:22
Albumin 2.0 g/dl (3.5-5.0) L 09/10/24 13:22
Physical Exam
-
NAD
VDRF
NGT with bilious outputs
ABD soft, nd, stoma pink/viable with dk loose stool in appliance, minimal flatus
Midline incision with intact rashaun/key. Weeping serous fluid
--- NOTE | 2024-09-12 14:24 | W.PN.HOSP.TC ---
Today's Communication/Plan
-
Repeat blood cultures growing E. coli
Consult ID
Continue mechanical ventilation
Continue IV diuresis for now
See plan
Assessment / Plan
Assessment / Plan
Physical Exam
General: Not in acute distress
HEENT: Normocephalic and Atraumatic
Respiratory: Intubated and on Mechanical Ventilation. Equal air entry bilaterally.
Cardiac: Regular Rate and Rhythm and S1/S2
GI: Soft. Tender to palpation.
Skin: Warm and Dry
Neuro: Lethargic
Psych: Calm
Assessment/Plan
74 y/o male with past medical history of HFrEF status post defibrillator (EF 15-20% in 2007 with recover to 45-50% 2022), mild MR, CAD, HTN, left-sided MCA with associated right-sided hemiplegia and expressive aphasia, presented for routine right
hemicolectomy for Ascending colon cancer. Hospitalist service was consulted for continued medical management.
# Partial colonic obstruction due to colon cancer status post robotic right hemicolectomy on 09/01/24
# Bowel Perforation, Small Bowel Ileus on 09/08/24 status post exploratory laparotomy, resection of ileocolic anastomosis, abdominal washout, creation of end colostomy on 09/08/24
# Shock
s/p right hemicolectomy 09/01 by CRS
pt c/o increased abdominal pain, but refused to get CT imaging done for evaluation on 09/07/[address] on 09/08/24 (patient finally agreed to get a repeat CT done) showed bowel perforation with new active extravasation of oral contrast in the right upper quadrant and progressed moderate free intraperitoneal air and free fluid. Mild small
bowel dilatation with fluid-filled loops of bowel probably due to small bowel ileus. Mild circumferential wall thickening of the left colon suggesting colitis.
Emergent surgery given CT findings on 09/08, had ex-lap and colostomy placement
Continue Zosyn
Blood Cultures ordered: growing E. coli, repeat blood cultures also growing E. coli -- CONSULT ID
Transferred to ICU on 09/08/24, remains in ICU post-op after 09/08/24, remains intubated
Continue TPN and NPO
Off vasopressors since evening of 09/11/2024; keep MAP >65
Continue Incentive Spirometer and Out of bed and ambulate as tolerated when okay with surgery team
DVT ppx with Lovenox SQ when okay with surgery team
#Acute Hypoxic Respiratory Failure (with SOB) overnight 09/05/24-09/06/24 Suspected Secondary to Acute HFrEF
#Small Bilateral Pleural Effusions
#Minimal right lower lobe consolidation probably atelectasis
#Nosebleed
-CT Chest/Abdomen/Pelvis on 09/08/24 showed no pulmonary embolism (patient high risk of PE with high Wells Score, so CT was done)
-Daily weights, I's and O's
-Patient was extubated on 09/11/2024 but then became hypoxic with increased work of breathing: he was unable to clear secretions, left nare nasal trumpet was placed to assist with nasal tracheal suctioning, however this caused a nosebleed, then
patient became severely hypoxic with oxygen saturations dropping into the 60-70s and patient had to be emergently reintubated; patient then had a subsequent bronchoscopy with pools of blood seen across the entire tracheobronchial tree which was
suctioned; saturations improved to the mid to high 90s after this.
- ENT placed a rhoni rocket on 09/11/2024; and Afrin soaked gauze placed into L-nare. Nosebleed seems stable as of 09/12
#Progressively Worsening Thrombocytopenia -- likely from sepsis
-Likely from sepsis
-Platelets decreased from normal to less than 50,000
-Patient was getting Lovenox -- hold Toradol and Lovenox given platelet count
-Consulted hem/onc given patient's significantly worsening thrombocytopenia and his colon cancer
-Concern for a possible HIT, but hematology said it is highly unlikely with the Lovenox, KIP panel negative with heparin-associated plt-Ab 0.054
-Received 3 units of platelets so far this hospitalization
-Low reticulocyte count suggests bone marrow suppression from infection
#Hypoglycemia
-D5LR IV fluids given earlier this hospitalization
-Hypoglycemia resolved
-Continue accuchecks per protocol
#Suspected acute on chronic HFrEF overnight 09/05/24-09/06/24
#Status post defibrillator (EF was 15-20% 2007)
-Suspected from IV fluids received earlier this admission
-Continue IV Lasix 40 mg daily --> creatinine and weights improving
-Daily weights, I's and O's
-Cardiology following due to continued runs of NSVT on tele, as well as heart failure exacerbation
#Prolonged QTc
-Minimize/avoid QTc-prolonging medications
#Nonsustained ventricular tachycardia.
#Status post defibrillator (EF was 15-20% 2007)
NSVT episodes continue as of 09/05/24
Toprol 25 mg daily increased to BID this hospitalization -- but patient remains NPO at this time
Appreciate Card input -- if ventricular tachycardia worsens, consider Amiodarone
Keep Potassium>4 (but still within normal range) and Magnesium>2 (but still within normal range)
Might need Amiodarone depending on burden of VTach
#Hypertension
resumed DIRECTOR OF MATH lisinopril this hospitalization (but now patient NPO)
IV Hydralazine PRN
#CVA with residual deficits of expressive aphasia and right sided hemiplegia
Continue Aspirin when able to take PO
#Moderate mid thoracic spine compression fracture
DVT Prophylaxis: SCDs
Code Status: Full Code
Family Discussions
09/07/24
Patient's nurse and myself spoke with patient and he expressed that he would like to be Full Code. He continues to refuse many medications and nursing interventions, and I explained to the patient he can deteriorate quickly and possibly go into
cardiopulmonary arrest if he continues to refuse meds and interventions. On 09/07/24, patient told his brother Gordon, director of pediatric rehabilitation at his home, and his therapist at [facility] that he understands the importance of medical care but still after
that refusing medications/interventions at times.
On 09/07/24, I spoke to patient's brother Gordon over the phone, and explained everything to him including the fact that patient has been refusing many medications and interventions and this could result in deterioration and possible cardiopulmonary
arrest, he understood and said he would try to talk to patient over the phone. Per nurse's discussion with patient's nephew Ritesh, patient is estranged from his children, nephew stated that patient can be stubborn.
09/08/24
On 09/08/24, I spoke to patient's brother Gordon over the phone, and explained everything to him including the fact that patient has been refusing many medications and interventions and this could result in deterioration and possible cardiopulmonary
arrest, he understood.
09/11/24-09/12/24
Judge'S Clerk has been speaking to patient's brother Gordon about goals of care
Intubation with mechanical ventilation is a high risk encounter.
Anticipated Discharge: > 48 hours
Subjective/Interval History
-
Date of Service: September 12, 2024
Patient was seen and examined. He remains intubated (was reintubated yesterday). Off pressors.
Objective Data
-
Labs:
Laboratory Results
09/12/24 09/12/24
03:23 08:20
WBC 10.6
Hgb 9.6 L
Hct 29.3 L
Plt Count 68 L
HCO3 24.2
Sodium 147 H
Potassium 4.1
Chloride 115 H
Carbon Dioxide 26
BUN 72 H
Creatinine 1.6 H
Glucose 145 H
Calcium 7.7 L
Vital Signs:
Vital Signs
Temp Pulse Resp BP Pulse Ox
98.4 F 108 24 196/91 93
09/12/24 11:05 09/12/24 13:00 09/12/24 13:00 09/11/24 13:03 09/12/24 13:00
I&O
09/11/24 09/12/24 09/13/24
06:59 06:59 06:59
Intake Total 1704.5 / 1747.9 1417.0 / 1482.1 504.5 / 504.5
Output Total 2265 / 2540 4315 / 4315 0 / 0
Balance -560.5 / -792.1 -2898.0 / -2832.9 -1615.5 / -1615.5
--- NOTE | 2024-09-12 16:20 | CON.ID ---
Consultation
-
Date/Time Consultation Requested: September 12, 2024 1437
Date/Time Consultation Performed: September 12, 2024 1620
Requesting Provider: Dr. Jose Eduardo Hunter
Performing Provider: Dr. Joceline Skaggs
Reason for Consultation: E. coli bacteremia
Chief Complaint / Past History
Chief Complaint
Colon cancer
History of Present Illness
74-year-old male with history of CVA, hypertension, cardiomyopathy with AICD placement, recent diagnosis of invasive adenocarcinoma who was electively admitted on September 01, 2024 and underwent robotic right hemicolectomy, excision of peritoneal
nodule and partial omentectomy. Postop course complicated by CESAR, thrombocytopenia, hypoxia ileus, increasing abdominal pain. Repeat CAT scan September 08 showed new bowel perforation with extra cessation of contrast in right upper abdomen with fluid
and free air. He was started on Zosyn. He was taken to the OR emergently and found to have anastomotic leak with feculent peritonitis status post abdominal washout, creation of end colostomy. September 08 blood culture E. coli. September 09 and September 10
blood cultures remain positive for E. coli. Patient remains intubated postop, requiring pressors which was weaned off September 11. He was extubated morning of September 11. However later in the day he became hypoxic, developed nosebleed with fresh blood
seen around his epiglottis by bronchoscopy.. He was reintubated 09/11. Per nurse no significant secretions from the ET tube. There was some bloody output.
Past History
Additional Past Medical History:
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
Hypertension
Nonischemic cardiomyopathy s/p AICD placement
COPD
Tobacco abuse
Depression
Colon cancer status post robotic right hemicolectomy, partial omentectomy September 01, 2024
Allergy History:
codeine Allergy (Verified 09/01/24 07:27)
Rash
Iodinated Contrast Media [IV Dye, Iodine Containing] Allergy (Verified 09/01/24 07:27)
Rash
Medications Reviewed: Yes
Current Antibiotics:
Zosyn day 5
Social History
Tobacco: Smoker
Alcohol: Former
Drug: Former User
Family History
Family History: Not Pertinent
Review of Systems
Review of Systems
Unable to obtain as patient currently intubated and sedated.
Vital Signs
Temp Pulse Resp BP Pulse Ox
100.9 F 107 25 196/91 95
09/12/24 11:05 09/12/24 16:00 09/12/24 16:00 09/11/24 13:03 09/12/24 16:00
Physical Exam
Physical Exam
Constitutional: Acutely Ill and Cachetic
Eyes: Sclera Anicteric
Cardiovascular: S1/S2 and Other (Tachycardic. Left chest wall AICD site no erythema nor induration.)
Pulmonary: Clear
Gastrointestinal: Soft, Non Distended, Decreased Bowel Sounds and Other (Ostomy with dark brown liquid; midline dressing dry)
Genito-Urinary: Head and Clear Urine
Extremities: Edema
Lines: PICC (LUE no erythema)
Lab / Diagnostic Study Results
09/12/24 03:23
09/12/24 03:23
Abs Immat Gran (auto) 0.1 10^3/uL (0-0.05) H 09/10/24 13:22
Absolute Neuts (auto) 10.7 10^3/uL (1.4-6.5) H 09/10/24 13:22
Absolute Lymphs (auto) 0.2 10^3/uL (1.2-3.4) L 09/10/24 13:22
Absolute Monos (auto) 0.4 10^3/uL (0.1-0.6) 09/10/24 13:22
Absolute Basos (auto) 0.1 10^3/uL (0-0.2) 09/10/24 13:22
Total Counted 100 09/09/24 03:49
Immature Gran % 1.1 % (0-0.5) H 09/10/24 13:22
Neutrophils % 92.5 % (42.2-75.2) H 09/10/24 13:22
Lymphocytes % 2.1 % (20.5-51.1) L 09/10/24 13:22
Monocytes % 3.7 % (1.7-9.3) 09/10/24 13:22
Eosinophils % 0.0 % (0-6) 09/10/24 13:22
Basophils % 0.6 % (0-2) 09/10/24 13:22
Abs Neuts (Manual) 17.2 10^3/uL (1.4-6.5) H 09/09/24 03:49
Segmented Neutrophils 55 % (42-75) 09/09/24 03:49
Band Neutrophils 34 % (0-3) H 09/09/24 03:49
Lymphocytes (Manual) 3 % (20-51) L 09/09/24 03:49
PT 14.4 Sec (11.4-14.6) 09/08/24 22:38
INR 1.09 09/08/24 22:38
Lactic Acid 1.8 mmol/L (0.7-2.0) 09/08/24 22:38
Microbiology Results
Micro:
09/12/24 15:15 Blood Culture - Pending
Blood/Venous
09/10/24 13:22 Blood Culture - Preliminary
Blood/Venous Culture in progress
Gram Stain - Preliminary
09/09/24 00:00 Blood Culture - Preliminary
Blood/Venous Escherichia coli
Gram Stain - Preliminary
09/08/24 23:32 Blood Culture - Preliminary
Blood/Venous Escherichia coli
Gram Stain - Preliminary
09/06/24 04:35 Influenza Types A & B (LILLIAN) - Final
Nasal Swab Negative for Influenza A & B, NAAT
Negative results must be combined with clinical observations
and patient history.
Nucleic Acid Amplification test (NAAT)performed on the
[employer] NOW platform.
09/01/24 15:53 MRSA Screen - Final
Nose No Methicillin Resistant Staphylococcus aureus isolated.
09/12/24 CXR: Patchy parenchymal opacity is present within the left mid to lower lung, likely representing pneumonia, a new finding when comparing back to radiograph of September 09, 2024. Slight improvement in confluent increased opacity in the left
lower hemithorax, which likely represents interval improvement in left base atelectasis.
09/08/24 CT a/p: Findings suggesting bowel perforation with new active extravasation of oral contrast in the right upper quadrant and progressed moderate free intraperitoneal air and free fluid. Mild small bowel dilatation with fluid-filled loops of
bowel probably due to small bowel ileus. Mild circumferential wall thickening of the left colon suggesting colitis.
09/03/24 CT a/p: Mild intraperitoneal free air in the abdomen. Subcutaneous gas in the left lateral abdominal wall extending into the left anterior pelvis/left inguinal region, and left scrotum. These findings are favored to be postoperative given
that the patient is postop day 2 status post laparoscopic right hemicolectomy. Diffuse dilatation of small bowel without evidence for a transition point suggesting an adynamic ileus.
Assessment / Plan
# E. coli bacteremia x 3 sets, intra-abdominal source
# 09/01/24 status post right hemicolectomy for invasive colon adenocarcinoma
# 09/08/24 Postop anastomotic leak with feculent peritonitis status post washout, end colostomy, no intraoperative culture available.
# Fever
# Leukocytosis resolved
# VDRF
# CESAR
# Acute thrombocytopenia due to sepsis
# Status post septic shock
# Nonischemic cardiomyopathy with AICD in place. Intermittent V. tach.
# Acute CHF - diuresing
- Continue to repeat blood cultures for clearance.
- If sustained E. coli bacteremia, recommend TTE to eval for AICD lead vegetation.
- Narrow zosyn to ceftriaxone/metronidazole.
- Follow temps/wbc
- Remains critically ill in ICU.
#PMHx
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
Hypertension
Nonischemic cardiomyopathy s/p AICD placement
COPD
Tobacco abuse
Depression
Colon cancer status post robotic right hemicolectomy, partial omentectomy September 01, 2024
Care Review
Plan reviewed with: Nurse (ICU nurse)
--- NOTE | 2024-09-12 16:28 | PTCARENOTE ---
All assessments unchanged.
[2024-09-12 18:26] LABS: Glucose - Point of Care 163 mg/dl (70-99)
[2024-09-12] MEDS: Parenteral Nutrition, Central 970 IV (20:08)
--- NOTE | 2024-09-12 20:41 | W.PN.ENT ---
Today's Communication
-
Packed for 48-72hrs
Impression / Plan
-
The patient is a 74yoM with left sided epistaxis likely from trauma over septal deviation during airway management. This was controlled with packing that will remain in place for 48-72hrs and ENT will removed. Pls call with questions or for further
bleeding.
Subjective Data
-
ENT called for left sided epistaxis after placement of a nasal airway.
Objective Data
-
Vital Signs
Temp Pulse Resp BP Pulse Ox
99.4 F 112 25 196/91 96
09/12/24 18:19 09/12/24 17:30 09/12/24 17:30 09/11/24 13:03 09/12/24 19:25
Intake & Output
09/11/24 09/12/24 09/13/24
06:59 06:59 06:59
Intake:
Oral fluids 0 / 0
IV fluids (Total) 128.5 / 136.9 207.0 / 222.1 161.4 / 161.4
Cardene 0 / 0
Fentanyl 57.5 / 62.5 82.5 / 90.0 72.5 / 72.5
Levophed 15.0 / 15.0 37.5 / 37.5
Propofol 56.0 / 59.4 87.0 / 94.6 88.9 / 88.9
IV piggybacks 200 / 200 250 / 260 130 / 130
TPN/PPN 770 / 805 750 / 790 520 / 520
Amount instilled into GI Tube ( 110 / 110 210 / 210
Total)
[place] Sump 110 / 110 210 / 210
Blood Product Amount Infused ( 496 / 496
mL)
Pathogen Redu Plt Leukored 249 / 249
Unit [id number]
Pathogen Redu Plt Leukored 247 / 247
Unit [id number]
Output:
Liquid stool amount 175 / 175 50 / 50
Ileostomy 175 / 175 50 / 50
Gastrointestinal tube output ( 550 / 550 700 / 700 150 / 150
Total)
[place] Sump 550 / 550 700 / 700 150 / 150
Urine, Head 1540 / 1815 3465 / 3465 2505 / 2505
Urine, Voided 100 / 100
Lab Results
09/12/24 03:23
09/12/24 03:23
PT 14.4 Sec (11.4-14.6) 09/08/24 22:38
INR 1.09 09/08/24 22:38
APTT 30.4 Sec (23.4-35.0) 09/08/24 22:38
Calcium 7.7 mg/dl (8.4-10.2) L 09/12/24 03:23
Phosphorus 3.5 mg/dl (2.5-4.5) 09/12/24 03:23
Magnesium 2.3 mg/dl (1.6-2.3) 09/12/24 03:23
Total Bilirubin 1.2 mg/dl (0.2-1.3) 09/10/24 13:22
AST 33 U/L (17-59) 09/10/24 13:22
ALT 13 U/L (0-50) 09/10/24 13:22
Alkaline Phosphatase 47 U/L (38-126) 09/10/24 13:22
Triglycerides 192 mg/dl (10-149) H 09/11/24 20:16
Physical Exam
-
GEN: Intubated and sedated
HEENT: Afrin gauze in the left naris, removed. Oozing at mid septum from a deviation. A rhino rocket was placed with 4ml of saline. Multiple large clots removed from the OP. Bleeding controlled.
[2024-09-12] MEDS: ROCEPHIN 2000 MG IV (21:03)
[2024-09-12] MEDS: STERILE WATER FOR INJECTION 20 ML IV (21:03)
[2024-09-12] MEDS: FLAGYL 500 MG 100 IV (21:08)
--- NOTE | 2024-09-12 21:36 | PTCARENOTE ---
Assumed care of pt. approx 1900.
Remains intubated/sedated.
Tolerating vent settings, see sedation flowsheets for titration details.
ID following patient, BC p+, additional sets ordered.
Pt brother Gordon called unit, Per Gordon 'it is a very difficult family dynamic, i am all he has', explained to him plan of care, and expressed to him the importance on attending rounds in person or via telephone. Pt. brother stated he lives far away
in [facility] but would like to have a conference call with the physician team to discuss goals of care. Number provided below.
Gordon [facility] (Brother)
[phone]
--- NOTE | 2024-09-12 23:41 | PTCARENOTE ---
Pt. noted to be febrile 101.4, esophageal probe inserted due to lack of thermister bansal to monitor core temps. ICU [facility] notified, ice packs applied, awaiting orders.
[2024-09-12 23:57] LABS: Glucose - Point of Care 157 mg/dl (70-99)
[2024-09-13] MEDS: LEVOPHED 250 IV
--- NOTE | 2024-09-13 00:58 | PTCARENOTE ---
Pt. went into breif run of vtach approx. approx 9 beats. ICU [facility] notified, orders to send AM labs now.
[2024-09-13 01:04] LABS: B.E. 3.4 mmol/L; HCO3 28.5 mmol/L (21-28); O2 Saturation % 99.6 % (94-98); O2 Therapy 50; PCO2 45 mmHg (35-48); PO2 94 mmHg (83-108); pH 7.41 (7.35-7.45)
[2024-09-13 01:08] LABS: Hematocrit 28.8 % (39.0-52.0); Hemoglobin 9.3 g/dL (13.0-18.0); Mean Corp Hgb Conc. 32.3 g/dL (33.0-37.0); Mean Corpuscular Hgb 29.4 pg (27.0-31.0); Mean Corpuscular Volume 91.1 fL (80.0-94.0); Mean Platelet Volume 12.9 fL (7.4-10.4); Platelet Count 84 10^3/uL (130-400); Red Blood Cell Count 3.16 10^6/uL (4.70-6.10); White Blood Cell Count 10.2 10^3/uL (4.8-10.8)
[2024-09-13 01:18] LABS: ALT (SGPT) 18 U/L (0-50); AST (SGOT) 28 U/L (17-59); Albumin 2.1 g/dl (3.5-5.0); Alkaline Phosphatase 68 U/L (38-126); Blood Urea Nitrogen 66 mg/dl (9-20); Calcium 8.2 mg/dl (8.4-10.2); Carbon Dioxide 29 mmol/L (22-30); Chloride 117 mmol/L (98-107); Direct Bilirubin 1.5 mg/dl (0.0-0.4); Estimated Creatinine Clearance 43 ml/min; Glucose 167 mg/dl (70-99); Phosphorus 3.1 mg/dl (2.5-4.5); Potassium 3.8 mmol/L (3.5-5.1); Sodium 151 mmol/L (135-145); Total Bilirubin 1.8 mg/dl (0.2-1.3); Total Protein 4.9 g/dl (6.3-8.2); eGFR 58.37
[2024-09-13] MEDS: SUBLIMAZE 100 IV (03:17)
--- NOTE | 2024-09-13 03:20 | PTCARENOTE ---
Norepi titrating down, Still febrile, ectopy persisting.
No further change in assessment.
[2024-09-13] MEDS: KCL 50 IV (04:24)
[2024-09-13] MEDS: NOVOLOG FLEXPEN-LOW RESISTANCE 1 UNITS SC ×4 (05:14→23:16)
[2024-09-13] MEDS: FLAGYL 500 MG 100 IV (05:15)
--- NOTE | 2024-09-13 05:19 | PTCARENOTE ---
Pt having more vtach runs, 14 beats, Mag/K repleted.
[2024-09-13] MEDS: MAGNESIUM SULFATE 100 IV (05:21)
[2024-09-13 05:25] LABS: Glucose - Point of Care 168 mg/dl (70-99)
[2024-09-13 05:40] VITALS: BMI 18.6
--- NOTE | 2024-09-13 06:53 | W.PN.HOSP.TC ---
Today's Communication/Plan
-
Hypernatremia, stop sodium in TPN and give D5 W for short time
Remains critically ill
Assessment / Plan
Assessment / Plan
Physical Exam
General: intubated and sedated, ill looking
HEENT: ET tube, dry blood around nose
Respiratory: limited air, no wheezes, tachypnea noted
Cardiac: S1/S2, iCD device right upper chest
GI: Soft. + colostomy with output, laparotomy surgical site ( no bleeding)
: + Head, no hematuria
Neuro: sedated
Psych: no agitation
Assessment/Plan
74 y/o male with past medical history of HFrEF status post defibrillator (EF 15-20% in 2007 with recover to 45-50% 2022), mild MR, CAD, HTN, left-sided MCA with associated right-sided hemiplegia and expressive aphasia, presented for routine right
hemicolectomy for Ascending colon cancer. Hospitalist service was consulted for continued medical management.
# Partial colonic obstruction due to colon cancer status post robotic right hemicolectomy on 09/01/24
# Bowel Perforation, Small Bowel Ileus on 09/08/24 status post exploratory laparotomy, resection of ileocolic anastomosis, abdominal washout, creation of end colostomy on 09/08/24
#Persistent multiple organ failure with shock
s/p right hemicolectomy 09/01 by CRS
pt c/o increased abdominal pain, but refused to get CT imaging done for evaluation on 09/07/[address] on 09/08/24 (patient finally agreed to get a repeat CT done) showed bowel perforation with new active extravasation of oral contrast in the right upper quadrant and progressed moderate free intraperitoneal air and free fluid. Mild small
bowel dilatation with fluid-filled loops of bowel probably due to small bowel ileus. Mild circumferential wall thickening of the left colon suggesting colitis.
Emergent surgery given CT findings on 09/08, had ex-lap and colostomy placement
C
Blood Cultures ordered: growing E. coli, repeat blood cultures also growing E. coli -- ID is following , now on ceftriaxone/metronidazole. If sustained E. coli bacteremia, recommend TTE to eval for AICD lead vegetation. Pressure support
Transferred to ICU on 09/08/24,
Continue TPN and NPO
keep MAP >65
DVT ppx with Lovenox SQ when okay with surgery team
#Acute Hypoxic Respiratory Failure (with SOB) overnight 09/05/24-09/06/24 Suspected Secondary to Acute HFrEF
#Small Bilateral Pleural Effusions
#Minimal right lower lobe consolidation probably atelectasis
CT Chest/Abdomen/Pelvis on 09/08/24 showed no pulmonary embolism (patient high risk of PE with high Wells Score, so CT was done)
-Daily weights, I's and O's
-Patient was extubated on 09/11/2024 but then became hypoxic with increased work of breathing: he was unable to clear secretions, left nare nasal trumpet was placed to assist with nasal tracheal suctioning, however this caused a nosebleed, then
patient became severely hypoxic with oxygen saturations dropping into the 60-70s and patient had to be emergently reintubated; patient then had a subsequent bronchoscopy with pools of blood seen across the entire tracheobronchial tree which was
suctioned;
# hypernatremia
# CESAR, resolving
#Left sided epistaxis likely from trauma over septal deviation during airway management. This was controlled with packing that will remain in place for 48-72hrs and ENT will removed.
Appreciate ENT help
#E. coli bacteremia x 3 sets, intra-abdominal source
#Progressively Worsening Thrombocytopenia -- likely from sepsis
-Platelets around 84
Holding Lovenox
-Consulted hem/onc given patient's significantly worsening thrombocytopenia and his colon cancer
-Concern for a possible HIT, but hematology said it is highly unlikely with the Lovenox, KIP panel negative with heparin-associated plt-Ab 0.054
-Received 3 units of platelets so far this hospitalization
-Low reticulocyte count suggests bone marrow suppression from infection
#Hypoglycemia
-D5LR IV fluids given earlier this hospitalization
-Hypoglycemia resolved
-Continue accuchecks per protocol
#Suspected acute on chronic HFrEF overnight 09/05/24-09/06/24
#Status post defibrillator (EF was 15-20% 2007)
-Suspected from IV fluids received earlier this admission
-Continue IV Lasix 40 mg daily --> creatinine and weights improving
-Daily weights, I's and O's
-Cardiology following due to continued runs of NSVT on tele, as well as heart failure exacerbation
#Prolonged QTc
-Minimize/avoid QTc-prolonging medications
#Nonsustained ventricular tachycardia.
#Status post defibrillator (EF was 15-20% 2007)
NSVT episodes continue as of 09/05/24
Toprol 25 mg daily increased to BID this hospitalization -- but patient remains NPO at this time
Appreciate Card input -- if ventricular tachycardia worsens, consider Amiodarone
Keep Potassium>4 (but still within normal range) and Magnesium>2 (but still within normal range)
Might need Amiodarone depending on burden of VTach
#Hypertension
resumed CONTRACTOR BUYER lisinopril this hospitalization (but now patient NPO)
IV Hydralazine PRN
#CVA with residual deficits of expressive aphasia and right sided hemiplegia
Continue Aspirin when able to take PO
#Moderate mid thoracic spine compression fracture
DVT Prophylaxis: SCDs
Code Status: Full Code
Family Discussions
09/07/24
Patient's nurse and myself spoke with patient and he expressed that he would like to be Full Code. He continues to refuse many medications and nursing interventions, and I explained to the patient he can deteriorate quickly and possibly go into
cardiopulmonary arrest if he continues to refuse meds and interventions. On 09/07/24, patient told his brother Gordon, aoc director combat plans officer at his home, and his therapist at [facility] that he understands the importance of medical care but still after
that refusing medications/interventions at times.
On 09/07/24, I spoke to patient's brother Gordon over the phone, and explained everything to him including the fact that patient has been refusing many medications and interventions and this could result in deterioration and possible cardiopulmonary
arrest, he understood and said he would try to talk to patient over the phone. Per nurse's discussion with patient's nephew Ritesh, patient is estranged from his children, nephew stated that patient can be stubborn.
09/08/24
On 09/08/24, I spoke to patient's brother Gordon over the phone, and explained everything to him including the fact that patient has been refusing many medications and interventions and this could result in deterioration and possible cardiopulmonary
arrest, he understood.
09/11/24-09/12/24
Internal Control Specialist has been speaking to patient's brother Gordon about goals of care
Intubation with mechanical ventilation is a high risk encounter.
Time spent to see the patient, examining the patient, review of data lab result, discuss treatment plan with staff around 55 minutes
Anticipated Discharge: > 48 hours
Subjective/Interval History
-
Date of Service: September 13, 2024
sedated
Fever over night
Objective Data
-
Labs:
Laboratory Results
09/13/24
00:52
WBC 10.2
Hgb 9.3 L
Hct 28.8 L
Plt Count 84 L D
HCO3 28.5 H
Sodium 151 H
Potassium 3.8
Chloride 117 H
Carbon Dioxide 29
BUN 66 H
Creatinine 1.3
Glucose 167 H
Calcium 8.2 L
Total Bilirubin 1.8 H
AST 28
ALT 18
Alkaline Phosphatase 68
Vital Signs:
Vital Signs
Temp Pulse Resp BP Pulse Ox
100.7 F H 99 19 196/91 97
09/13/24 05:30 09/13/24 05:30 09/13/24 05:30 09/11/24 13:03 09/13/24 05:30
I&O
09/11/24 09/12/24 09/13/24
06:59 06:59 06:59
Intake Total 1704.5 / 1747.9 1417.0 / 1482.1 1922.3 / 1922.3
Output Total 2265 / 2540 4315 / 4315 3640 / 3640
Balance -560.5 / -792.1 -2898.0 / -2832.9 -1717.7 / -1717.7
--- NOTE | 2024-09-13 08:24 | W.PN.INTV ---
Today's Communication / Plan
Recommendations
Mechanical ventilation with daily SAT/SBT
Failed extubation on 09/11 due to increased WOB and hypoxia
Developed a nosebleed s/p nasal trumpet placed on 09/11/2024, had to be emergently reintubated, underwent bronchoscopy with suctioning of pool of blood bilaterally and ENT placed Rhino Rocket
Continue Lasix as per cardiology
Strict I/O
Monitor UOP
Continue ABx per ID
Maintain MAP >65; has been on and off vasopressors
Continue TPN
Guarded prognosis - patient appropriate for DNR/DNI; goals of care will be an ongoing discussion with the patient's estranged brother (did not answer phone call x2 on 09/13)
Continue ICU level care for this critically ill patient
Assessment
-
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
intervention for known ascending colon cancer. He underwent a robotic assisted right hemicolectomy with partial omentectomy, excision of peritoneal nodule and laparoscopic TAP block. He did well postoperatively and was tolerating regular diet. He
did develop abdominal tenderness with adynamic ileus seen on imaging. Unfortunately his abdominal discomfort worsened and he developed shortness of breath with CT A/P imaging on 09/08/2024 showing bowel perforation, and he was brought to the OR on
09/08/2024 for an ex-lap with resection of ileocolic anastomosis with an abdominal washout and creation of an end colostomy. He remained intubated at the end the procedure, and was TRX to the ICU post-operatively with Publishing Editor services consulted
for additional management/recommendations.
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
Impression:
#Anastomotic leak with feculent peritonitis s/p ex lap with resection of ileocolic anastomosis with abdominal washout and creation of end colostomy (POD #5)
#Metastatic colonic adenocarcinoma s/p robotic right hemicolectomy with partial omentectomy, excision of peritoneal nodule and laparoscopic TAP block (OR date: 09/01/2024)
#Thrombocytopenia likely due to sepsis but unable to rule out KIP given intermediate 4T score (4)
#Epistaxis s/p Rhino Rocket placed by ENT (on 09/11/2024)
#Sepsis due to feculent peritonitis now with E. coli bacteremia via blood cultures from 09/08, 09/09/2024 + 09/10/2024
#Suspected aspiration pneumonia involving LLL
#Ventilator dependent respiratory failure (failed extubation on 09/11/2024 with reintubation the same day due to hypoxia with increased work of breathing)
#Tobacco use disorder with centrilobular emphysema and suspected COPD
#Circumferential wall thickening of left colon suggestive of colitis seen on CT A/P from 09/08/2024
#History of CVA (2016) with residual expressive aphasia + right hemiparesis
#CAD
#History of VT s/p AICD
#History of alcohol use disorder
#Mitral regurgitation
#Chronic HFmrEF (LVEF: 45% via TTE frim 08/05/2024)
Plan:
- Postoperative management as per colorectal surgery
- Pain control
- Operative reports were reviewed from colorectal surgery
- Follow-up pathology from the OR on 09/08/2024
- Continue with broad-spectrum antibiotics - currently on Zosyn (started on 09/08/2024) and flagyl (started 09/12)
- E. coli is pansensitive from blood culture collected on 09/08; repeat blood culture from 09/10/2024 is also growing E coli; recheck set of surveillance blood cultures today; follow-up blood cultures from 09/12 (NGTD)
- Continue with mechanical ventilation with daily SAT/SBT if clinically appropriate
- Patient was extubated on 09/11/2024 but then became hypoxic with increased work of breathing. Seem like he was unable to clear secretions. Left nare nasal trumpet placed to assist with nasal tracheal suctioning, however this caused a nosebleed.
He became severely hypoxic with saturations dropping into the 60-70s and had to be emergently reintubated. Patient then had a subsequent bronchoscopy with pools of blood seen across the entire tracheobronchial tree which was suctioned. No active
bleeding seen in the lungs. Saturations improved to the mid to high 90s after this.
- ENT placed a rhoni rocket on 09/11/2024; and Afrin soaked gauze placed into L-nare. Nosebleed seems stable as of 09/12
- Titrate FiO2 + PEEP to maintain SpO2 >90-94%
- Keep HOB >30-45�
- Oral + endotracheal suctioning as needed
- No obvious concern for pneumonia based on CXR from 09/09 or from CTA chest from 09/08/2024, however if sample obtained from ETT then would send sputum culture
- He started to develop a retrocardiac opacification on AM of 09/11/2024 --> suspect this is a component of aspiration + atelectasis
- trend WBC and monitor fever curve
- prn nebulized bronchodilators � not currently bronchospastic
- Has been on and off vasopressors - continued as needed to keep MAP >65
- Lasix resumed on 09/11 at 40 mg IV daily as per cardiology
- he actually required cardene gtt on 09/11 ---> this is now off as well
- Cardiology consulted and recs appreciated
- Replete electrolytes with K>4, Mg>2
- Maintain euglycemia with goal BG 140-180 with ISS q6hr
- Trend H/H and transfuse if needed to keep Hb>7g/dL; keep plt>50k (given post-operative status)
- Transfuse 2 units platelets on AM of 09/10 given platelet count is <50k
- Also transfused 1 unit platelets on 09/10/2019
- Hematology consulted and recs appreciated
- Although thrombocytopenia likely due to sepsis, will check KIP panel as his 4T score is 4 (intermediate) --> KIP panel negative with heparin-associated plt-Ab 0.054
- Stress ulcer ppx - PPI
- DVT ppx - SCDs for now until deemed safe to start chemical ppx per CRC
- Guarded prognosis to would be appropriate to change code status to DNR/DNI; this will be an ongoing discussion with his brother
Continue ICU level care for this critically ill patient
Dr. Raymond spoke to the patient's brother, Gordon, on 09/11/2024, and updated him on his unfortunate events from the evening. Gordon understands how ill Con is. Con may end up being best served at least with DNR/DNI and possibly terminal
extubation depending how the next several days go given he is cachectic and could not handle being extubated on 09/11. This will be an ongoing discussion.
Dr. Raymond tried calling the brother 2x on 09/13 and there was no answer. VM left.
Critical care statement: A total of 41 minutes of critical care time was provided for this patient today. This includes management of unstable vital signs, evaluation of the patient at bedside, reviewing the patient's pertinent medical records
including radiographs, microbiology, laboratory evaluations, and discussion with primary team, consultants, pharmacy, nutrition, physical therapy, case management, charge nurse, critical care nursing, and respiratory therapy.
Data:
CTA chest/CT abdomen/pelvis with contrast 09/08/2024:
Findings suggesting bowel perforation with new active extravasation of oral contrast in the right upper quadrant and progressed moderate free intraperitoneal air and free fluid.
Mild small bowel dilatation with fluid-filled loops of bowel probably due to small bowel ileus.
Mild circumferential wall thickening of the left colon suggesting colitis.
Postsurgical change.
No evidence of pulmonary embolus.
Small bilateral pleural effusions.
Minimal right lower lobe consolidation probably atelectasis
Moderate mid thoracic spine compression fracture. Stable
CXR 09/10/2024: Postoperative chest
Renal US 09/10/2024:
Unremarkable exam of the kidneys
Small bilateral pleural effusions. Stable
Minimal fluid about the liver. Improved
Subjective Dataa
Subjective Data
Date of Service:
Date of Service: September 13, 2024
Chief Complaint: Publishing Editor Follow Up
Subjective:
Patient seen and evaluated today at bedside. Required a small dose of Levophed overnight at 2 mcg/min. He is not on Levophed this morning. Remains intubated on AC/CMV at 20/400/8/40% with PIP 18 cmH2O, VTe 345 mL and breathing at 24 breaths/min.
Heart rate 114, BP 90/52 via A-line, and saturating 95%. Respiratory rate 21. Currently sedated on fentanyl at 50 mcg/hr and propofol at 10 mcg/kg/min.
Review of Systems
General: Unobtainable - Sedation (+ Intubated)
Objective Data
Data Reviewed
Vital Signs / I&O / Oxygen:
Vital Signs
Temp Pulse Resp BP Pulse Ox
101.6 F H 102 19 196/91 95
09/13/24 11:09 09/13/24 07:00 09/13/24 07:00 09/11/24 13:03 09/13/24 08:00
Intake and Output
09/12/24 09/13/24 09/14/24
06:59 06:59 06:59
Intake Total 1417.0 / 1482.1 1922.3 / 1981.7 290.8 / 290.8
Output Total 4315 / 4315 3640 / 3715 1065 / 1065
Balance -2898.0 / -2832.9 -1717.7 / -1733.3 -774.2 / -774.2
SaO2 [CPAP/PSV] 99
SaO2 [A/C] 95
SaO2 95
Nasal Cannula flow liters per 55
minute
Physical Exam
General: Respiratory Distress (negative), Comfortable, Chills (negative), Sweats (negative) and Other (Intubated male in no acute distress; appears cachectic + malnourished, chronically ill)
HEENT: Normocephalic, Anicteric and Other (ETT in place)
Cardiovascular: S1-S2, Peripheral Edema (negative) and Other (Paced)
Respiratory: Wheeze (negative), Crackles (Bilateral), Rhonchi (negative), Stridor (negative) and ET Tube (Mechanical breath sounds heard bilaterally)
GI: Soft, Non Distended, Tender, NG Tube and Other (Hypoactive bowel sounds)
Neurology: Tremors (negative) and Other (Sedated)
Skin: Warm, Dry, Cyanosis (negative) and Jaundice (negative)
Labs/Micro/Reports
Lab Data
09/13/24 00:52
09/13/24 00:52
Laboratory Results
09/13/24
00:52
pH 7.41
pCO2 45
pO2 94
HCO3 28.5 H
O2 Delivery Level 50
Microbiology
09/10/24 13:22 Blood/Venous Blood Culture - Preliminary
Escherichia coli
09/10/24 13:22 Blood/Venous Gram Stain - Preliminary
09/09/24 00:00 Blood/Venous Blood Culture - Preliminary
Escherichia coli
09/09/24 00:00 Blood/Venous Gram Stain - Preliminary
09/08/24 23:32 Blood/Venous Blood Culture - Preliminary
Escherichia coli
09/08/24 23:32 Blood/Venous Gram Stain - Preliminary
[2024-09-13] MEDS: NSS (PRESERVATIVE FREE) 10 ML IV (08:30)
[2024-09-13] MEDS: PROTONIX IV 40 MG IV (08:31)
[2024-09-13] MEDS: LASIX 40 MG IV (08:31)
--- NOTE | 2024-09-13 09:06 | PTCARENOTE ---
Pt received in bed @ 0700. Intubated and sedated. Hs right sided hemiplegia. Responds to tactile stimuli. Pupils 2mm sluggish. Eyes do not track.Restraints in place. Propofol gtt infusing @ 20 mcg/kg/min. Fentanyl gtt infusing @ 50 mcg/hr. Self
terminating asynchrony with ventilation observed. 100% V Paced on monitoring tech. 5 beat run of V Tach observed x2. +4 Pitting RUE edema. +3 Pitting LUE edema. +2 generalized anasarca. Levophed gtt off, MAP main > 65 without pressors. (L) radial
arterial line transduced, zeroed, and flushed. ETT @ 28cm to AC (20/400/40%/8+). Suctioned for scant blood tinged secretions. Midline abdominal dressing C/D/I. Lap sites SUPERVISOR ENGRAVING. Right nare NGT in place, green liquid output. Head catheter draining
yellow. Gtt's infusing through L TL PICC.
--- NOTE | 2024-09-13 09:31 | W.PN.CARDCBS ---
Today's Communication / Plan
-
Telemetry reviewed and still having some brief nonsustained ventricular tachycardia. If VT worsens would add IV amiodarone
Continue with IV Lasix.
Continue blood pressure support with Levophed
Agree with increasing free water with hyponatremia
Hemoglobin stable at 9.3
Remains febrile. Continue antibiotics
Impression / Plan
-
Primary Wind Energy Project Manager: Dr. Toan Mays
Impression:
Ascending colon cancer s/p robotic R hemicolectomy with partial omentectomy 09/01/24
s/p exlap, resection of ileocolic anastomosis (for anastomotic leak), creation of end-ileostomy 09/08/2024
VDRF with extubation September 11 and reintubation later in the day after epistaxis and possible aspiration s/p bronch
NSVT
Nonischemic cardiomyopathy, EF 45-50% by echo 2022
Chronic systolic heart failure
History of VT status post Medtronic BiV ICD
History of stroke with residual aphasia
COPD
HTN
Depression
ECHO 03/04/23: EF 45 to 50%, mild global hypokinesis, mild MAC, mild MR, mild TR, PAP 26 to 31 mmHg
ECHO 08/05/2024: EF 45%, global hypokinesis, mild concentric LVH, stage I diastolic dysfunction, mild to moderate MR, mild TR, PAP 37 mmHg, mildly dilated aortic root and ascending aorta
Plan:
Pt was extubated September 11 and developed epistaxis and later in the day had increased work of breathing with concern for aspiration. Patient required bronchoscopy due to aspiration from epistaxis. ENT was consulted.
Remains ventilated, cont vent management as per harvesting supervisor. Continues to spike fevers.
Continue with bp support on Levophed.
For volume overload Lasix was resumed September 11, Lasix 40 mg IV daily. Creatinine down to 1.3 but now has some hypernatremia. Agree with plan for free water and tube feeds.
Continue broad-spectrum antibiotics
He still getting some brief episodes of nonsustained VT on telemetry. Consider amiodarone if worsens or has sustained VT.
Cont pulm toilet and vent managment as per harvesting supervisor.
Cont postop care as per colorectal. Received platelets. Hemoglobin stable at 9.3.
TPN as per surgery.
Device interrogated 09/07/2024 with appropriate function. Brief episodes of ventricular tachycardia noted on 09/03/2024, 09/06/2024 and 09/07/2024. Longest on device interrogation was 5 seconds. No ICD shocks, ATP therapies found. Battery has 1.8
years left
History of Present Illness 09/04/2024:
Patient is a 74-year-old male with past medical history of nonischemic cardiomyopathy, with EF most recently 45 to 50% by echo in 2022, chronic systolic heart failure, VT status post Medtronic BiV ICD, history of stroke with residual aphasia, COPD
and ongoing smoking, hypertension, depression who presented to [facility] for robotic R hemicolectomy and partial omentectomy in setting of ascending colon cancer on 09/01/24. He continues with some abd discomfort however is progressing in
his post op course. Cardiology consulted as last night patient noted to have 27 beat run of NSVT, patient was asymptomatic. He denies CP, SOB, palpitations or irregular heart beats.
Progress Note - Wind Energy Project Manager
Subjective
Date of Service: September 13, 2024
Remains intubated and sedated. Still spiking fevers and remains critically ill on Levophed.
Objective
Labs:
09/13/24 00:52
09/13/24 00:52
Labs
Hgb 9.3 g/dL (13.0-18.0) L 09/13/24 00:52
Hct 28.8 % (39.0-52.0) L 09/13/24 00:52
Plt Count 84 10^3/uL (130-400) L D 09/13/24 00:52
PT 14.4 Sec (11.4-14.6) 09/08/24 22:38
INR 1.09 09/08/24 22:38
APTT 30.4 Sec (23.4-35.0) 09/08/24 22:38
Sodium 151 mmol/L (135-145) H 09/13/24 00:52
Potassium 3.8 mmol/L (3.5-5.1) 09/13/24 00:52
BUN 66 mg/dl (9-20) H 09/13/24 00:52
Creatinine 1.3 mg/dL (0.7-1.3) 09/13/24 00:52
Glucose 167 mg/dl (70-99) H 09/13/24 00:52
Vital Signs and I&O:
Vital Signs
Temp Pulse Resp BP Pulse Ox
100.4 F H 102 19 196/91 95
09/13/24 07:15 09/13/24 07:00 09/13/24 07:00 09/11/24 13:03 09/13/24 08:00
Vital Signs
Temp Pulse Resp BP Pulse Ox
100.4 F H 102 19 196/91 95
09/13/24 07:15 09/13/24 07:00 09/13/24 07:00 09/11/24 13:03 09/13/24 08:00
Intake & Output
09/11/24 09/12/24 09/13/24 09/14/24
06:59 06:59 06:59 06:59
Intake Total 1704.5 / 1747.9 1417.0 / 1482.1 1922.3 / 1981.7 193.2 / 193.2
Output Total 2265 / 2540 4315 / 4315 3640 / 3715 590 / 590
Balance -560.5 / -792.1 -2898.0 / -2832.9 -1717.7 / -1733.3 -396.8 / -396.8
Physical Exam
Physical Exam
GEN: No distress, on vent
HEENT: supple, anicteric, mmm, ET tube
LUNGS: CTA, no wheezes/rales
CV: Reg, S1/S2, 1/6 syst LSB, no gallop
ABD: soft, BS+, NT/ND
EXT: No edema
NEURO: unable to assess
SKIN: No rash
--- NOTE | 2024-09-13 10:33 | W.PN.GS2 ---
Today's Communication / Plan
-
-- TPN reordered
Assessment / Plan
-
74 yo male with a h/o CVA with expressive aphasia, HFrEf, AICD and ascending colon ca
POD #12 Robotic right hemicolectomy
POD #5 Exlap, resection of ileocolic anastomosis (for anastomotic leak), creation of end-ileostomy
AF, tachycardic, VSS
Reintubated, epistaxis causing asphyxiation
Weaned down to Levo 2
Await bowel recovery
Beginning to show signs of ROBF with old tarry stool. No changes from surgical perspective. TPN reordered.
--NGT to suction until good bowel recovery
--Continue with TPN until able to tolerate enteric feeding
--Trend labs
--DVT: Lovenox and SCDs
--GI:PPI
Medicine, Clean Up Supervisor and cardiology following
Subjective Data
-
Date of Service: September 13, 2024
Intubated and sedated
Objective Data
-
Intake and Output
09/12/24 09/13/24 09/14/24
06:59 06:59 06:59
Intake Total 1417.0 / 1482.1 1922.3 / 1981.7 242.0 / 242.0
Output Total 4315 / 4315 3640 / 3715 915 / 915
Balance -2898.0 / -2832.9 -1717.7 / -1733.3 -673.0 / -673.0
Intake:
Oral fluids 0 / 0 0 / 0
IV fluids (Total) 207.0 / 222.1 422.3 / 441.7 52.0 / 52.0
Cardene 0 / 0
Fentanyl 82.5 / 90.0 127.5 / 132.5 20 / 20
Levophed 37.5 / 37.5 130 / 137.5 7.5 / 7.5
Propofol 87.0 / 94.6 164.8 / 171.7 24.5 / 24.5
IV piggybacks 250 / 260 580 / 580 0 / 0
TPN/PPN 750 / 790 920 / 960 160 / 160
Amount instilled into GI Tube ( 210 / 210
Total)
[place] Sump 210 / 210
Output:
Liquid stool amount 50 / 50
Ileostomy 50 50
Gastrointestinal tube output ( 700 / 700 150 / 150 150 / 150
Total)
[place] Sump 700 / 700 150 / 150 150 / 150
Urine, Bansal 3465 / 3465 3465 / 3540 765 / 765
Urine, Voided 100 / 100
Vital Signs
Temp Pulse Resp BP Pulse Ox
100.4 F H 102 19 196/91 95
09/13/24 07:15 09/13/24 07:00 09/13/24 07:00 09/11/24 13:03 09/13/24 08:00
Lab Results
09/13/24 00:52
09/13/24 00:52
Calcium 8.2 mg/dl (8.4-10.2) L 09/13/24 00:52
Phosphorus 3.1 mg/dl (2.5-4.5) 09/13/24 00:52
Magnesium 2.0 mg/dl (1.6-2.3) 09/13/24 00:52
Total Bilirubin 1.8 mg/dl (0.2-1.3) H 09/13/24 00:52
Direct Bilirubin 1.5 mg/dl (0.0-0.4) H 09/13/24 00:52
AST 28 U/L (17-59) 09/13/24 00:52
ALT 18 U/L (0-50) 09/13/24 00:52
Alkaline Phosphatase 68 U/L (38-126) 09/13/24 00:52
Total Protein 4.9 g/dl (6.3-8.2) L 09/13/24 00:52
Albumin 2.1 g/dl (3.5-5.0) L 09/13/24 00:52
Physical Exam
-
Gen: intubated and sedated
HEENT: low volume bilious output
Abd: soft, flat, ND, no tympany, ostomy PPV, tarry stool in appliance, no flatus
Patient has a bansal catheter: Yes
Patient has a central line: Yes
--- NOTE | 2024-09-13 11:16 | W.PN.ID1 ---
Date of Service
Date of Service: September 13, 2024
Today's Communication
Broaden abx to meropenem.
Assessment / Plan
# E. coli bacteremia x 3 sets, intra-abdominal source
# 09/01/24 status post right hemicolectomy for invasive colon adenocarcinoma
# 09/08/24 Postop anastomotic leak with feculent peritonitis status post washout, end colostomy, no intraoperative culture available.
# Fever
# Leukocytosis resolved
# VDRF
# CESAR
# Acute thrombocytopenia due to sepsis
# septic shock, resumed pressor overnigh
# Nonischemic cardiomyopathy with AICD in place. Intermittent V. tach.
# Acute CHF - diuresing
- Continue to repeat blood cultures for clearance.
- If sustained E. coli bacteremia, recommend TTE to eval for AICD lead vegetation.
- Deteriorated overnight. Broaden ceftriaxone/metronidazole to meropenem 500mg IV q8h
- Follow temps, vitals
- Remains critically ill in ICU.
#PMHx
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
Hypertension
Nonischemic cardiomyopathy s/p AICD placement
COPD
Tobacco abuse
Depression
Colon cancer status post robotic right hemicolectomy, partial omentectomy September 01, 2024
Chief Complaint
-: Fever, Bacteremia and Other (Feculent peritonitis)
Subjective / Review of Systems
Remains on vent. Febrile overnight, hypotensive on pressor.
Vital Signs / Physical Exam
Vital Signs
Vital Signs
Temp Pulse Resp BP Pulse Ox
101.6 F H 102 19 196/91 95
09/13/24 11:09 09/13/24 07:00 09/13/24 07:00 09/11/24 13:03 09/13/24 08:00
Physical Exam
Constitutional: Acutely Ill and Cachetic
Cardiovascular: Regular Rate and Other (tachycardic. RCW AICD no erythema)
Pulmonary: Clear (anterirorly)
Gastrointestinal: Soft, Non Tender, Decreased Bowel Sounds and Other (ostomy dark liquid; dressing serosanguinous strike through)
Genito-Urinary: Head and Clear Urine
Extremities: Edema
Lines: PICC
Objective Data
Lab Data
Lab Results
09/13/24 00:52
09/13/24 00:52
PT 14.4 Sec (11.4-14.6) 09/08/24 22:38
INR 1.09 09/08/24 22:38
APTT 30.4 Sec (23.4-35.0) 09/08/24 22:38
Estimated Creat Clear 43 ml/min 09/13/24 00:52
Lactic Acid 1.8 mmol/L (0.7-2.0) 09/08/24 22:38
Total Bilirubin 1.8 mg/dl (0.2-1.3) H 09/13/24 00:52
AST 28 U/L (17-59) 09/13/24 00:52
ALT 18 U/L (0-50) 09/13/24 00:52
Alkaline Phosphatase 68 U/L (38-126) 09/13/24 00:52
Most recent labs reviewed.
Micro Results:
09/10/24 13:22 Blood Culture - Preliminary
Blood/Venous Escherichia coli
Gram Stain - Preliminary
09/12/24 20:41 Blood Culture - Pending
Blood/Venous
09/13/24 00:52 Blood Culture - Pending
Blood/Venous
09/12/24 15:15 Blood Culture - Pending
Blood/Venous
09/09/24 00:00 Blood Culture - Preliminary
Blood/Venous Escherichia coli
Gram Stain - Preliminary
09/08/24 23:32 Blood Culture - Preliminary
Blood/Venous Escherichia coli
Gram Stain - Preliminary
09/06/24 04:35 Influenza Types A & B (LILLIAN) - Final
Nasal Swab Negative for Influenza A & B, NAAT
Negative results must be combined with clinical observations
and patient history.
Nucleic Acid Amplification test (NAAT)performed on the
[email or web address] platform.
09/01/24 15:53 MRSA Screen - Final
Nose No Methicillin Resistant Staphylococcus aureus isolated.
09/12/24 CXR: Patchy parenchymal opacity is present within the left mid to lower lung, likely representing pneumonia, a new finding when comparing back to radiograph of September 09, 2024. Slight improvement in confluent increased opacity in the left
lower hemithorax, which likely represents interval improvement in left base atelectasis.
09/08/24 CT a/p: Findings suggesting bowel perforation with new active extravasation of oral contrast in the right upper quadrant and progressed moderate free intraperitoneal air and free fluid. Mild small bowel dilatation with fluid-filled loops of
bowel probably due to small bowel ileus. Mild circumferential wall thickening of the left colon suggesting colitis.
09/03/24 CT a/p: Mild intraperitoneal free air in the abdomen. Subcutaneous gas in the left lateral abdominal wall extending into the left anterior pelvis/left inguinal region, and left scrotum. These findings are favored to be postoperative given
that the patient is postop day 2 status post laparoscopic right hemicolectomy. Diffuse dilatation of small bowel without evidence for a transition point suggesting an adynamic ileus.
[2024-09-13] MEDS: OFIRMEV 100 IV ×2 (11:27→22:02)
--- NOTE | 2024-09-13 11:30 | PTCARENOTE ---
Pt reassessed. Labile blood pressures observed with turns. Hypotensive SBP to 70s after turn to change pad underneath. MAP slowly > 65 without intervention after returning flat. Propofol gtt decreased to 10 mcg/kg/min per protocol as RASS has
maintained goal. Fentanyl gtt continues @ 50 mcg/hr. Right nare NGT advanced by 3cm per Dr Raymond after reviewing CXR; NGT now at 63cm.
[2024-09-13 12:00] LABS: Glucose - Point of Care 178 mg/dl (70-99)
--- NOTE | 2024-09-13 12:07 | PTCARENOTE ---
Core temp 101.8F. Dr. Raymond notified. New order for Ofirmev 1,000mg IV X1 now.
[2024-09-13 12:52] VITALS: BP_SYST 117
[2024-09-13 13:03] VITALS: BP_SYST 144
[2024-09-13 13:05] VITALS: BP_SYST 144
[2024-09-13 13:26] VITALS: BP_SYST 132
[2024-09-13 13:58] VITALS: BP_SYST 124
[2024-09-13] MEDS: STERILE WATER FOR INJECTION 10 ML IV ×2 (15:08→21:50)
[2024-09-13] MEDS: MERREM 500 MG IV ×2 (15:08→21:50)
[2024-09-13 15:31] VITALS: BP_SYST 120
[2024-09-13 18:04] LABS: Glucose - Point of Care 154 mg/dl (70-99)
--- NOTE | 2024-09-13 18:09 | W.PN.UPDATE ---
Update Note
Progress Note Update
I was able to get in touch with the patient's brother, Gordon. Discussed the patient's clinical status and his clinical decline with continued critically ill state appearing exquisitely weak and deconditioned. Low likelihood that we will
successfully be able to extubate him. Decision made to make him DNR/DNI but continue with full medical management for now. Gordon is leaning towards comfort care but wants more time to think about it. He will call the ICU tomorrow and make a
decision from there. This will be an ongoing discussion.
--- NOTE | 2024-09-13 18:40 | PTCARENOTE ---
Pt reassessed. Pt weaned on CPAP 5/5 40% from 13:00 to 18:00. SaO2 96%. Propofol gtt weaned off. Fentanyl gtt infusing @ 50 mcg/hr. Returned to AC (20/400/40%/8+). [facility] cloth bath provided and linens changed.
--- NOTE | 2024-09-13 19:43 | PTCARENOTE ---
Assumed care of pt. approx 1899.
Goals of care discussion w. brother by day team, pt now DNR/DNI cont. full medical treatment. See Ui Designer note for further details.
Pt. failed wean today due to lack of following basic commands, placed back on CMV, Diprivan off, just sedation with fentanyl gtt.
Normotensive via arterial line, febrile, v paced tachycardia.
[2024-09-13] MEDS: Parenteral Nutrition, Central 970 IV (20:50)
[2024-09-13 23:27] LABS: Glucose - Point of Care 164 mg/dl (70-99)
--- NOTE | 2024-09-14 00:07 | PTCARENOTE ---
Norepi restarted. pt. remains febrile offirmev given, ice packs applied.
No further change in assessment.
--- NOTE | 2024-09-14 02:42 | PTCARENOTE ---
No change in pt. assessment.
[2024-09-14 03:01] LABS: B.E. 5.8 mmol/L; HCO3 30.6 mmol/L (21-28); PCO2 45 mmHg (35-48); PO2 123 mmHg (83-108); pH 7.44 (7.35-7.45)
[2024-09-14 03:03] LABS: O2 Therapy 50
[2024-09-14 03:05] LABS: Hematocrit 28.6 % (39.0-52.0); Hemoglobin 9.1 g/dL (13.0-18.0); Mean Corp Hgb Conc. 31.8 g/dL (33.0-37.0); Mean Corpuscular Hgb 29.8 pg (27.0-31.0); Mean Corpuscular Volume 93.8 fL (80.0-94.0); Mean Platelet Volume 12.7 fL (7.4-10.4); Platelet Count 166 10^3/uL (130-400); Red Blood Cell Count 3.05 10^6/uL (4.70-6.10); Red Cell Dist. Width 14.2 % (11.5-14.5); White Blood Cell Count 8.3 10^3/uL (4.8-10.8)
[2024-09-14 03:16] LABS: ALT (SGPT) 18 U/L (0-50); AST (SGOT) 28 U/L (17-59); Albumin 2.2 g/dl (3.5-5.0); Alkaline Phosphatase 67 U/L (38-126); Blood Urea Nitrogen 65 mg/dl (9-20); Calcium 8.7 mg/dl (8.4-10.2); Carbon Dioxide 31 mmol/L (22-30); Chloride 120 mmol/L (98-107); Estimated Creatinine Clearance 43 ml/min; Glucose 172 mg/dl (70-99); Magnesium 2.1 mg/dl (1.6-2.3); Phosphorus 2.8 mg/dl (2.5-4.5); Potassium 4.2 mmol/L (3.5-5.1); Sodium 154 mmol/L (135-145); Total Bilirubin 1.7 mg/dl (0.2-1.3); Triglycerides 127 mg/dl (10-149); eGFR 58.37
--- NOTE | 2024-09-14 04:20 | PTCARENOTE ---
Hypernatremia/Chloremia worsening on am CMP, ICU HERNANDEZ notified, Orders for D5w placed.
[2024-09-14] MEDS: D5W 1000 IV (04:26)
[2024-09-14] MEDS: OFIRMEV 100 IV (04:26)
[2024-09-14] MEDS: STERILE WATER FOR INJECTION 10 ML IV ×2 (05:42→13:50)
[2024-09-14] MEDS: MERREM 500 MG IV ×2 (05:43→13:50)
[2024-09-14] MEDS: NOVOLOG FLEXPEN-LOW RESISTANCE 1 UNITS SC (05:50)
[2024-09-14] MEDS: SUBLIMAZE 100 IV (05:59)
[2024-09-14 06:00] VITALS: BMI 18.5
[2024-09-14 06:01] LABS: Glucose - Point of Care 192 mg/dl (70-99)
--- NOTE | 2024-09-14 06:26 | W.PN.HOSP.TC ---
Today's Communication/Plan
-
critically ill
Increasing high sodium, adjusted TPN, for now, add small amount 500 cc of D5W
c/w IV Abx
Stop IV Lasix
Rectal aspirin if ok to surgery
Assessment / Plan
Assessment / Plan
Physical Exam
General: intubated and sedated, ill looking
HEENT: ET tube, dry blood around nose
Respiratory: limited air, no wheezes, tachypnea noted
Cardiac: S1/S2, iCD device right upper chest
GI: Soft. + colostomy with output, laparotomy surgical site ( no bleeding)
: + Head, no hematuria
Neuro: sedated
Psych: no agitation
Assessment/Plan
74 y/o male with past medical history of HFrEF status post defibrillator (EF 15-20% in 2007 with recover to 45-50% 2022), mild MR, CAD, HTN, left-sided MCA with associated right-sided hemiplegia and expressive aphasia, presented for routine right
hemicolectomy for Ascending colon cancer. Hospitalist service was consulted for continued medical management.
# Partial colonic obstruction due to colon cancer status post robotic right hemicolectomy on 09/01/24
# Bowel Perforation, Small Bowel Ileus on 09/08/24 status post exploratory laparotomy, resection of ileocolic anastomosis, abdominal washout, creation of end colostomy on 09/08/24
#Persistent multiple organ failure with shock
s/p right hemicolectomy 09/01 by CR[facility]
pt c/o increased abdominal pain, but refused to get CT imaging done for evaluation on 09/07/[address] on 09/08/24 (patient finally agreed to get a repeat CT done) showed bowel perforation with new active extravasation of oral contrast in the right upper quadrant and progressed moderate free intraperitoneal air and free fluid. Mild small
bowel dilatation with fluid-filled loops of bowel probably due to small bowel ileus. Mild circumferential wall thickening of the left colon suggesting colitis.
Emergent surgery given CT findings on 09/08, had ex-lap and colostomy placement
Blood Cultures ordered: growing E. coli, repeat blood cultures also growing E. coli -- ID is following , was on ceftriaxone/metronidazole. Broaden abx to meropenem. If sustained E. coli bacteremia, recommend TTE to eval for AICD lead vegetation.
Pressure support
Transferred to ICU on 09/08/24,
Continue TPN and NPO
keep MAP >65
DVT ppx with Lovenox SQ when okay with surgery team
#Acute Hypoxic Respiratory Failure (with SOB) overnight 09/05/24-09/06/24 Suspected Secondary to Acute HFrEF
#Small Bilateral Pleural Effusions
#Minimal right lower lobe consolidation probably atelectasis
CT Chest/Abdomen/Pelvis on 09/08/24 showed no pulmonary embolism (patient high risk of PE with high Wells Score, so CT was done)
-Daily weights, I's and O's
-Patient was extubated on 09/11/2024 but then became hypoxic with increased work of breathing: he was unable to clear secretions, left nare nasal trumpet was placed to assist with nasal tracheal suctioning, however this caused a nosebleed, then
patient became severely hypoxic with oxygen saturations dropping into the 60-70s and patient had to be emergently reintubated; patient then had a subsequent bronchoscopy with pools of blood seen across the entire tracheobronchial tree which was
suctioned;
# hypernatremia
# CESAR, resolving
#Left sided epistaxis likely from trauma over septal deviation during airway management. This was controlled with packing that will remain in place for 48-72hrs and ENT will removed.
Appreciate ENT help
#E. coli bacteremia x 3 sets, intra-abdominal source
#Progressively Worsening Thrombocytopenia -- likely from sepsis
-Platelets around 84
Holding Lovenox
-Consulted hem/onc given patient's significantly worsening thrombocytopenia and his colon cancer
-Concern for a possible HIT, but hematology said it is highly unlikely with the Lovenox, KIP panel negative with heparin-associated plt-Ab 0.054
-Received 3 units of platelets so far this hospitalization
-Low reticulocyte count suggests bone marrow suppression from infection
#Hypoglycemia
-D5LR IV fluids given earlier this hospitalization
-Hypoglycemia resolved
-Continue accuchecks per protocol
#Suspected acute on chronic HFrEF overnight 09/05/24-09/06/24
#Status post defibrillator (EF was 15-20% 2007)
currently not in high volume status
#Prolonged QTc
-Minimize/avoid QTc-prolonging medications
#Nonsustained ventricular tachycardia.
#Status post defibrillator (EF was 15-20% 2007)
NSVT episodes continue as of 09/05/24
Toprol 25 mg daily increased to BID this hospitalization -- but patient remains NPO at this time
Appreciate Card input -- if ventricular tachycardia worsens, consider Amiodarone
Keep Potassium>4 (but still within normal range) and Magnesium>2 (but still within normal range)
Might need Amiodarone depending on burden of VTach
#CVA with residual deficits of expressive aphasia and right sided hemiplegia
Off Aspirin due to epistaxis and recent surgery
#Moderate mid thoracic spine compression fracture
DVT Prophylaxis: SCDs
Code Status: Full Code
Time spent to see the patient, examining the patient, review of data lab result, discuss treatment plan with staff around 55 minutes
Anticipated Discharge: > 48 hours
Subjective/Interval History
-
Date of Service: September 14, 2024
+ fever
No hypotension
Objective Data
-
Labs:
Laboratory Results
09/14/24
02:50
WBC 8.3
Hgb 9.1 L
Hct 28.6 L
Plt Count 166 D
HCO3 30.6 H
Sodium 154 H
Potassium 4.2
Chloride 120 H
Carbon Dioxide 31 H
BUN 65 H
Creatinine 1.3
Glucose 172 H
Calcium 8.7
Total Bilirubin 1.7 H
AST 28
ALT 18
Alkaline Phosphatase 67
Vital Signs:
Vital Signs
Temp Pulse Resp BP Pulse Ox
99.9 F 102 19 196/91 96
09/14/24 06:00 09/14/24 06:00 09/14/24 06:00 09/11/24 13:03 09/14/24 06:00
I&O
09/12/24 09/13/24 09/14/24
06:59 06:59 06:59
Intake Total 1417.0 / 1482.1 1922.3 / 1981.7 1779.6 / 1779.6
Output Total 4315 / 4315 3640 / 3715 2905 / 2905
Balance -2898.0 / -2832.9 -1717.7 / -1733.3 -1125.4 / -1125.4
--- NOTE | 2024-09-14 07:05 | PTCARENOTE ---
Handoff report. Pt currently awake, opened his eyes to verbal stimuli. He appears weak and deconditioned. Left TL PICC with Fentanyl, Norepinephrine & TPN. Left radial arterial line transduced, calibrated and monitored. All ports patent and secured.
#8ETT secured 228cm right lip. Breath sounds dim in the bases. Right nare [place] sump secured 63cm. Tolerating 90mmHg continuous wall suction. Draining green to garcía bilious secretions. Ileostomy with stoma budded and red. Green bilious stool noted
in bag. Left nare nasal packing intact. Head secured. Draining jordan urine with sediment. Abdominal incision with dressing CDI. Several abdominal incision [employer] with derma angel intact. Right U/E with +4 edema. Doppler radial pule. +2 anasarca. Left
FA with +3 edema. Upper extremities with scattered ecchymosis. Protective foams unchanged. Extremities elevated on pillows. Safe environment maintained.
--- NOTE | 2024-09-14 08:30 | W.PN.INTV ---
Today's Communication / Plan
Recommendations
Failed SBT this morning
Transition to ASV 100%, decrease PEEP to 5
ABG, chest x-ray in a.m.
Follow blood sugars
Continue free water flushes
Remains on meropenem
Resume pharmacological DVT prophylaxis when okay per surgery
Poor long-term prognosis
Await further discussion with brother whom I updated at length by phone. Remains DNR
Assessment
-
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
intervention for known ascending colon cancer. He underwent a robotic assisted right hemicolectomy with partial omentectomy, excision of peritoneal nodule and laparoscopic TAP block. He did well postoperatively and was tolerating regular diet. He
did develop abdominal tenderness with adynamic ileus seen on imaging. Unfortunately his abdominal discomfort worsened and he developed shortness of breath with CT A/P imaging on 09/08/2024 showing bowel perforation, and he was brought to the OR on
09/08/2024 for an ex-lap with resection of ileocolic anastomosis with an abdominal washout and creation of an end colostomy. He remained intubated at the end the procedure, and was TRX to the ICU post-operatively with [employer] services consulted
for additional management/recommendations.
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
Impression:
#Anastomotic leak with feculent peritonitis s/p ex lap with resection of ileocolic anastomosis with abdominal washout and creation of end colostomy (POD #5)
#Metastatic colonic adenocarcinoma s/p robotic right hemicolectomy with partial omentectomy, excision of peritoneal nodule and laparoscopic TAP block (OR date: 09/01/2024)
#Thrombocytopenia likely due to sepsis but unable to rule out KIP given intermediate 4T score (4)
#Epistaxis s/p Rhino Rocket placed by ENT (on 09/11/2024)
#Sepsis due to feculent peritonitis now with E. coli bacteremia via blood cultures from 09/08, 09/09/2024 + 09/10/2024
#Suspected aspiration pneumonia involving LLL
#Ventilator dependent respiratory failure (failed extubation on 09/11/2024 with reintubation the same day due to hypoxia with increased work of breathing)
#Tobacco use disorder with centrilobular emphysema and suspected COPD
#Circumferential wall thickening of left colon suggestive of colitis seen on CT A/P from 09/08/2024
#History of CVA (2016) with residual expressive aphasia + right hemiparesis
#CAD
#History of VT s/p AICD
#History of alcohol use disorder
#Mitral regurgitation
#Chronic HFmrEF (LVEF: 45% via TTE frim 08/05/2024)
Plan:
Unfortunately, patient remains critically ill with multisystem organ dysfunction requiring pressors
Did not tolerate CPAP wean this morning
Also appeared to be uncomfortable on ASV mode but when asked, patient denies shortness of breath
Presently off fentanyl, following commands, nodding appropriately
Moving forward
- Postoperative management as per colorectal surgery
- Pain control
- Operative reports were reviewed from colorectal surgery
- Follow-up pathology from the OR on 09/08/2024
-Per discussion with colorectal surgery, brother's request for DNR status and possible transition to comfort measures are consistent with patient's wishes based on care provided over the past few weeks
-Will try to touch base with brother later today
- Continue with broad-spectrum antibiotics - currently on Zosyn (started on 09/08/2024) and flagyl (started 09/12)
- E. coli is pansensitive from blood culture collected on 09/08; repeat blood culture from 09/10/2024 is also growing E coli; recheck set of surveillance blood cultures today; follow-up blood cultures from 09/12 (NGTD)
Currently on meropenem. ID following
Abdominal ultrasound unremarkable
persistent fevers noted
- Continue with mechanical ventilation with daily SAT/SBT if clinically appropriate
- Patient was extubated on 09/11/2024 but then became hypoxic with increased work of breathing. Seem like he was unable to clear secretions. Left nare nasal trumpet placed to assist with nasal tracheal suctioning, however this caused a nosebleed.
He became severely hypoxic with saturations dropping into the 60-70s and had to be emergently reintubated. Patient then had a subsequent bronchoscopy with pools of blood seen across the entire tracheobronchial tree which was suctioned. No active
bleeding seen in the lungs. Saturations improved to the mid to high 90s after this.
- ENT placed a rhoni rocket on 09/11/2024; and Afrin soaked gauze placed into L-nare. Nosebleed seems stable as 09/14
-Patient failed CPAP therapy this morning, transition to ASV
- No obvious concern for pneumonia based on CXR from 09/14
-Check ABG in a.m.
-Decrease PEEP to 5
- Has been on and off vasopressors - continued as needed to keep MAP >65
- Lasix resumed on 09/11 at 40 mg IV daily as per cardiology
- he actually required cardene gtt on 09/11 ---> this is now off as well, currently on norepinephrine
- Cardiology following
Intermittent NSVT noted per telemetry. May require amiodarone
- Replete electrolytes with K>4, Mg>2
- Maintain euglycemia with goal BG 140-180 with ISS q6hr
Continue with Accu-Cheks. TPN noted
Increase to moderate sliding scale
- Trend H/H and transfuse if needed to keep Hb>7g/dL; keep plt>50k (given post-operative status)
- Transfuse 2 units platelets on AM of 09/10 given platelet count is <50k
- Also transfused 1 unit platelets on 09/10/2019
- Hematology consulted and recs appreciated
- Although thrombocytopenia likely due to sepsis, KIP panel negative with heparin-associated plt-Ab 0.054
- Stress ulcer ppx - PPI
- DVT ppx - SCDs for now until deemed safe to start chemical ppx per CRC. Would like to resume pharmacological prophylaxis once okay. No evidence of HIT
- Guarded prognosis given metastatic colon cancer, positive lymph nodes. Oncology correspondence reviewed. Patient is not optimal candidate for chemotherapy
Continue ICU level care for this critically ill patient
Dr. Raymond spoke to the patient's brother, Gordon, on 09/11/2024, and updated him on his unfortunate events from the evening. Gordon understands how ill Con is. Con may end up being best served at least with DNR/DNI and possibly terminal
extubation depending how the next several days go given he is cachectic and could not handle being extubated on 09/11. This will be an ongoing discussion.
I spoke to brother Gordon over the phone, and updated at length on 09/14. Niece will be coming later to visit.
Apparently, pt had not wanted children updated per Brother and surgery (per brother Gordon)
Critical care statement: A total of 38 minutes of critical care time was provided for this patient today. This includes management of unstable vital signs, evaluation of the patient at bedside, reviewing the patient's pertinent medical records
including radiographs, microbiology, laboratory evaluations, and discussion with primary team, consultants, pharmacy, nutrition, physical therapy, case management, charge nurse, critical care nursing, and respiratory therapy.
Data:
CTA chest/CT abdomen/pelvis with contrast 09/08/2024:
Findings suggesting bowel perforation with new active extravasation of oral contrast in the right upper quadrant and progressed moderate free intraperitoneal air and free fluid.
Mild small bowel dilatation with fluid-filled loops of bowel probably due to small bowel ileus.
Mild circumferential wall thickening of the left colon suggesting colitis.
Postsurgical change.
No evidence of pulmonary embolus.
Small bilateral pleural effusions.
Minimal right lower lobe consolidation probably atelectasis
Moderate mid thoracic spine compression fracture. Stable
CXR 09/10/2024: Postoperative chest
Renal US 09/10/2024:
Unremarkable exam of the kidneys
Small bilateral pleural effusions. Stable
Minimal fluid about the liver. Improved
Subjective Dataa
Subjective Data
Date of Service:
Date of Service: September 14, 2024
Chief Complaint: [employer] Follow Up
Subjective:
Patient remains critically ill, ventilator dependent, failed CPAP wean this morning. Brief episodes of NSVT noted per telemetry. Remains on broad-spectrum antibiotics, meropenem for E. coli bacteremia. Requiring norepinephrine drip. Fentanyl has
been off. Patient denies shortness of breath, nausea. He does nod to abdominal pain
Objective Data
Data Reviewed
Vital Signs / I&O / Oxygen:
Vital Signs
Temp Pulse Resp BP Pulse Ox
99.9 F 102 19 196/91 96
09/14/24 06:00 09/14/24 06:00 09/14/24 06:00 09/11/24 13:03 09/14/24 07:58
Intake and Output
09/13/24 09/14/24 09/15/24
06:59 06:59 06:59
Intake Total 1922.3 / 1981.7 1779.6 / 1779.6
Output Total 3640 / 3715 2905 / 2905
Balance -1717.7 / -1733.3 -1125.4 / -1125.4
SaO2 [CPAP/PSV] 95
SaO2 [A/C] 97
SaO2 96
Nasal Cannula flow liters per 55
minute
Physical Exam
General: Comfortable, Other (Intubated male in no acute distress; appears cachectic + malnourished, chronically ill) and Other (Mild old blood in the nares)
HEENT: Normocephalic, Anicteric and Other (ETT in place)
Cardiovascular: S1-S2, Peripheral Edema (negative) and Other (Paced)
Respiratory: Wheeze (negative), Crackles (few), Rhonchi (negative), Stridor (negative) and ET Tube (Mechanical breath sounds heard bilaterally)
GI: Soft, Non Distended, Tender (Mild incisional), NG Tube and Other (Hypoactive bowel sounds)
Neurology: Awake, Alert and No Motor Deficits (Moves extremities, right-sided paresis, follows commands, nods appropriately)
Skin: Warm, Dry, Cyanosis (negative) and Jaundice (negative)
Labs/Micro/Reports
Lab Data
09/14/24 02:50
09/14/24 02:50
Laboratory Results
09/14/24
02:50
pH 7.44
pCO2 45
pO2 123 H
HCO3 30.6 H
O2 Delivery Level 50
Microbiology
09/13/24 00:52 Blood/Venous Blood Culture - Preliminary
No Growth in 24 hours- Final report to follow
09/12/24 20:41 Blood/Venous Blood Culture - Preliminary
No Growth in 24 hours- Final report to follow
09/12/24 15:15 Blood/Venous Blood Culture - Preliminary
No Growth in 24 hours- Final report to follow
09/10/24 13:22 Blood/Venous Blood Culture - Preliminary
Escherichia coli
09/10/24 13:22 Blood/Venous Gram Stain - Preliminary
09/09/24 00:00 Blood/Venous Blood Culture - Preliminary
Escherichia coli
09/09/24 00:00 Blood/Venous Gram Stain - Preliminary
09/08/24 23:32 Blood/Venous Blood Culture - Preliminary
Escherichia coli
09/08/24 23:32 Blood/Venous Gram Stain - Preliminary
--- NOTE | 2024-09-14 09:01 | W.PN.CRS1 ---
Today's Communication / Plan
-
as below
Assessment/Plan
-
74-year-old male with PMH of CHF (last echo 2022 EF 45-50%, mild global hypokinesis), cardiomyopathy, CAD, HTN, CVA 2016 (right hemiparesis, expressive aphasia), pneumothorax s/p thoracic surgery who presents for elective surgery for ascending colon
cancer
POD 13 s/p robotic right hemicolectomy
POD 6 exlap, resection of ileocolic anastomosis (for anastomotic leak), creation of end-ileostomy
Tmax 101.6, VSS, on levo 2, UOP 2.0L
WBC 8.3 from 10.2, Hb 9.1 from 9.3, platelets 166, CR 1.3, tbili 1.7
� Anastomotic leak complicated by septic shock
�Appreciate hospitalist/ICU
� Wean vent as tolerated
� Continue IV Zosyn
�CESAR, Cr stable with good UOP
�Discussed with patient regarding respiratory failure and possible need for tracheostomy if unable to extubate; patient indicated he would not want a tracheostomy; unable to confirm patient's capacity as he is limited to yes and no questions;
however, he does appear to have capacity as he is saying yes and no appropriately
� Continue n.p.o. and TPN
� Okay to restart DVT PPx with subQ heparin
�Appreciate cardiology
�Appreciate ID, continue meropenem
� Appreciate hospitalist
Subjective Data
Procedure
09/01/2024- Laparoscopic right hemicolectomy
09/09/2024- Exploratory laparotomy, resection of ileocolic anastomosis, abdominal washout, creation of end colostomy
Subjective Data
Date of Service: September 14, 2024
Patient awake and responding to questions. Says yes to if he is in pain.
Having ostomy function. + Head
Objective Data
-
Vital Signs
Temp Pulse Resp BP Pulse Ox
99.9 F 102 19 196/91 96
09/14/24 06:00 09/14/24 06:00 09/14/24 06:00 09/11/24 13:03 09/14/24 07:58
Intake & Output
09/13/24 09/14/24 09/15/24
06:59 06:59 06:59
Intake Total 1922.3 / 1981.7 1779.6 / 1779.6
Output Total 3640 / 3715 2905 / 2905
Balance -1717.7 / -1733.3 -1125.4 / -1125.4
Intake:
Oral fluids 0 / 0 0 / 0
IV fluids (Total) 422.3 / 441.7 419.6 / 419.6
D5w 1,000 ml @ 70 mls/hr IV . 210 / 210
[id number] [facility] Rx#:[id number]
Fentanyl 127.5 / 132.5 95.0 / 95.0
Levophed 130 / 137.5 82.5 / 82.5
Propofol 164.8 / 171.7 32.1 / 32.1
IV piggybacks 580 / 580 340 / 340
TPN/PPN 920 / 960 960 / 960
Amount instilled into GI Tube ( 60 / 60
Total)
[place] Sump 60 / 60
Output:
Liquid stool amount
Ileostomy
Gastrointestinal tube output ( 150 / 150 750 / 750
Total)
[place] Sump 150 / 150 750 / 750
Urine, Head 3465 / 3540 2155 / 2155
Lab Results
09/14/24 02:50
09/14/24 02:50
Physical Exam
-
General: No Acute Distress and Other (Alert, intubated)
HEENT: Grossly Normal and Other (NGT with light bilious output)
Abdomen: Soft, Non Distended, Tender (Appropriately tender near midline incision), No Guarding, No Rebound and Other (Ostomy pink, mildly edematous, productive of stool)
Skin: Warm and Dry
Wound: No Signs of Infection, Dressing Changed, No Skin Erythema and Other (Telfa rashaun removed; no purulent drainage)
[2024-09-14] MEDS: PROTONIX IV 40 MG IV (09:22)
[2024-09-14] MEDS: NSS (PRESERVATIVE FREE) 10 ML IV (09:22)
[2024-09-14] MEDS: LASIX IV (09:24)
--- NOTE | 2024-09-14 09:49 | W.PN.CARDCBS ---
Today's Communication / Plan
-
Continue with bp support on Levophed.
For volume overload Lasix had been resumed September 11, Lasix 40 mg IV daily. Creatinine down to 1.3 but now has worsening hypernatremia and lasix has been stopped by primary service
He still getting some brief episodes of nonsustained VT on telemetry. Consider amiodarone if worsens or has sustained VT.
Impression / Plan
-
Primary Liquid Flavor Compounder: Dr. Toan Mays
Impression:
Ascending colon cancer s/p robotic R hemicolectomy with partial omentectomy 09/01/24
s/p exlap, resection of ileocolic anastomosis (for anastomotic leak), creation of end-ileostomy 09/08/2024
VDRF with extubation September 11 and reintubation later in the day after epistaxis and possible aspiration s/p bronch
NSVT
Nonischemic cardiomyopathy, EF 45-50% by echo 2022
Chronic systolic heart failure
History of VT status post Medtronic BiV ICD
Hypernatremia
History of stroke with residual aphasia
COPD
HTN
Depression
ECHO 03/04/23: EF 45 to 50%, mild global hypokinesis, mild MAC, mild MR, mild TR, PAP 26 to 31 mmHg
ECHO 08/05/2024: EF 45%, global hypokinesis, mild concentric LVH, stage I diastolic dysfunction, mild to moderate MR, mild TR, PAP 37 mmHg, mildly dilated aortic root and ascending aorta
Plan:
Remains ventilated, cont vent management as per lean specialist. Continues to spike fevers.
Pt was extubated September 11 and developed epistaxis and later in the day had increased work of breathing with concern for aspiration. Patient required bronchoscopy due to aspiration from epistaxis.
Continue with bp support on Levophed.
For volume overload Lasix had been resumed September 11, Lasix 40 mg IV daily. Creatinine down to 1.3 but now has worsening hypernatremia.
Weight continues to come down.
Receiving free water and tube feeds.
Lasix stopped by hospitalist September 14
Continue broad-spectrum antibiotics
He still getting some brief episodes of nonsustained VT on telemetry. Consider amiodarone if worsens or has sustained VT.
Cont pulm toilet and vent management as per lean specialist.
Cont postop care as per colorectal. Received platelets. Hemoglobin stable at 9.1.
TPN as per surgery.
Additional hx:
Device interrogated 09/07/2024 with appropriate function. Brief episodes of ventricular tachycardia noted on 09/03/2024, 09/06/2024 and 09/07/2024. Longest on device interrogation was 5 seconds. No ICD shocks, ATP therapies found. Battery has 1.8
years left
CCT: 31 min
History of Present Illness 09/04/2024:
Patient is a 74-year-old male with past medical history of nonischemic cardiomyopathy, with EF most recently 45 to 50% by echo in 2022, chronic systolic heart failure, VT status post Medtronic BiV ICD, history of stroke with residual aphasia, COPD
and ongoing smoking, hypertension, depression who presented to [facility] for robotic R hemicolectomy and partial omentectomy in setting of ascending colon cancer on 09/01/24. He continues with some abd discomfort however is progressing in
his post op course. Cardiology consulted as last night patient noted to have 27 beat run of NSVT, patient was asymptomatic. He denies CP, SOB, palpitations or irregular heart beats.
Progress Note - Liquid Flavor Compounder
Subjective
Date of Service: September 14, 2024
Pt seen and examined. Sedated on vent
Objective
Labs:
09/14/24 02:50
09/14/24 02:50
Labs
Hgb 9.1 g/dL (13.0-18.0) L 09/14/24 02:50
Hct 28.6 % (39.0-52.0) L 09/14/24 02:50
Plt Count 166 10^3/uL (130-400) D 09/14/24 02:50
PT 14.4 Sec (11.4-14.6) 09/08/24 22:38
INR 1.09 09/08/24 22:38
APTT 30.4 Sec (23.4-35.0) 09/08/24 22:38
Sodium 154 mmol/L (135-145) H 09/14/24 02:50
Potassium 4.2 mmol/L (3.5-5.1) 09/14/24 02:50
BUN 65 mg/dl (9-20) H 09/14/24 02:50
Creatinine 1.3 mg/dL (0.7-1.3) 09/14/24 02:50
Glucose 172 mg/dl (70-99) H 09/14/24 02:50
Vital Signs and I&O:
Vital Signs
Temp Pulse Resp BP Pulse Ox
99.9 F 102 19 196/91 96
09/14/24 06:00 09/14/24 06:00 09/14/24 06:00 09/11/24 13:03 09/14/24 07:58
Vital Signs
Temp Pulse Resp BP Pulse Ox
99.9 F 102 19 196/91 96
09/14/24 06:00 09/14/24 06:00 09/14/24 06:00 09/11/24 13:03 09/14/24 07:58
Intake & Output
09/12/24 09/13/24 09/14/24 09/15/24
06:59 06:59 06:59 06:59
Intake Total 1417.0 / 1482.1 1922.3 / 1981.7 1779.6 / 1779.6
Output Total 4315 / 4315 3640 / 3715 2905 / 2905
Balance -2898.0 / -2832.9 -1717.7 / -1733.3 -1125.4 / -1125.4
Physical Exam
Physical Exam
General: Sedated on vent
Neck: Negative JVD
Heart: V pacing, Negative S3 positive S1/S2, Negative S4, No murmur
Lungs: CTA b/l, negative wheezes/rales/rhonchi
Abd: Positive BS, NT/ND, neg rebound/rigidity/guarding
Ext: Negative cyanosis/clubbing/edema
Neuro: nonfocal
[2024-09-14] MEDS: D5W 500 IV (11:35)
[2024-09-14 11:39] VITALS: BP_SYST 111
--- NOTE | 2024-09-14 12:32 | W.PN.ENT ---
Today's Communication
-
As above
Impression / Plan
-
The patient has done well since the packing was placed; now doing well with it removed. Please call if there is any significant bleeding
Subjective Data
-
Patient has done well as far as no bleeding since left nasal balloon was placed.
Objective Data
-
Vital Signs
Temp Pulse Resp BP Pulse Ox
99.2 F 98 23 196/91 95
09/14/24 07:05 09/14/24 11:39 09/14/24 11:39 09/11/24 13:03 09/14/24 12:00
Intake & Output
09/13/24 09/14/24 09/15/24
06:59 06:59 06:59
Intake:
Oral fluids 0 / 0 0 / 0
IV fluids (Total) 422.3 / 441.7 419.6 / 499.6 573.9 / 573.9
D5W 200 / 200
D5w 1,000 ml @ 70 mls/hr IV . 210 / 280 350 / 350
[id number] [facility] Rx#:[id number]
Fentanyl 127.5 / 132.5 95.0 / 97.5 5.0 / 5.0
Levophed 130 / 137.5 82.5 / 90.0 18.9 / 18.9
Propofol 164.8 / 171.7 32.1 / 32.1
IV piggybacks 580 / 580 340 / 340
TPN/PPN 920 / 960 960 / 1000 240 / 240
Amount instilled into GI Tube ( 60 / 60 30 / 30
Total)
[place] Sump 60 / 60 30 / 30
Output:
Liquid stool amount 25 / 25 50 / 50
Ileostomy 25 / 25 50 / 50
Gastrointestinal tube output ( 150 / 150 750 / 750
Total)
[place] Sump 150 / 150 750 / 750
Urine, Head 3465 / 3540 2155 / 2220 410 / 410
Lab Results
09/14/24 02:50
09/14/24 02:50
PT 14.4 Sec (11.4-14.6) 09/08/24 22:38
INR 1.09 09/08/24 22:38
APTT 30.4 Sec (23.4-35.0) 09/08/24 22:38
Calcium 8.7 mg/dl (8.4-10.2) 09/14/24 02:50
Phosphorus 2.8 mg/dl (2.5-4.5) 09/14/24 02:50
Magnesium 2.1 mg/dl (1.6-2.3) 09/14/24 02:50
Total Bilirubin 1.7 mg/dl (0.2-1.3) H 09/14/24 02:50
Direct Bilirubin 1.5 mg/dl (0.0-0.4) H 09/13/24 00:52
AST 28 U/L (17-59) 09/14/24 02:50
ALT 18 U/L (0-50) 09/14/24 02:50
Alkaline Phosphatase 67 U/L (38-126) 09/14/24 02:50
Triglycerides 127 mg/dl (10-149) 09/14/24 02:50
Physical Exam
-
Balloon in place with no bleeding.
It is removed which he tolerates well
[2024-09-14] MEDS: NOVOLOG FLEXPEN-LOW RESISTANCE 2 UNITS SC (12:39)
[2024-09-14 12:49] LABS: Glucose - Point of Care 231 mg/dl (70-99)
--- NOTE | 2024-09-14 12:58 | W.PN.ID1 ---
Date of Service
Date of Service: September 14, 2024
Today's Communication
Continue meropenem.
Assessment / Plan
# E. coli bacteremia x 3 sets, intra-abdominal source
# 09/01/24 status post right hemicolectomy for invasive colon adenocarcinoma
# 09/08/24 Postop anastomotic leak with feculent peritonitis status post washout, end colostomy, no intraoperative culture available.
# Fever
# Leukocytosis resolved
# VDRF
# CESAR -improving
# Acute thrombocytopenia due to sepsis
# septic shock -weaning 1 pressor
# Nonischemic cardiomyopathy with AICD in place. Intermittent V. tach.
# Acute CHF - diuresing
- repeat blood cultures neg to date
- Continue meropenem 500mg IV q8h (d2)
- Follow temps, vitals
- Remains critically ill in ICU.
- Poor prognosis.
#PMHx
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
Hypertension
Nonischemic cardiomyopathy s/p AICD placement
COPD
Tobacco abuse
Depression
Colon cancer status post robotic right hemicolectomy, partial omentectomy September 01, 2024
Chief Complaint
-: Fever, Bacteremia and Other (Feculent peritonitis)
Subjective / Review of Systems
Remains on vent.
Vital Signs / Physical Exam
Vital Signs
Vital Signs
Temp Pulse Resp BP Pulse Ox
99.2 F 98 23 196/91 95
09/14/24 07:05 09/14/24 11:39 09/14/24 11:39 09/11/24 13:03 09/14/24 12:00
Physical Exam
Constitutional: Acutely Ill, Chronically Ill and Cachetic
Cardiovascular: Regular Rate and S1/S2
Pulmonary: Clear
Gastrointestinal: Soft and Non Tender
Genito-Urinary: Head and Clear Urine
Extremities: Edema
Lines: PICC (LUE no erythema)
Objective Data
Lab Data
Lab Results
09/14/24 02:50
09/14/24 02:50
PT 14.4 Sec (11.4-14.6) 09/08/24 22:38
INR 1.09 09/08/24 22:38
APTT 30.4 Sec (23.4-35.0) 09/08/24 22:38
Estimated Creat Clear 43 ml/min 09/14/24 02:50
Lactic Acid 1.8 mmol/L (0.7-2.0) 09/08/24 22:38
Total Bilirubin 1.7 mg/dl (0.2-1.3) H 09/14/24 02:50
AST 28 U/L (17-59) 09/14/24 02:50
ALT 18 U/L (0-50) 09/14/24 02:50
Alkaline Phosphatase 67 U/L (38-126) 09/14/24 02:50
Most recent labs reviewed.
Micro Results:
09/13/24 00:52 Blood Culture - Preliminary
Blood/Venous No Growth in 24 hours- Final report to follow
09/12/24 20:41 Blood Culture - Preliminary
Blood/Venous No Growth in 24 hours- Final report to follow
09/12/24 15:15 Blood Culture - Preliminary
Blood/Venous No Growth in 24 hours- Final report to follow
09/10/24 13:22 Blood Culture - Preliminary
Blood/Venous Escherichia coli
Gram Stain - Preliminary
09/09/24 00:00 Blood Culture - Preliminary
Blood/Venous Escherichia coli
Gram Stain - Preliminary
09/08/24 23:32 Blood Culture - Preliminary
Blood/Venous Escherichia coli
Gram Stain - Preliminary
09/06/24 04:35 Influenza Types A & B (LILLIAN) - Final
Nasal Swab Negative for Influenza A & B, NAAT
Negative results must be combined with clinical observations
and patient history.
Nucleic Acid Amplification test (NAAT)performed on the
[employer]It platform.
09/01/24 15:53 MRSA Screen - Final
Nose No Methicillin Resistant Staphylococcus aureus isolated.
09/14/24 CXR: Slight interval resolution of left a similar opacity which could represent resolving pneumonia.
09/12/24 CXR: Patchy parenchymal opacity is present within the left mid to lower lung, likely representing pneumonia, a new finding when comparing back to radiograph of September 09, 2024. Slight improvement in confluent increased opacity in the left
lower hemithorax, which likely represents interval improvement in left base atelectasis.
09/08/24 CT a/p: Findings suggesting bowel perforation with new active extravasation of oral contrast in the right upper quadrant and progressed moderate free intraperitoneal air and free fluid. Mild small bowel dilatation with fluid-filled loops of
bowel probably due to small bowel ileus. Mild circumferential wall thickening of the left colon suggesting colitis.
09/03/24 CT a/p: Mild intraperitoneal free air in the abdomen. Subcutaneous gas in the left lateral abdominal wall extending into the left anterior pelvis/left inguinal region, and left scrotum. These findings are favored to be postoperative given
that the patient is postop day 2 status post laparoscopic right hemicolectomy. Diffuse dilatation of small bowel without evidence for a transition point suggesting an adynamic ileus.
[2024-09-14] MEDS: SUBLIMAZE 50 MCG IV (14:50)
--- NOTE | 2024-09-14 15:50 | CM ---
CM following re: discharge planning.
Discussed in rounds, reviewed pt's chart, met with pt. Per Rounds meeting, pt remains intubated, failed short weaning trial today, continue supportive care.
Pt lives at [facility], a correction, independent with ADL, ambulates without assisted devices.
D/C plan: uncertain at this time and will depend on pt's progress.
CM will follow with discharge plan updates as hospitalization progresses
--- NOTE | 2024-09-14 16:03 | PTCARENOTE ---
I had called Gordon Lita to verify that I could provide Michelle, the patient's great niece information. I had discussed goals of care with Gordon and he verified that his brother would not want to live on a breathing machine or with an an ileostomy.
He understands that he is very deconditioned and unlikely to be strong enough to survive. Michelle also made aware of this. The decision was to proceed with comfort measures while a family member was present. Pt nodded his head in understanding
multiple times.
--- NOTE | 2024-09-14 16:22 | W.PN.UPDATE ---
Update Note
Progress Note Update
Extensive discussion with Michelle (Niece), Gordon (Brother) and patient, with critical care nurse present and Michelle
Had discussion with patient about clinical situation.
Pt made it clear with nodding appropriately that he does not want tracheotomy, does not want to be on the ventilator (nods no)
He understands that he has cancer that is spread to his lymph nodes (nods yes)
He understands that in his current state of health, he is not eligible for any chemotherapy (nods yes)
He also understands that if he were to pursue tracheotomy, he would not be able to get treatment for his cancer until recovered and stronger (nods yes)
With all of the above, he has made it clear to myself that he would want to be comfortable (nods yes), would want to 'take tubes ou' and withdrawing all care (nods yes). He understands that he may in withdrawing care (nods yes). He nods no when
asked again about tracheotomy and staying on life support/ventilator.
In fact, as we continued to describe the process of withdrawal of care, pt began to roll his eyes.
His niece Michelle also confirmed that he would prefer to be comfortable based on her interaction with him. She has had extensive discussion with him along with Gordon who also confirmed pt wishes based on their understanding of his wishes.
Gordon is aware of him being designated decision maker and he has been made aware of pts wishes, which is c/w prior discussion between Gordon and pt
There is no Advanced Directive or living will per Gordon nor per records
Psychiatry correspondence also reviewed 09/08, at which time patient was deemed competent and brother was designated as decision-maker
Gordon has been in contact with one of the children (Obey). Patient has designated Gordon as being his decision maker throughout this process including prior hospital stay. Patient has not wanted his children involved per prior d/w with health care
providers and Gordon. Apparently his children do not want to be involved when reached out to by both Michelle and Gordon. Gordon has been updating Obey throughout and Obey has relayed to Gordon to 'make sure he doesn't suffer and is comfortable'.
Given that patient has been off sedation now for 24 hours, nodding to questions appropriately, patient is deemed competent to make his own decisions. This combined with prior discussions with patient and family members (Gordon and Michelle), we will
proceed to extubation and focus on comfort, honoring pt wishes
Updated primary service
All questions answered
TCCT 60 min
[2024-09-14] MEDS: ATIVAN 1 MG IV (16:56)
[2024-09-14] MEDS: MORPHINE SULFATE 2 MG IV (16:57)
[2024-09-14] MEDS: NSS (PRESERVATIVE FREE) 0.5 ML IV (16:57)
--- NOTE | 2024-09-14 17:04 | PTCARENOTE ---
Premedicated as ordered. Pt was extubated @ 1704 with his niece at the bedside. He appears comfortable. Supportive care provided.
--- NOTE | 2024-09-14 17:29 | PTCARENOTE ---
Pt with no wave form on his arterial line. No heart tones or spontaneous respirations. Dr. Grijalva and Dr. Ambriz notified. His niece was provided supportive care. All belongings remained in the room with the patient.
--- NOTE | 2024-09-14 17:41 | W.PN.DEATH ---
Pronouncement of
-
Called to see patient to pronounce.
No spontaneous heart tones or respirations noted.
Patient not responsive to verbal stimuli.
Patient is pronounced .
Time of : 17:26
Date of : 09/14/24
Cause of : Respiratory Failure 2/2 Septic Shock d/t Bowel Perforation ultimately due to obstruction metastatic colon cancer
Family Notified: Yes
--- NOTE | 2024-09-14 21:59 | W.PN.ONC2 ---
Today's Communication / Plan
-
Comfort care/hospice appropriate.
Impression
Impression
Thrombocytopenia 2* sepsis. Normal coags. s/p 3U SDP, last 09/10
bowel perforation, 09/08/24, feculent peritonitis
colon adenocarcinoma, moderately differentiated, node +, and with metastatic nodule to right gutter, s/p right hemicolectomy 09/01/24
VDRF, extubated 09/11
anemia. No B12, folate, or iron deficiency. Low Reticulocyte count suggests that bone marrow suppressed due to infection
leukocytosis
CESAR
Plan
Plan
Pt noted to be deteriorating clinically, persistently febrile and increasing O2 requirement.
Degree of cachexia suggests he will not be a candidate for chemotherapy and he is at very high risk of recurrence.
Prognosis poor and comfort care would be appropriate.
Did not want to discuss this with pt without any family present to support him.
Subjective/Objective
Chief Complaint
Colon cancer
Subjective
This note is a late entry. Pt was seen this morning. Pt on vent, persistently febrile.
Vital Signs:
Vital Signs
Temp Pulse Resp BP Pulse Ox
98.7 F 71 8 196/91 89
09/14/24 16:00 09/14/24 17:15 09/14/24 17:15 09/11/24 13:03 09/14/24 17:00
Lab Results:
Laboratory Data
WBC 8.3 10^3/uL (4.8-10.8) 09/14/24 02:50
Hgb 9.1 g/dL (13.0-18.0) L 09/14/24 02:50
Plt Count 166 10^3/uL (130-400) D 09/14/24 02:50
PT 14.4 Sec (11.4-14.6) 09/08/24 22:38
INR 1.09 09/08/24 22:38
APTT 30.4 Sec (23.4-35.0) 09/08/24 22:38
eGFR 58.37 09/14/24 02:50
Physical Exam
Appears chronically and acutely ill
On vent but able to interact by nodding yes and no
Review of Systems
Review of Systems
Unable to determine due to pt intubation
--- NOTE | 2024-09-15 12:04 | W.DCSUMMARY ---
Discharge Summary
Discharge Data
Date of Admission: 09/01/24
Date of Discharge: 09/14/24
-
Pending Results: No
Hospital Course
74 years old male who was initially admitted to the surgery service under care of Dr. Gasper Awad for partial colon obstruction treatment. Patient was diagnosed with ascending colon cancer and he underwent robotic right hemicolectomy, mesenteric
angiography with ICG, excision of peritoneal nodule, partial omentectomy and laparoscopic T AP block by Dr. Gasper Awad on September 01, 2014. Medicine service was consulted for medical management due to history of hypertension and heart failure,
CVA. Patient was followed by surgery postoperatively. Diet was advanced slowly with pain control. He was noted to have increasing abdominal pain with distention and imaging studies at the time showed ileus. Patient was treated conservatively
with close monitoring of vital signs, blood work and clinical examination. Cardiology was consulted and for nonsustained ventricular tachycardia. His heart medications were adjusted and ICD was interrogated. Patient started to have instability of
his vital signs with increasing abdominal pain and distention. Patient designated his brother Gordon as point of contact and family to consult for decision making. Surgery wanted to repeat CAT scan imaging but patient refused. Psychiatry doctor
was consulted and patient was deemed to be capable of making decision and his refusal was explained as personality factor causing delay in intervention. After few counseling and discussion with the patient, he agreed to have cast. Repeat CAT scan
on September 08 showed findings concerning for anastomotic leak versus other type of bowel perforation. Findings were discussed with patient and his brother. Patient was abnormal to go back to the operating room. Patient underwent exploratory
laparotomy, resection of ileal colic anastomosis, abdominal washout, mesenteric angiography with ICG, T AP block, creation of end colostomy by Dr. Gasper Awad on . Patient remained intubated postoperatively was transferred to the ICU for
postoperative care. ICU doctor was consulted. Patient was managed by pressure support, volume resuscitation, starting Toradol parenteral nutrition and intravenous antibiotics. ID doctor was managing his antibiotics. He was maintained on
mechanical ventilation with daily SAT/SBT. He subsequently failed extubation on September 11 due to increased shortness of breath and hypoxia. He developed nosebleed and he was seen by ENT specialist, he had nasal trumpet and was immediately
reintubated, he underwent bronchoscopy with suctioning of blood. Prognosis remained guarded and patient was appropriate for discussion of goal of care. His brother was updated by ICU doctor. Prognosis was discussed with brother and was noted that
his cancer had spread to lymph nodes. Oncology recommended to continue supportive care but patient had slim to none chance of receiving chemotherapy due to poor functional status and severe protein caloric malnutrition status. Patient was
maintained on total parenteral nutrition. He showed some stability and was weaned off sedation. Patient became more alert and awake, he was responsive appropriately to questions. Brother was made aware of him being designated decision-maker
according to patient's wishes. Patient expressed his wishes to be on comfort care and did not want to be maintained off life support measures or to have tracheostomy. Patient was informed that he might if extubated. Patient wished to continue
and to be extubated, pursue comfort measures. Brother was informed and he wanted to pursue patient's wishes. Patient was extubated on September 14 and he peacefully shortly after.
Discharge Plan
-
Patient Disposition:
Date/Time
Date/Time: 09/14/24 17:26
Discharge Date and Time
Discharge Date/Time: 09/14/24 17:26
Print Language: MOLDOVAN
== END 2024-09-14 17:26 | disposition expired | DRG 329 ==
LOC: ICU 06:08
PROVIDERS: Hospitalist; Nurse Practitioner Family; Physician Assistant; Radiology Diagnostic Radiology; ADMITTING PHYSICIAN Surgery; ATTENDING PHYSICIAN Internal Medicine; CONSULT PHYSICIAN Internal Medicine Critical Care Medicine; CONSULT PHYSICIAN Internal Medicine Hematology & Oncology; CONSULT PHYSICIAN Internal Medicine Infectious Disease; CONSULT PHYSICIAN Otolaryngology; FAMILY PHYSICIAN Internal Medicine Geriatric Medicine; OTHER PHYSICIAN Internal Medicine; OTHER PHYSICIAN Internal Medicine Cardiovascular Disease; OTHER PHYSICIAN Psychiatry & Neurology Psychiatry
PROC: 8E0W4CZ Robotic Assisted Procedure of Trunk Region, Percutaneous Endoscopic Approach (ICD-10-PCS; 2024-09-01)
PROC: 07BC4ZZ Excision of Pelvis Lymphatic, Percutaneous Endoscopic Approach (ICD-10-PCS; 2024-09-01)
PROC: 0DTF4ZZ Resection of Right Large Intestine, Percutaneous Endoscopic Approach (ICD-10-PCS; 2024-09-01)
PROC: 0DBW4ZZ Excision of Peritoneum, Percutaneous Endoscopic Approach (ICD-10-PCS; 2024-09-01)
PROC: 0DBU4ZZ Excision of Omentum, Percutaneous Endoscopic Approach (ICD-10-PCS; 2024-09-01)
PROC: 5A1945Z Respiratory Ventilation, 24-96 Consecutive Hours (ICD-10-PCS; 2024-09-08)
PROC: 0DBB0ZZ Excision of Ileum, Open Approach (ICD-10-PCS; 2024-09-08)
PROC: 0D1B0Z4 Bypass Ileum to Cutaneous, Open Approach (ICD-10-PCS; 2024-09-08)
PROC: 0DBL0ZZ Excision of Transverse Colon, Open Approach (ICD-10-PCS; 2024-09-08)
PROC: 02HV33Z Insertion of Infusion Device into Superior Vena Cava, Percutaneous Approach (ICD-10-PCS; 2024-09-09)
PROC: 30243R1 Transfusion of Nonautologous Platelets into Central Vein, Percutaneous Approach (ICD-10-PCS; 2024-09-09)
PROC: 0B978ZZ Drainage of Left Main Bronchus, Via Natural or Artificial Opening Endoscopic (ICD-10-PCS; 2024-09-11)
PROC: 0B9M8ZZ Drainage of Bilateral Lungs, Via Natural or Artificial Opening Endoscopic (ICD-10-PCS; 2024-09-11)
PROC: 0BP1XDZ Removal of Intraluminal Device from Trachea, External Approach (ICD-10-PCS; 2024-09-11)
PROC: 0B938ZZ Drainage of Right Main Bronchus, Via Natural or Artificial Opening Endoscopic (ICD-10-PCS; 2024-09-11)
PROC: 0BH18EZ Insertion of Endotracheal Airway into Trachea, Via Natural or Artificial Opening Endoscopic (ICD-10-PCS; 2024-09-11)
PROC: 2Y41X5Z Packing of Nasal Region using Packing Material (ICD-10-PCS; 2024-09-12)
DX: C18.2 Malignant neoplasm of ascending colon (principal); A41.51 Sepsis due to Escherichia coli [E. coli]; T71.191A Asphyxiation due to mechanical threat to breathing due to other causes, accidental, initial encounter; E43 Unspecified severe protein-calorie malnutrition; K65.8 Other peritonitis; J96.01 Acute respiratory failure with hypoxia; R65.21 Severe sepsis with septic shock; I50.23 Acute on chronic systolic (congestive) heart failure; I42.8 Other cardiomyopathies; Z99.11 Dependence on respirator [ventilator] status; I47.20 Ventricular tachycardia, unspecified; Z68.1 Body mass index [BMI] 19.9 or less, adult; T81.320A Disruption or dehiscence of gastrointestinal tract anastomosis, repair, or closure, initial encounter; Z66 Do not resuscitate; Z51.5 Encounter for palliative care; C77.5 Secondary and unspecified malignant neoplasm of intrapelvic lymph nodes; I69.351 Hemiplegia and hemiparesis following cerebral infarction affecting right dominant side; J95.830 Postprocedural hemorrhage of a respiratory system organ or structure following a respiratory system procedure; K56.0 Paralytic ileus; N17.9 Acute kidney failure, unspecified; M48.54XA Collapsed vertebra, not elsewhere classified, thoracic region, initial encounter for fracture; E87.0 Hyperosmolality and hypernatremia; F17.210 Nicotine dependence, cigarettes, uncomplicated; I25.10 Atherosclerotic heart disease of native coronary artery without angina pectoris; I69.320 Aphasia following cerebral infarction; J44.9 Chronic obstructive pulmonary disease, unspecified; F32.A Depression, unspecified; I11.0 Hypertensive heart disease with heart failure; Z95.810 Presence of automatic (implantable) cardiac defibrillator; Z91.041 Radiographic dye allergy status; Z88.5 Allergy status to narcotic agent; Z79.899 Other long term (current) drug therapy; Z11.52 Encounter for screening for COVID-19; Y83.2 Surgical operation with anastomosis, bypass or graft as the cause of abnormal reaction of the patient, or of later complication, without mention of misadventure at the time of the procedure; D69.59 Other secondary thrombocytopenia; I34.0 Nonrheumatic mitral (valve) insufficiency; R04.0 Epistaxis; Y84.8 Other medical procedures as the cause of abnormal reaction of the patient, or of later complication, without mention of misadventure at the time of the procedure; J43.2 Centrilobular emphysema; J34.2 Deviated nasal septum; E16.2 Hypoglycemia, unspecified; D69.6 Thrombocytopenia, unspecified
CPT/HCPCS: 88305; 88307; 88309; 36415; 71045; 71046; 71275; 74019; 74177; 76705; 76775; 80048; 80053; 82040; 82248; 82570; 82607; 82728; 82746; 82805; 82962; 83605; 83735; 83880; 83935; 84100; 84300; 84478; 84484; 85025; 85027; 85045; 85610; 85730; 86022; 86850; 86900; 86901; 87040; 87070; 87149; 87186; 87205; 87502; 87811; 93005; 93970; 94002; 94003; 94640; 97163; 97167; 97530; 97535; C1776; P9073; Q9967